=== PATIENT | male | born 1945 | race Caucasian/White ===

== ENCOUNTER 2017-08-18 04:07 | Inpatient (IN) | payer OTHER, MEDICARE ==
[~2017-08-18] VITALS: Ht 182.9 cm; Wt 108.9 kg
[~2017-08-18 04:07] MED LIST changes: -METF-410 PO; +METF-411 PO; -POTA10CA40 PO
--- NOTE | 2017-08-18 04:21 | ER Report ---
History and Physical Time Seen By MD: 04:19 (ALEJANDRA BROWN MD) HPI/ROS CHIEF COMPLAINT: Falls, elevated blood glucose, altered HISTORY OF PRESENT ILLNESS: This is a 72-year-old male. He was brought to the ER this morning by EMS. They responded to his home twice during the night for falls. The first time they saw him, he refused care and seemed to be okay. The second time he fell, he was noted to be confused as well. The patient had an elevated blood glucose, the EMS glucometer read "hi". His is out of town and he does not know what medications he takes, and has not taken any medication since his left. He smelled of urine and has closed don't look like they've been changed in several days. He is able to answer simple questions for me, but complex answers he cannot give. He denies having any pain , denies chest pain, abdominal pain, or pain in his back, neck or head. No pain in the extremities. He denies feeling short of breath. He denies having nausea or vomiting. He is oriented to self and place, but not time. With his falls, it is uncertain if he lost consciousness or not or what the exact conditions were. He does not remember falling. REVIEW OF SYSTEMS: Constitutional: Denies having any fevers or chills. Eyes: Denies any changes to his vision at this time. ENT: No sore throat. No congestion. Cardiovascular: As above. Respiratory: No cough. Gastrointestinal: He does not know when his last bowel movement was. Genitourinary: Denies any pain with urinating. Denies urinary frequency but also was not oriented to time. Musculoskeletal: As above. Neurological: Denies headache. He does have weakness. (ALEJANDRA BROWN MD) Allergies: Coded Allergies: ibuprofen (Verified Allergy, Intermediate, 03/05/17) bupropion (Verified Allergy, Mild, 03/05/17) cephalexin (Verified Allergy, Mild, 03/05/17) dicloxacillin (Verified Allergy, Mild, 03/05/17) metronidazole (Verified Allergy, Mild, 03/05/17) Home Meds Reported Medications Melatonin (MELATONIN) 3 Mg Tablet, 3 MG PO HS 08/18/17 Potassium Chloride (POTASSIUM CHLORIDE) 10 Meq Capsule.er, 10 MEQ PO BID 08/18/17 Liraglutide (VICTOZA 2-RADHA) 0.6 Mg/0.1 Ml Pen.injctr, 1.2 MG SQ 03/05/17 Lansoprazole (PREVACID) 30 Mg Capsule.dr, 30 MG PO HS, CAP 03/05/17 Sitagliptin Phosphate (JANUVIA) 100 Mg Tablet, 100 MG PO HS, 03/05/17 Rivaroxaban 20 Mg (XARELTO 20 MG) 20 Mg Tablet, 20 MG PO DAILY, TAB 03/05/17 Furosemide (FUROSEMIDE) 20 Mg Tablet, 1 TAB PO DAILY, TAB 03/05/17 Metformin Hcl (METFORMIN HCL) 500 Mg Tablet, 2 TAB PO BID, TAB 03/05/17 Ropinirole Hcl (ROPINIROLE HCL) 2 Mg Tablet, 2 MG PO HS 03/05/17 Ropinirole Hcl (ROPINIROLE HCL) 0.5 Mg Tablet, 1-2 TAB PO HS Y for RLS exacerbation 03/05/17 Atorvastatin Calcium (LIPITOR) 10 Mg Tablet, 1 TAB PO QDAY, TAB 03/05/17 Lisinopril (LISINOPRIL) 10 Mg Tablet, 10 MG PO QDAY, TAB HOLD FOR SYSTOLIC BLOOD PRESSURE (HIGH NUMBER) LESS THAN 140 03/05/17 Pioglitazone Hcl (PIOGLITAZONE HCL) 30 Mg Tablet, 30 MG PO QDAY 03/05/17 Levothyroxine Sodium (SYNTHROID) 175 Mcg Tablet, 175 MCG PO QDAY 03/05/17 Gabapentin (NEURONTIN) 300 Mg Capsule, 300 MG PO TID 05/13/13 Paroxetine Hcl (Paxil) 20 Mg Tab, 40 MG PO QHS, 0 Refills TAKE IN THE EVENING STARTING 03/09/17. 12/27/10 Albuterol/Ipratropium (Combivent Inhaler) 14.7 Gm Aer.w.adap, 14.7 GM IH BID, 0 Refills 12/27/10 Tiotropium Ward (Spiriva (Or Equiv)) 18 Mcg Inh, 1 PUFF INH DAILY, 0 Refills 12/27/10 Oxygen (Oxygen) 2 L Inha, 5 L INH DAILY, 0 Refills 5L/min continuously 12/27/10 Discontinued Reported Medications Potassium Chloride (Klor-Con/K-Dur/Micro K) 20 Meq Tabcr, 10 MEQ PO BID, 0 Refills 12/27/10 Past Medical/Surgical History Coronary artery disease, COPD, hypertension, hypothyroidism, hyperlipidemia, type 2 diabetes, history of DVT, pulmonary hypertension, restless leg syndrome, GERD, gastroparesis, essential tremor (ALEJANDRA BROWN MD) Reviewed Nurses Notes: Yes (ALEJANDRA BROWN MD) Hx Smoking: No Smoking Status: Never Smoker Exposure to Second Hand Smoke?: No Hx Substance Use Disorder: No Hx Alcohol Use: Yes (ALEJANDRA BROWN MD) Constitutional Vital Sign - Last 24 Hours 08/18/17 08/18/17 08/18/17 08/18/17 04:07 04:13 04:16 04:22 Temp 98.6 Pulse ??? 70 78 Resp 14 B/P (MAP) 118/75 118/75 (89) Pulse Ox 97 100 O2 Delivery Room Air 08/18/17 08/18/17 08/18/17 08/18/17 04:30 04:37 04:48 04:52 Pulse 67 72 Resp 11 B/P (MAP) 111/67 (82) Pulse Ox 98 98 O2 Flow Rate 3.0 08/18/17 08/18/17 08/18/17 08/18/17 05:00 05:05 05:20 05:30 Pulse 69 68 Resp 7 B/P (MAP) 122/69 (86) 115/75 (88) 08/18/17 08/18/17 08/18/17 08/18/17 05:35 05:50 06:00 06:05 Pulse 67 71 Resp 11 13 10 B/P (MAP) 114/64 (81) Pulse Ox 94 93 08/18/17 08/18/17 08/18/17 08/18/17 06:20 07:02 07:07 07:12 Pulse 68 66 68 Resp 15 12 24 B/P (MAP) 131/71 (91) Pulse Ox 97 98 95 08/18/17 08/18/17 08/18/17 08/18/17 07:17 07:22 07:27 07:30 Pulse 68 66 65 Resp 0 14 22 B/P (MAP) 117/90 (99) Pulse Ox 98 99 97 08/18/17 08/18/17 08/18/17 08/18/17 07:37 07:42 07:47 07:52 Pulse 67 65 66 66 Resp 12 9 13 11 Pulse Ox 97 98 96 96 08/18/17 08/18/17 08/18/17 08/18/17 07:57 08:00 08:02 08:07 Pulse 64 65 64 Resp 11 19 B/P (MAP) 122/68 (86) Pulse Ox 96 96 08/18/17 08/18/17 08/18/17 08/18/17 08:22 08:27 08:30 08:41 Pulse 63 62 Resp 16 B/P (MAP) 112/62 (79) 132/68 (89) Pulse Ox 95 08/18/17 08/18/17 08/18/17 08/18/17 08:47 09:00 09:07 09:12 Pulse 61 62 61 Resp 14 10 15 B/P (MAP) 122/69 (86) Pulse Ox 97 95 97 08/18/17 08/18/17 09:22 09:30 Pulse 63 Resp 22 B/P (MAP) 127/69 (88) Pulse Ox 95 Intake and Output 08/18/17 08/18/17 08/19/17 15:00 23:00 07:00 Intake Total 1000 ml Balance 1000 ml (VEGA SANDHU MD) Physical Exam General Appearance: The patient is alert. No acute distress. Eyes: Pupils are equal, round. Reactive to light. No pallor, injection or icterus. Extraocular movements are intact. ENT: Mucous membranes are dry, but otherwise normal mucosa. Posterior oropharynx is normal. Normal nasal mucosa. Normal tympanic membranes and canals. Neck: Supple and non tender. No lymphadenopathy. Respiratory: Lungs are clear to auscultation. Cardiovascular: Regular rate and rhythm. No murmurs, gallops or rubs. Normal capillary refill. He has 2+ edema in the ankles and lower legs. Gastrointestinal: Abdomen is soft, non-tender. Nondistended. No masses or organomegaly. Normal active bowel sounds. No costovertebral angle tenderness with percussion. Neurological: Oriented to place and self, but not to event and time. Generalized weakness. Moving arms and legs. Other than general weakness, no focal weakness. Has some decreased sensation both feet, but otherwise sensation is normal. Skin: Warm and dry. Skin tear on leg. Some abrasions on elbows and forearms. Skin changes from chronic edema. Otherwise negative. Musculoskeletal: Extremities are nontender. Full range of motion. No tenderness in palpation of the cervical, thoracic and lumbar spine. DIFFERENTIAL DIAGNOSIS: After history and physical exam, differential diagnosis was considered for 72-year-old male with type 2 diabetes and other medical problems as noted above who has had several falls tonight, at least to that we know of. He has generalized weakness. He is having altered mental status. His blood sugar is elevated and he is not taking his medicines. He also appears to be somewhat altered as far as mental status goes. With suspect this is a metabolic problem, likely due to his diabetes but given his other history cannot rule out other cardiac or medical problems. ([facility]) Medical Decision Making Data Points Result Diagram: 08/20/17 0506 08/20/17 0506 Laboratory Hematology Test 08/18/17 04:10 08/18/17 04:33 08/18/17 09:10 Red Blood Count 4.81 M/uL (4.00-5.60) Mean Corpuscular Volume 90.1 fL (80.0-96.0) Mean Corpuscular Hemoglobin 30.2 pg (26.0-33.0) Mean Corpuscular Hemoglobin Concent 33.5 g/dL (32.0-36.0) Red Cell Distribution Width 14.0 % (11.5-14.5) Mean Platelet Volume 9.3 fL (7.2-11.1) Neutrophils (%) (Auto) 73.3 % (39.4-72.5) Lymphocytes (%) (Auto) 15.8 % (17.6-49.6) Monocytes (%) (Auto) 8.2 % (4.1-12.4) Eosinophils (%) (Auto) 2.4 % (0.4-6.7) Basophils (%) (Auto) 0.3 % (0.3-1.4) Nucleated RBC Relative Count (auto) 0.0 /100WBC Neutrophils # (Auto) 4.6 K/uL (2.0-7.4) Lymphocytes # (Auto) 1.0 K/uL (1.3-3.6) Monocytes # (Auto) 0.5 K/uL (0.3-1.0) Eosinophils # (Auto) 0.2 K/uL (0.0-0.5) Basophils # (Auto) 0.0 K/uL (0.0-0.1) Nucleated RBC Absolute Count (auto) 0.00 K/uL Sodium Level 130 mmol/L (137-145) Potassium Level 4.0 mmol/L (3.5-5.0) Chloride Level 93 mmol/L (98-107) Carbon Dioxide Level 20 mmol/L (22-30) Blood Urea Nitrogen 37 mg/dl (9-21) Creatinine 0.90 mg/dl (0.66-1.25) Glomerular Filtration Rate Calc > 60.0 Random Glucose 660 mg/dl (75-110) Calcium Level 10.4 mg/dl (8.4-10.2) Total Bilirubin 0.9 mg/dl (0.2-1.3) Aspartate Amino Transf (AST/SGOT) 23 U/L (0-35) Alanine Aminotransferase (ALT/SGPT) 36 U/L (0-56) Alkaline Phosphatase 165 U/L (0-126) Troponin I < 0.012 ng/ml B-Type Natriuretic Peptide 18 pg/ml (0-100) Total Protein 7.5 gm/dl (6.3-8.2) Albumin 4.1 g/dl (3.5-5.0) Serum Alcohol < 10 mg/dl Acetone, Qualitative Negative Urine Color Straw Urine Clarity Clear Urine pH 5.0 pH (4.8-9.5) Urine Specific [place] 1.028 Urine Protein Negative mg/dL (NEGATIVE) Urine Glucose (UA) 500 mg/dL (NEGATIVE) Urine Ketones Trace mg/dL (NEGATIVE) Urine Blood Negative (NEGATIVE) Urine Nitrite Negative (NEGATIVE) Urine Bilirubin Negative (NEGATIVE) Urine Urobilinogen Negative mg/dL (0.2-1.9) Urine Leukocyte Esterase Negative (NEGATIVE) Urine RBC <1 /HPF (0-2/HPF) Urine WBC <1 /HPF (0-5/HPF) Urine Squamous Epithelial Cells Few /LPF (</=FEW) Urine Bacteria Negative /HPF (NONE-FEW) Urine Mucus None /HPF (NONE-FEW) Whole Blood Glucose 428 mg/DL (75-110) Chemistry Test 08/18/17 04:10 08/18/17 04:33 08/18/17 09:10 White Blood Count 6.3 k/uL (4.5-11.0) Red Blood Count 4.81 M/uL (4.00-5.60) Hemoglobin 14.5 g/dL (14.0-18.0) Hematocrit 43.3 % (42.0-52.0) Mean Corpuscular Volume 90.1 fL (80.0-96.0) Mean Corpuscular Hemoglobin 30.2 pg (26.0-33.0) Mean Corpuscular Hemoglobin Concent 33.5 g/dL (32.0-36.0) Red Cell Distribution Width 14.0 % (11.5-14.5) Platelet Count 148 K/uL (150-450) Mean Platelet Volume 9.3 fL (7.2-11.1) Neutrophils (%) (Auto) 73.3 % (39.4-72.5) Lymphocytes (%) (Auto) 15.8 % (17.6-49.6) Monocytes (%) (Auto) 8.2 % (4.1-12.4) Eosinophils (%) (Auto) 2.4 % (0.4-6.7) Basophils (%) (Auto) 0.3 % (0.3-1.4) Nucleated RBC Relative Count (auto) 0.0 /100WBC Neutrophils # (Auto) 4.6 K/uL (2.0-7.4) Lymphocytes # (Auto) 1.0 K/uL (1.3-3.6) Monocytes # (Auto) 0.5 K/uL (0.3-1.0) Eosinophils # (Auto) 0.2 K/uL (0.0-0.5) Basophils # (Auto) 0.0 K/uL (0.0-0.1) Nucleated RBC Absolute Count (auto) 0.00 K/uL Glomerular Filtration Rate Calc > 60.0 Calcium Level 10.4 mg/dl (8.4-10.2) Total Bilirubin 0.9 mg/dl (0.2-1.3) Aspartate Amino Transf (AST/SGOT) 23 U/L (0-35) Alanine Aminotransferase (ALT/SGPT) 36 U/L (0-56) Alkaline Phosphatase 165 U/L (0-126) Troponin I < 0.012 ng/ml B-Type Natriuretic Peptide 18 pg/ml (0-100) Total Protein 7.5 gm/dl (6.3-8.2) Albumin 4.1 g/dl (3.5-5.0) Serum Alcohol < 10 mg/dl Acetone, Qualitative Negative Urine Color Straw Urine Clarity Clear Urine pH 5.0 pH (4.8-9.5) Urine Specific [place] 1.028 Urine Protein Negative mg/dL (NEGATIVE) Urine Glucose (UA) 500 mg/dL (NEGATIVE) Urine Ketones Trace mg/dL (NEGATIVE) Urine Blood Negative (NEGATIVE) Urine Nitrite Negative (NEGATIVE) Urine Bilirubin Negative (NEGATIVE) Urine Urobilinogen Negative mg/dL (0.2-1.9) Urine Leukocyte Esterase Negative (NEGATIVE) Urine RBC <1 /HPF (0-2/HPF) Urine WBC <1 /HPF (0-5/HPF) Urine Squamous Epithelial Cells Few /LPF (</=FEW) Urine Bacteria Negative /HPF (NONE-FEW) Urine Mucus None /HPF (NONE-FEW) Whole Blood Glucose 428 mg/DL (75-110) Toxicology Test 08/18/17 04:10 Serum Alcohol < 10 mg/dl Acetone, Qualitative Negative Urinalysis Test 08/18/17 04:33 Urine Color Straw Urine Clarity Clear Urine pH 5.0 pH (4.8-9.5) Urine Specific [place] 1.028 Urine Protein Negative mg/dL (NEGATIVE) Urine Glucose (UA) 500 mg/dL (NEGATIVE) Urine Ketones Trace mg/dL (NEGATIVE) Urine Blood Negative (NEGATIVE) Urine Nitrite Negative (NEGATIVE) Urine Bilirubin Negative (NEGATIVE) Urine Urobilinogen Negative mg/dL (0.2-1.9) Urine Leukocyte Esterase Negative (NEGATIVE) Urine RBC <1 /HPF (0-2/HPF) Urine WBC <1 /HPF (0-5/HPF) Urine Squamous Epithelial Cells Few /LPF (</=FEW) Urine Bacteria Negative /HPF (NONE-FEW) Urine Mucus None /HPF (NONE-FEW) (VEGA SANDHU MD) EKG/Imaging EKG Interpretation 12 lead EKG: Rhythm: normal sinus rhythm, rate 68 Mobile: normal QRS: Prolonged QT ST segments: Nonspecific Imaging CT Head without contrast Indication: Fall. Confusion. Comparison: 12/22/2013 Technique: Axial CT images were obtained through the brain from the skull base to the vertex without administration of IV contrast. Reformatted coronal and sagittal images were also obtained. One of the following dose optimization techniques was utilized in the performance of this exam: Automated exposure control; adjustment of the mA and/ or kV according to the patient's size; or use of an iterative reconstruction technique. Specific details can be referenced in the facility's radiology CT exam operational policy. Findings: No evidence of mass, mass effect, or midline shift. No acute intracranial hemorrhage or acute territorial infarction. There are mild periventricular white matter changes seen bilaterally suggesting chronic small vessel ischemia. Mild prominence of the lateral ventricles and sulci compatible with mild cerebral atrophy. Old lacunar infarct versus Virchow-Fritz space is seen within the right insular cortex. This is also stable. The visualized paranasal sinuses and mastoid air cells are clear. IMPRESSION: 1. No acute intracranial abnormality. 2. Mild diffuse cerebral atrophy. Report Dictated By: Dangelo Cameron at 08/18/2017 6:[address] Head without contrast Indication: Fall. Confusion. Comparison: 12/22/2013 Technique: Axial CT images were obtained through the brain from the skull base to the vertex without administration of IV contrast. Reformatted coronal and sagittal images were also obtained. One of the following dose optimization techniques was utilized in the performance of this exam: Automated exposure control; adjustment of the mA and/ or kV according to the patient's size; or use of an iterative reconstruction technique. Specific details can be referenced in the facility's radiology CT exam operational policy. Findings: No evidence of mass, mass effect, or midline shift. No acute intracranial hemorrhage or acute territorial infarction. There are mild periventricular white matter changes seen bilaterally suggesting chronic small vessel ischemia. Mild prominence of the lateral ventricles and sulci compatible with mild cerebral atrophy. Old lacunar infarct versus Virchow-Fritz space is seen within the right insular cortex. This is also stable. The visualized paranasal sinuses and mastoid air cells are clear. IMPRESSION: 1. No acute intracranial abnormality. 2. Mild diffuse cerebral atrophy. Report Dictated By: Dangelo Cameron at 08/18/2017 6:11 AM (ALEJANDRA BROWN MD) Imaging FACILITY: [facility] [place] PATIENT NAME: Geoff Dinh : 1945 MR: [id number] V: [id number] EXAM DATE: ORDERING PHYSICIAN: ALEJANDRA BROWN TECHNOLOGIST: Location: [facility] [place] Patient: Geoff Dinh : 1945 Visit/Account:[id number] Date of Sevice: 08/18/2017 CT Head without contrast Indication: Fall. Confusion. Comparison: 12/22/2013 Technique: Axial CT images were obtained through the brain from the skull base to the vertex without administration of IV contrast. Reformatted coronal and sagittal images were also obtained. One of the following dose optimization techniques was utilized in the performance of this exam: Automated exposure control; adjustment of the mA and/ or kV according to the patient's size; or use of an iterative reconstruction technique. Specific details can be referenced in the facility's radiology CT exam operational policy. Findings: No evidence of mass, mass effect, or midline shift. No acute intracranial hemorrhage or acute territorial infarction. There are mild periventricular white matter changes seen bilaterally suggesting chronic small vessel ischemia. Mild prominence of the lateral ventricles and sulci compatible with mild cerebral atrophy. Old lacunar infarct versus Virchow-Fritz space is seen within the right insular cortex. This is also stable. The visualized paranasal sinuses and mastoid air cells are clear. IMPRESSION: 1. No acute intracranial abnormality. 2. Mild diffuse cerebral atrophy. Report Dictated By: Dangelo Cameron at 08/18/2017 6:11 AM Report E-Signed By: Dangelo Cameron at 08/18/2017 6:18 AM WSN:[id number] FACILITY: [facility] [place] PATIENT NAME: Geoff Dinh : 1945 MR: [id number] V: [id number] EXAM DATE: ORDERING PHYSICIAN: ALEJANDRA BROWN TECHNOLOGIST: Location: [facility] [place] Patient: Geoff Dinh : 1945 Visit/Account:[id number] Date of Sevice: 08/18/2017 CT chest abdomen and pelvis with contrast INDICATION: Fall. Altered mental status. Abnormal chest x-ray. Pain. Back pain. COMPARISON: None available Technique: Axial CT images are obtained through the chest abdomen and pelvis after administration of 75 mL [id number] IV contrast. Reformatted coronal and sagittal images were reviewed. One of the following dose optimization techniques was utilized in the performance of this exam: Automated exposure control; adjustment of the mA and/ or kV according to the patient's size; or use of an iterative reconstruction technique. Specific details can be referenced in the facility's radiology CT exam operational policy. FINDINGS: CT Chest: There is no evidence of mediastinal hematoma. No pericardial effusion or pleural effusion. No axillary adenopathy. No hilar or mediastinal adenopathy. Examination of the lung windows demonstrates changes of centrilobular emphysema most pronounced within the upper lobes. No evidence of pneumothorax or pulmonary contusion. Within the left lower lobe, there is a small nodule identified on image 66 which measures 5 mm in size. There is a pulmonary nodule seen centrally within the left lower lobe. This is seen on image 59 of series # 3. This measures 1.6 x 1.5 cm. Concern is for possible neoplasm. PET CT could be performed for further assessment. No other pulmonary nodules. With respect to the osseous structures, no displaced rib fractures are seen. There is diffuse idiopathic skeletal hyperostosis of the thoracic spine. No compression deformity is seen. CT Abdomen and Pelvis: Liver: No focal parenchymal abnormality of the liver. Biliary: Layering gallstones are seen within the gallbladder. No surrounding inflammation. No intrahepatic or extrahepatic biliary dilatation is seen. Pancreas: Normal appearance. Spleen: Normal appearance. Adrenal glands: Unremarkable. Kidneys / retroperitoneum: Too small to characterize low-attenuation lesion is seen within the right kidney. This measures 7 mm in size. There is also artifact in this region from the right upper extremity. Statistically this represents a cyst. No stones or hydronephrosis are identified. Bowel / peritoneum / mesenteries: Moderate amount of stool within the distal colon and rectum. Scattered colonic diverticula are seen. No evidence of diverticulitis. No dilated small bowel loops. Lymph node assessment: No pathologic adenopathy identified. Pelvic structures: Appear unremarkable. Vessels: Scattered atherosclerotic calcifications seen throughout a nonaneurysmal abdominal aorta and branches. Musculoskeletal / Body wall: Extensive degenerative changes involve the lumbar spine. Protuberant endplate spurs at multiple levels both anteriorly and posteriorly. There is anterolisthesis of L4 upon L5. No acute compression deformity is seen. Posterior spurs at the T12-L1 and L1-L2 disc spaces cause spinal canal narrowing most pronounced at L1-L2. Narrowing is also seen at L3- L4. 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 There has been prior plate and screw fixation of the proximal left femur. Suspected benign bone island within the right posterior iliac crest. Comparison with any older studies would be useful. IMPRESSION: 1. No acute traumatic injury identified within the chest abdomen or pelvis. 2. Suspicious nodule within the left lower lobe centrally measuring 1.6 cm in greatest dimension. PET CT recommended for further workup. A second nodule is seen within the lower lobe measuring 5 mm. 3. Cholelithiasis. 4. Extensive degenerative changes of the lumbar spine with posterior spurring causing multilevel spinal canal narrowing m st pronounced at L1-L2. No acute fracture identified. 5. Colonic diverticulosis. No evidence of diverticulitis. Report Dictated By: Dangelo Cameron at 08/18/2017 7:21 AMReport E-Signed By: Dangelo Cameron at 08/18/2017 7:42 AM WSN:[id number] FACILITY: [facility] [place] PATIENT NAME: Geoff Dinh : 1945 MR: [id number] V: [id number] EXAM DATE: [id number] ORDERING PHYSICIAN: ALEJANDRA BROWN TECHNOLOGIST: Location: [facility] [place] Patient: Geoff Dinh : 1945 Visit/Account:[id number] Date of Sevice: 08/18/2017 CHEST SINGLE AP Indication: Fall. Confusion. Comparison: 11/05/2013 Findings: The patient is rotated. A left mid to upper lung opacity is likely related to the first rib at the junction with the sternal manubrium. Consider a repeat PA view. Linear atelectasis is seen within the right lung base. Lungs are otherwise clear. No pleural effusion or pneumothorax is seen. Heart size and mediastinal contours are normal. IMPRESSION: 1. Linear atelectasis right lung base. 2. Left mid to upper lung opacity felt to be related to patient positioning and overlying osseous structures. A repeat exam could be performed for confirmation. Report Dictated By: Dangelo Cameron at 08/18/2017 5:28 AM Report E-Signed By: Dangelo Cameron at 08/18/2017 5:32 AM WSN:[id number] FACILITY: [facility] [place] PATIENT NAME: Geoff Dinh : 1945 MR: [id number] V: [id number] EXAM DATE: [id number] ORDERING PHYSICIAN: ALEJANDRA BROWN TECHNOLOGIST: Location: [facility] [place] Patient: Geoff Dinh : 1945 Visit/Account:[id number] Date of Sevice: 08/18/2017 L-SPINE W CONTRAST History: low back and flank pain, fall COMPARISON STUDIES: none TECHNIQUE: Contiguous axial images were obtained through the lumbar spine without IV contrast administration. Coronal and sagittal reformatted images were obtained from the axial source data. One of the following dose optimization techniques was utilized in the performance of this exam: Automated exposure control; adjustment of the mA and/or kV according to the patient's size ; or use of an iterative reconstruction technique. Specific details can be referenced in the facility's radiology CT exam operational policy. FINDINGS: Alignment: There is 6 mm anterolisthesis L4 over L5 secondary to degenerative facet hypertrophy. Vertebral bodies: Osseous structures intact. No evidence of fracture. Discs: There is degenerative disc disease at virtually every level of the lumbar spine. L1-2-there is a prominent posterior bridging disc osteophyte complex which is causing neural foraminal stenosis. [id number] disc space narrowing L3-4-mild central reactive endplate central osteophyte. L4-5-grade 1 spondylolisthesis secondary to degenerative facet arthropathy which is causing moderate to advanced neural foraminal stenosis. O4-N8-[id number] disc space narrowing with near [id number] abutment and facet arthropathy causing advanced right-sided neural foraminal stenosis. Para-vertebral soft tissues: Multiple small stones layer dependently in the gallbladder. There is no evidence of retroperitoneal hemorrhage. Additional findings: 1.4 cm round sclerotic lesion is seen in the right iliac bone near the SI joint. This is a nonspecific finding. IMPRESSION: Negative for acute trauma. Multilevel degenerative disc disease per above. Cholelithiasis. Sclerotic lesion right iliac bone. This probably represents a benign bone island. However, if patient has history of prostate cancer, blastic metastasis cannot be excluded. Report Dictated By: Alexis Ulloa MD at 08/18/2017 7:57 AM Report E-Signed By: Alexis Ulloa MD at 08/18/2017 8:06 AM WSN:[id number] FACILITY: [facility] - [place] PATIENT NAME: Geoff Dinh : 1945 MR: [id number] V: [id number] EXAM DATE: ORDERING PHYSICIAN: ALEJANDRA BROWN TECHNOLOGIST: Location: [facility] [place] Patient: Geoff Dinh : 1945 Visit/Account:[id number] Date of ice: 08/18/2017 T-SPINE W CONTRAST INDICATION: Trauma COMPARISON: None TECHNIQUE: Noncontrast thoracic spine CT was performed with sagittal and coronal reformations. One of the following dose optimization techniques was utilized in the performance of this exam: automated exposure control; adjustment of the mA and/or kV according to patient size; or use of iterative reconstruction technique. Specific details can be referenced in the facility's radiology CT exam operational policy. FINDINGS: Vertebral body heights are normal. No fracture identified. Exaggerated thoracic kyphosis. Multilevel anterior endplate spurring in keeping with diffuse idiopathic skeletal hyperostosis. Ossification of the posterior longitudinal ligament at the T12, L1 and L2 levels. Multilevel partial disc space fusion. Mild to moderate narrowing of the mid to lower disc spaces. Ossification of the posterior longitudinal ligament at the L2 level results in lateral recess narrowing and potential moderate canal narrowing not well characterized by CT. Mild emphysema noted. IMPRESSION: No acute thoracic spine abnormality. Benign diffuse idiopathic skeletal hyperostosis. Ossification of the posterior longitudinal ligament at the T12, L1 and L2 levels. Report Dictated By: Adilson Long MD at 08/18/2017 9:49 AM Report E-Signed By: Adilson Long MD at 08/18/2017 9:55 AM WSN:[id number] FACILITY: [facility] [place] PATIENT NAME: Geoff Dinh : 1945 MR: [id number] V: [id number] EXAM DATE: ORDERING PHYSICIAN: ALEJANDRA BROWN TECHNOLOGIST: Location: [facility] [place] Patient: Geoff Dinh : 1945 Visit/Account:[id number] Date of ice: 08/18/2017 EXAMINATION: CT Cervical spine without intravenous contrast HISTORY: Trauma COMPARISON: May 13, 2013 TECHNIQUE: Axial images were obtained from the skull base through the upper thoracic spine without IV contrast administration. Coronal and sagittal reformatted images were generated from the axial source data. One of the following dose optimization techniques was utilized in the performance of this exam: automated exposure control; adjustment of the mA and/ or kV according to patient size; or use of iterative reconstruction technique. Specific details can be referenced in the facility's radiology CT exam operational policy. FINDINGS: Vertebral bodies and posterior elements: Normal vertebral body heights. No fracture or osseous destruction. Unchanged ossification of the posterior longitudinal ligament at the C4, C5 and C6 levels most pronounced at the C6 level measuring 4 mm AP dimension. Alignment: Normal. Disc Spaces: Anterior flowing ossification at the C4-C6 levels. Mild C6-7 disc space degeneration. Severe narrowing of the proximal left C5-6 foramen. Moderate right C5-6 foraminal narrowing. Moderate left and severe right C6-7 foraminal narrowing. Soft tissues: Normal. Visualized upper chest: Mild emphysema. IMPRESSION: No acute fracture or acute abnormality. Unchanged ossification of the posterior longitudinal ligament most pronounced at C6. Additional degenerative comments described above. Report Dictated By: Adilson Long MD at 08/18/2017 9:41 AM Report E-Signed By: Adilson Long MD at 08/18/2017 10:28 AM WSN:[id number] (VEGA SANDHU MD) ED Course/Re-evaluation Clinical Indication for ER IV: Hydration, IV Access ED Course After the initial evaluation, the patient did have some continued confusion. Swanson CT scan is pending at this time. Chest x-ray negative. Patient did have Elevated blood sugar, mild low sodium, BUN/creatinine ratio was elevated at 37/ 0.9. Troponin negative, BNP negative. Turned over to Dr. Sandhu awaiting CT results. Discussed briefly with Dr. Ying recommending admission pending CT results. [facility] ED Course 08/18/2017 10:40:19 am patient with altered mental status secondary to likely discontinuation of medications. Glucose is improved while in the emergency department. Patient was accepted for admission at this time Decision to Disposition Date: August 18, 2017 Decision to Disposition Time: 10:40 (VEGA SANDHU MD) Depart Departure Latest Vital Signs Vital Signs Date Time Temp Pulse Resp B/P (MAP) Pulse Ox O2 Delivery O2 Flow Rate FiO2 08/18/17 09:30 127/69 (88) 08/18/17 09:22 63 22 95 08/18/17 04:48 3.0 08/18/17 04:13 98.6 Room Air (VEGA SANDHU MD) Impression: Primary Impression: Hyperglycemia Condition: Improved Disposition: Admitted from ER (to luis Ying) Referrals: VELMA WILLIAMSON DO (PCP) ALEJANDRA BROWN MD August 18, 2017 04:20 VEGA SANDHU MD August 18, 2017 08:55
[2017-08-18 04:49] LABS: PLATELET COUNT, AUTOMATED 148 K/uL (150-450)
--- NOTE | 2017-08-18 05:36 | RADIOLOGY IMAGING REPORT ---
FACILITY: [facility] - [place] PATIENT NAME: Geoff Dinh : 1945 MR: [id number] V: [id number] EXAM DATE: ORDERING PHYSICIAN: ALEJANDRA BROWN TECHNOLOGIST: Location: [facility] - [place] Patient: Geoff Dinh : 1945 Visit/Account:[id number] Date of Sevice: 08/18/2017 CHEST SINGLE AP Indication: Fall. Confusion. Comparison: 11/05/2013 Findings: The patient is rotated. A left mid to upper lung opacity is likely related to the first rib at the ju nction with the sternal manubrium. Consider a repeat PA view. Linear atelectasis is seen within the r ight lung base. Lungs are otherwise clear. No pleural effusion or pneumothorax is seen. Heart size an d mediastinal contours are normal. IMPRESSION: 1. Linear atelectasis right lung base. 2. Left mid to upper lung opacity felt to be related to patient positioning and overlying osseous str uctures. A repeat exam could be performed for confirmation. Report Dictated By: Dangelo Cameron at 08/18/2017 5:28 AM Report E-Signed By: Dangelo Cameron at 08/18/2017 5:32 AM WSN:[id number]
--- NOTE | 2017-08-18 06:02 | EKG ---
FACILITY: [facility] - [place] PATIENT NAME: LEONARDO CUMMINS : [id number] MR: [id number] V: [id number] EXAM DATE: ORDERING PHYSICIAN: ALEJANDRA BROWN TECHNOLOGIST: TOY Test Reason : FALL Blood Pressure : / mmHG Vent. Rate : 068 BPM Atrial Rate : 068 BPM P-R Int : 148 ms QRS Dur : 102 ms QT Int : 462 ms P-R-T Axes : 060 041 043 degrees QTc Int : 491 ms Sinus rhythm Nonspecific ST findings Prolonged QT Abnormal ECG No previous ECGs available Confirmed by JOHN CORDERO ([id number]) on 08/18/2017 6:20:41 AM Referred By: Confirmed By:JOHN CORDERO
[2017-08-18] MEDS ORDERED: INSU HUM REG 100 U/ML(ER ONLY) 10 ML VIAL SUBQ ONE (06:05)
--- NOTE | 2017-08-18 06:22 | RADIOLOGY IMAGING REPORT ---
FACILITY: [facility] PATIENT NAME: Geoff Dinh : 1945 MR: [id number] V: [id number] EXAM DATE: ORDERING PHYSICIAN: ALEJANDRA BROWN TECHNOLOGIST: Location: [facility] Patient: Geoff Dinh : 1945 Visit/Account:[id number] Date of Sevice: 08/18/2017 CT Head without contrast Indication: Fall. Confusion. Comparison: 12/22/2013 Technique: Axial CT images were obtained through the brain from the skull base to the vertex without administration of IV contrast. Reformatted coronal and sagittal images were also obtained. One of the following dose optimization techniques was utilized in the performance of this exam: Autom ated exposure control; adjustment of the mA and/or kV according to the patient's size; or use of an i terative reconstruction technique. Specific details can be referenced in the facility's radiology C T exam operational policy. Findings: No evidence of mass, mass effect, or midline shift. No acute intracranial hemorrhage or acute territorial infarction. There are mild periventricular white matter changes seen bilaterally suggesting chronic small vessel ischemia. Mild prominence of the lateral ventricles and sulci compatible with mild cerebral atrophy. Old lacun ar infarct versus Virchow-Fritz space is seen within the right insular cortex. This is also stable. The visualized paranasal sinuses and mastoid air cells are clear. IMPRESSION: 1. No acute intracranial abnormality. 2. Mild diffuse cerebral atrophy. Report Dictated By: Dangelo Cameron at 08/18/2017 6:11 AM Report E-Signed By: Dangelo Cameron at 08/18/2017 6:18 AM WSN:[id number]
[2017-08-18] MEDS ORDERED: NS(*) 0.9% 1000 ML BAG 1,000 ML IV ONE (06:25)
[2017-08-18] MEDS ORDERED: IOPAMIDOL 76% 75 ML INFUS BTL 75 ML ONE (06:26)
--- NOTE | 2017-08-18 07:47 | RADIOLOGY IMAGING REPORT ---
FAC[place]: [facility] [place]IENT NAME: Geoff Dinh : 1945 MR: [id number] V: [id number] EXAM DATE: ORDERING PHYSICIAN: ALEJANDRA BROWN TECHNOLOGIST: Location: [facility] Patient: Geoff Dinh : 1945 Visit/Account:[id number] Date of Sevice: 08/18/2017 CT chest abdomen and pelvis with contrast INDICATION: Fall. Altered mental status. Abnormal chest x-ray. Pain. Back pain. COMPARISON: None available Technique: Axial CT images are obtained through the chest abdomen and pelvis after administration of 75 mL Isovue-370 IV contrast. Reformatted coronal and sagittal images were reviewed. One of the following dose optimization techniques was utilized in the performance of this exam: Autom ated exposure control; adjustment of the mA and/or kV according to the patient's size; or use of an i terative reconstruction technique. Specific details can be referenced in the facility's radiology C T exam operational policy. FINDINGS: CT Chest: There is no evidence of mediastinal hematoma. No pericardial effusion or pleural effusion. No axillary adenopathy. No hilar or mediastinal adenopathy. Examination of the lung windows demonstrates changes of centrilobular emphysema most pronounced withi n the upper lobes. No evidence of pneumothorax or pulmonary contusion. Within the left lower lobe, th ere is a small nodule identified on image 66 which measures 5 mm in size. There is a pulmonary nodule seen centrally within the left lower lobe. This is seen on image 59 of series #3. This measures 1.6 x 1.5 cm. Concern is for possible neoplasm. PET CT could be performed for further assessment. No othe r pulmonary nodules. With respect to the osseous structures, no displaced rib fractures are seen. There is diffuse idiopat hic skeletal hyperostosis of the thoracic spine. No compression deformity is seen. CT Abdomen and Pelvis: Liver: No focal parenchymal abnormality of the liver. Biliary: Layering gallstones are seen within the gallbladder. No surrounding inflammation. No intrahe patic or extrahepatic biliary dilatation is seen. Pancreas: Normal appearance. Spleen: Normal appearance. Adrenal glands: Unremarkable. Kidneys / retroperitoneum: Too small to characterize low-attenuation lesion is seen within the right kidney. This measures 7 mm in size. There is also artifact in this region from the right upper extrem ity. Statistically this represents a cyst. No stones or hydronephrosis are identified. Bowel / peritoneum / mesenteries: Moderate amount of stool within the distal colon and rectum. Scatte red colonic diverticula are seen. No evidence of diverticulitis. No dilated small bowel loops. Lymph node assessment: No pathologic adenopathy identified. Pelvic structures: Appear unremarkable. Vessels: Scattered atherosclerotic calcifications seen throughout a nonaneurysmal abdominal aorta and branches. Musculoskeletal / Body wall: Extensive degenerative changes involve the lumbar spine. Protuberant end plate spurs at multiple levels both anteriorly and posteriorly. There is anterolisthesis of L4 upon L 5. No acute compression deformity is seen. Posterior spurs at the T12-L1 and L1-L2 disc spaces cause spinal canal narrowing most pronounced at L1-L2. Narrowing is also seen at L3-L4. 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 There has been prior plate and screw fixation of the proximal left femur. Suspected benign bone island within the right posterior il iac crest. Comparison with any older studies would be useful. IMPRESSION: 1. No acute traumatic injury identified within the chest abdomen or pelvis. 2. Suspicious nodule within the left lower lobe centrally measuring 1.6 cm in greatest dimension. PET CT recommended for further workup. A second nodule is seen within the lower lobe measuring 5 mm. 3. Cholelithiasis. 4. Extensive degenerative changes of the lumbar spine with posterior spurring causing multilevel spin al canal narrowing m st pronounced at L1-L2. No acute fracture identified. 5. Colonic diverticulosis. No evidence of diverticulitis. Report Dictated By: Dangelo Cameron at 08/18/2017 7:21 AMReport E-Signed By: Dangelo Cameron at 2017 7:42 AM WSN:[id number]
--- NOTE | 2017-08-18 08:10 | RADIOLOGY IMAGING REPORT ---
[place] [facility] [place] Geoff Dinh : 1945 MR: [id number] V: [id number] EXAM DATE: ORDERING PHYSICIAN: ALEJANDRA BROWN TECHNOLOGIST: Location: Patient: Geoff Dinh : 1945 Visit/Account:[id number] Date of Sevice: 08/18/2017 L-SPINE W CONTRAST History: low back and flank pain, fall COMPARISON STUDIES: none TECHNIQUE: Contiguous axial images were obtained through the lumbar spine without IV contrast admini stration. Coronal and sagittal reformatted images were obtained from the axial source data. One of th e following dose optimization techniques was utilized in the performance of this exam: Automated expo sure control; adjustment of the mA and/or kV according to the patient's size; or use of an iterative reconstruction technique. Specific details can be referenced in the facility's radiology CT exam op erational policy. FINDINGS: Alignment: There is 6 mm anterolisthesis L4 over L5 secondary to degenerative facet hypertrophy. Vertebral bodies: Osseous structures intact. No evidence of fracture. Discs: There is degenerative disc disease at virtually every level of the lumbar spine. L1-2-there is a prominent posterior bridging disc osteophyte complex which is causing neural foramin al stenosis. O6-2-xfsoubl disc space narrowing L3-4-mild central reactive endplate central osteophyte. L4-5-grade 1 spondylolisthesis secondary to degenerative facet arthropathy which is causing moderate to advanced neural foraminal stenosis. B2-G3-fxlhbslm disc space narrowing with near tadp-mu-hmja abutment and facet arthropathy causing adv anced right-sided neural foraminal stenosis. Para-vertebral soft tissues: Multiple small stones layer dependently in the gallbladder. There is no evidence of retroperitoneal hemorrhage. Additional findings: 1.4 cm round sclerotic lesion is seen in the right iliac bone near the SI joint. This is a nonspecific finding. IMPRESSION: Negative for acute trauma. Multilevel degenerative disc disease per above. Cholelithiasis. Sclerotic lesion right iliac bone. This probably represents a benign bone island. However, if patient has history of prostate cancer, blastic metastasis cannot be excluded. Report Dictated By: Alexis Ulloa MD at 08/18/2017 7:57 AM Report E-Signed By: Alexis Ulloa MD at 08/18/2017 8:06 AM WSN:[id number]
--- NOTE | 2017-08-18 09:59 | RADIOLOGY IMAGING REPORT ---
FACILITY: [facility] - [place] PATIENT NAME: Geoff Dinh : 1945 MR: [id number] V: [id number] EXAM DATE: ORDERING PHYSICIAN: ALEJANDRA BROWN TECHNOLOGIST: Location: [facility] [place] Patient: Geoff Dinh : 1945 Visit/Account:[id number] Date of Sevice: 08/18/2017 T-SPINE W CONTRAST INDICATION: Trauma COMPARISON: None TECHNIQUE: Noncontrast thoracic spine CT was performed with sagittal and coronal reformations. One o f the following dose optimization techniques was utilized in the performance of this exam: automated exposure control; adjustment of the mA and/or kV according to patient size; or use of iterative recon struction technique. Specific details can be referenced in the facility's radiology CT exam operatio nal policy. FINDINGS: Vertebral body heights are normal. No fracture identified. Exaggerated thoracic kyphosis. Multilev el anterior endplate spurring in keeping with diffuse idiopathic skeletal hyperostosis. Ossification of the posterior longitudinal ligament at the T12, L1 and L2 levels. Multilevel partial disc space fusion. Mild to moderate narrowing of the mid to lower disc spaces. Ossification of the posterior l ongitudinal ligament at the L2 level results in lateral recess narrowing and potential moderate canal narrowing not well characterized by CT. Mild emphysema noted. IMPRESSION: No acute thoracic spine abnormality. Benign diffuse idiopathic skeletal hyperostosis. Ossification of the posterior longitudinal ligament at the T12, L1 and L2 levels. Report Dictated By: Adilson Long MD at 08/18/2017 9:49 AM Report E-Signed By: Adilson Long MD at 08/18/2017 9:55 AM WSN:[id number]
--- NOTE | 2017-08-18 10:31 | RADIOLOGY IMAGING REPORT ---
[place] [facility] [place] NAME: Geoff Dinh : 1945 MR: [id number] V: [id number] EXAM DATE: ORDERING PHYSICIAN: ALEJANDRA BROWN TECHNOLOGIST: Location: Patient: Geoff Dinh : 1945 Visit/Account:[id number] Date of Sevice: 08/18/2017 EXAMINATION: CT Cervical spine without intravenous contrast HISTORY: Trauma COMPARISON: May 13, 2013 TECHNIQUE: Axial images were obtained from the skull base through the upper thoracic spine without I V contrast administration. Coronal and sagittal reformatted images were generated from the axial sour ce data. One of the following dose optimization techniques was utilized in the performance of this exam: autom ated exposure control; adjustment of the mA and/or kV according to patient size; or use of iterative reconstruction technique. Specific details can be referenced in the facility's radiology CT exam ope rational policy. FINDINGS: Vertebral bodies and posterior elements: Normal vertebral body heights. No fracture or osseous destr uction. Unchanged ossification of the posterior longitudinal ligament at the C4, C5 and C6 levels mo st pronounced at the C6 level measuring 4 mm AP dimension. Alignment: Normal. Disc Spaces: Anterior flowing ossification at the C4-C6 levels. Mild C6-7 disc space degeneration. Severe narrowing of the proximal left C5-6 foramen. Moderate right C5-6 foraminal narrowing. Modera te left and severe right C6-7 foraminal narrowing. Soft tissues: Normal. Visualized upper chest: Mild emphysema. IMPRESSION: No acute fracture or acute abnormality. Unchanged ossification of the posterior longitudinal ligament most pronounced at C6. Additional degenerative comments described above. Report Dictated By: Adilson Long MD at 08/18/2017 9:41 AM Report E-Signed By: Adilson Long MD at 08/18/2017 10:28 AM WSN:[id number]
[2017-08-18 11:38] VITALS: BP 115/68
[2017-08-18] MEDS ORDERED: INFLUENZA VIRUS VAC 0.5 ML SYR IM ONLY ONE (12:15)
[2017-08-18] MEDS ORDERED: NS(*) 0.9% 1000 ML BAG 1,000 ML IV PRN (12:20)
--- NOTE | 2017-08-18 12:24 | History & Physical ---
History of Present Illness Chief Complaint Confusion, fall, hyperglycemia. History of Present Illness The patient is a 72 year old male with PMH significant for type II DM and DVT/ PE who presents with hyperglycemia. Per the ER record, the patient called EMS twice last evening. Apparently his left town for a trip and he has been alone. The patient fell at home. In the ER, he had a negative trauma evaluation including CT of the head. His BS was elevated at 600 and he was treated with IV fluids and insulin. The patient was quite confused and did not know his medications. He was unable to give a reliable history and his story changed frequently. He did not have any complaints. He was felt not to be safe to discharge despite improvement in his blood sugar. He was recommended for admission for further evaluation and treatment. History Problems: (1) Persistent depressive disorder Status: Chronic (2) Alcohol use disorder, moderate, dependence Status: Chronic (3) History of DVT (deep vein thrombosis) Status: Chronic (4) Edema of lower extremity Status: Chronic (5) T2DM (type 2 diabetes mellitus) Status: Chronic (6) RLS (restless legs syndrome) Status: Chronic (7) Hypothyroid Status: Chronic (8) HTN (hypertension) Status: Chronic (9) GERD (gastroesophageal reflux disease) Status: Chronic (10) CAD (coronary artery disease) Status: Chronic (11) Pulmonary hypertension Status: Chronic (12) COPD (chronic obstructive pulmonary disease) Status: Chronic (13) Gastroparesis Status: Chronic (14) Hyperlipemia Status: Chronic Home Meds Reported Medications Liraglutide (VICTOZA 2-RADHA) 0.6 Mg/0.1 Ml Pen.injctr, 1.2 MG SQ 03/05/17 Lansoprazole (PREVACID) 30 Mg Capsule.dr, 30 MG PO HS, CAP 03/05/17 Sitagliptin Phosphate (JANUVIA) 100 Mg Tablet, 100 MG PO HS, 03/05/17 Rivaroxaban 20 Mg (XARELTO 20 MG) 20 Mg Tablet, 20 MG PO DAILY, TAB 03/05/17 Furosemide (FUROSEMIDE) 20 Mg Tablet, 1 TAB PO DAILY, TAB 03/05/17 Metformin Hcl (METFORMIN HCL) 500 Mg Tablet, 2 TAB PO BID, TAB 03/05/17 Ropinirole Hcl (ROPINIROLE HCL) 2 Mg Tablet, 2 MG PO HS 03/05/17 Ropinirole Hcl (ROPINIROLE HCL) 0.5 Mg Tablet, 1-2 TAB PO HS Y for RLS exacerbation 03/05/17 Atorvastatin Calcium (LIPITOR) 10 Mg Tablet, 1 TAB PO QDAY, TAB 03/05/17 Lisinopril (LISINOPRIL) 10 Mg Tablet, 10 MG PO QDAY, TAB HOLD FOR SYSTOLIC BLOOD PRESSURE (HIGH NUMBER) LESS THAN 140 03/05/17 Pioglitazone Hcl (PIOGLITAZONE HCL) 30 Mg Tablet, 30 MG PO QDAY 03/05/17 Levothyroxine Sodium (SYNTHROID) 175 Mcg Tablet, 175 MCG PO QDAY 03/05/17 Gabapentin (NEURONTIN) 300 Mg Capsule, 300 MG PO TID 05/13/13 Potassium Chloride (Klor-Con/K-Dur/Micro K) 20 Meq Tabcr, 10 MEQ PO BID, 0 Refills 12/27/10 Paroxetine Hcl (Paxil) 20 Mg Tab, 40 MG PO QDAY, 0 Refills TAKE IN THE EVENING STARTING 03/09/17. 12/27/10 Albuterol/Ipratropium (Combivent Inhaler) 14.7 Gm Aer.w.adap, 14.7 GM IH BID, 0 Refills 12/27/10 Tiotropium [place] (Spiriva (Or Equiv)) 18 Mcg Inh, 1 PUFF INH DAILY, 0 Refills 12/27/10 Oxygen (Oxygen) 2 L Inha, 5 L INH DAILY, 0 Refills 5L/min continuously 12/27/10 Allergies: Coded Allergies: ibuprofen (Verified Allergy, Intermediate, 03/05/17) bupropion (Verified Allergy, Mild, 03/05/17) cephalexin (Verified Allergy, Mild, 03/05/17) dicloxacillin (Verified Allergy, Mild, 03/05/17) metronidazole (Verified Allergy, Mild, 03/05/17) Patient History: FHx: alcohol abuse MOTHER FHx: depression MOTHER Hx Smoking: Yes Smoking Status: Former Smoker Exposure to Second Hand Smoke?: No Caffeine Intake: Coffee Caffeine/Cups Per Day: 3-4 Hx Alcohol Use: Yes Hx Substance Use Disorder: No Social Drug Use: Never History of IV Drug Use: No Review of Systems Other Patient unable to give reliable ROS due to confusion and memory impairment. Exam Vital Signs Vital Signs Date Time Temp Pulse Resp B/P (MAP) Pulse Ox O2 Delivery O2 Flow Rate FiO2 08/18/17 11:38 98.3 57 18 115/68 (84) 96 Nasal Cannula 2.5 General Appearance: Alert, Awake, No Acute Distress, Afebrile Neuro: Other (Short term memory is quite poor. ) Eyes: PERRLA ENT: Moist Mucous Membranes Cardiovascular: Regular Rate and Rhythm, Other (L lower leg with pronounced chronic venous stasis changes and edema (2+). ) Respiratory: No Respiratory Distress, Clear to Auscultation GI: Abd Soft and Non-Tender (Obese.) Extremities: Warm, Perfused, Edema, Other (Chronic venous stasis changes L lower leg with abrasion over anterior left hernandez.) Integumentary: Generalized Fragile Skin (Lower leg. Abrasion over R forearm as well.) Psych: Appropriate Mood & Affect, Other (Confused.) Medical Decision Making Data Points Result Diagram: 08/18/1740908/18/17409 Item Value Date Time White Blood Count 6.3 k/uL 08/18/17409 Red Blood Count 4.81 M/uL 08/18/17409 Hemoglobin 14.5 g/dL 08/18/17409 Hematocrit 43.3 % 08/18/17409 Mean Corpuscular Volume 90.1 fL 08/18/17409 Mean Corpuscular Hemoglobin 30.2 pg 08/18/17409 Mean Corpuscular Hemoglobin Concent 33.5 g/dL 08/18/17409 Red Cell Distribution Width 14.0 % 08/18/17409 Platelet Count 148 K/uL L 08/18/17409 Mean Platelet Volume 9.3 fL 08/18/17409 Neutrophils (%) (Auto) 73.3 % H 08/18/17409 Lymphocytes (%) (Auto) 15.8 % L 08/18/17409 Monocytes (%) (Auto) 8.2 % 08/18/17409 Eosinophils (%) (Auto) 2.4 % 08/18/17409 Basophils (%) (Auto) 0.3 % 08/18/17409 Nucleated RBC Relative Count (auto) 0.0 /100WBC 08/18/17409 Neutrophils # (Auto) 4.6 K/uL 08/18/17409 Lymphocytes # (Auto) 1.0 K/uL L 5/4/18 0410 Monocytes # (Auto) 0.5 K/uL 08/18/17 0410 Eosinophils # (Auto) 0.2 K/uL 08/18/17 0410 Basophils # (Auto) 0.0 K/uL 08/18/17 0410 Nucleated RBC Absolute Count (auto) 0.00 K/uL 08/18/17 0410 Random Glucose 660 mg/dl *H 08/18/17 0410 Calcium Level 10.4 mg/dl H 08/18/17 0410 Total Bilirubin 0.9 mg/dl 08/18/17 0410 Aspartate Amino Transf (AST/SGOT) 23 U/L 08/18/17 0410 Alanine Aminotransferase (ALT/SGPT) 36 U/L 08/18/17 0410 Alkaline Phosphatase 165 U/L H 08/18/17 0410 Troponin I < 0.012 ng/ml 08/18/17 0410 Total Protein 7.5 gm/dl 08/18/17 0410 Albumin 4.1 g/dl 08/18/17 0410 B-Type Natriuretic Peptide 18 pg/ml 08/18/17 0410 Whole Blood Glucose 549 mg/DL *H 08/18/17 0704 Whole Blood Glucose 428 mg/DL H 08/18/17 0910 Whole Blood Glucose 375 mg/DL H 08/18/17 1042 Acetone, Qualitative Negative 08/18/17 0410 Serum Alcohol < 10 mg/dl 08/18/17 0410 Urine Color Straw 08/18/17 0433 Urine Clarity Clear 08/18/173 Urine pH 5.0 pH 08/18/17 0433 Urine Specific [place] 1.028 08/18/17 0433 Urine Protein Negative mg/dL 08/18/173 Urine Glucose (UA) 500 mg/dL 08/18/173 Urine Ketones Trace mg/dL 08/18/17 0433 Urine Blood Negative 08/18/17 0433 Urine Nitrite Negative 08/18/17432 Urine Urobilinogen Negative mg/dL 08/18/17432 Urine Bilirubin Negative 08/18/173 Urine Leukocyte Esterase Negative 08/18/17 0433 Urine RBC <1 /HPF 08/18/17 0433 Urine WBC <1 /HPF 08/18/17 0433 Urine Squamous Epithelial Cells Few /LPF 08/18/17 043 Urine Bacteria Negative /HPF 08/18/17432 Urine Mucus None /HPF 08/18/17432 EKG / Imaging EKG Interpretation FACILITY: [facility] PATIENT NAME: LEONARDO CUMMINS : [id number] MR: [id number] V: [id number] EXAM DATE: ORDERING PHYSICIAN: ALEJANDRA BROWN TECHNOLOGIST: TOY Test Reason : FALL Blood Pressure : / mmHG Vent. Rate : 068 BPM Atrial Rate : 068 BPM P-R Int : 148 ms QRS Dur : 102 ms QT Int : 462 ms P-R-T Axes : 060 041 043 degrees QTc Int : 491 ms Sinus rhythm Nonspecific ST findings Prolonged QT Abnormal ECG No previous ECGs available Confirmed by JOHN CORDERO ([id number]) on 08/18/2017 6:20:41 AM Referred By: Confirmed By:JOHN CORDERO [id number] T: [facility]/ Imaging Multiple studies performed. Please see complete record for imaging reports. Pre-Admit Course ED Medications NS, insulin. Medical Record Review: Yes (ER notes.) Assessment and Plan Problems: (1) Hyperglycemia Status: Acute Assessment & Plan: The patient does not know which medications he takes. He denies taking any medications by injection but per his recent visit with Dr. Vidal and pharmacy records, he is on Victoza and Lantus. It is most likely that his blood sugar is high due to noncompliance related to cognitive dysfunction. Will place him on a sliding scale insulin today and diabetic diet. Will restart his usual medications (per Dr. Vidal's note and pharmacy records ) in the am. (2) Memory impairment Status: Chronic Assessment & Plan: Per Dr. Vidal's note in April of this year, the patient presented for his visit with his . There was concern of impairment of memory mentioned in the clinical note at that time. The patient is currently quite confused with obvious short term memory impairment even after significant lowering of his blood sugar. CT of his brain showed mild cerebral atrophy but was otherwise unremarkable. He is unable to list his medications and is unclear about the details of his 's trip. He could not remember where one of his children resides. Will have ST perform a cognitive evaluation. (3) Pulmonary nodule Status: Acute Assessment & Plan: Per CT of the chest, there is a suspicious nodule within the left lower lobe centrally measuring 1.6 cm in greatest dimension. PET CT recommended for further workup. A second nodule is seen within the lower lobe measuring 5 mm. Per past history in the EMR, the patient was a former smoker but quit just a few years ago. He did smoke for 30 years per previous notes. (4) COPD (chronic obstructive pulmonary disease) Status: Chronic Assessment & Plan: Continue oxygen. (5) History of DVT (deep vein thrombosis) Status: Chronic Assessment & Plan: The patient is on Xarelto 20mg daily chronically per Dr. Vidal's clinic notes. It is unclear if he has been taking it but unlikely based on his clinical picture as he has not been taking his other medications. Will restart today. (6) Edema of lower extremity Status: Chronic Assessment & Plan: The patient has chronic edema of his LE, L > R based on his clinical exam. He is not on any diuretics per Dr. Vidal's notes. Will elevate his legs and monitor. (7) Abrasion of lower limb Status: Acute Assessment & Plan: This appears to be quite acute. No evidence of infection. Will cover wound. (8) CAD (coronary artery disease) Status: Chronic Assessment & Plan: The patient is on Xarelto for DVT/PE. It is unclear if he is also on a baby ASA with this. Will need to clarify with his when we can get a hold of her. Time Spent on Plan of Care: < 30 min Venous Thromboembolism Antithrombotics Is Pt On Any Antithrombotics?: Yes Exam Sepsis Risk: No Definite Risk Problem Qualifiers (1) Abrasion of lower limb: Laterality: left BRIAN CORDERO MD August 18, 2017 12:23
[2017-08-18] MEDS: INSULIN HUM LISPRO 100 UN/ML 3 ML VIAL SUBQ PRN ×3 (13:48→21:08)
[2017-08-18] MEDS ORDERED: POTA10CA40 PO (14:27)
[2017-08-18] MEDS ORDERED: MELA3TAB31 PO (14:28)
--- NOTE | 2017-08-18 14:35 | Miscellaneous Provider Note ---
Miscellaneous Provider Note Note The patient's called and states that the patient often does not take his meds at home. He was in [facility] in February 2017 with behavioral issues. He gets angry and is combative at times at home. His has not been able to get him to bathe for weeks. He has had in home help (Home Health, PT, etc.) in the past , but has refused to cooperate. The patient's states she is having difficulty managing him by herself. Will consult Online Content Coordinator. BRIAN CORDERO MD August 18, 2017 14:35
--- NOTE | 2017-08-18 14:42 | SLP EVALUATION SUMMARY REPORT ---
[*]INITIAL SPEECH THERAPY EVALUATION REPORT Cognitive Communication Assessment Patient Name: Geoff Dinh Date of Evaluation: 08/18/2017 Patient : 1945, 72yo Physician: Ryann Ying MD Clinician: Kailee Zavala M.S., [facility])-NEUROLOGY PHYSICIAN ASSISTANT Treatment Dx: Moderately Severe Cognitive-Linguistic Deficit BACKGROUND The patient is a 72 year old male admitted w/ altered mental status after experiencing a fall at home and calling EMS twice on the evening of 08/17. Pt's is currently out of town, and he has been left alone for the week. The pt presented to the ER w/ significant confusion, including lack of medication knowledge, inability to provide a reliable history, and difficulty keeping his story consistent. Pt had a negative trauma evaluation including CT of the head. Pt was referred for ST assessment via MD to analyze safety and develop appropriate d/c recommendations 2/2 evident cognitive-linguistic concerns. LANGUAGE/COGNITION Pt was encountered in room, very pleasant, cooperative, and willing to participate in ST evaluation. Pt demonstrated excellent insight re: cognitive- linguistic impairments, including eager endorsement of short-term memory deficits. Pt reported difficulty recalling course of hospitalization ("It all got really funny, I was just scared"), and admitted that memory deficits often impact ability to consistently remember medication times, meal times, appointments, and names. Pt unable to recall date, appeared to lose track of conversational topics, and was intermittently tearful throughout assessment procedures. The [facility] Mental Status Examination (UMS Exam) was administered with the following results: -SLUMSTotal Score (TS): 7/30 = moderately/severe cognitive impairment -Cognitive Domains Demonstrating Deficits: orientation, short term memory, thought organization, processing speed, problem-solving/calculations -Cognitive Domains Demonstrating Strength: visuospatial/perceptual skills, planning, auditory comprehension, expressive language Functional Communication Deficits: The patient demonstrates notably impaired functional cognitive linguistic skills w/ negative implications re: ability to safely and independently return to prior living environment in the absence of 24 -hour supervision. Results indicate the patient may demonstrate impairments participating in the following IADL's: -Asking appropriate questions related to care -Following complex instructions for safety and medical care -Independent medication management -Independent financial services consultant -Scheduling appointments -Driving SPEECH: Articulation of speech sounds at word, sentence, and conversational level is WNL. VOICE: WNL DYSPHAGIA: Patient denies oral, pharyngeal, and esophageal dysphagia symptoms at this time. Screened w/ consecutive sips of water via straw, no overt s/x of aspiration observed. RECOMMENDATIONS 1. ST 3x/wk PROGNOSIS: Fair to good. Positive prognostic indicators include motivation to participate and insight re: cognitive linguistic deficits. PLAN OF CARE Short Term Goals 1. The patient will utilize external visual aides in immediate environment to support orientation to temporal, environmental, and situational concepts w/ min verbal/visual cues to decrease confusion and support active participation in daily routine. 2. The patient will participate in safety awareness activities via identification of environmental hazards and generation of appropriate solutions during 80% of opportunities w/ mod verbal/visual cues for successful functional communication related to patient independence, safety, and care/comfort w/ minimized fear/confusion. Long-Term Goals 1. The patient will demonstrate functional cognitive communication skills for safe return to prior living environment with appropriate support via trained caregivers and access to community/home resources. Thank you for this referral. Please call [phone] Kailee Zavala M.S., CCC-NEUROLOGY PHYSICIAN ASSISTANT [place]
[2017-08-18 15:45] VITALS: BP 127/78
[2017-08-18] MEDS: RIVAROXABAN 10 MG TAB PO SCH (17:00)
[2017-08-18] MEDS: COMBIVENT 4 GR INHALER IH SCH (18:04)
[2017-08-18 19:23] VITALS: BP 121/70
[2017-08-18] MEDS ORDERED: metFORMIN HCL 500 MG TAB PO SCH (21:00)
[2017-08-18] MEDS: GABAPENTIN 300 MG CAP PO SCH (21:07)
[2017-08-18] MEDS: POTASSIUM CHL 10 MEQ TABCR PO SCH (21:07)
[2017-08-19 03:31] VITALS: BP 141/72
[2017-08-19] MEDS: LEVOTHYROXINE SOD 0.175 MG TAB PO SCH (05:33)
[2017-08-19 05:40] LABS: PLATELET COUNT, AUTOMATED 133 K/uL (150-450)
[2017-08-19] MEDS: TIOTROPIUM BROM INH 18 MCG/CAP INH SCH (05:48)
[2017-08-19] MEDS: COMBIVENT 4 GR INHALER IH SCH ×2 (05:49→16:58)
[2017-08-19 07:23] VITALS: BP 116/64
[2017-08-19] MEDS: INSULIN HUM LISPRO 100 UN/ML 3 ML VIAL SUBQ PRN ×4 (08:08→20:44)
[2017-08-19] MEDS: LISINOPRIL 10 MG TAB PO SCH (09:00)
[2017-08-19] MEDS ORDERED: PIOGLITAZONE HCL 15 MG TAB PO SCH (09:00)
[2017-08-19] MEDS ORDERED: LISINOPRIL 10 MG TAB PO SCH (09:00)
[2017-08-19] MEDS ORDERED: LIRAGLUTIDE 18 MG/3 ML SUBQ SCH (09:00)
[2017-08-19] MEDS: POTASSIUM CHL 10 MEQ TABCR PO SCH ×2 (09:26→20:38)
[2017-08-19] MEDS: ATORVASTATIN 10 MG TAB PO SCH (09:26)
[2017-08-19] MEDS: GABAPENTIN 300 MG CAP PO SCH ×3 (09:26→20:38)
[2017-08-19] MEDS: ASPIRIN 81 MG ENTERIC COATED PO SCH (09:26)
[2017-08-19] MEDS: PARoxetine HCL 20 MG TAB PO SCH (09:26)
[2017-08-19] MEDS: LANSOPRAZOLE 15 MG CAPCR PO SCH (09:27)
--- NOTE | 2017-08-19 10:08 | Hospitalist Progress Note ---
Subjective Progress Notes Subjective He is awake and alert. He denies any current complaints. He does not recall much about events of yesterday an dhow he ended up in hospital. He does not recall much in the way of his past medical problems. He does not recall any of his medications. Physical Exam Vital Signs Date Time Temp Pulse Resp B/P (MAP) Pulse Ox O2 Delivery O2 Flow Rate FiO2 08/19/17 07:23 97.7 60 18 116/64 (81) 94 Nasal Cannula 2.0 General Appearance: Alert, Awake Neuro: No Gross deficits Cardiovascular: Regular Rate and Rhythm Respiratory: Clear to Auscultation GI: Soft and Non-Tender Extremities: Warm, Perfused, Edema Integumentary: Generalized Fragile Skin, Other (chronic venous stasis changes/ skin abrasion/tear over right anterior tibial area) Psych: Other (he is oriented to person and place, but not to time) Result Diagram: 08/19/17 0508 08/19/17 0508 Assessment and Plan Problems: (1) Hyperglycemia Status: Acute Assessment & Plan: Mr. Dinh does not have any understanding of his medications and how or when to take them. He has been on a rather complicated regimen. It appears he has a fairly significant dementia and probably will need help managing all of his medical problems. Will streamline his therapy to just ADA diet, Lantus 10 units SQ qHS, and use SSI while here to help guide any further modifications of his Lantus regimen. (2) Memory impairment Status: Chronic Assessment & Plan: Per Dr. Vidal's note in April of this year, the patient presented for his visit with his . There was concern of impairment of memory mentioned in the clinical note at that time. The patient has obvious memory impairment even after significant lowering of his blood sugar. CT of his brain showed mild cerebral atrophy, but was otherwise unremarkable. TSH and B12 levels are still pending. Will have ST perform a cognitive evaluation. He will most likely need significant help to function at home. Will need Social Work to meet with family. (3) Pulmonary nodule Status: Acute Assessment & Plan: Per CT of the chest, there is a suspicious nodule within the left lower lobe centrally measuring 1.6 cm in greatest dimension. PET CT recommended for further workup. A second nodule is seen within the lower lobe measuring 5 mm. Per past history in the EMR, the patient was a former smoker, but quit just a few years ago. He did smoke for 30 years per previous notes. (4) COPD (chronic obstructive pulmonary disease) Status: Chronic Assessment & Plan: Continue oxygen. (5) History of DVT (deep vein thrombosis) Status: Chronic Assessment & Plan: The patient is on Xarelto 20mg daily chronically per Dr. Vidal's clinic notes. It is unclear if he has been taking it, but unlikely based on his clinical picture as he has not been taking his other medications. We have restarted therapy. (6) Edema of lower extremity Status: Chronic Assessment & Plan: The patient has chronic edema of his lower extremities (R>L) . He is not on any diuretics per Dr. Vidal's notes. Will elevate his legs and monitor. (7) Abrasion of lower limb Status: Acute Assessment & Plan: This appears to be quite acute. No evidence of infection. Will keep clean and dry. Watch closely. (8) CAD (coronary artery disease) Status: Chronic Assessment & Plan: The patient is on Xarelto for DVT/PE. It is unclear if he is also on a baby ASA with this. Will need to clarify with his family. Exam Sepsis Risk: No Definite Risk Problem Qualifiers (1) Abrasion of lower limb: Laterality: left JOHN CORDERO MD August 19, 2017 10:08
[2017-08-19 12:37] VITALS: BMI 32.5
[2017-08-19 15:17] VITALS: BP 121/68
[2017-08-19] MEDS: RIVAROXABAN 10 MG TAB PO SCH (17:03)
[2017-08-19 18:54] VITALS: BP 111/60
[2017-08-19] MEDS: MELATONIN 3 MG TAB PO SCH (20:39)
[2017-08-19] MEDS ORDERED: INSULIN GLARGINE 100 U/ML 3 ML PEN SUBQ SCH (21:00)
[2017-08-20 03:44] VITALS: BP 116/74
[2017-08-20] MEDS: LEVOTHYROXINE SOD 0.175 MG TAB PO SCH (05:26)
[2017-08-20 05:46] LABS: PLATELET COUNT, AUTOMATED 117 K/uL (150-450)
[2017-08-20] MEDS: TIOTROPIUM BROM INH 18 MCG/CAP INH SCH (05:46)
[2017-08-20] MEDS: COMBIVENT 4 GR INHALER IH SCH ×2 (05:46→17:01)
[2017-08-20 07:48] VITALS: BP 133/71
[2017-08-20] MEDS: INSULIN HUM LISPRO 100 UN/ML 3 ML VIAL SUBQ PRN ×4 (07:57→21:47)
[2017-08-20] MEDS: ATORVASTATIN 10 MG TAB PO SCH (09:19)
[2017-08-20] MEDS: LISINOPRIL 10 MG TAB PO SCH (09:19)
[2017-08-20] MEDS: LANSOPRAZOLE 15 MG CAPCR PO SCH (09:19)
[2017-08-20] MEDS: GABAPENTIN 300 MG CAP PO SCH ×3 (09:19→21:37)
[2017-08-20] MEDS: ASPIRIN 81 MG ENTERIC COATED PO SCH (09:19)
[2017-08-20] MEDS: PARoxetine HCL 20 MG TAB PO SCH (09:19)
[2017-08-20] MEDS: POTASSIUM CHL 10 MEQ TABCR PO SCH ×2 (09:19→21:37)
--- NOTE | 2017-08-20 10:02 | Hospitalist Progress Note ---
Subjective Progress Notes Subjective The patient has no concerns. Physical Exam Vital Signs Date Time Temp Pulse Resp B/P (MAP) Pulse Ox O2 Delivery O2 Flow Rate FiO2 08/20/17 07:50 95 Nasal Cannula 1.0 08/20/17 07:48 97.9 61 16 133/71 (91) Intake and Output 08/21/17 06:59 Output Total 500 ml Balance -500 ml Output Urine Total 500 ml General Appearance: Alert, Awake, No Acute Distress, Afebrile Neuro: Other (Poor short term memory. Pleasantly confused.) Eyes: PERRLA Cardiovascular: Regular Rate and Rhythm Respiratory: Clear to Auscultation GI: Soft and Non-Tender Extremities: Warm, Perfused, Edema, Other (Open abrasion over left hernandez, bandaged.) Integumentary: Other (See above. Chronic venous stasis changes L leg.) Psych: Appropriate Mood & Affect (But poor memory with confusion.) Result Diagram: 08/20/17 0506 08/20/17 0506 Assessment and Plan Problems: (1) Hyperglycemia Status: Acute Assessment & Plan: Mr. Dinh does not have any understanding of his medications and how or when to take them. He has been on a rather complicated regimen. It appears he has a fairly significant dementia and probably will need help managing all of his medical problems. Will streamline his therapy to just ADA diet and Lantus and use SSI while here to help guide any further modifications of his Lantus regimen. Will increase Lantus to 18u today. (2) Memory impairment Status: Chronic Assessment & Plan: Per Dr. Vidal's note in April of this year, the patient presented for his visit with his . There was concern of impairment of memory mentioned in the clinical note at that time. The patient has obvious memory impairment even after significant lowering of his blood sugar. CT of his brain showed mild cerebral atrophy, but was otherwise unremarkable. TSH and B12 levels are still pending. Will have ST perform a cognitive evaluation. He will most likely need significant help to function at home. Will need Social Work to meet with family. (3) Pulmonary nodule Status: Acute Assessment & Plan: Per CT of the chest, there is a suspicious nodule within the left lower lobe centrally measuring 1.6 cm in greatest dimension. PET CT recommended for further workup. A second nodule is seen within the lower lobe measuring 5 mm. Per past history in the EMR, the patient was a former smoker, but quit just a few years ago. He did smoke for 30 years per previous notes. (4) COPD (chronic obstructive pulmonary disease) Status: Chronic Assessment & Plan: Continue oxygen. (5) History of DVT (deep vein thrombosis) Status: Chronic Assessment & Plan: The patient is on Xarelto 20mg daily chronically per Dr. Vidal's clinic notes. It is unclear if he has been taking it, but unlikely based on his clinical picture as he has not been taking his other medications. We have restarted therapy. (6) Edema of lower extremity Status: Chronic Assessment & Plan: The patient has chronic edema of his lower extremities (R>L) . He is not on any diuretics per Dr. Vidal's notes. Will elevate his legs and monitor. (7) Abrasion of lower limb Status: Acute Assessment & Plan: This appears to be quite acute. No evidence of infection. Will keep clean and dry. Watch closely. (8) CAD (coronary artery disease) Status: Chronic Assessment & Plan: The patient is on Xarelto for DVT/PE. He also takes a baby aspiring daily and this has been restarted. Time Spent on Plan of Care: < 30 min Exam Sepsis Risk: No Definite Risk Problem Qualifiers (1) Abrasion of lower limb: Laterality: left BRIAN CORDERO MD August 20, 2017 10:02
[2017-08-20 10:37] VITALS: Ht 182.9 cm; Wt 108.9 kg
--- NOTE | 2017-08-20 11:03 | Medical Nutrition Therapy ---
Nutrition Anthropometrics Height (Inches): 72.00 Height (Calculated Centimeters: [phone] Weight (Pounds): 240 Weight (Calculated Kilograms): 109.061 BMI Calculated: 32.55 Steven Nutrition Score: Adequate Steven Nutrition Risk Score: 17 Dietary Referral Nutrition Risk Factors: Nutrition Risk Comment: Physical Findings Physical Appearance: Obese BMI 30-39 Skin Appearance Skin Appearance: Edema Edema Location Modifier: Right Edema Location: Leg Type of Edema: Degree of Edema: 2+ Gastrointestinal Symptoms GI Symtoms: Tube Present: Bowel Sounds: Recent Bowel Pattern: Stool Characteristics: Nutrition/Food History No Significant Nutr. HX Good Nutritional Diagnosis Nutritional Risk Acuity 2: Blood Glucose > 300mg/dl Nutritional Risk Acuity 4: Good Appetite Past Medical History: Persistent depressive disorder, Alcohol use disorder, moderate, dependence, DVT, Edema of lower extremity, T2DM, restless legs syndrome, Hypothyroid, HTN, GERD, CAD, Pulmonary hypertension, COPD, Gastroparesis, Hyperlipemia Nutritional Acuity: 2-Moderate Nutrition Etiology: Inability Manage SelfCare Nutrition Problem/Etiology/Sym: Altered Nutrition-Related Laboratory Values - Glucose related to diagnosis of T2DM AEB Inadequate blood glucose control - Glucose of 335 (08/20/17) and inability to manage self care d/t dementia. Energy Requirement: 2450 ([place]-St Jeor: Actual BW X 1.5) Protein Requirement: 87 (Actual BW Kg X .8) Fluid Requirement: 2450 Diet Type: Diabetic Nutrition Intervention: Cont diet as ordered Food Likes: 2% milk with all meals please Nutrition Monitoring & Eval Nutrition Goals: Eat 50-100% Meal RD Patient Assessment Time: [address] Assessment Type: RD Assessment Patient Nutrition Acuity: 2-Moderate Follow Up Date: August 22, 2017 Nutritional Comment: Pt admitted for hyperglycemia,dementia,and fall. Class I obesity with BMI of 32.6. Low H/H, Glu 335, Alb 2.9. Lantus 18u q HS, Lispro SSI. Receiving Diabetes diet and consuming 100% of meals. Follow intake, labs, etc. -DARIANA MORRISON August 20, 2017 11:02
[2017-08-20 16:15] VITALS: BP 113/68
[2017-08-20] MEDS: RIVAROXABAN 10 MG TAB PO SCH (16:19)
[2017-08-20 18:41] VITALS: BP 111/59
[2017-08-20] MEDS: MELATONIN 3 MG TAB PO SCH (21:37)
[2017-08-20] MEDS: INSULIN GLARGINE 100 U/ML 3 ML PEN SUBQ SCH (21:39)
[2017-08-21] MEDS: INSULIN HUM LISPRO 100 UN/ML 3 ML VIAL SUBQ PRN ×5 (00:23→21:31)
[2017-08-21 02:24] VITALS: BP 94/66
[2017-08-21] MEDS: TIOTROPIUM BROM INH 18 MCG/CAP INH SCH (05:40)
[2017-08-21] MEDS: COMBIVENT 4 GR INHALER IH SCH ×2 (05:41→16:47)
[2017-08-21] MEDS: LEVOTHYROXINE SOD 0.175 MG TAB PO SCH (06:08)
[2017-08-21 07:41] VITALS: BP 119/67
[2017-08-21] MEDS ORDERED: INSULIN GLARGINE 100 U/ML 3 ML PEN SUBQ SCH (09:20)
[2017-08-21] MEDS: LISINOPRIL 10 MG TAB PO SCH (09:27)
[2017-08-21] MEDS: POTASSIUM CHL 10 MEQ TABCR PO SCH ×2 (09:27→21:31)
[2017-08-21] MEDS: ATORVASTATIN 10 MG TAB PO SCH (09:27)
[2017-08-21] MEDS: PARoxetine HCL 20 MG TAB PO SCH (09:27)
[2017-08-21] MEDS: ASPIRIN 81 MG ENTERIC COATED PO SCH (09:27)
[2017-08-21] MEDS: GABAPENTIN 300 MG CAP PO SCH ×3 (09:28→21:31)
[2017-08-21] MEDS: LANSOPRAZOLE 15 MG CAPCR PO SCH (09:28)
--- NOTE | 2017-08-21 09:35 | Hospitalist Progress Note ---
Subjective Progress Notes Subjective He denies any new complaints. Glucoses persist elevated. Physical Exam Vital Signs Date Time Temp Pulse Resp B/P (MAP) Pulse Ox O2 Delivery O2 Flow Rate FiO2 08/21/17 07:49 92 Nasal Cannula 1.0 08/21/17 07:41 97.7 57 16 119/67 (84) General Appearance: Alert, Awake Cardiovascular: Regular Rate and Rhythm Respiratory: Clear to Auscultation GI: Soft and Non-Tender Extremities: Warm, Perfused, Edema Integumentary: Generalized Fragile Skin, Other (skin tear/superficial ulcer left anterior tibial area is clean/chronic venous stasis changes) Result Diagram: 08/20/17 0506 08/20/17 0506 Assessment and Plan Problems: (1) Hyperglycemia Status: Acute Assessment & Plan: Mr. Dinh does not have any understanding of his medications and how or when to take them. He had been on a rather complicated regimen. It appears he has a fairly significant dementia and probably will need help managing all of his medical problems. We streamlined his therapy to just ADA diet and Lantus. Will use SSI while here to help guide any further modifications of his Lantus regimen. Will increase Lantus to 10units AM and 18u PM. (2) Memory impairment Status: Chronic Assessment & Plan: Per Dr. Vidal's note in April of this year, the patient presented for his visit with his . There was concern of impairment of memory mentioned in the clinical note at that time. The patient has obvious memory impairment even after significant lowering of his blood sugar. CT of his brain showed mild cerebral atrophy, but was otherwise unremarkable. TSH is still pending. B12 level is actually slightly high. Will have ST perform a cognitive evaluation. He will most likely need significant help to function at home. Social Work has been meeting with family regarding their options. (3) Pulmonary nodule Status: Acute Assessment & Plan: Per CT of the chest, there is a suspicious nodule within the left lower lobe centrally measuring 1.6 cm in greatest dimension. PET CT recommended for further workup. A second nodule is seen within the lower lobe measuring 5 mm. Per past history in the EMR, the patient was a former smoker, but quit just a few years ago. He did smoke for 30 years per previous notes. (4) COPD (chronic obstructive pulmonary disease) Status: Chronic Assessment & Plan: Continue oxygen. (5) History of DVT (deep vein thrombosis) Status: Chronic Assessment & Plan: The patient is on Xarelto 20mg daily chronically per Dr. Vidal's clinic notes. It is unclear if he has been taking it, but unlikely based on his clinical picture as he has not been taking his other medications. We have restarted therapy. (6) Edema of lower extremity Status: Chronic Assessment & Plan: The patient has chronic edema of his lower extremities. He is not on any diuretics per Dr. Vidal's notes. Will elevate his legs and monitor. (7) Abrasion of lower limb Status: Acute Assessment & Plan: This appears to be quite acute. No evidence of infection. Will keep clean and dry. Watch closely. (8) CAD (coronary artery disease) Status: Chronic Assessment & Plan: The patient is on Xarelto for DVT/PE. He also takes a baby aspiring daily and this has been restarted. Exam Sepsis Risk: No Definite Risk Problem Qualifiers (1) Abrasion of lower limb: Laterality: left JOHN CORDREO MD August 21, 2017 09:35
[2017-08-21 14:55] VITALS: BP 121/61
[2017-08-21] MEDS: RIVAROXABAN 10 MG TAB PO SCH (16:21)
[2017-08-21 18:50] VITALS: BP 123/61
[2017-08-21] MEDS: MELATONIN 3 MG TAB PO SCH (21:31)
[2017-08-21] MEDS: INSULIN GLARGINE 100 U/ML 3 ML PEN SUBQ SCH (21:32)
[2017-08-22 03:43] VITALS: BP 138/78
[2017-08-22] MEDS: TIOTROPIUM BROM INH 18 MCG/CAP INH SCH (05:29)
[2017-08-22] MEDS: COMBIVENT 4 GR INHALER IH SCH ×2 (05:29→17:00)
[2017-08-22 05:47] LABS: PLATELET COUNT, AUTOMATED 135 K/uL (150-450)
[2017-08-22] MEDS: LEVOTHYROXINE SOD 0.175 MG TAB PO SCH (06:04)
[2017-08-22 08:00] VITALS: BP 113/67
[2017-08-22] MEDS: INSULIN HUM LISPRO 100 UN/ML 3 ML VIAL SUBQ PRN ×4 (08:03→21:15)
[2017-08-22] MEDS: ASPIRIN 81 MG ENTERIC COATED PO SCH (08:28)
[2017-08-22] MEDS: POTASSIUM CHL 10 MEQ TABCR PO SCH ×2 (08:28→21:14)
[2017-08-22] MEDS: GABAPENTIN 300 MG CAP PO SCH ×3 (08:28→21:14)
[2017-08-22] MEDS: LISINOPRIL 10 MG TAB PO SCH (08:28)
[2017-08-22] MEDS: ATORVASTATIN 10 MG TAB PO SCH (08:28)
[2017-08-22] MEDS: PARoxetine HCL 20 MG TAB PO SCH (08:28)
[2017-08-22] MEDS: LANSOPRAZOLE 15 MG CAPCR PO SCH (08:29)
[2017-08-22] MEDS ORDERED: INSULIN GLARGINE 100 U/ML 3 ML PEN SUBQ SCH (09:00)
--- NOTE | 2017-08-22 10:25 | Hospitalist Progress Note ---
Subjective Progress Notes Subjective He has no complaints this morning. Patient Complains of: Cardiovascular: No: Chest Pain Respiratory: No: Shortness of Breath Physical Exam Vital Signs Date Time Temp Pulse Resp B/P (MAP) Pulse Ox O2 Delivery O2 Flow Rate FiO2 08/22/17 08:14 91 Room Air 08/22/17 08:00 97.7 65 16 113/67 (82) 08/21/17 21:35 1.0 Intake and Output 08/23/17 00:59 Intake Total 500 ml Output Total 450 ml Balance 50 ml Intake Oral 500 ml Output Urine Total 450 ml # Voids 4 General Appearance: No Acute Distress, Afebrile Cardiovascular: Regular Rate and Rhythm Respiratory: No Respiratory Distress, Clear to Auscultation Psych: Appropriate Mood & Affect Result Diagram: 08/22/1750908/22/17509 Assessment and Plan Problems: (1) Hyperglycemia Status: Acute Assessment & Plan: Mr. Dinh does not have any understanding of his medications and how or when to take them. He had been on a rather complicated regimen. It appears he has a fairly significant dementia and probably will need help managing all of his medical problems. We streamlined his therapy to just ADA diet and Lantus. Will use SSI while here to help guide any further modifications of his Lantus regimen. Will increase Lantus to 18 units AM and 18u PM. (2) Memory impairment Status: Chronic Assessment & Plan: Per Dr. Vidal's note in April of this year, the patient presented for his visit with his . There was concern of impairment of memory mentioned in the clinical note at that time. The patient has obvious memory impairment even after significant lowering of his blood sugar. CT of his brain showed mild cerebral atrophy, but was otherwise unremarkable. TSH is 4.59. B12 level is actually slightly high. Will have ST perform a cognitive evaluation. He will most likely need significant help to function at home. Social Work has been meeting with family regarding their options. (3) Pulmonary nodule Status: Acute Assessment & Plan: Per CT of the chest, there is a suspicious nodule within the left lower lobe centrally measuring 1.6 cm in greatest dimension. PET CT recommended for further workup. A second nodule is seen within the lower lobe measuring 5 mm. Per past history in the EMR, the patient was a former smoker, but quit just a few years ago. He did smoke for 30 years per previous notes. (4) COPD (chronic obstructive pulmonary disease) Status: Chronic Assessment & Plan: Continue oxygen. (5) History of DVT (deep vein thrombosis) Status: Chronic Assessment & Plan: The patient is on Xarelto 20mg daily chronically per Dr. Vidal's clinic notes. It is unclear if he has been taking it, but unlikely based on his clinical picture as he has not been taking his other medications. We have restarted therapy. (6) Edema of lower extremity Status: Chronic Assessment & Plan: The patient has chronic edema of his lower extremities. He is not on any diuretics per Dr. Vidal's notes. Will elevate his legs and monitor. (7) Abrasion of lower limb Status: Acute Assessment & Plan: This appears to be quite acute. No evidence of infection. Will keep clean and dry. Watch closely. (8) CAD (coronary artery disease) Status: Chronic Assessment & Plan: The patient is on Xarelto for DVT/PE. He also takes a baby aspirin daily and this has been restarted. Exam Sepsis Risk: No Definite Risk Problem Qualifiers (1) Abrasion of lower limb: Laterality: left MACEY BREWER Holli [employer]MER August 22, 2017 10:25
[2017-08-22 15:23] VITALS: BP 131/62
--- NOTE | 2017-08-22 16:28 | Medical Nutrition Therapy ---
Nutrition Anthropometrics Height (Inches): 72.00 Height (Calculated Centimeters: 182.313128 Weight (Pounds): 240 Weight (Calculated Kilograms): 109.061 BMI Calculated: 32.55 Steven Nutrition Score: Adequate Steven Nutrition Risk Score: 18 Dietary Referral Nutrition Risk Factors: Nutrition Risk Comment: Physical Findings Physical Appearance: Obese BMI 30-39 Skin Appearance Skin Appearance: Edema Edema Location Modifier: Both Edema Location: Foot Type of Edema: Degree of Edema: 2+ Gastrointestinal Symptoms GI Symtoms: Change in Bowel Pattern Tube Present: Bowel Sounds: Recent Bowel Pattern: Stool Characteristics: Nutritional Diagnosis Nutritional Risk Acuity 2: Blood Glucose > 300mg/dl Nutritional Risk Acuity 4: Good Appetite Past Medical History: Persistent depressive disorder, Alcohol use disorder, moderate, dependence, DVT, Edema of lower extremity, T2DM, restless legs syndrome, Hypothyroid, HTN, GERD, CAD, Pulmonary hypertension, COPD, Gastroparesis, Hyperlipemia Nutritional Acuity: 2-Moderate Nutrition Etiology: Inability Manage SelfCare Nutrition Problem/Etiology/Sym: Altered Nutrition-Related Laboratory Values - blood glucose related to diagnosis of T2DM AEB Inadequate blood glucose control - Glucose of 315 (08/22/17) and inability to manage self care r/t dementia. Energy Requirement: 2450 ([place]-St Jeor: Actual BW X 1.5) Protein Requirement: 87 (Actual BW Kg X .8) Fluid Requirement: 2450 Diet Type: Diabetic Nutrition Intervention: Cont diet as ordered Food Likes: 2% milk with all meals please Nutrition Monitoring & Eval Nutrition Goals: Eat 50-100% Meal RD Patient Assessment Time: [address] Assessment Type: RD Re-Assessment Patient Nutrition Acuity: 2-Moderate Follow Up Date: August 26, 2017 Nutritional Comment: Pt admitted for hyperglycemia,dementia,and fall. Class I obesity with BMI of 32.6. Low H/H, Glu 335, Alb 2.9. Lantus 18u q HS, Lispro SSI. Receiving Diabetes diet and consuming 100% of meals. Follow intake, labs, etc. -DRT 08/22 Pt blood glucose levels remain elevated >300. Blood glucose 315, low Hgb 12.8 and hct 37.3. Pt continues on dietetic diet, consuming 75-100% of his meals. Continue to monitor lab values and pt progress. -AMY TROTTER August 22, 2017 16:16
[2017-08-22] MEDS: RIVAROXABAN 10 MG TAB PO SCH (16:31)
[2017-08-22] MEDS: INSULIN GLARGINE 100 U/ML 3 ML PEN SUBQ SCH (21:14)
[2017-08-22] MEDS: MELATONIN 3 MG TAB PO SCH (21:14)
[2017-08-23] MEDS: LEVOTHYROXINE SOD 0.175 MG TAB PO SCH (05:39)
[2017-08-23 06:01] LABS: PLATELET COUNT, AUTOMATED 139 K/uL (150-450)
[2017-08-23] MEDS: LANSOPRAZOLE 15 MG CAPCR PO SCH (08:49)
[2017-08-23] MEDS: LISINOPRIL 10 MG TAB PO SCH (08:49)
[2017-08-23] MEDS: POTASSIUM CHL 10 MEQ TABCR PO SCH ×2 (08:49→21:41)
[2017-08-23] MEDS: PARoxetine HCL 20 MG TAB PO SCH (08:49)
[2017-08-23] MEDS: INSULIN HUM LISPRO 100 UN/ML 3 ML VIAL SUBQ PRN ×4 (08:50→21:42)
[2017-08-23] MEDS: INSULIN GLARGINE 100 U/ML 3 ML PEN SUBQ SCH ×2 (08:50→21:42)
[2017-08-23] MEDS: GABAPENTIN 300 MG CAP PO SCH ×3 (08:52→21:42)
[2017-08-23] MEDS: ASPIRIN 81 MG ENTERIC COATED PO SCH (08:52)
[2017-08-23] MEDS: ATORVASTATIN 10 MG TAB PO SCH (08:52)
[2017-08-23 08:54] VITALS: BP 130/87
[2017-08-23] MEDS: TIOTROPIUM BROM INH 18 MCG/CAP INH SCH (09:00)
[2017-08-23] MEDS: COMBIVENT 4 GR INHALER IH SCH ×2 (09:01→17:12)
--- NOTE | 2017-08-23 10:41 | Hospitalist Progress Note ---
Subjective Progress Notes Subjective The staff has no concerns. He didn't have any acute events overnight. Patient Complains of: Cardiovascular: No: Chest Pain Respiratory: No: Shortness of Breath Physical Exam Vital Signs Date Time Temp Pulse Resp B/P (MAP) Pulse Ox O2 Delivery O2 Flow Rate FiO2 08/23/17 09:01 66 16 08/23/17 09:01 95 Room Air 08/23/17 07:35 1.0 08/22/17 15:23 98.0 131/62 (85) General Appearance: No Acute Distress, Afebrile Cardiovascular: Regular Rate and Rhythm Respiratory: No Respiratory Distress, Clear to Auscultation Psych: Appropriate Mood & Affect Result Diagram: 08/23/1752408/23/17524 Assessment and Plan Problems: (1) Hyperglycemia Status: Acute Assessment & Plan: Mr. Dinh does not have any understanding of his medications and how or when to take them. He had been on a rather complicated regimen. It appears he has a fairly significant dementia and probably will need help managing all of his medical problems. We streamlined his therapy to just ADA diet and Lantus. Will use SSI while here to help guide any further modifications of his Lantus regimen. Will increase Lantus to 24 units AM and 18u PM. (2) Memory impairment Status: Chronic Assessment & Plan: Per Dr. Vidal's note in April of this year, the patient presented for his visit with his . There was concern of impairment of memory mentioned in the clinical note at that time. The patient has obvious memory impairment even after significant lowering of his blood sugar. CT of his brain showed mild cerebral atrophy, but was otherwise unremarkable. TSH is 4.59. B12 level is actually slightly high. Will have ST perform a cognitive evaluation. He will most likely need significant help to function at home. Social Work has been meeting with family regarding their options. (3) Pulmonary nodule Status: Acute Assessment & Plan: Per CT of the chest, there is a suspicious nodule within the left lower lobe centrally measuring 1.6 cm in greatest dimension. PET CT recommended for further workup. A second nodule is seen within the lower lobe measuring 5 mm. Per past history in the EMR, the patient was a former smoker, but quit just a few years ago. He did smoke for 30 years per previous notes. (4) COPD (chronic obstructive pulmonary disease) Status: Chronic Assessment & Plan: Continue oxygen. (5) History of DVT (deep vein thrombosis) Status: Chronic Assessment & Plan: The patient is on Xarelto 20mg daily chronically per Dr. Vidal's clinic notes. It is unclear if he has been taking it, but unlikely based on his clinical picture as he has not been taking his other medications. We have restarted therapy. (6) Edema of lower extremity Status: Chronic Assessment & Plan: The patient has chronic edema of his lower extremities. He is not on any diuretics per Dr. Vidal's notes. Will elevate his legs and monitor. (7) Abrasion of lower limb Status: Acute Assessment & Plan: This appears to be quite acute. No evidence of infection. Will keep clean and dry. Watch closely. (8) CAD (coronary artery disease) Status: Chronic Assessment & Plan: The patient is on Xarelto for DVT/PE. He also takes a baby aspirin daily and this has been restarted. Exam Sepsis Risk: No Definite Risk Problem Qualifiers (1) Abrasion of lower limb: Laterality: left MACEY BREWER ADULT CARE MANAGER August 23, 2017 10:41
[2017-08-23 15:05] VITALS: BP 125/55
[2017-08-23] MEDS: RIVAROXABAN 10 MG TAB PO SCH (16:55)
[2017-08-23 21:28] VITALS: BP 113/68
[2017-08-23] MEDS: MELATONIN 3 MG TAB PO SCH (21:41)
[2017-08-24 03:23] VITALS: BP 102/49
[2017-08-24] MEDS: LEVOTHYROXINE SOD 0.175 MG TAB PO SCH (05:20)
[2017-08-24] MEDS: TIOTROPIUM BROM INH 18 MCG/CAP INH SCH (05:46)
[2017-08-24] MEDS: COMBIVENT 4 GR INHALER IH SCH (05:46)
[2017-08-24 05:58] LABS: PLATELET COUNT, AUTOMATED 147 K/uL (150-450)
[2017-08-24 08:12] VITALS: BP 116/61
[2017-08-24] MEDS: PARoxetine HCL 20 MG TAB PO SCH (08:24)
[2017-08-24] MEDS: LANSOPRAZOLE 15 MG CAPCR PO SCH (08:24)
[2017-08-24] MEDS: ATORVASTATIN 10 MG TAB PO SCH (08:24)
[2017-08-24] MEDS: POTASSIUM CHL 10 MEQ TABCR PO SCH (08:24)
[2017-08-24] MEDS: GABAPENTIN 300 MG CAP PO SCH ×3 (08:24→12:57)
[2017-08-24] MEDS: ASPIRIN 81 MG ENTERIC COATED PO SCH (08:24)
[2017-08-24] MEDS: INSULIN HUM LISPRO 100 UN/ML 3 ML VIAL SUBQ PRN ×2 (08:25→12:51)
[2017-08-24] MEDS: LISINOPRIL 10 MG TAB PO SCH (08:25)
[2017-08-24] MEDS: INSULIN GLARGINE 100 U/ML 3 ML PEN SUBQ SCH (08:26)
[2017-08-24] MEDS ORDERED: INSULIN GLARGINE 100 U/ML 3 ML PEN SUBQ ONE (08:55)
[2017-08-24] MEDS ORDERED: INSU100V24 SUBQ (10:43)
[2017-08-24] MEDS ORDERED: INSU100I30 SUBQ ×2 (10:43)
[2017-08-24] MEDS ORDERED: ASPI81TA86 PO (10:43)
--- NOTE | 2017-08-24 10:56 | Hospitalist Depart ---
Discharge Summary Reason for Hosp/Final Diag: (1) Hyperglycemia Status: Acute Hospital Course & Plan: Mr. Dinh presented with hyperglycemia in the 600' s. He did not have any understanding of his medications and how or when to take them. He had been on a rather complicated regimen. It appears he has a fairly significant dementia and probably will need help managing all of his medical problems. We streamlined his therapy to just Metformin, ADA diet and Lantus. Will increase Lantus to 32 units AM and 24u PM. (2) Memory impairment Status: Chronic Hospital Course & Plan: Per Dr. Williamson's note in April of this year, the patient presented for his visit with his . There was concern of impairment of memory mentioned in the clinical note at that time. The patient has obvious memory impairment even after significant lowering of his blood sugar. CT of his brain showed mild cerebral atrophy, but was otherwise unremarkable. TSH is 4.59. B12 level is actually slightly high. He will most likely need significant help to function at home. He will be transferred to [facility]. (3) Pulmonary nodule Status: Acute Hospital Course & Plan: Per CT of the chest, there is a suspicious nodule within the left lower lobe centrally measuring 1.6 cm in greatest dimension. PET CT recommended for further workup. A second nodule is seen within the lower lobe measuring 5 mm. Per past history in the EMR, the patient was a former smoker, but quit just a few years ago. He did smoke for 30 years per previous notes. (4) COPD (chronic obstructive pulmonary disease) Status: Chronic Hospital Course & Plan: Continue oxygen. (5) History of DVT (deep vein thrombosis) Status: Chronic Hospital Course & Plan: The patient is on Xarelto 20mg daily chronically per Dr. Williamson's clinic notes. It is unclear if he has been taking it, but unlikely based on his clinical picture as he has not been taking his other medications. We have restarted therapy. (6) Edema of lower extremity Status: Chronic Hospital Course & Plan: The patient has chronic edema of his lower extremities. He will continue Lasix and Potassium. (7) Abrasion of lower limb Status: Acute Hospital Course & Plan: This appears to be quite acute. No evidence of infection. Will keep clean and dry. Wound care consult to look at wound today. (8) CAD (coronary artery disease) Status: Chronic Hospital Course & Plan: The patient is on Xarelto for DVT/PE. He also takes a baby aspirin daily and this has been restarted. Departure Latest Vital Signs Vital Signs 08/23/17 08/24/17 08/24/17 07:35 08:12 10:06 Temp 98.6 Pulse 62 Resp 18 B/P (MAP) 116/61 (79) Pulse Ox 91 O2 Delivery Room Air O2 Flow Rate 1.0 Weight (Pounds): 240 Weight (Ounces): 7.0 Result Diagram: 08/24/1751908/24/17519 Condition: Improved Discharge: Long-Term Discharge Instructions Home Meds Active Scripts Insulin Glargine 100 Un/Ml Pen (LANTUS SOLOSTAR PEN) 100 Unit/1 Ml Insuln.pen, 32 UNIT SUBQ QAM, #4 VIAL 0 Refills Prov:MACEY BREWER [employer] DEVELOPER 08/24/17 Insulin Glargine 100 Un/Ml Pen (LANTUS SOLOSTAR PEN) 100 Unit/1 Ml Insuln.pen, 24 UNIT SUBQ QHS, #4 VIAL 0 Refills Prov:MACEY BREWER Holli [facility] 08/24/17 Reported Medications Melatonin (MELATONIN) 3 Mg Tablet, 3 MG PO HS 08/18/17 Potassium Chloride (POTASSIUM CHLORIDE) 10 Meq Capsule.er, 10 MEQ PO BID 08/18/17 Liraglutide (VICTOZA 2-RADHA) 0.6 Mg/0.1 Ml Pen.injctr, 1.2 MG SQ 03/05/17 Lansoprazole (PREVACID) 30 Mg Capsule.dr, 30 MG PO HS, CAP 03/05/17 Sitagliptin Phosphate (JANUVIA) 100 Mg Tablet, 100 MG PO HS, 03/05/17 Rivaroxaban 20 Mg (XARELTO 20 MG) 20 Mg Tablet, 20 MG PO DAILY, TAB 03/05/17 Furosemide (FUROSEMIDE) 20 Mg Tablet, 1 TAB PO DAILY, TAB 03/05/17 Metformin Hcl (METFORMIN HCL) 500 Mg Tablet, 2 TAB PO BID, TAB 03/05/17 Ropinirole Hcl (ROPINIROLE HCL) 2 Mg Tablet, 2 MG PO HS 03/05/17 Ropinirole Hcl (ROPINIROLE HCL) 0.5 Mg Tablet, 1-2 TAB PO HS Y for RLS exacerbation 03/05/17 Atorvastatin Calcium (LIPITOR) 10 Mg Tablet, 1 TAB PO QDAY, TAB 03/05/17 Lisinopril (LISINOPRIL) 10 Mg Tablet, 10 MG PO QDAY, TAB HOLD FOR SYSTOLIC BLOOD PRESSURE (HIGH NUMBER) LESS THAN 140 03/05/17 Pioglitazone Hcl (PIOGLITAZONE HCL) 30 Mg Tablet, 30 MG PO QDAY 03/05/17 Levothyroxine Sodium (SYNTHROID) 175 Mcg Tablet, 175 MCG PO QDAY 03/05/17 Gabapentin (NEURONTIN) 300 Mg Capsule, 300 MG PO TID 05/13/13 Paroxetine Hcl (Paxil) 20 Mg Tab, 40 MG PO QHS, 0 Refills TAKE IN THE EVENING STARTING 03/09/17. 12/27/10 Albuterol/Ipratropium (Combivent Inhaler) 14.7 Gm Aer.w.adap, 14.7 GM IH BID, 0 Refills 12/27/10 Tiotropium [place] (Spiriva (Or Equiv)) 18 Mcg Inh, 1 PUFF INH DAILY, 0 Refills 12/27/10 Oxygen (Oxygen) 2 L Inha, 5 L INH DAILY, 0 Refills 5L/min continuously 12/27/10 Discontinued Reported Medications Potassium Chloride (Klor-Con/K-Dur/Micro K) 20 Meq Tabcr, 10 MEQ PO BID, 0 Refills 12/27/10 Diet: Diabetic Activity: As Tolerated, With Walker Special Instructions: Copies to: VELMA WILLIAMSON DO Venous Thromboembolism Antithrombotics Is Pt On Any Antithrombotics?: Yes Problem Qualifiers (1) Abrasion of lower limb: Laterality: left MACEY BREWER [employer] OFFICE DEVELOPER August 24, 2017 10:56
[2017-08-24] MEDS ORDERED: INSULIN GLARGINE 100 U/ML 3 ML PEN SUBQ SCH (21:00)
[2017-08-25] MEDS ORDERED: INSULIN GLARGINE 100 U/ML 3 ML PEN SUBQ SCH (09:00)
== END 2017-08-24 14:00 | disposition home or self-care (01) | DRG 639 ==
LOC: ER 04:24 → MED 11:18
PROVIDERS: ADMIT Internal Medicine; ATTEND Internal Medicine
PROC: 0JDP3ZZ Extraction of Left Lower Leg Subcutaneous Tissue and Fascia, Percutaneous Approach (ICD-10-PCS; principal; 2017-08-24)
DX: E11.65 Type 2 diabetes mellitus with hyperglycemia (principal); F03.90 Unspecified dementia, unspecified severity, without behavioral disturbance, psychotic disturbance, mood disturbance, and anxiety; R91.8 Other nonspecific abnormal finding of lung field; J44.9 Chronic obstructive pulmonary disease, unspecified; R60.0 Localized edema; I25.10 Atherosclerotic heart disease of native coronary artery without angina pectoris; S80.812A Abrasion, left lower leg, initial encounter; I10 Essential (primary) hypertension; E78.5 Hyperlipidemia, unspecified; I27.20 Pulmonary hypertension, unspecified; K21.9 Gastro-esophageal reflux disease without esophagitis; G25.81 Restless legs syndrome; G25.0 Essential tremor; F34.1 Dysthymic disorder; E03.9 Hypothyroidism, unspecified; K31.84 Gastroparesis; W19.XXXA Unspecified fall, initial encounter; Y92.009 Unspecified place in unspecified non-institutional (private) residence as the place of occurrence of the external cause; Y99.8 Other external cause status; Z87.891 Personal history of nicotine dependence; Z86.718 Personal history of other venous thrombosis and embolism; Z88.1 Allergy status to other antibiotic agents; Z79.01 Long term (current) use of anticoagulants; Z88.8 Allergy status to other drugs, medicaments and biological substances; Z79.4 Long term (current) use of insulin; Z91.14 Patient's other noncompliance with medication regimen; Z99.81 Dependence on supplemental oxygen
CPT/HCPCS: 36415; 36416; 70450; 71045; 71260; 72125; 72129; 72132; 74177; 80320; 81001; 82009; 82040; 82247; 82310; 82374; 82435; 82565; 82607; 82947; 82948; 83036; 83880; 84075; 84132; 84155; 84295; 84443; 84450; 84460; 84484; 84520; 85025; 93005; 94640; 97161; 99285; J1815; J3535; J7030; Q9967

== ENCOUNTER → 2017-08-18 | Outpatient (CLI) | payer OTHER, MEDICARE ==
[~2017-08-18] MED LIST: ALB6.7R INH; ASPI-1441 PO; ATOR10TA24 PO; AUG875 PO; BUME2TAB PO; BUPR-156 PO; CALC-488 PO; CALC600T72 PO; CALC625T57 PO; CARB-127 PO; CARB-LEVO; CHRO200C6 PO; CIP500 PO; COM14R IH; COM14R INH; CYC10 PO; DESI25TA PO; DOMPERIDONE PO; EUCA1LOZ51 MM; FUR20 PO; FURO-45 PO; GABA-490 PO; GLIM1TAB24 PO; GLIM2TAB42 PO; GLIMPERIDE PO; LAN30PT PO; LEVO175T38 PO; LEVO25TA56 PO; LIRA0.6P3 SQ; LISI-362 PO; MELA3TAB31 PO; METF-410 PO; MIR; MIR PO; MOMR; MULT-1287 PO; MULT-977 PO; MUP2T TOP; NAPR-723 PO; OXYC40TA53 PO; OXYC80TA52 PO; OXYGEN INH; OXYIR PO; PAR20 PO; PIOG30TA3 PO; POT20; POTA10CA40 PO; POTASSIUM CITRATE; POTT20 PO; RAN150 PO; RANI150C14 PO; RIVA20TA PO; ROPI0.5T25 PO; ROPI2TAB28 PO; SITA100T PO; TAM4 PO; TES5T TD; TEST90SO; TIO18R IH; TIO18R INH; WAR5 PO; WAR75 PO; WARF-12 PO; WARF2.5T4 PO; WARF7.5T27 PO; ZOLP-350 PO; ZOLP12.545 PO; [UNRECOGNIZED DRUG - CODE]; [UNRECOGNIZED DRUG - CODE] MC; [UNRECOGNIZED DRUG - CODE] PO; [UNRECOGNIZED DRUG - CODE] PO; [UNRECOGNIZED DRUG - OTHER] OD; [UNRECOGNIZED DRUG - OTHER] PO
[2017-08-20 10:37] VITALS: BMI 32.5
== END ==
LOC: AMB 03:54
PROVIDERS: ATTEND Nurse Practitioner
DX: R53.1 Weakness (principal); R60.9 Edema, unspecified; W18.30XA Fall on same level, unspecified, initial encounter; Y92.019 Unspecified place in single-family (private) house as the place of occurrence of the external cause
CPT/HCPCS: A0425; A0427

== ENCOUNTER 2017-09-29 11:05 | Emergency (ER) | payer OTHER, MEDICARE ==
[2017-08-20 10:37] VITALS: Wt 113.4 kg
[~2017-09-29 11:05] MED LIST changes: +ASPI81TA86 PO; +INSU100I30 SUBQ; +INSU100V24 SUBQ; +POTA10CA40 PO
--- NOTE | 2017-09-29 11:12 | ER Report ---
History and Physical Time Seen By MD: 11:12 HPI/ROS CHIEF COMPLAINT: Blood sugar problem HISTORY OF PRESENT ILLNESS: This is a 72-year-old male who presents to the emergency department, with his for a blood sugar problem. According to his for the last 2-3 days patient has not been taking his diabetic medication regularly, his blood sugars have been increasing in to the foreign 500 range, does seem to be some increased confusion as well, they did talk to his primary care provider, Dr. Williamson who instructed them to come to the emergency department for further evaluation. Patient is alert, interacting however there does seem to be some underlying confusion, the patient is not sure why he is here. Patient denies recent fevers, aches, chills, nausea, vomiting, diarrhea, headaches, chest pain or shortness of breath. No increased urination, he is however having increased thirst. Lower extremity edema, refuses to wear his JENN hose, and walks around barefoot at home and outside. Does have diabetic neuropathy. REVIEW OF SYSTEMS: Constitutional: No fever, no chills. Eyes: No discharge. ENT: No sore throat. Cardiovascular: No chest pain, no palpitations. Respiratory: No cough, no shortness of breath. Gastrointestinal: No abdominal pain, no vomiting. Genitourinary: No hematuria. Musculoskeletal: No back pain. Skin: No rashes. Neurological: As above. Allergies: Coded Allergies: ibuprofen (Verified Allergy, Intermediate, 09/29/17) bupropion (Verified Allergy, Mild, 09/29/17) cephalexin (Verified Allergy, Mild, 09/29/17) dicloxacillin (Verified Allergy, Mild, 09/29/17) metronidazole (Verified Allergy, Mild, 09/29/17) Home Meds Active Scripts Insulin Glargine 100 Un/Ml Pen (LANTUS SOLOSTAR PEN) 100 Unit/1 Ml Insuln.pen, 32 UNIT SUBQ QAM, #4 VIAL 0 Refills Prov:MACEY BREWER SOC ANALYST 08/24/17 Insulin Glargine 100 Un/Ml Pen (LANTUS SOLOSTAR PEN) 100 Unit/1 Ml Insuln.pen, 24 UNIT SUBQ QHS, #4 VIAL 0 Refills Prov:MACEY BREWER SOC ANALYST 08/24/17 Aspirin (ASPIRIN EC) 81 Mg Tablet.dr, 81 MG PO QDAY, #30 TAB Prov:MACEY BREWER SOC ANALYST 08/24/17 Reported Medications Sitagliptin Phosphate (JANUVIA) 100 Mg Tablet, 100 MG PO QHS 09/29/17 Liraglutide (VICTOZA 2-RADHA) 0.6 Mg/0.1 Ml Pen.injctr, 1.2 MG SQ QDAY 09/29/17 Melatonin (MELATONIN) 3 Mg Tablet, 3 MG PO HS 08/18/17 Potassium Chloride (POTASSIUM CHLORIDE) 10 Meq Capsule.er, 10 MEQ PO BID 08/18/17 Lansoprazole (PREVACID) 30 Mg Capsule.dr, 30 MG PO HS, CAP 03/05/17 Rivaroxaban 20 Mg (XARELTO 20 MG) 20 Mg Tablet, 20 MG PO DAILY, TAB 03/05/17 Furosemide (FUROSEMIDE) 20 Mg Tablet, 1 TAB PO DAILY, TAB 03/05/17 Metformin Hcl (METFORMIN HCL) 500 Mg Tablet, 2 TAB PO BID, TAB 03/05/17 Ropinirole Hcl (ROPINIROLE HCL) 2 Mg Tablet, 2 MG PO HS 03/05/17 Atorvastatin Calcium (LIPITOR) 10 Mg Tablet, 1 TAB PO QDAY, TAB 03/05/17 Lisinopril (LISINOPRIL) 10 Mg Tablet, 10 MG PO QDAY, TAB HOLD FOR SYSTOLIC BLOOD PRESSURE (HIGH NUMBER) LESS THAN 140 03/05/17 Levothyroxine Sodium (SYNTHROID) 175 Mcg Tablet, 175 MCG PO QDAY 03/05/17 Gabapentin (NEURONTIN) 300 Mg Capsule, 300 MG PO TID 05/13/13 Paroxetine Hcl (Paxil) 20 Mg Tab, 40 MG PO QHS, 0 Refills TAKE IN THE EVENING STARTING 03/09/17. 12/27/10 Albuterol/Ipratropium (Combivent Inhaler) 14.7 Gm Aer.w.adap, 14.7 GM IH BID, 0 Refills 12/27/10 Tiotropium Spencer (Spiriva (Or Equiv)) 18 Mcg Inh, 1 PUFF INH DAILY, 0 Refills 12/27/10 Oxygen (Oxygen) 2 L Inha, 5 L INH DAILY, 0 Refills 5L/min continuously 12/27/10 Past Medical/Surgical History The patient has a past medical and surgical history of migraines, heart attack, angina, irregular heartbeat, DVT, continuous use of oxygen due to COPD and scarring of the lungs, pneumonia, emphysema, smoking for 30+ years, gastroparesis, kidney stones, arthritis, left femur fracture, back pain, wears glasses, type II diabetes, hepatitis, persistent depressive disorder, depression , tonsillectomy. Reviewed Nurses Notes: Yes Hx Smoking: Yes Smoking Status: Former Smoker Exposure to Second Hand Smoke?: No Hx Substance Use Disorder: No Hx Alcohol Use: Yes Constitutional Vital Sign - Last 24 Hours 09/29/17 09/29/17 09/29/17 09/29/17 11:12 11:13 11:20 11:30 Temp 98.5 Pulse 77 Resp 19 B/P (MAP) 127/73 127/73 (91) 115/65 (82) Pulse Ox 97 O2 Delivery Nasal Cannula O2 Flow Rate 5.0 09/29/17 09/29/17 09/29/17 09/29/17 11:35 12:00 12:05 12:30 Pulse 72 71 Resp 11 16 B/P (MAP) 107/55 (72) 123/75 (91) Pulse Ox 99 99 09/29/17 09/29/17 09/29/17 09/29/17 12:35 13:00 13:00 14:00 Pulse 73 75 70 Resp 18 9 17 B/P (MAP) 112/72 (85) 112/72 (85) 116/72 (87) Pulse Ox 100 100 100 Intake and Output 09/29/17 09/29/17 09/30/17 15:00 23:00 07:00 Intake Total 1000 ml Balance 1000 ml Physical Exam General Appearance: The patient is alert, has no immediate need for airway protection and no signs of toxicity, unkempt looking. Eyes: Pupils equal and round no pallor or injection. EOMs intact, no nystagmus. ENT, Mouth: Mucous membranes are moist. Respiratory: There are no retractions, lungs are clear to auscultation. Cardiovascular: Regular rate and rhythm, no murmurs, clicks or rubs. Gastrointestinal: Abdomen is firm with r sided abdominal tenderness, no masses , bowel sounds normal. Neurological: Alert and oriented 3. Moving all extremities. Following all commands. No focal neuro deficits. Cranial nerves II through XII intact. Skin: Warm and dry, discoloration to the left lower extremity, this is normal for the patient, secondary to atraumatic injury several years ago. 3+ pitting edema to the left foot, 1-2+ pitting edema to the right foot. The soles of the feet are very dirty, no obvious infections to the feet or the lower extremities , no cellulitis. Musculoskeletal: Neck is supple non tender. Extremities are nontender, nonswollen and have full range of motion. DIFFERENTIAL DIAGNOSIS: After history and physical exam differential diagnosis was considered for hyperglycemia. Medical Decision Making Data Points Result Diagram: 09/29/17 1118 09/29/17 1118 Laboratory Hematology Test 09/29/17 11:18 09/29/17 11:54 09/29/17 11:59 09/29/17 15:21 Red Blood Count 4.18 M/uL (4.00-5.60) Mean Corpuscular Volume 89.0 fL (80.0-96.0) Mean Corpuscular Hemoglobin 30.5 pg (26.0-33.0) Mean Corpuscular Hemoglobin Concent 34.3 g/dL (32.0-36.0) Red Cell Distribution Width 15.2 % (11.5-14.5) Mean Platelet Volume 9.3 fL (7.2-11.1) Neutrophils (%) (Auto) 73.8 % (39.4-72.5) Lymphocytes (%) (Auto) 17.7 % (17.6-49.6) Monocytes (%) (Auto) 5.9 % (4.1-12.4) Eosinophils (%) (Auto) 2.0 % (0.4-6.7) Basophils (%) (Auto) 0.6 % (0.3-1.4) Nucleated RBC Relative Count (auto) 0.1 /100WBC Neutrophils # (Auto) 4.4 K/uL (2.0-7.4) Lymphocytes # (Auto) 1.1 K/uL (1.3-3.6) Monocytes # (Auto) 0.4 K/uL (0.3-1.0) Eosinophils # (Auto) 0.1 K/uL (0.0-0.5) Basophils # (Auto) 0.0 K/uL (0.0-0.1) Nucleated RBC Absolute Count (auto) 0.00 K/uL Sodium Level 133 mmol/L (137-145) Potassium Level 4.9 mmol/L (3.5-5.0) Chloride Level 92 mmol/L (98-107) Carbon Dioxide Level 28 mmol/L (22-30) Blood Urea Nitrogen 33 mg/dl (9-21) Creatinine 0.80 mg/dl (0.66-1.25) Glomerular Filtration Rate Calc > 60.0 Random Glucose 604 mg/dl (75-110) Osmolality 314 mOSM/K (275-295) Calcium Level 9.3 mg/dl (8.4-10.2) Total Bilirubin 0.6 mg/dl (0.2-1.3) Aspartate Amino Transf (AST/SGOT) 18 U/L (0-35) Alanine Aminotransferase (ALT/SGPT) 23 U/L (0-56) Alkaline Phosphatase 109 U/L (0-126) Total Protein 6.7 g/dl (6.3-8.2) Albumin 3.6 g/dl (3.5-5.0) Acetone, Qualitative Negative Blood Gas Patient Temperature Na DEGREES Venous Blood pH 7.39 (7.31-7.41) Venous Blood Partial Pressure CO2 50 mmHg Venous Blood Partial Pressure O2 39 mmHg Venous Blood HCO3 30 mmol/L Venous Blood Oxygen Saturation 72 % Venous Blood Base Excess 5 mmol/L Oxygen Liters/Minute Na Urine Color Straw Urine Clarity Clear Urine pH 7.0 pH (4.8-9.5) Urine Specific [place] 1.022 Urine Protein Negative mg/dL (NEGATIVE) Urine Glucose (UA) 500 mg/dL (NEGATIVE) Urine Ketones Negative mg/dL (NEGATIVE) Urine Blood Negative (NEGATIVE) Urine Nitrite Negative (NEGATIVE) Urine Bilirubin Negative (NEGATIVE) Urine Urobilinogen Negative mg/dL (0.2-1.9) Urine Leukocyte Esterase Negative (NEGATIVE) Urine RBC None /HPF (0-2/HPF) Urine WBC None /HPF (0-5/HPF) Urine Squamous Epithelial Cells None /LPF (</=FEW) Urine Bacteria Negative /HPF (NONE-FEW) Urine Mucus None /HPF (NONE-FEW) Whole Blood Glucose 343 mg/DL (75-110) Chemistry Test 09/29/17 11:18 09/29/17 11:54 09/29/17 11:59 09/29/17 15:21 White Blood Count 6.0 k/uL (4.5-11.0) Red Blood Count 4.18 M/uL (4.00-5.60) Hemoglobin 12.7 g/dL (14.0-18.0) Hematocrit 37.2 % (42.0-52.0) Mean Corpuscular Volume 89.0 fL (80.0-96.0) Mean Corpuscular Hemoglobin 30.5 pg (26.0-33.0) Mean Corpuscular Hemoglobin Concent 34.3 g/dL (32.0-36.0) Red Cell Distribution Width 15.2 % (11.5-14.5) Platelet Count 148 K/uL (150-450) Mean Platelet Volume 9.3 fL (7.2-11.1) Neutrophils (%) (Auto) 73.8 % (39.4-72.5) Lymphocytes (%) (Auto) 17.7 % (17.6-49.6) Monocytes (%) (Auto) 5.9 % (4.1-12.4) Eosinophils (%) (Auto) 2.0 % (0.4-6.7) Basophils (%) (Auto) 0.6 % (0.3-1.4) Nucleated RBC Relative Count (auto) 0.1 /100WBC Neutrophils # (Auto) 4.4 K/uL (2.0-7.4) Lymphocytes # (Auto) 1.1 K/uL (1.3-3.6) Monocytes # (Auto) 0.4 K/uL (0.3-1.0) Eosinophils # (Auto) 0.1 K/uL (0.0-0.5) Basophils # (Auto) 0.0 K/uL (0.0-0.1) Nucleated RBC Absolute Count (auto) 0.00 K/uL Glomerular Filtration Rate Calc > 60.0 Osmolality 314 mOSM/K (275-295) Calcium Level 9.3 mg/dl (8.4-10.2) Total Bilirubin 0.6 mg/dl (0.2-1.3) Aspartate Amino Transf (AST/SGOT) 18 U/L (0-35) Alanine Aminotransferase (ALT/SGPT) 23 U/L (0-56) Alkaline Phosphatase 109 U/L (0-126) Total Protein 6.7 g/dl (6.3-8.2) Albumin 3.6 g/dl (3.5-5.0) Acetone, Qualitative Negative Blood Gas Patient Temperature Na DEGREES Venous Blood pH 7.39 (7.31-7.41) Venous Blood Partial Pressure CO2 50 mmHg Venous Blood Partial Pressure O2 39 mmHg Venous Blood HCO3 30 mmol/L Venous Blood Oxygen Saturation 72 % Venous Blood Base Excess 5 mmol/L Oxygen Liters/Minute Na Urine Color Straw Urine Clarity Clear Urine pH 7.0 pH (4.8-9.5) Urine Specific [place] 1.022 Urine Protein Negative mg/dL (NEGATIVE) Urine Glucose (UA) 500 mg/dL (NEGATIVE) Urine Ketones Negative mg/dL (NEGATIVE) Urine Blood Negative (NEGATIVE) Urine Nitrite Negative (NEGATIVE) Urine Bilirubin Negative (NEGATIVE) Urine Urobilinogen Negative mg/dL (0.2-1.9) Urine Leukocyte Esterase Negative (NEGATIVE) Urine RBC None /HPF (0-2/HPF) Urine WBC None /HPF (0-5/HPF) Urine Squamous Epithelial Cells None /LPF (</=FEW) Urine Bacteria Negative /HPF (NONE-FEW) Urine Mucus None /HPF (NONE-FEW) Whole Blood Glucose 343 mg/DL (75-110) Toxicology Test 09/29/17 11:18 Acetone, Qualitative Negative Urinalysis Test 09/29/17 11:59 Urine Color Straw Urine Clarity Clear Urine pH 7.0 pH (4.8-9.5) Urine Specific [place] 1.022 Urine Protein Negative mg/dL (NEGATIVE) Urine Glucose (UA) 500 mg/dL (NEGATIVE) Urine Ketones Negative mg/dL (NEGATIVE) Urine Blood Negative (NEGATIVE) Urine Nitrite Negative (NEGATIVE) Urine Bilirubin Negative (NEGATIVE) Urine Urobilinogen Negative mg/dL (0.2-1.9) Urine Leukocyte Esterase Negative (NEGATIVE) Urine RBC None /HPF (0-2/HPF) Urine WBC None /HPF (0-5/HPF) Urine Squamous Epithelial Cells None /LPF (</=FEW) Urine Bacteria Negative /HPF (NONE-FEW) Urine Mucus None /HPF (NONE-FEW) EKG/Imaging EKG Interpretation 12 lead EKG: Time of EKG 1129. Rhythm: Normal sinus rhythm, ventricular rate 70 bpm. [place]: normal QRS: Incomplete right bundle branch block. ST segments: No ST depression or elevation. No significant changes from the 08/18/2017 EKG. [place] [facility] [place] Geoff Dinh : 1945 Visit/Account:[id number] Date of Sevice: 09/29/2017 Examination: CHEST PA AND LAT Comparison: 08/18/2017 and earlier. History: Increased confusion. Findings: Cardiac and hilar contour size is within normal limits and unchanged. No consolidation, nodule, or evidence of peribronchial inflammation. No pneumothorax, edema, or effusion. Osseous structures are demineralized with multifocal degenerative change. IMPRESSION: No findings of acute cardiopulmonary disease. Report Dictated By: Bala Herrera MD at 09/29/2017 12:12 PM Report E-Signed By: Bala Herrera MD at 09/29/2017 12:13 PM WSN:[id number] ED Course/Re-evaluation Clinical Indication for ER IV: Hydration, IV Access ED Course The patient was admitted to a room. A history and physical were obtained. Differential diagnoses were considered. An IV was started. A CBC, CMP, , acetone and VBG were obtained. Lab studies unremarkable, other than the blood sugar of 604. Negative acetone, VBG unremarkable. Negative chest x-ray. EKG unremarkable. The patient did receive 1000 mL normal saline 2, 10 units IV regular insulin. Patient's repeat was sugars were 444, 314. I did consult with the hospitalist as noted below, he felt if we were able to get the blood sugars down to a reasonable level around the 200-300 level then the patient would be able to go home, I did discuss this with the patient as well as reviewing all the laboratory and x-ray results with patient and his . The patient did indicate that he did not was staying the hospital even if his blood sugar remained elevated. I also did tell the patient that he must follow-up with Dr. Williamson within 1 week for reevaluation and he must take his diabetic medications otherwise he will either return to the hospital or in that with some life-threatening complication secondary to his hyperglycemia. The patient shrugged his shoulders. The patient and his had no questions or concerns at this time and were discharged home. 09/29/2017 12:54:25 pm I did review the laboratory results and the chest x-ray with the patient and his . I did tell him that the lab studies are unremarkable, other than his blood sugar which is slightly over 600, I did tell them that at this time what I would like to consider doing is giving him a couple of liters of fluid, some IV insulin and then reevaluate his blood sugar at which time we can make a decision as to whether or not he would be able to go home or if he would need to be admitted to the hospital. The patient and his are both in agreement with this plan of care. 09/29/2017 2:48:12 pm I did speak with Dr. Sparks, the hospitalist on-call regarding the patient's case he felt if we can get the patient's blood sugar down to roughly the 200-300 range he's feeling better then we could potentially send him home. 09/29/2017 3:44:38 pm I did speak with the patient's regarding his blood sugars and the patient states that he just wants to go home, I did tell the patient that he must take his diabetic medication as prescribed otherwise he could end up admitted to the hospital with some life-threatening complications related to the hyperglycemia and diabetes. The patient did not indicate that he was going to restart his medications, he does not want to be admitted to the hospital I did however tell him that he needs to follow-up with Dr. Williamson within one week. The patient's was at the bedside when I was discussing this with the patient. Decision to Disposition Date: Sep 29, 2017 Decision to Disposition Time: 15:42 Depart Departure Latest Vital Signs Vital Signs Date Time Temp Pulse Resp B/P (MAP) Pulse Ox O2 Delivery O2 Flow Rate FiO2 09/29/17 14:00 70 17 116/72 (87) 100 09/29/17 11:20 5.0 09/29/17 11:12 98.5 Nasal Cannula Impression: Primary Impression: Hyperglycemia Condition: Improved Disposition: HOME OR SELF-CARE Referrals: VELMA WILLIAMSON DO (PCP) 1 Week Patient Instructions: Diabetic Hyperglycemia (ED) Additional Instructions: Drink plenty of water. Get plenty of rest. You must take your diabetic medications as directed, otherwise the blood sugars will continue to rise causing life-threatening complications. Follow-up with Dr. Williamson next week for reevaluation. Return to the emergency department for any other concerns or worsening symptoms. SANTIAGO BENDER SOC ANALYST-BC Sep 29, 2017 11:12
[2017-09-29] MEDS ORDERED: NS(*) 0.9% 1000 ML BAG 1,000 ML IV ONE ×2 (11:22→13:00)
[2017-09-29 11:33] LABS: PLATELET COUNT, AUTOMATED 148 K/uL (150-450)
[2017-09-29] MEDS ORDERED: LIRA0.6P3 SQ (11:48)
[2017-09-29] MEDS ORDERED: SITA100T PO (11:49)
--- NOTE | 2017-09-29 12:15 | EKG ---
FACILITY[place] [facility] [place]IENT NAME: LEONARDO CUMMINS : [id number] MR: [id number] V: [id number] EXAM DATE: ORDERING PHYSICIAN: SANTIAGO BENDER TECHNOLOGIST: Test Reason : Blood Pressure : / mmHG Vent. Rate : 070 BPM Atrial Rate : 070 BPM P-R Int : 170 ms QRS Dur : 096 ms QT Int : 414 ms P-R-T Axes : 047 020 028 degrees QTc Int : 447 ms Normal sinus rhythm Incomplete right bundle branch block Borderline ECG When compared with ECG of 18-AUG-2017 04:49, No significant change was found Confirmed by TAYLOR CALVERT ([id number]) on 10/01/2017 2:45:35 PM Referred By: Confirmed By:TAYLOR CALVERT
--- NOTE | 2017-09-29 12:17 | RADIOLOGY IMAGING REPORT ---
FACILITY: [facility] - [place] PATIENT NAME: Geoff Dinh : 1945 MR: [id number] V: [id number] EXAM DATE: ORDERING PHYSICIAN: SANTIAGO BENDER TECHNOLOGIST: Location: [facility] - [place] Patient: Geoff Dinh : 1945 Visit/Account:[id number] Date of Sevice: 09/29/2017 Examination: CHEST PA AND LAT Comparison: 08/18/2017 and earlier. History: Increased confusion. Findings: Cardiac and hilar contour size is within normal limits and unchanged. No consolidation, nod ule, or evidence of peribronchial inflammation. No pneumothorax, edema, or effusion. Osseous structur es are demineralized with multifocal degenerative change. IMPRESSION: No findings of acute cardiopulmonary disease. Report Dictated By: Bala Herrera MD at 09/29/2017 12:12 PM Report E-Signed By: Bala Herrera MD at 09/29/2017 12:13 PM [id number]
[2017-09-29] MEDS ORDERED: INSU HUM REG 100 U/ML(ER ONLY) 10 ML VIAL IVP ONE (13:00)
[2017-09-29 14:00] VITALS: BP 116/72
== END 2017-09-29 15:54 | disposition home or self-care (01) ==
LOC: ER 11:17
DX: E11.65 Type 2 diabetes mellitus with hyperglycemia (principal)
CPT/HCPCS: 36415; 36416; 71046; 81001; 82009; 82803; 82948; 83930; 85025; 93005; 96361; 96374; 99284; J1815; J7030; 82040; 82247; 82310; 82374; 82435; 82565; 82947; 84075; 84132; 84155; 84295; 84450; 84460; 84520

== ENCOUNTER 2017-10-10 16:15 | Emergency (ER) | payer OTHER, MEDICARE ==
[2017-08-20 10:37] VITALS: Wt 104.3 kg
[~2017-10-10 16:15] MED LIST changes: -PIOG30TA3 PO; +PIOG30TA71 PO
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
[2017-10-10] MEDS ORDERED: LORazepam 2 MG/ML VIAL IM ONE (17:20)
[2017-10-10] MEDS ORDERED: OLANZapine 10 MG VIAL IM ONLY ONE (17:20)
[2017-10-10] MEDS ORDERED: diphenhydrAMINE 50 MG/ML VIAL IM ONE (17:20)
[2017-10-10] MEDS ORDERED: WATER STERILE 10 ML VIAL IM ONLY ONE (17:20)
[2017-10-10 17:32] LABS: PLATELET COUNT, AUTOMATED 125 K/uL (150-450)
[2017-10-10 18:00] VITALS: BP 121/71
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
[2017-10-10] MEDS ORDERED: INSU HUM REG 100 U/ML(ER ONLY) 10 ML VIAL IVP ONE ×2 (18:25→19:45)
[2017-10-10] MEDS ORDERED: NS(*) 0.9% 1000 ML BAG 1,000 ML IV ONE (18:25)
--- NOTE | 2017-10-10 21:04 | EKG ---
FACILITY: [facility] [place] PATIENT NAME: LEONARDO CUMMINS : [id number] MR: [id number] V: [id number] EXAM DATE: ORDERING PHYSICIAN: LORA PEREIRA TECHNOLOGIST: Test Reason : Blood Pressure : / mmHG Vent. Rate : 073 BPM Atrial Rate : 073 BPM P-R Int : 160 ms QRS Dur : 094 ms QT Int : 406 ms P-R-T Axes : 018 -02 010 degrees QTc Int : 447 ms Sinus rhythm Nonspecific interventricular conduction delay Nonspecific ST findings Abnormal ECG Confirmed by JOHN CORDERO ([id number]) on 10/11/2017 6:12:29 AM Referred By: Confirmed By:JOHN CORDERO
== END 2017-10-10 21:37 ==
LOC: ER 16:22
DX: R45.850 Homicidal ideations (principal); E11.65 Type 2 diabetes mellitus with hyperglycemia; I10 Essential (primary) hypertension; J44.9 Chronic obstructive pulmonary disease, unspecified
CPT/HCPCS: 36415; 36416; 80305; 80320; 80329; 81001; 82009; 82948; 83735; 84443; 85025; 93005; 96372; 99284; A4216; J1200; J1815; J2060; J3490; J7030; 82040; 82247; 82310; 82374; 82435; 82565; 82947; 84075; 84132; 84155; 84295; 84450; 84460; 84520

== ENCOUNTER 2017-10-10 21:32 | Inpatient (IN) | payer OTHER, MEDICARE ==
[2017-08-20 10:37] VITALS: Ht 180.3 cm; Wt 104.3 kg
[~2017-10-10] VITALS: Ht 180.3 cm; Wt 104.3 kg
[~2017-10-10 21:32] MED LIST changes: +PIOG30TA3 PO; -PIOG30TA71 PO
[2017-10-10] MEDS ORDERED: INSULIN HUM LISPRO 100 UN/ML 3 ML VIAL SUBQ ONE (21:40)
[2017-10-10 22:19] VITALS: BP 109/60
[2017-10-10] MEDS ORDERED: ASPIRIN 81 MG ENTERIC COATED PO ONE (23:45)
[2017-10-11] MEDS: GABAPENTIN 300 MG CAP PO SCH ×4 (00:19→20:55)
[2017-10-11] MEDS: MELATONIN 3 MG TAB PO SCH ×2 (00:19→20:58)
[2017-10-11 05:45] VITALS: BP 108/58
[2017-10-11] MEDS: TIOTROPIUM BROM INH 18 MCG/CAP INH SCH (06:09)
[2017-10-11] MEDS: INSULIN HUM LISPRO 100 UN/ML 3 ML VIAL SUBQ PRN ×2 (08:20→17:22)
[2017-10-11] MEDS: ASPIRIN 81 MG ENTERIC COATED PO SCH (09:00)
[2017-10-11 09:45] VITALS: BP 111/67
[2017-10-11] MEDS: INSULIN GLARGINE 100 U/ML 3 ML PEN SUBQ SCH ×2 (10:00→21:03)
[2017-10-11] MEDS: COMBIVENT 4 GR INHALER IH SCH (10:16)
--- NOTE | 2017-10-11 11:47 | RADIOLOGY IMAGING REPORT ---
FACILITY: [facility] [place] PATIENT NAME: Geoff Dinh : 1945 MR: [id number] V: [id number] EXAM DATE: ORDERING PHYSICIAN: MARK SKINNER TECHNOLOGIST: Location: [facility] [place] Patient: Geoff Dinh : 1945 Visit/Account:[id number] Date of Sevice: 10/11/2017 Exam type: VENOUS DOPP LOWER BILAT EXTREM History: Lower extremity swelling and discoloration Comparison: March 07, 2017. Findings: Lower extremity veins were imaged bilaterally including the common femoral veins, greater saphenous v eins, superficial femoral veins, popliteal vein, posterior tibial veins, anterior tibial veins and pe roneal veins revealing no evidence of intraluminal thrombi. The veins are compressible and demonstra zachary augmentation. The previously noted small amount of chronic thrombus in the left popliteal vein was no longer seen IMPRESSION: 1. No sonographic evidence DVT involving the left lower extremity veins Report Dictated By: Brianna Torres MD at 10/11/2017 11:31 AM Report E-Signed By: Brianna Torres MD at 10/11/2017 11:42 AM WSN:[email or web address]
--- NOTE | 2017-10-11 12:00 | RADIOLOGY IMAGING REPORT ---
FACILITY: [facility] [place] PATIENT NAME: Geoff iDnh : 1945 MR: [id number] V: [id number] EXAM DATE: ORDERING PHYSICIAN: MARK SKINNER TECHNOLOGIST: Location: Patient: Geoff Dinh : 1945 Visit/Account:[id number] Date of Sevice: 10/11/2017 Exam type: ARTERIAL BILAT LOWER EXT History: REDNESS SWELLING of the lower extremity veins bilaterally Comparison: None. Findings: There are triphasic waveforms throughout the right lower extremity arterial tree. The peak systolic velocities in the right lower extremity in centimeters per second are as follows TEST AND TURN UP TECHNICIAN: 108 Profunda femoral artery: 56 SFA proximally: 100 SFA mid: 158 SFA distal: 101 Popliteal proximal: 169 Popliteal distal 104 Peroneal artery: 43 Posterior tibial artery proximal 83 Posterior tibial artery mid 114 Posterior tibial artery distal 112 Anterior tibial artery 77 Dorsalis pedis artery 39 Triphasic waveforms are seen throughout the left lower extremity arterial tree Peak systolic velocity in the left lower extremity arteries in centimeters per second are as follows TEST AND TURN UP TECHNICIAN 107 Profunda femoral artery 50 SFA proximal 94 SFA mid 94 SFA distal 75 Popliteal proximal 99 Popliteal distal 83 Peroneal 50 Posterior tibial artery proximal 59 Posterior tibial artery mid 104 Posterior tibial artery distal 126 Anterior tibial artery 84 Dorsalis pedis artery 149 IMPRESSION: 1. Triphasic waveforms are seen throughout the lower extremity arterial tree bilaterally Report Dictated By: Brianna Torres MD at 10/11/2017 11:48 AM Report E-Signed By: Brianna Torres MD at 10/11/2017 11:55 AM WSN:[email or web address]
[2017-10-11 12:05] VITALS: BP 102/64
[2017-10-11] MEDS: LEVOTHYROXINE SOD 0.175 MG TAB PO SCH (12:07)
[2017-10-11] MEDS: PIOGLITAZONE HCL 15 MG TAB PO SCH (12:08)
[2017-10-11] MEDS: POTASSIUM CHL 10 MEQ TABCR PO SCH ×2 (12:08→16:52)
[2017-10-11] MEDS: metFORMIN HCL XR 500 MG TABCR PO SCH ×2 (12:08→16:52)
[2017-10-11] MEDS: FUROSEMIDE 20 MG TAB PO SCH (12:16)
[2017-10-11] MEDS: LISINOPRIL 20 MG TAB PO SCH (12:16)
[2017-10-11] MEDS: LIRAGLUTIDE 18 MG/3 ML SUBQ SCH (12:58)
[2017-10-11 13:45] VITALS: BP 119/69
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
[2017-10-11] MEDS: PARoxetine HCL 20 MG TAB PO SCH (16:51)
[2017-10-11] MEDS: RIVAROXABAN 10 MG TAB PO SCH (16:52)
[2017-10-11 17:45] VITALS: BP 122/63
[2017-10-11] MEDS: NEOMYCIN/POLYMYX/BACITR 30 GM TP PRN ×2 (18:25→18:58)
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
[2017-10-11] MEDS: ATORVASTATIN 10 MG TAB PO SCH (20:55)
[2017-10-11 22:20] VITALS: BP 109/74
[2017-10-12] MEDS: TIOTROPIUM BROM INH 18 MCG/CAP INH SCH (05:13)
[2017-10-12] MEDS: COMBIVENT 4 GR INHALER IH SCH (05:13)
[2017-10-12 05:17] VITALS: BP 106/52
[2017-10-12] MEDS: LEVOTHYROXINE SOD 0.175 MG TAB PO SCH (05:20)
[2017-10-12] MEDS: INSULIN HUM LISPRO 100 UN/ML 3 ML VIAL SUBQ PRN ×4 (07:59→21:49)
[2017-10-12] MEDS: GABAPENTIN 300 MG CAP PO SCH ×3 (08:37→20:58)
[2017-10-12] MEDS: LISINOPRIL 20 MG TAB PO SCH (08:37)
[2017-10-12] MEDS: FUROSEMIDE 20 MG TAB PO SCH (08:37)
[2017-10-12] MEDS: ASPIRIN 81 MG ENTERIC COATED PO SCH (08:37)
[2017-10-12] MEDS: INSULIN GLARGINE 100 U/ML 3 ML PEN SUBQ SCH ×2 (08:39→21:00)
--- NOTE | 2017-10-12 11:28 | BHS Progress Note ---
BHS - Subjective Progress Notes Subjective Evaluation of this patient is ongoing. No aggression has been noted on the unit. Patient remains compliant on the unit, in this patient with history of aggressive and non-compliant behaviors. . Ambulating fairly well, will have MOCA testing done to assess any underlying dementia. Continue to work on stabilizing blood sugars, with current outpatient regimen, as patient likely not compliant with diet at home. Patient's has notified this provider that he does not want him to return home, at this time as she cannot adequately care for him, he is resistant to receiving care from his or others, at times abusive and threatening, and he continues to demonstrate unpredictable mood swings likely related in some ways to uncontrolled blood sugars, and dementia process, but may be patient service representative of underlying maladaptive personality traits. Suicidal Ideation: None Homicidal Ideation: Resolving BHS - Objective Physical Exam Vital Signs Vital Signs Date Time Temp Pulse Resp B/P (MAP) Pulse Ox O2 Delivery O2 Flow Rate FiO2 10/12/17 05:17 98.6 61 15 106/52 (70) 95 Nasal Cannula 3.0 10/11/17 00:46 97.0 Hematology Test 10/10/17 00:00 10/12/17 07:50 Hemoglobin A1c 13.3 % (4.6-6.0) Whole Blood Glucose 213 mg/DL (75-110) Chemistry Test 10/10/17 00:00 10/12/17 07:50 Hemoglobin A1c 13.3 % (4.6-6.0) Whole Blood Glucose 213 mg/DL (75-110) Muscle Strength and Tone: Other Gait and Station: Unsteady [facility] Medications Reviewed: Side Effects, Benefits of Medication, Risks Allergies Reviewed: Yes Mental Status Exam General Appearance: Casual, No Well Groomed, Cooperative, Unkept, No Bizarre Mannerisms, No Tics Speech: No Normal Rate, No Normal Volume Mood: Dysthmic/Depressed (frustrated) Affect: Calm Thought Process: No Goal Directed, No Loose Associations, No Flight of Ideas Thought Content: No Suicidal Ideation, Homicidal Ideation (unknown ), No Delusions, No Auditory Halllucinations, No Visual Hallucinations, No Thought Broadcasting, No Ideas of Reference, No Obsessions, No Compulsions Sensorium: Clear Cognition: Alert & Oriented-Person, Alert & Oriented-Place, No Alert & Oriented -Time, No Rhqcu-Ksgcpjyj-Xiyafqzmz Memory: Immediate, Recent, Remote, Other (in need of further assessment. ) Intelligence: Average (historically) Insight Judgment: Poor [facility] Assessment and Plan Lqhq-xb-[id number] Encounter Date: Oct 12, 2017 Nskc-zi-Piyu Encounter Time: 11:30 [facility] Plan: Necessary Precautions, Individual/Group Therapy, Admin/Titrate Meds, Educate Patient Tobacco Medications: Not Appropriate Condition Multpiple Antipsychotics Used: No Problems: (1) Persistent depressive disorder Status: Chronic (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 Last Edited By: Mark Skinner on Oct 12, 2017 11:26 Status: Acute Condition 1. continue treatment. 2. evaluate for dementia, ane placement upon discharge. MARK SKINNER MD Oct 12, 2017 11:28
[2017-10-12] MEDS: POTASSIUM CHL 10 MEQ TABCR PO SCH ×2 (12:14→16:50)
[2017-10-12] MEDS: metFORMIN HCL XR 500 MG TABCR PO SCH ×2 (12:14→16:50)
[2017-10-12] MEDS: PIOGLITAZONE HCL 15 MG TAB PO SCH (12:14)
[2017-10-12] MEDS: LIRAGLUTIDE 18 MG/3 ML SUBQ SCH (12:15)
[2017-10-12 16:45] VITALS: BP 142/65
[2017-10-12] MEDS: RIVAROXABAN 10 MG TAB PO SCH (16:50)
[2017-10-12] MEDS: PARoxetine HCL 20 MG TAB PO SCH (16:50)
[2017-10-12] MEDS: ATORVASTATIN 10 MG TAB PO SCH (20:58)
[2017-10-12] MEDS: MELATONIN 3 MG TAB PO SCH (20:58)
[2017-10-13] MEDS: LEVOTHYROXINE SOD 0.175 MG TAB PO SCH (05:38)
[2017-10-13] MEDS: TIOTROPIUM BROM INH 18 MCG/CAP INH SCH (06:00)
[2017-10-13 06:11] VITALS: BP 107/63
[2017-10-13 07:50] VITALS: BP 112/64
[2017-10-13] MEDS: INSULIN HUM LISPRO 100 UN/ML 3 ML VIAL SUBQ PRN ×2 (08:00→08:14)
[2017-10-13] MEDS: ASPIRIN 81 MG ENTERIC COATED PO SCH (08:07)
[2017-10-13] MEDS: FUROSEMIDE 20 MG TAB PO SCH (08:08)
[2017-10-13] MEDS: LISINOPRIL 20 MG TAB PO SCH (08:08)
[2017-10-13] MEDS: INSULIN GLARGINE 100 U/ML 3 ML PEN SUBQ SCH ×2 (08:09→21:02)
[2017-10-13] MEDS: GABAPENTIN 300 MG CAP PO SCH ×3 (08:09→21:01)
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
[2017-10-13] MEDS: POTASSIUM CHL 10 MEQ TABCR PO SCH ×2 (11:54→16:49)
[2017-10-13] MEDS: metFORMIN HCL XR 500 MG TABCR PO SCH ×2 (11:54→16:49)
[2017-10-13] MEDS: PIOGLITAZONE HCL 15 MG TAB PO SCH (11:54)
[2017-10-13] MEDS: LIRAGLUTIDE 18 MG/3 ML SUBQ SCH (11:55)
[2017-10-13] MEDS: COMBIVENT 4 GR INHALER IH SCH (12:00)
[2017-10-13] MEDS: RIVAROXABAN 10 MG TAB PO SCH (16:49)
[2017-10-13] MEDS: PARoxetine HCL 20 MG TAB PO SCH (16:49)
[2017-10-13 18:49] VITALS: BP 108/50
[2017-10-13] MEDS: MELATONIN 3 MG TAB PO SCH (21:01)
[2017-10-13] MEDS: ATORVASTATIN 10 MG TAB PO SCH (21:01)
[2017-10-13 23:45] VITALS: BP 129/74
[2017-10-14] MEDS: LEVOTHYROXINE SOD 0.175 MG TAB PO SCH (05:14)
[2017-10-14] MEDS: COMBIVENT 4 GR INHALER IH SCH (06:00)
[2017-10-14] MEDS: TIOTROPIUM BROM INH 18 MCG/CAP INH SCH (06:00)
[2017-10-14] MEDS: FUROSEMIDE 20 MG TAB PO SCH (07:47)
[2017-10-14] MEDS: GABAPENTIN 300 MG CAP PO SCH ×3 (07:47→21:23)
[2017-10-14] MEDS: LISINOPRIL 20 MG TAB PO SCH (07:47)
[2017-10-14] MEDS: ASPIRIN 81 MG ENTERIC COATED PO SCH (07:47)
[2017-10-14] MEDS: INSULIN GLARGINE 100 U/ML 3 ML PEN SUBQ SCH ×2 (07:50→20:51)
--- NOTE | 2017-10-14 10:01 | BHS Progress Note ---
BHS - Subjective Progress Notes Subjective "I'm doing really well." BS 110 this am Denies depression, anxiety Sleep sufficient, ambulating well, pedal edema noted Homicidal ideation "In the past, towards my brother in law" Oriented to person, place, disoriented to date "I guess I'm here because I made threats towards my brother in law" Hearing MondayOctober 16, ED explained to patient Short term memory loss noted Suicidal Ideation: None Homicidal Ideation: None BHS - Objective Physical Exam Vital Signs Laboratory Tests Test 10/13/17 11:45 10/13/17 16:46 10/13/17 20:56 10/14/17 07:39 Whole Blood Glucose 301 mg/DL 226 mg/DL 256 mg/DL 110 mg/DL Current Medications Medications (Trade) Dose Ordered Sig/Jono Route PRN Reason Start Time Stop Time Status Last Admin Dose Admin Insulin Human Lispro (HumaLOG 100 UN/ ML 3 ML VIAL (OR EQUIV)) 2-10 UNITS SS PRN SUBQ SLIDING SCALE INSULIN 10/10/17 21:40 11/09/17 21:39 10/12/17 16:52 Insulin Human Lispro (HumaLOG 100 UN/ ML 3 ML VIAL (OR EQUIV)) 1-50 UNITS ONCE ONCE SUBQ 10/10/17 21:40 10/10/17 22:09 DC 10/10/17 21:40 Aspirin (Ecotrin Low Strength 81 Mg Tabec (Or Equiv)) 81 mg QDAY PO 10/11/17 09:00 11/10/17 08:59 10/14/17 07:47 Aspirin (Ecotrin Low Strength 81 Mg Tabec (Or Equiv)) 81 mg ONCE ONCE PO 10/10/17 23:45 10/10/17 23:50 DC 10/11/17 00:19 Ropinirole HCl (Requip 1 Mg Tab (Or Equiv)) 2 mg QHS PO 10/11/17 21:00 11/10/17 20:59 10/13/17 21:01 Melatonin (Melatonin 3 Mg Tab) 3 mg QHS PO 10/11/17 21:00 11/10/17 20:59 10/13/17 21:01 Levothyroxine Sodium (Synthroid 0.175 Mg Tab (Or Equiv)) 0.175 mg QDAY@06 PO 10/11/17 06:00 11/10/17 05:59 10/14/17 05:14 Gabapentin (Neurontin(*) 300 Mg Cap (Or Equiv)) 300 mg TID PO 10/10/17 23:45 11/09/17 23:44 10/14/17 07:47 Furosemide (Lasix(*) 20 Mg Tab (Or Equiv)) 20 mg QDAY PO 10/11/17 09:00 11/10/17 08:59 10/14/17 07:47 Lisinopril (Prinivil (*) 20 Mg Tab (Or Equiv)) 10 mg QDAY PO 10/11/17 09:00 11/10/17 08:59 10/14/17 07:47 Metformin HCl (Glucophage Xr 500 Mg Tabcr (Or Equiv)) 1,000 mg BIDLS PO 10/11/17 12:00 11/10/17 11:59 10/13/17 16:49 Tiotropium [place] (Spiriva Inh 18 Mcg/Cap (Or Equiv)) 1 PUFF QDAYR INH 10/11/17 06:00 11/10/17 05:59 10/14/17 06:00 Pioglitazone HCl (Actos 15 Mg Tab (Or Equiv)) 30 mg 1200 PO 10/11/17 12:00 11/10/17 11:59 10/13/17 11:54 Atorvastatin Calcium (Lipitor(*) 10 Mg Tab (Or Equiv)) 10 mg QHS PO 10/11/17 21:00 11/10/17 20:59 10/13/17 21:01 Sitagliptin Phosphate (Januvia 100 Mg Tab (Or Equiv)) 100 mg HS PO 10/11/17 21:00 11/10/17 20:59 10/13/17 21:01 Potassium Chloride (Micro K (*) 10 Meq Tabcr (Or Equiv)) 10 meq BIDLS PO 10/11/17 12:00 11/10/17 11:59 10/13/17 16:49 Rivaroxaban (Xarelto(*) 10 Mg Tab (Or Equiv)) 20 mg QPM PO 10/11/17 17:00 11/10/17 16:59 10/13/17 16:49 Paroxetine HCl (Paxil (Or Equiv)) 40 mg QPM PO 10/11/17 17:00 11/10/17 16:59 10/13/17 16:49 Insulin Glargine (Lantus 100 Unit/ ml Pen) 32 unit QAM SUBQ 10/11/17 10:00 11/10/17 09:59 10/14/17 07:50 Insulin Glargine (Lantus 100 Unit/ ml Pen) 24 unit QHS SUBQ 10/11/17 21:00 11/10/17 20:59 10/13/17 21:02 Albuterol/ Ipratropium (Combivent Respimat(*) Inhal [place]) ONE INHALATION QDAYR IH 10/11/17 10:16 11/10/17 10:15 10/14/17 06:00 Liraglutide (Victoza (Pt Own)) 1.8 mg NOON SUBQ 10/11/17 12:00 11/10/17 11:59 10/13/17 11:55 Neomycin/ Polymyxin/ Bacitracin (Triple Antibiotic Oint 30 Gm Tube (Or Equiv)) APPLY PRN PRN TP INFECTION 10/11/17 17:15 11/10/17 17:14 10/11/17 18:58 Allergies Coded Allergies ibuprofen (Verified Allergy, Intermediate, 10/10/17) bupropion (Verified Allergy, Mild, 10/10/17) cephalexin (Verified Allergy, Mild, 10/10/17) dicloxacillin (Verified Allergy, Mild, 10/10/17) metronidazole (Verified Allergy, Mild, 10/10/17) Vital Signs Date Time Temp Pulse Resp B/P (MAP) Pulse Ox O2 Delivery O2 Flow Rate FiO2 10/14/17 08:02 98 Nasal Cannula 10/14/17 08:02 72 18 10/13/17 23:45 97.5 129/74 (92) 10/13/17 18:49 0.5 10/11/17 00:46 97.0 Muscle Strength and Tone: Other Gait and Station: Unsteady [facility] Medications Reviewed: Side Effects, Benefits of Medication, Risks Allergies Reviewed: Yes Mental Status Exam General Appearance: Casual, No Well Groomed, Good Eye Contact, Cooperative, Unkept, No Bizarre Mannerisms, No Tics Speech: Clear, No Normal Rate, Normal Rhythm, No Normal Volume, Normal Tone Mood: Dysthmic/Depressed (frustrated) Affect: Calm, Agitated (at times) Thought Process: No Goal Directed, No Loose Associations, No Flight of Ideas Thought Content: No Suicidal Ideation, No Homicidal Ideation (unknown ), No Delusions, No Auditory Halllucinations, No Visual Hallucinations, No Thought Broadcasting, No Ideas of Reference, No Obsessions, No Compulsions Sensorium: Clear Cognition: Alert & Oriented-Person, Alert & Oriented-Place, No Alert & Oriented -Time, No Qckzy-Yracjbqx-Uujrrcovl (partially ) Memory: Immediate, Recent, Remote, Other (in need of further assessment. 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 ) Lab Laboratory Tests Test 10/13/17 16:46 10/13/17 20:56 10/14/17 07:39 10/14/17 11:28 Whole Blood Glucose 226 mg/DL 256 mg/DL 110 mg/DL 177 mg/DL Current Medications Medications (Trade) Dose Ordered Sig/Jono Route PRN Reason Start Time Stop Time Status Last Admin Dose Admin Insulin Human Lispro (HumaLOG 100 UN/ ML 3 ML VIAL (OR EQUIV)) 2-10 UNITS SS PRN SUBQ SLIDING SCALE INSULIN 10/10/17 21:40 11/09/17 21:39 10/12/17 16:52 Insulin Human Lispro (HumaLOG 100 UN/ ML 3 ML VIAL (OR EQUIV)) 1-50 UNITS ONCE ONCE SUBQ 10/10/17 21:40 10/10/17 22:09 DC 10/10/17 21:40 Aspirin (Ecotrin Low Strength 81 Mg Tabec (Or Equiv)) 81 mg QDAY PO 10/11/17 09:00 11/10/17 08:59 10/14/17 07:47 Aspirin (Ecotrin Low Strength 81 Mg Tabec (Or Equiv)) 81 mg ONCE ONCE PO 10/10/17 23:45 10/10/17 23:50 DC 10/11/17 00:19 Ropinirole HCl (Requip 1 Mg Tab (Or Equiv)) 2 mg QHS PO 10/11/17 21:00 11/10/17 20:59 10/13/17 21:01 Melatonin (Melatonin 3 Mg Tab) 3 mg QHS PO 10/11/17 21:00 11/10/17 20:59 10/13/17 21:01 Levothyroxine Sodium (Synthroid 0.175 Mg Tab (Or Equiv)) 0.175 mg QDAY@06 PO 10/11/17 06:00 11/10/17 05:59 10/14/17 05:14 Gabapentin (Neurontin(*) 300 Mg Cap (Or Equiv)) 300 mg TID PO 10/10/17 23:45 11/09/17 23:44 10/14/17 07:47 Furosemide (Lasix(*) 20 Mg Tab (Or Equiv)) 20 mg QDAY PO 10/11/17 09:00 11/10/17 08:59 10/14/17 07:47 Lisinopril (Prinivil (*) 20 Mg Tab (Or Equiv)) 10 mg QDAY PO 10/11/17 09:00 11/10/17 08:59 10/14/17 07:47 Metformin HCl (Glucophage Xr 500 Mg Tabcr (Or Equiv)) 1,000 mg BIDLS PO 10/11/17 12:00 11/10/17 11:59 10/14/17 12:01 Tiotropium [place] (Spiriva Inh 18 Mcg/Cap (Or Equiv)) 1 PUFF QDAYR INH 10/11/17 06:00 11/10/17 05:59 10/14/17 06:00 Pioglitazone HCl (Actos 15 Mg Tab (Or Equiv)) 30 mg 1200 PO 10/11/17 12:00 11/10/17 11:59 10/14/17 12:07 Atorvastatin Calcium (Lipitor(*) 10 Mg Tab (Or Equiv)) 10 mg QHS PO 10/11/17 21:00 11/10/17 20:59 10/13/17 21:01 Sitagliptin Phosphate (Januvia 100 Mg Tab (Or Equiv)) 100 mg HS PO 10/11/17 21:00 11/10/17 20:59 10/13/17 21:01 Potassium Chloride (Micro K (*) 10 Meq Tabcr (Or Equiv)) 10 meq BIDLS PO 10/11/17 12:00 11/10/17 11:59 10/14/17 12:01 Rivaroxaban (Xarelto(*) 10 Mg Tab (Or Equiv)) 20 mg QPM PO 10/11/17 17:00 11/10/17 16:59 10/13/17 16:49 Paroxetine HCl (Paxil (Or Equiv)) 40 mg QPM PO 10/11/17 17:00 11/10/17 16:59 10/13/17 16:49 Insulin Glargine (Lantus 100 Unit/ ml Pen) 32 unit QAM SUBQ 10/11/17 10:00 11/10/17 09:59 10/14/17 07:50 Insulin Glargine (Lantus 100 Unit/ ml Pen) 24 unit QHS SUBQ 10/11/17 21:00 11/10/17 20:59 10/13/17 21:02 Albuterol/ Ipratropium (Combivent Respimat(*) Inhal [place]) ONE INHALATION QDAYR IH 10/11/17 10:16 11/10/17 10:15 10/14/17 06:00 Liraglutide (Victoza (Pt Own)) 1.8 mg NOON SUBQ 10/11/17 12:00 11/10/17 11:59 10/14/17 12:00 Neomycin/ Polymyxin/ Bacitracin (Triple Antibiotic Oint 30 Gm Tube (Or Equiv)) APPLY PRN PRN TP INFECTION 10/11/17 17:15 11/10/17 17:14 10/11/17 18:58 Microbiology Hematology Test 10/10/17 00:00 10/14/17 11:28 Hemoglobin A1c 13.3 % (4.6-6.0) Whole Blood Glucose 177 mg/DL (75-110) Chemistry Test 10/10/17 00:00 10/14/17 11:28 Hemoglobin A1c 13.3 % (4.6-6.0) Whole Blood Glucose 177 mg/DL (75-110) S Assessment and Plan [id number] Encounter Date: Oct 14, 2017 [id number] Encounter Time: 09:57 BHS Plan: Necessary Precautions, Individual/Group Therapy, Admin/Titrate Meds, Educate Patient Tobacco Medications: Not Appropriate Condition Multpiple Antipsychotics Used: No Problems: (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 Last Edited By: Thee Byrne on Oct 12, 2017 11:26 Status: Chronic (2) Homicidal ideation Status: Resolved (3) T2DM (type 2 diabetes mellitus) Status: Chronic (4) Memory impairment Status: Chronic (5) Persistent depressive disorder Status: Chronic Condition Continue current medications, treatment Hearing MondayOctober 16 Close monitoring of blood sugars, VS LENNY HERNANDEZ NP Oct 14, 2017 10:01
[2017-10-14 11:55] VITALS: BP 108/68
[2017-10-14] MEDS: LIRAGLUTIDE 18 MG/3 ML SUBQ SCH (12:00)
[2017-10-14] MEDS: metFORMIN HCL XR 500 MG TABCR PO SCH ×2 (12:01→16:58)
[2017-10-14] MEDS: POTASSIUM CHL 10 MEQ TABCR PO SCH ×2 (12:01→16:58)
[2017-10-14] MEDS: PIOGLITAZONE HCL 15 MG TAB PO SCH (12:07)
[2017-10-14] MEDS: PARoxetine HCL 20 MG TAB PO SCH (16:58)
[2017-10-14] MEDS: RIVAROXABAN 10 MG TAB PO SCH (16:58)
[2017-10-14 20:12] VITALS: BP 113/61
[2017-10-14] MEDS: ATORVASTATIN 10 MG TAB PO SCH (20:51)
[2017-10-14] MEDS: MELATONIN 3 MG TAB PO SCH (21:23)
[2017-10-15 05:05] VITALS: BP 116/73
[2017-10-15] MEDS: LEVOTHYROXINE SOD 0.175 MG TAB PO SCH (05:18)
[2017-10-15] MEDS: COMBIVENT 4 GR INHALER IH SCH (06:01)
[2017-10-15] MEDS: TIOTROPIUM BROM INH 18 MCG/CAP INH SCH (06:01)
[2017-10-15 07:54] LABS: PLATELET COUNT, AUTOMATED 181 K/uL (150-450)
[2017-10-15] MEDS: FUROSEMIDE 20 MG TAB PO SCH (08:33)
[2017-10-15] MEDS: ASPIRIN 81 MG ENTERIC COATED PO SCH (08:33)
[2017-10-15] MEDS: GABAPENTIN 300 MG CAP PO SCH ×3 (08:33→21:09)
[2017-10-15] MEDS: INSULIN GLARGINE 100 U/ML 3 ML PEN SUBQ SCH ×2 (08:34→21:58)
[2017-10-15] MEDS: LISINOPRIL 20 MG TAB PO SCH (08:34)
--- NOTE | 2017-10-15 09:27 | BHS Progress Note ---
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 Will encourage diabetic counseling prior to discharge Reports visited last pm, visit without incident BS 140 this am Suicidal Ideation: None Homicidal Ideation: None S - Objective Physical Exam Vital Signs Vital Signs Date Time Temp Pulse Resp B/P (MAP) Pulse Ox O2 Delivery O2 Flow Rate FiO2 10/15/17 05:50 96 Nasal Cannula 10/15/17 05:50 62 16 10/15/17 05:05 97.3 116/73 (87) 2.0 Deferred Allergies Coded Allergies ibuprofen (Verified Allergy, Intermediate, 10/10/17) bupropion (Verified Allergy, Mild, 10/10/17) cephalexin (Verified Allergy, Mild, 10/10/17) dicloxacillin (Verified Allergy, Mild, 10/10/17) metronidazole (Verified Allergy, Mild, 10/10/17) Muscle Strength and Tone: Other Gait and Station: Unsteady [facility] Medications Reviewed: Side Effects, Benefits of Medication, Risks Allergies Reviewed: Yes Mental Status Exam General Appearance: Casual, No Well Groomed, Good Eye Contact, Cooperative, Unkept, No Bizarre Mannerisms, No Tics Speech: Clear, Spontaneous, Normal Rate, Normal Rhythm, Normal Volume, Normal Tone Mood: No Dysthmic/Depressed (frustrated), Euthymic Affect: Calm, No Agitated (at times) Thought Process: No Goal Directed, No Loose Associations, No Flight of Ideas Thought Content: No Suicidal Ideation, No Homicidal Ideation (unknown ), No Delusions, No Auditory Halllucinations, No Visual Hallucinations, No Thought Broadcasting, No Ideas of Reference, No Obsessions, No Compulsions Sensorium: Clear Cognition: Alert & Oriented-Person, Alert & Oriented-Place, No Alert & Oriented -Time, No Waxhl-Sjlmwiiu-Pioyyxoap (partially ) Memory: Immediate, Recent, Remote, Other (in need of further assessment. 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 ) Result Diagram: 10/15/17 0717 10/15/17 0717 Microbiology Hematology Test 10/10/17 00:00 10/14/17 20:45 10/15/17 07:17 Hemoglobin A1c 13.3 % (4.6-6.0) Whole Blood Glucose 252 mg/DL (75-110) Red Blood Count 4.39 M/uL (4.00-5.60) Mean Corpuscular Volume 90.1 fL (80.0-96.0) Mean Corpuscular Hemoglobin 31.0 pg (26.0-33.0) Mean Corpuscular Hemoglobin Concent 34.4 g/dL (32.0-36.0) Red Cell Distribution Width 16.0 % (11.5-14.5) Mean Platelet Volume 8.6 fL (7.2-11.1) Neutrophils (%) (Auto) 64.6 % (39.4-72.5) Lymphocytes (%) (Auto) 23.9 % (17.6-49.6) Monocytes (%) (Auto) 7.6 % (4.1-12.4) Eosinophils (%) (Auto) 3.4 % (0.4-6.7) Basophils (%) (Auto) 0.5 % (0.3-1.4) Nucleated RBC Relative Count (auto) 0.0 /100WBC Neutrophils # (Auto) 3.8 K/uL (2.0-7.4) Lymphocytes # (Auto) 1.4 K/uL (1.3-3.6) Monocytes # (Auto) 0.4 K/uL (0.3-1.0) Eosinophils # (Auto) 0.2 K/uL (0.0-0.5) Basophils # (Auto) 0.0 K/uL (0.0-0.1) Nucleated RBC Absolute Count (auto) 0.00 K/uL Sodium Level 142 mmol/L (137-145) Potassium Level 4.2 mmol/L (3.5-5.0) Chloride Level 101 mmol/L (98-107) Carbon Dioxide Level 28 mmol/L (22-30) Blood Urea Nitrogen 26 mg/dl (9-21) Creatinine 0.80 mg/dl (0.66-1.25) Glomerular Filtration Rate Calc > 60.0 Random Glucose 140 mg/dl (75-110) Calcium Level 9.7 mg/dl (8.4-10.2) Total Bilirubin 0.9 mg/dl (0.2-1.3) Aspartate Amino Transf (AST/SGOT) 20 U/L (0-35) Alanine Aminotransferase (ALT/SGPT) 34 U/L (0-56) Alkaline Phosphatase 88 U/L (0-126) Total Protein 6.7 g/dl (6.3-8.2) Albumin 3.6 g/dl (3.5-5.0) Chemistry Test 10/10/17 00:00 10/14/17 20:45 10/15/17 07:17 Hemoglobin A1c 13.3 % (4.6-6.0) Whole Blood Glucose 252 mg/DL (75-110) White Blood Count 5.9 k/uL (4.5-11.0) Red Blood Count 4.39 M/uL (4.00-5.60) Hemoglobin 13.6 g/dL (14.0-18.0) Hematocrit 39.6 % (42.0-52.0) Mean Corpuscular Volume 90.1 fL (80.0-96.0) Mean Corpuscular Hemoglobin 31.0 pg (26.0-33.0) Mean Corpuscular Hemoglobin Concent 34.4 g/dL (32.0-36.0) Red Cell Distribution Width 16.0 % (11.5-14.5) Platelet Count 181 K/uL (150-450) Mean Platelet Volume 8.6 fL (7.2-11.1) Neutrophils (%) (Auto) 64.6 % (39.4-72.5) Lymphocytes (%) (Auto) 23.9 % (17.6-49.6) Monocytes (%) (Auto) 7.6 % (4.1-12.4) Eosinophils (%) (Auto) 3.4 % (0.4-6.7) Basophils (%) (Auto) 0.5 % (0.3-1.4) Nucleated RBC Relative Count (auto) 0.0 /100WBC Neutrophils # (Auto) 3.8 K/uL (2.0-7.4) Lymphocytes # (Auto) 1.4 K/uL (1.3-3.6) Monocytes # (Auto) 0.4 K/uL (0.3-1.0) Eosinophils # (Auto) 0.2 K/uL (0.0-0.5) Basophils # (Auto) 0.0 K/uL (0.0-0.1) Nucleated RBC Absolute Count (auto) 0.00 K/uL Glomerular Filtration Rate Calc > 60.0 Calcium Level 9.7 mg/dl (8.4-10.2) Total Bilirubin 0.9 mg/dl (0.2-1.3) Aspartate Amino Transf (AST/SGOT) 20 U/L (0-35) Alanine Aminotransferase (ALT/SGPT) 34 U/L (0-56) Alkaline Phosphatase 88 U/L (0-126) Total Protein 6.7 g/dl (6.3-8.2) Albumin 3.6 g/dl (3.5-5.0) S Assessment and Plan Kdhl-[id number] Encounter Date: Oct 15, 2017 Jqwx-[id number] Encounter Time: 09:24 [facility] Plan: Necessary Precautions, Individual/Group Therapy, Admin/Titrate Meds, Educate Patient Tobacco Medications: Not Appropriate Condition Multpiple Antipsychotics Used: No Problems: (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 Last Edited By: Thee Byrne on Oct 12, 2017 11:26 Status: Chronic (2) Homicidal ideation Status: Resolved (3) T2DM (type 2 diabetes mellitus) Status: Chronic (4) Memory impairment Status: Chronic (5) Persistent depressive disorder Status: Chronic Condition Laboratory Tests Test 10/14/17 11:28 10/14/17 16:38 10/14/17 20:45 10/15/17 07:17 Whole Blood Glucose 177 mg/DL 216 mg/DL 252 mg/DL White Blood Count 5.9 k/uL Red Blood Count 4.39 M/uL Hemoglobin 13.6 g/dL Hematocrit 39.6 % Mean Corpuscular Volume 90.1 fL Mean Corpuscular Hemoglobin 31.0 pg Mean Corpuscular Hemoglobin Concent 34.4 g/dL Red Cell Distribution Width 16.0 % Platelet Count 181 K/uL Mean Platelet Volume 8.6 fL Neutrophils (%) (Auto) 64.6 % Lymphocytes (%) (Auto) 23.9 % Monocytes (%) (Auto) 7.6 % Eosinophils (%) (Auto) 3.4 % Basophils (%) (Auto) 0.5 % Nucleated RBC Relative Count (auto) 0.0 /100WBC Neutrophils # (Auto) 3.8 K/uL Lymphocytes # (Auto) 1.4 K/uL Monocytes # (Auto) 0.4 K/uL Eosinophils # (Auto) 0.2 K/uL Basophils # (Auto) 0.0 K/uL Nucleated RBC Absolute Count (auto) 0.00 K/uL Sodium Level 142 mmol/L Potassium Level 4.2 mmol/L Chloride Level 101 mmol/L Carbon Dioxide Level 28 mmol/L Blood Urea Nitrogen 26 mg/dl Creatinine 0.80 mg/dl Glomerular Filtration Rate Calc > 60.0 Random Glucose 140 mg/dl Calcium Level 9.7 mg/dl Total Bilirubin 0.9 mg/dl Aspartate Amino Transf (AST/SGOT) 20 U/L Alanine Aminotransferase (ALT/SGPT) 34 U/L Alkaline Phosphatase 88 U/L Total Protein 6.7 g/dl Albumin 3.6 g/dl Current Medications Medications (Trade) Dose Ordered Sig/Jono Route PRN Reason Start Time Stop Time Status Last Admin Dose Admin Insulin Human Lispro (HumaLOG 100 UN/ ML 3 ML VIAL (OR EQUIV)) 2-10 UNITS SS PRN SUBQ SLIDING SCALE INSULIN 10/10/17 21:40 11/09/17 21:39 10/12/17 16:52 4 UNIT Insulin Human Lispro (HumaLOG 100 UN/ ML 3 ML VIAL (OR EQUIV)) 1-50 UNITS ONCE ONCE SUBQ 10/10/17 21:40 10/10/17 22:09 DC 10/10/17 21:40 8 UNIT Aspirin (Ecotrin Low Strength 81 Mg Tabec (Or Equiv)) 81 mg QDAY PO 10/11/17 09:00 11/10/17 08:59 10/15/17 08:33 81 MG Aspirin (Ecotrin Low Strength 81 Mg Tabec (Or Equiv)) 81 mg ONCE ONCE PO 10/10/17 23:45 10/10/17 23:50 DC 10/11/17 00:19 81 MG Ropinirole HCl (Requip 1 Mg Tab (Or Equiv)) 2 mg QHS PO 10/11/17 21:00 11/10/17 20:59 10/14/17 20:51 2 MG Melatonin (Melatonin 3 Mg Tab) 3 mg QHS PO 10/11/17 21:00 11/10/17 20:59 10/14/17 21:23 3 MG Levothyroxine Sodium (Synthroid 0.175 Mg Tab (Or Equiv)) 0.175 mg QDAY@06 PO 10/11/17 06:00 11/10/17 05:59 10/15/17 05:18 0.175 MG Gabapentin (Neurontin(*) 300 Mg Cap (Or Equiv)) 300 mg TID PO 10/10/17 23:45 11/09/17 23:44 10/15/17 08:33 300 MG Furosemide (Lasix(*) 20 Mg Tab (Or Equiv)) 20 mg QDAY PO 10/11/17 09:00 11/10/17 08:59 10/15/17 08:33 20 MG Lisinopril (Prinivil (*) 20 Mg Tab (Or Equiv)) 10 mg QDAY PO 10/11/17 09:00 11/10/17 08:59 10/15/17 08:34 10 MG Metformin HCl (Glucophage Xr 500 Mg Tabcr (Or Equiv)) 1,000 mg BIDLS PO 10/11/17 12:00 11/10/17 11:59 10/14/17 16:58 1,000 MG Tiotropium [place] (Spiriva Inh 18 Mcg/Cap (Or Equiv)) 1 PUFF QDAYR INH 10/11/17 06:00 11/10/17 05:59 10/15/17 06:01 1 MCG Pioglitazone HCl (Actos 15 Mg Tab (Or Equiv)) 30 mg 1200 PO 10/11/17 12:00 11/10/17 11:59 10/14/17 12:07 30 MG Atorvastatin Calcium (Lipitor(*) 10 Mg Tab (Or Equiv)) 10 mg QHS PO 10/11/17 21:00 11/10/17 20:59 10/14/17 20:51 10 MG Sitagliptin Phosphate (Januvia 100 Mg Tab (Or Equiv)) 100 mg HS PO 10/11/17 21:00 11/10/17 20:59 10/14/17 20:50 100 MG Potassium Chloride (Micro K (*) 10 Meq Tabcr (Or Equiv)) 10 meq BIDLS PO 10/11/17 12:00 11/10/17 11:59 10/14/17 16:58 10 MEQ Rivaroxaban (Xarelto(*) 10 Mg Tab (Or Equiv)) 20 mg QPM PO 10/11/17 17:00 11/10/17 16:59 10/14/17 16:58 20 MG Paroxetine HCl (Paxil (Or Equiv)) 40 mg QPM PO 10/11/17 17:00 11/10/17 16:59 10/14/17 16:58 40 MG Insulin Glargine (Lantus 100 Unit/ ml Pen) 32 unit QAM SUBQ 10/11/17 10:00 11/10/17 09:59 10/15/17 08:34 32 UNIT Insulin Glargine (Lantus 100 Unit/ ml Pen) 24 unit QHS SUBQ 10/11/17 21:00 11/10/17 20:59 10/14/17 20:51 24 UNIT Albuterol/ Ipratropium (Combivent Respimat(*) Inhal [place]) ONE INHALATION QDAYR IH 10/11/17 10:16 11/10/17 10:15 10/15/17 06:01 1 GM Liraglutide (Victoza (Pt Own)) 1.8 mg NOON SUBQ 10/11/17 12:00 11/10/17 11:59 10/14/17 12:00 1.8 MG Neomycin/ Polymyxin/ Bacitracin (Triple Antibiotic Oint 30 Gm Tube (Or Equiv)) APPLY PRN PRN TP INFECTION 10/11/17 17:15 11/10/17 17:14 10/11/17 18:58 0.02 GM Continue current medications and treatment Continue close monitoring of blood sugars LENNY HERNANDEZ NP Oct 15, 2017 09:27
[2017-10-15 09:35] VITALS: BP 113/62
[2017-10-15] MEDS: metFORMIN HCL XR 500 MG TABCR PO SCH ×2 (11:52→16:43)
[2017-10-15] MEDS: PIOGLITAZONE HCL 15 MG TAB PO SCH (11:52)
[2017-10-15] MEDS: POTASSIUM CHL 10 MEQ TABCR PO SCH ×2 (11:52→16:42)
[2017-10-15] MEDS: LIRAGLUTIDE 18 MG/3 ML SUBQ SCH (11:56)
[2017-10-15 16:20] VITALS: BP 100/56
[2017-10-15] MEDS: RIVAROXABAN 10 MG TAB PO SCH (16:43)
[2017-10-15] MEDS: PARoxetine HCL 20 MG TAB PO SCH (16:43)
[2017-10-15] MEDS: ATORVASTATIN 10 MG TAB PO SCH (21:09)
[2017-10-15] MEDS: MELATONIN 3 MG TAB PO SCH (21:09)
[2017-10-16 04:06] VITALS: BP 114/68
[2017-10-16] MEDS: LEVOTHYROXINE SOD 0.175 MG TAB PO SCH (05:37)
[2017-10-16] MEDS: TIOTROPIUM BROM INH 18 MCG/CAP INH SCH (05:55)
[2017-10-16] MEDS: COMBIVENT 4 GR INHALER IH SCH (05:55)
[2017-10-16] MEDS: ASPIRIN 81 MG ENTERIC COATED PO SCH (07:58)
[2017-10-16] MEDS: FUROSEMIDE 20 MG TAB PO SCH (07:59)
[2017-10-16] MEDS: GABAPENTIN 300 MG CAP PO SCH ×3 (07:59→21:08)
[2017-10-16] MEDS: LISINOPRIL 20 MG TAB PO SCH (07:59)
[2017-10-16] MEDS: INSULIN GLARGINE 100 U/ML 3 ML PEN SUBQ SCH ×2 (08:35→21:09)
[2017-10-16 09:50] VITALS: BP 91/55
--- NOTE | 2017-10-16 10:06 | BHS Progress Note ---
BHS - Subjective Progress Notes Subjective Patient notably continues to be pleasant on the unit, and tolerant of roommate. Blood sugars notably are stabilizing on the medication regimen that patient had prior to admission. It is apparent that patient was not able to adequately care for medical conditions at home. Patient will meet with [facility] staff today, for possible admission there. Suicidal Ideation: None Homicidal Ideation: None [facility] - Objective Physical Exam Vital Signs Hematology Test 10/10/17 00:00 10/15/17 07:17 10/16/17 07:35 Hemoglobin A1c 13.3 % (4.6-6.0) Red Blood Count 4.39 M/uL (4.00-5.60) Mean Corpuscular Volume 90.1 fL (80.0-96.0) Mean Corpuscular Hemoglobin 31.0 pg (26.0-33.0) Mean Corpuscular Hemoglobin Concent 34.4 g/dL (32.0-36.0) Red Cell Distribution Width 16.0 % (11.5-14.5) Mean Platelet Volume 8.6 fL (7.2-11.1) Neutrophils (%) (Auto) 64.6 % (39.4-72.5) Lymphocytes (%) (Auto) 23.9 % (17.6-49.6) Monocytes (%) (Auto) 7.6 % (4.1-12.4) Eosinophils (%) (Auto) 3.4 % (0.4-6.7) Basophils (%) (Auto) 0.5 % (0.3-1.4) Nucleated RBC Relative Count (auto) 0.0 /100WBC Neutrophils # (Auto) 3.8 K/uL (2.0-7.4) Lymphocytes # (Auto) 1.4 K/uL (1.3-3.6) Monocytes # (Auto) 0.4 K/uL (0.3-1.0) Eosinophils # (Auto) 0.2 K/uL (0.0-0.5) Basophils # (Auto) 0.0 K/uL (0.0-0.1) Nucleated RBC Absolute Count (auto) 0.00 K/uL Sodium Level 142 mmol/L (137-145) Potassium Level 4.2 mmol/L (3.5-5.0) Chloride Level 101 mmol/L (98-107) Carbon Dioxide Level 28 mmol/L (22-30) Blood Urea Nitrogen 26 mg/dl (9-21) Creatinine 0.80 mg/dl (0.66-1.25) Glomerular Filtration Rate Calc > 60.0 Random Glucose 140 mg/dl (75-110) Calcium Level 9.7 mg/dl (8.4-10.2) Total Bilirubin 0.9 mg/dl (0.2-1.3) Aspartate Amino Transf (AST/SGOT) 20 U/L (0-35) Alanine Aminotransferase (ALT/SGPT) 34 U/L (0-56) Alkaline Phosphatase 88 U/L (0-126) Total Protein 6.7 g/dl (6.3-8.2) Albumin 3.6 g/dl (3.5-5.0) Whole Blood Glucose 72 mg/DL (75-110) Chemistry Test 10/10/17 00:00 10/15/17 07:17 10/16/17 07:35 Hemoglobin A1c 13.3 % (4.6-6.0) White Blood Count 5.9 k/uL (4.5-11.0) Red Blood Count 4.39 M/uL (4.00-5.60) Hemoglobin 13.6 g/dL (14.0-18.0) Hematocrit 39.6 % (42.0-52.0) Mean Corpuscular Volume 90.1 fL (80.0-96.0) Mean Corpuscular Hemoglobin 31.0 pg (26.0-33.0) Mean Corpuscular Hemoglobin Concent 34.4 g/dL (32.0-36.0) Red Cell Distribution Width 16.0 % (11.5-14.5) Platelet Count 181 K/uL (150-450) Mean Platelet Volume 8.6 fL (7.2-11.1) Neutrophils (%) (Auto) 64.6 % (39.4-72.5) Lymphocytes (%) (Auto) 23.9 % (17.6-49.6) Monocytes (%) (Auto) 7.6 % (4.1-12.4) Eosinophils (%) (Auto) 3.4 % (0.4-6.7) Basophils (%) (Auto) 0.5 % (0.3-1.4) Nucleated RBC Relative Count (auto) 0.0 /100WBC Neutrophils # (Auto) 3.8 K/uL (2.0-7.4) Lymphocytes # (Auto) 1.4 K/uL (1.3-3.6) Monocytes # (Auto) 0.4 K/uL (0.3-1.0) Eosinophils # (Auto) 0.2 K/uL (0.0-0.5) Basophils # (Auto) 0.0 K/uL (0.0-0.1) Nucleated RBC Absolute Count (auto) 0.00 K/uL Glomerular Filtration Rate Calc > 60.0 Calcium Level 9.7 mg/dl (8.4-10.2) Total Bilirubin 0.9 mg/dl (0.2-1.3) Aspartate Amino Transf (AST/SGOT) 20 U/L (0-35) Alanine Aminotransferase (ALT/SGPT) 34 U/L (0-56) Alkaline Phosphatase 88 U/L (0-126) Total Protein 6.7 g/dl (6.3-8.2) Albumin 3.6 g/dl (3.5-5.0) Whole Blood Glucose 72 mg/DL (75-110) Vital Signs Date Time Temp Pulse Resp B/P (MAP) Pulse Ox O2 Delivery O2 Flow Rate FiO2 10/16/17 04:06 98.3 68 114/68 (83) 92 Room Air 10/15/17 16:20 18 10/15/17 09:35 2.0 Muscle Strength and Tone: Other Gait and Station: Unsteady [facility] Medications Reviewed: Side Effects, Benefits of Medication, Risks Allergies Reviewed: Yes Mental Status Exam General Appearance: Casual, No Well Groomed, Good Eye Contact, Cooperative, Unkept, No Bizarre Mannerisms, No Tics Speech: Clear, Spontaneous, Normal Rate, Normal Rhythm, Normal Volume, Normal Tone Mood: No Dysthmic/Depressed (frustrated), Euthymic Affect: Calm, No Agitated (at times) Thought Process: No Goal Directed, No Loose Associations, No Flight of Ideas Thought Content: No Suicidal Ideation, No Homicidal Ideation (unknown ), No Delusions, No Auditory Halllucinations, No Visual Hallucinations, No Thought Broadcasting, No Ideas of Reference, No Obsessions, No Compulsions Sensorium: Clear Cognition: Alert & Oriented-Person, Alert & Oriented-Place, No Alert & Oriented -Time, No Luzux-Xuyihmtm-Efvklutbm (partially ) Memory: Immediate, Recent, Remote, Other (in need of further assessment. 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 Last Edited By: Mark Skinner on Oct 12, 2017 11:26 Status: Chronic Condition 1. continue treatment. 2. look into halfway placement. 3. patient on 10 day hold. MARK SKINNER MD Oct 16, 2017 10:06
[2017-10-16] MEDS: metFORMIN HCL XR 500 MG TABCR PO SCH ×2 (12:01→16:51)
[2017-10-16] MEDS: PIOGLITAZONE HCL 15 MG TAB PO SCH (12:01)
[2017-10-16] MEDS: POTASSIUM CHL 10 MEQ TABCR PO SCH ×2 (12:01→16:51)
[2017-10-16] MEDS: LIRAGLUTIDE 18 MG/3 ML SUBQ SCH (12:02)
[2017-10-16] MEDS: RIVAROXABAN 10 MG TAB PO SCH (16:51)
[2017-10-16] MEDS: PARoxetine HCL 20 MG TAB PO SCH (16:51)
[2017-10-16] MEDS: MELATONIN 3 MG TAB PO SCH (21:08)
[2017-10-16] MEDS: ATORVASTATIN 10 MG TAB PO SCH (21:08)
[2017-10-16] MEDS: INSULIN HUM LISPRO 100 UN/ML 3 ML VIAL SUBQ PRN (21:10)
[2017-10-16 22:37] VITALS: BP 109/76
[2017-10-17] MEDS: LEVOTHYROXINE SOD 0.175 MG TAB PO SCH (05:32)
[2017-10-17 05:33] VITALS: BP 86/43
[2017-10-17] MEDS: COMBIVENT 4 GR INHALER IH SCH (05:59)
[2017-10-17] MEDS: TIOTROPIUM BROM INH 18 MCG/CAP INH SCH (06:00)
[2017-10-17] MEDS: ASPIRIN 81 MG ENTERIC COATED PO SCH (08:16)
[2017-10-17] MEDS: FUROSEMIDE 20 MG TAB PO SCH (08:16)
[2017-10-17] MEDS: LISINOPRIL 20 MG TAB PO SCH (08:16)
[2017-10-17] MEDS: GABAPENTIN 300 MG CAP PO SCH ×3 (08:16→20:52)
[2017-10-17] MEDS: INSULIN GLARGINE 100 U/ML 3 ML PEN SUBQ SCH ×2 (08:17→20:52)
--- NOTE | 2017-10-17 10:10 | BHS Progress Note ---
S - Subjective Progress Notes Subjective Patient remains cooperative on the unit, and notably interacting well with roommate. [facility] assisted living evaluation for placement ongoing, Patient is non-aggressive on the unit. Blood sugar is stabilizing. Appetite and sleep appears intact. No other concerns. Patient stating he "is leaving today". Patient re-directed easily. Patient demonstrates a very limited understanding of diabetic condition, and likely extremely limited in any ability to care for self. Suicidal Ideation: None Homicidal Ideation: None [facility] - Objective Physical Exam Vital Signs Vital Signs Date Time Temp Pulse Resp B/P (MAP) Pulse Ox O2 Delivery O2 Flow Rate FiO2 10/17/17 05:33 98.3 75 86/43 (57) 92 Nasal Cannula 2.0 10/15/17 16:20 18 Hematology Test 10/10/17 00:00 10/15/17 07:17 10/17/17 07:54 Hemoglobin A1c 13.3 % (4.6-6.0) Red Blood Count 4.39 M/uL (4.00-5.60) Mean Corpuscular Volume 90.1 fL (80.0-96.0) Mean Corpuscular Hemoglobin 31.0 pg (26.0-33.0) Mean Corpuscular Hemoglobin Concent 34.4 g/dL (32.0-36.0) Red Cell Distribution Width 16.0 % (11.5-14.5) Mean Platelet Volume 8.6 fL (7.2-11.1) Neutrophils (%) (Auto) 64.6 % (39.4-72.5) Lymphocytes (%) (Auto) 23.9 % (17.6-49.6) Monocytes (%) (Auto) 7.6 % (4.1-12.4) Eosinophils (%) (Auto) 3.4 % (0.4-6.7) Basophils (%) (Auto) 0.5 % (0.3-1.4) Nucleated RBC Relative Count (auto) 0.0 /100WBC Neutrophils # (Auto) 3.8 K/uL (2.0-7.4) Lymphocytes # (Auto) 1.4 K/uL (1.3-3.6) Monocytes # (Auto) 0.4 K/uL (0.3-1.0) Eosinophils # (Auto) 0.2 K/uL (0.0-0.5) Basophils # (Auto) 0.0 K/uL (0.0-0.1) Nucleated RBC Absolute Count (auto) 0.00 K/uL Sodium Level 142 mmol/L (137-145) Potassium Level 4.2 mmol/L (3.5-5.0) Chloride Level 101 mmol/L (98-107) Carbon Dioxide Level 28 mmol/L (22-30) Blood Urea Nitrogen 26 mg/dl (9-21) Creatinine 0.80 mg/dl (0.66-1.25) Glomerular Filtration Rate Calc > 60.0 Random Glucose 140 mg/dl (75-110) Calcium Level 9.7 mg/dl (8.4-10.2) Total Bilirubin 0.9 mg/dl (0.2-1.3) Aspartate Amino Transf (AST/SGOT) 20 U/L (0-35) Alanine Aminotransferase (ALT/SGPT) 34 U/L (0-56) Alkaline Phosphatase 88 U/L (0-126) Total Protein 6.7 g/dl (6.3-8.2) Albumin 3.6 g/dl (3.5-5.0) Whole Blood Glucose 104 mg/DL (75-110) Chemistry Test 10/10/17 00:00 10/15/17 07:17 10/17/17 07:54 Hemoglobin A1c 13.3 % (4.6-6.0) White Blood Count 5.9 k/uL (4.5-11.0) Red Blood Count 4.39 M/uL (4.00-5.60) Hemoglobin 13.6 g/dL (14.0-18.0) Hematocrit 39.6 % (42.0-52.0) Mean Corpuscular Volume 90.1 fL (80.0-96.0) Mean Corpuscular Hemoglobin 31.0 pg (26.0-33.0) Mean Corpuscular Hemoglobin Concent 34.4 g/dL (32.0-36.0) Red Cell Distribution Width 16.0 % (11.5-14.5) Platelet Count 181 K/uL (150-450) Mean Platelet Volume 8.6 fL (7.2-11.1) Neutrophils (%) (Auto) 64.6 % (39.4-72.5) Lymphocytes (%) (Auto) 23.9 % (17.6-49.6) Monocytes (%) (Auto) 7.6 % (4.1-12.4) Eosinophils (%) (Auto) 3.4 % (0.4-6.7) Basophils (%) (Auto) 0.5 % (0.3-1.4) Nucleated RBC Relative Count (auto) 0.0 /100WBC Neutrophils # (Auto) 3.8 K/uL (2.0-7.4) Lymphocytes # (Auto) 1.4 K/uL (1.3-3.6) Monocytes # (Auto) 0.4 K/uL (0.3-1.0) Eosinophils # (Auto) 0.2 K/uL (0.0-0.5) Basophils # (Auto) 0.0 K/uL (0.0-0.1) Nucleated RBC Absolute Count (auto) 0.00 K/uL Glomerular Filtration Rate Calc > 60.0 Calcium Level 9.7 mg/dl (8.4-10.2) Total Bilirubin 0.9 mg/dl (0.2-1.3) Aspartate Amino Transf (AST/SGOT) 20 U/L (0-35) Alanine Aminotransferase (ALT/SGPT) 34 U/L (0-56) Alkaline Phosphatase 88 U/L (0-126) Total Protein 6.7 g/dl (6.3-8.2) Albumin 3.6 g/dl (3.5-5.0) Whole Blood Glucose 104 mg/DL (75-110) Muscle Strength and Tone: Other Gait and Station: Unsteady [facility] Medications Reviewed: Side Effects, Benefits of Medication, Risks Allergies Reviewed: Yes Mental Status Exam General Appearance: Casual, No Well Groomed, Good Eye Contact, Cooperative, Unkept, No Psychomotor Agitation, Psychomotor Retardation (some), No Bizarre Mannerisms, No Tics Speech: Clear, Spontaneous, Normal Rhythm, Normal Volume, Normal Tone, Delayed Mood: No Dysthmic/Depressed (frustrated) Affect: Calm, No Agitated (at times) Thought Process: No Goal Directed, No Loose Associations, No Flight of Ideas Thought Content: No Suicidal Ideation, No Homicidal Ideation (denies any thoughts of harm toward brother in law, but wants him "out of my house"), No Delusions, No Auditory Halllucinations, No Visual Hallucinations, No Thought Broadcasting, No Ideas of Reference, No Obsessions, No Compulsions Sensorium: Clear Cognition: Alert & Oriented-Person, Alert & Oriented-Place, No Alert & Oriented -Time, No Pncsj-Wcxzskou-Gcjwyjeul (partially ) Memory: Immediate, Recent, Remote, Other (likely some component of cognitive impairment exists, level of which is under evaluation. 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 Last Edited By: Mark Skinner on Oct 12, 2017 11:26 Status: Chronic Condition 1. continue same medications 2. look into placement options. MARK SKINNER MD Oct 17, 2017 10:10
[2017-10-17] MEDS: metFORMIN HCL XR 500 MG TABCR PO SCH ×2 (12:12→16:59)
[2017-10-17] MEDS: PIOGLITAZONE HCL 15 MG TAB PO SCH (12:12)
[2017-10-17] MEDS: POTASSIUM CHL 10 MEQ TABCR PO SCH ×2 (12:12→16:49)
[2017-10-17] MEDS: LIRAGLUTIDE 18 MG/3 ML SUBQ SCH (12:13)
[2017-10-17 14:03] VITALS: BP 81/63
[2017-10-17] MEDS: PARoxetine HCL 20 MG TAB PO SCH (16:48)
[2017-10-17] MEDS: RIVAROXABAN 10 MG TAB PO SCH (16:49)
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
[2017-10-17] MEDS: ATORVASTATIN 10 MG TAB PO SCH ×2 (20:51→21:41)
[2017-10-17] MEDS: MELATONIN 3 MG TAB PO SCH (20:51)
[2017-10-17] MEDS: INSULIN HUM LISPRO 100 UN/ML 3 ML VIAL SUBQ PRN (21:06)
[2017-10-17 22:09] VITALS: BP 118/71
[2017-10-18] MEDS: LEVOTHYROXINE SOD 0.175 MG TAB PO SCH (05:18)
[2017-10-18 05:38] VITALS: BP 112/85
[2017-10-18] MEDS: COMBIVENT 4 GR INHALER IH SCH (05:45)
[2017-10-18] MEDS: TIOTROPIUM BROM INH 18 MCG/CAP INH SCH (05:45)
[2017-10-18] MEDS ORDERED: ACETAMINOPHEN 325 MG TAB PO PRN (05:50)
[2017-10-18] MEDS: ASPIRIN 81 MG ENTERIC COATED PO SCH (08:14)
[2017-10-18] MEDS: GABAPENTIN 300 MG CAP PO SCH ×3 (08:15→22:18)
[2017-10-18] MEDS: FUROSEMIDE 20 MG TAB PO SCH (08:15)
[2017-10-18] MEDS: LISINOPRIL 20 MG TAB PO SCH (08:17)
[2017-10-18] MEDS: INSULIN GLARGINE 100 U/ML 3 ML PEN SUBQ SCH ×2 (08:18→22:21)
[2017-10-18 11:19] VITALS: BP 94/59
[2017-10-18] MEDS: LIRAGLUTIDE 18 MG/3 ML SUBQ SCH (11:55)
[2017-10-18] MEDS: PIOGLITAZONE HCL 15 MG TAB PO SCH (11:55)
[2017-10-18] MEDS: POTASSIUM CHL 10 MEQ TABCR PO SCH ×2 (11:55→17:41)
[2017-10-18] MEDS: metFORMIN HCL XR 500 MG TABCR PO SCH ×2 (11:55→17:42)
[2017-10-18] MEDS: INSULIN HUM LISPRO 100 UN/ML 3 ML VIAL SUBQ PRN ×3 (11:56→22:21)
--- NOTE | 2017-10-18 12:16 | BHS Progress Note ---
BHS - Subjective Progress Notes Subjective Patient remains compliant on the unit, with no anger outbursts. Patient notably tolerant of roommate and was found to interact very well with him until roommate's departure. [facility] of this week. Patient remains medication compliant on unit with minimal prompting. will continue to solidify plans for discharge to assisted living. Blood sugars continue to stabilize, no other concerns. Suicidal Ideation: None Homicidal Ideation: None S - Objective Physical Exam Vital Signs Vital Signs Date Time Temp Pulse Resp B/P (MAP) Pulse Ox O2 Delivery O2 Flow Rate FiO2 10/18/17 11:19 97.9 75 94/59 (71) 100 Nasal Cannula 2.0 10/15/17 16:20 18 Hematology Test 10/10/17 00:00 10/15/17 07:17 10/18/17 07:51 Hemoglobin A1c 13.3 % (4.6-6.0) Red Blood Count 4.39 M/uL (4.00-5.60) Mean Corpuscular Volume 90.1 fL (80.0-96.0) Mean Corpuscular Hemoglobin 31.0 pg (26.0-33.0) Mean Corpuscular Hemoglobin Concent 34.4 g/dL (32.0-36.0) Red Cell Distribution Width 16.0 % (11.5-14.5) Mean Platelet Volume 8.6 fL (7.2-11.1) Neutrophils (%) (Auto) 64.6 % (39.4-72.5) Lymphocytes (%) (Auto) 23.9 % (17.6-49.6) Monocytes (%) (Auto) 7.6 % (4.1-12.4) Eosinophils (%) (Auto) 3.4 % (0.4-6.7) Basophils (%) (Auto) 0.5 % (0.3-1.4) Nucleated RBC Relative Count (auto) 0.0 /100WBC Neutrophils # (Auto) 3.8 K/uL (2.0-7.4) Lymphocytes # (Auto) 1.4 K/uL (1.3-3.6) Monocytes # (Auto) 0.4 K/uL (0.3-1.0) Eosinophils # (Auto) 0.2 K/uL (0.0-0.5) Basophils # (Auto) 0.0 K/uL (0.0-0.1) Nucleated RBC Absolute Count (auto) 0.00 K/uL Sodium Level 142 mmol/L (137-145) Potassium Level 4.2 mmol/L (3.5-5.0) Chloride Level 101 mmol/L (98-107) Carbon Dioxide Level 28 mmol/L (22-30) Blood Urea Nitrogen 26 mg/dl (9-21) Creatinine 0.80 mg/dl (0.66-1.25) Glomerular Filtration Rate Calc > 60.0 Random Glucose 140 mg/dl (75-110) Calcium Level 9.7 mg/dl (8.4-10.2) Total Bilirubin 0.9 mg/dl (0.2-1.3) Aspartate Amino Transf (AST/SGOT) 20 U/L (0-35) Alanine Aminotransferase (ALT/SGPT) 34 U/L (0-56) Alkaline Phosphatase 88 U/L (0-126) Total Protein 6.7 g/dl (6.3-8.2) Albumin 3.6 g/dl (3.5-5.0) Whole Blood Glucose 85 mg/DL (75-110) Chemistry Test 10/10/17 00:00 10/15/17 07:17 10/18/17 07:51 Hemoglobin A1c 13.3 % (4.6-6.0) White Blood Count 5.9 k/uL (4.5-11.0) Red Blood Count 4.39 M/uL (4.00-5.60) Hemoglobin 13.6 g/dL (14.0-18.0) Hematocrit 39.6 % (42.0-52.0) Mean Corpuscular Volume 90.1 fL (80.0-96.0) Mean Corpuscular Hemoglobin 31.0 pg (26.0-33.0) Mean Corpuscular Hemoglobin Concent 34.4 g/dL (32.0-36.0) Red Cell Distribution Width 16.0 % (11.5-14.5) Platelet Count 181 K/uL (150-450) Mean Platelet Volume 8.6 fL (7.2-11.1) Neutrophils (%) (Auto) 64.6 % (39.4-72.5) Lymphocytes (%) (Auto) 23.9 % (17.6-49.6) Monocytes (%) (Auto) 7.6 % (4.1-12.4) Eosinophils (%) (Auto) 3.4 % (0.4-6.7) Basophils (%) (Auto) 0.5 % (0.3-1.4) Nucleated RBC Relative Count (auto) 0.0 /100WBC Neutrophils # (Auto) 3.8 K/uL (2.0-7.4) Lymphocytes # (Auto) 1.4 K/uL (1.3-3.6) Monocytes # (Auto) 0.4 K/uL (0.3-1.0) Eosinophils # (Auto) 0.2 K/uL (0.0-0.5) Basophils # (Auto) 0.0 K/uL (0.0-0.1) Nucleated RBC Absolute Count (auto) 0.00 K/uL Glomerular Filtration Rate Calc > 60.0 Calcium Level 9.7 mg/dl (8.4-10.2) Total Bilirubin 0.9 mg/dl (0.2-1.3) Aspartate Amino Transf (AST/SGOT) 20 U/L (0-35) Alanine Aminotransferase (ALT/SGPT) 34 U/L (0-56) Alkaline Phosphatase 88 U/L (0-126) Total Protein 6.7 g/dl (6.3-8.2) Albumin 3.6 g/dl (3.5-5.0) Whole Blood Glucose 85 mg/DL (75-110) Muscle Strength and Tone: Other Gait and Station: Unsteady [facility] Medications Reviewed: Side Effects, Benefits of Medication, Risks Allergies Reviewed: Yes Mental Status Exam General Appearance: Casual, No Well Groomed, Good Eye Contact, Cooperative, Unkept, No Psychomotor Agitation, Psychomotor Retardation (some), No Bizarre Mannerisms, No Tics Speech: Clear, Spontaneous, Normal Rhythm, Normal Volume, Normal Tone, Delayed Mood: No Dysthmic/Depressed (frustrated) Affect: Calm, No Agitated (at times) Thought Process: No Goal Directed, No Loose Associations, No Flight of Ideas Thought Content: No Suicidal Ideation, No Homicidal Ideation (denies any thoughts of harm toward brother in law, but wants him "out of my house"), No Delusions, No Auditory Halllucinations, No Visual Hallucinations, No Thought Broadcasting, No Ideas of Reference, No Obsessions, No Compulsions Sensorium: Clear Cognition: Alert & Oriented-Person, Alert & Oriented-Place, No Alert & Oriented -Time, No Ujzcv-Heqyexlh-Qzjbsczlk (Not entirely) Memory: Immediate, Recent, Remote, Other (likely some component of cognitive impairment exists, level of which is under evaluation.) Intelligence: Average (historically) Insight Judgment: Poor (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.) Result Diagram: 10/15/17 0710/15/1717 [facility] Assessment and Plan [id number] Encounter Date: Oct 18, 2017 Dnuh-[id number] Encounter Time: 09:00 [facility] Plan: Necessary Precautions, Individual/Group Therapy, Admin/Titrate Meds, Educate Patient Tobacco Medications: Not Appropriate Condition Multpiple Antipsychotics Used: No Problems: (1) Persistent depressive disorder Status: Chronic (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 Last Edited By: Mark Skinner on Oct 12, 2017 11:26 Status: Chronic Condition 1. continue treatment. 2. solidify [facility]. MARK SKINNER MD Oct 18, 2017 12:16
[2017-10-18] MEDS: RIVAROXABAN 10 MG TAB PO SCH (17:41)
[2017-10-18] MEDS: PARoxetine HCL 20 MG TAB PO SCH (17:42)
[2017-10-18 21:15] VITALS: BP 106/61
[2017-10-18] MEDS: MELATONIN 3 MG TAB PO SCH (22:18)
[2017-10-18] MEDS: ATORVASTATIN 10 MG TAB PO SCH (22:19)
[2017-10-19 03:22] VITALS: BP 113/65
[2017-10-19] MEDS: LEVOTHYROXINE SOD 0.175 MG TAB PO SCH (05:23)
[2017-10-19] MEDS: COMBIVENT 4 GR INHALER IH SCH (05:53)
[2017-10-19] MEDS: TIOTROPIUM BROM INH 18 MCG/CAP INH SCH (05:54)
[2017-10-19] MEDS: ASPIRIN 81 MG ENTERIC COATED PO SCH (08:06)
[2017-10-19] MEDS: GABAPENTIN 300 MG CAP PO SCH ×3 (08:07→21:52)
[2017-10-19] MEDS: INSULIN GLARGINE 100 U/ML 3 ML PEN SUBQ SCH ×2 (08:07→21:53)
[2017-10-19] MEDS: FUROSEMIDE 20 MG TAB PO SCH (08:07)
[2017-10-19] MEDS: LISINOPRIL 20 MG TAB PO SCH (08:07)
--- NOTE | 2017-10-19 10:32 | BHS Progress Note ---
BHS - Subjective Progress Notes Subjective Patient indicating an understanding of the likelihood of a transfer to [facility] living tomorrow. Patient's blood sugars continue to stabilize. Minimal irritation over not returning home. Mood good today. Patient engaging in activities on the unit, and remains cooperative and pleasant with staff and other patients on the unit. Diabetic education continues on the unit. No other concerns. Suicidal Ideation: None Homicidal Ideation: None S - Objective Physical Exam Vital Signs Vital Signs Date Time Temp Pulse Resp B/P (MAP) Pulse Ox O2 Delivery O2 Flow Rate FiO2 10/19/17 03:22 98.1 81 16 113/65 (81) 98 Nasal Cannula 2.0 Hematology Test 10/10/17 00:00 10/15/17 07:17 10/19/17 07:48 Hemoglobin A1c 13.3 % (4.6-6.0) Red Blood Count 4.39 M/uL (4.00-5.60) Mean Corpuscular Volume 90.1 fL (80.0-96.0) Mean Corpuscular Hemoglobin 31.0 pg (26.0-33.0) Mean Corpuscular Hemoglobin Concent 34.4 g/dL (32.0-36.0) Red Cell Distribution Width 16.0 % (11.5-14.5) Mean Platelet Volume 8.6 fL (7.2-11.1) Neutrophils (%) (Auto) 64.6 % (39.4-72.5) Lymphocytes (%) (Auto) 23.9 % (17.6-49.6) Monocytes (%) (Auto) 7.6 % (4.1-12.4) Eosinophils (%) (Auto) 3.4 % (0.4-6.7) Basophils (%) (Auto) 0.5 % (0.3-1.4) Nucleated RBC Relative Count (auto) 0.0 /100WBC Neutrophils # (Auto) 3.8 K/uL (2.0-7.4) Lymphocytes # (Auto) 1.4 K/uL (1.3-3.6) Monocytes # (Auto) 0.4 K/uL (0.3-1.0) Eosinophils # (Auto) 0.2 K/uL (0.0-0.5) Basophils # (Auto) 0.0 K/uL (0.0-0.1) Nucleated RBC Absolute Count (auto) 0.00 K/uL Sodium Level 142 mmol/L (137-145) Potassium Level 4.2 mmol/L (3.5-5.0) Chloride Level 101 mmol/L (98-107) Carbon Dioxide Level 28 mmol/L (22-30) Blood Urea Nitrogen 26 mg/dl (9-21) Creatinine 0.80 mg/dl (0.66-1.25) Glomerular Filtration Rate Calc > 60.0 Random Glucose 140 mg/dl (75-110) Calcium Level 9.7 mg/dl (8.4-10.2) Total Bilirubin 0.9 mg/dl (0.2-1.3) Aspartate Amino Transf (AST/SGOT) 20 U/L (0-35) Alanine Aminotransferase (ALT/SGPT) 34 U/L (0-56) Alkaline Phosphatase 88 U/L (0-126) Total Protein 6.7 g/dl (6.3-8.2) Albumin 3.6 g/dl (3.5-5.0) Whole Blood Glucose 120 mg/DL (75-110) Chemistry Test 10/10/17 00:00 10/15/17 07:17 10/19/17 07:48 Hemoglobin A1c 13.3 % (4.6-6.0) White Blood Count 5.9 k/uL (4.5-11.0) Red Blood Count 4.39 M/uL (4.00-5.60) Hemoglobin 13.6 g/dL (14.0-18.0) Hematocrit 39.6 % (42.0-52.0) Mean Corpuscular Volume 90.1 fL (80.0-96.0) Mean Corpuscular Hemoglobin 31.0 pg (26.0-33.0) Mean Corpuscular Hemoglobin Concent 34.4 g/dL (32.0-36.0) Red Cell Distribution Width 16.0 % (11.5-14.5) Platelet Count 181 K/uL (150-450) Mean Platelet Volume 8.6 fL (7.2-11.1) Neutrophils (%) (Auto) 64.6 % (39.4-72.5) Lymphocytes (%) (Auto) 23.9 % (17.6-49.6) Monocytes (%) (Auto) 7.6 % (4.1-12.4) Eosinophils (%) (Auto) 3.4 % (0.4-6.7) Basophils (%) (Auto) 0.5 % (0.3-1.4) Nucleated RBC Relative Count (auto) 0.0 /100WBC Neutrophils # (Auto) 3.8 K/uL (2.0-7.4) Lymphocytes # (Auto) 1.4 K/uL (1.3-3.6) Monocytes # (Auto) 0.4 K/uL (0.3-1.0) Eosinophils # (Auto) 0.2 K/uL (0.0-0.5) Basophils # (Auto) 0.0 K/uL (0.0-0.1) Nucleated RBC Absolute Count (auto) 0.00 K/uL Glomerular Filtration Rate Calc > 60.0 Calcium Level 9.7 mg/dl (8.4-10.2) Total Bilirubin 0.9 mg/dl (0.2-1.3) Aspartate Amino Transf (AST/SGOT) 20 U/L (0-35) Alanine Aminotransferase (ALT/SGPT) 34 U/L (0-56) Alkaline Phosphatase 88 U/L (0-126) Total Protein 6.7 g/dl (6.3-8.2) Albumin 3.6 g/dl (3.5-5.0) Whole Blood Glucose 120 mg/DL (75-110) Muscle Strength and Tone: Other Gait and Station: Unsteady [facility] Medications Reviewed: Side Effects, Benefits of Medication, Risks Allergies Reviewed: Yes Mental Status Exam General Appearance: Casual, No Well Groomed, Good Eye Contact, Cooperative, Unkept, No Psychomotor Agitation, Psychomotor Retardation (some), No Bizarre Mannerisms, No Tics Speech: Clear, Spontaneous, Normal Rhythm, Normal Volume, Normal Tone, Delayed Mood: No Dysthmic/Depressed (frustrated) Affect: Full and Appropriate, Calm, No Withdrawn, No Tearful, No Anxious, No Agitated Thought Process: No Goal Directed, No Loose Associations, No Flight of Ideas Thought Content: No Suicidal Ideation, No Homicidal Ideation (denies any thoughts of harm toward brother in law, but wants him "out of my house"), No Delusions, No Auditory Halllucinations, No Visual Hallucinations, No Thought Broadcasting, No Ideas of Reference, No Obsessions, No Compulsions Sensorium: Clear Cognition: Alert & Oriented-Person, Alert & Oriented-Place, No Alert & Oriented -Time, No Gpyjm-[id number]-Hibfbievb (mostly) Memory: Immediate, Recent, Remote, Other (likely some permanent component of cognitive impairment exists, level of which is under evaluation.) Intelligence: Average (historically) Insight Judgment: Poor (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 Last Edited By: Mark Skinnre on Oct 12, 2017 11:26 Status: Chronic (2) Persistent depressive disorder Status: Chronic Condition 1. continue medications. 2. arrange for probable discharge to [facility] tomorrow. MARK SKINNER MD Oct 19, 2017 10:32
[2017-10-19 11:53] VITALS: BP 109/59
[2017-10-19] MEDS: POTASSIUM CHL 10 MEQ TABCR PO SCH ×2 (12:08→16:48)
[2017-10-19] MEDS: metFORMIN HCL XR 500 MG TABCR PO SCH ×2 (12:08→16:48)
[2017-10-19] MEDS: PIOGLITAZONE HCL 15 MG TAB PO SCH (12:08)
[2017-10-19] MEDS: LIRAGLUTIDE 18 MG/3 ML SUBQ SCH (12:08)
[2017-10-19] MEDS: INSULIN HUM LISPRO 100 UN/ML 3 ML VIAL SUBQ PRN ×2 (12:09→21:53)
[2017-10-19] MEDS: PARoxetine HCL 20 MG TAB PO SCH (16:47)
[2017-10-19] MEDS: RIVAROXABAN 10 MG TAB PO SCH (16:48)
[2017-10-19 19:01] VITALS: BP 101/74
[2017-10-19] MEDS: ATORVASTATIN 10 MG TAB PO SCH (21:51)
[2017-10-19] MEDS: MELATONIN 3 MG TAB PO SCH (21:52)
[2017-10-20 02:45] VITALS: BP 114/63
[2017-10-20] MEDS: COMBIVENT 4 GR INHALER IH SCH (05:35)
[2017-10-20] MEDS: TIOTROPIUM BROM INH 18 MCG/CAP INH SCH (05:35)
[2017-10-20] MEDS: LEVOTHYROXINE SOD 0.175 MG TAB PO SCH (05:35)
[2017-10-20] MEDS: FUROSEMIDE 20 MG TAB PO SCH (08:29)
[2017-10-20] MEDS: ASPIRIN 81 MG ENTERIC COATED PO SCH (08:29)
[2017-10-20] MEDS: LISINOPRIL 20 MG TAB PO SCH (08:29)
[2017-10-20] MEDS: GABAPENTIN 300 MG CAP PO SCH (08:29)
[2017-10-20] MEDS: INSULIN GLARGINE 100 U/ML 3 ML PEN SUBQ SCH (08:31)
[2017-10-20] MEDS ORDERED: PIOG15TA14 PO (10:53)
[2017-10-20] MEDS ORDERED: LANI SUBQ (10:57)
[2017-10-20] MEDS ORDERED: NEOM1PAC11 TP (11:06)
[2017-10-20] MEDS ORDERED: ACET-1966 PO (11:08)
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
== END 2017-10-20 11:35 | disposition home or self-care (01) | DRG 884 ==
LOC: BHS 21:32
PROVIDERS: ADMIT Psychiatry & Neurology Psychiatry; ATTEND Psychiatry & Neurology Psychiatry
DX: F06.30 Mood disorder due to known physiological condition, unspecified (principal); G31.84 Mild cognitive impairment of uncertain or unknown etiology; F34.1 Dysthymic disorder; E11.65 Type 2 diabetes mellitus with hyperglycemia; R45.850 Homicidal ideations; F43.20 Adjustment disorder, unspecified; I10 Essential (primary) hypertension; J43.9 Emphysema, unspecified; E03.9 Hypothyroidism, unspecified; Z91.11 Patient's noncompliance with dietary regimen; Z63.0 Problems in relationship with spouse or partner; Z79.4 Long term (current) use of insulin
CPT/HCPCS: 36415; 36416; 82040; 82247; 82310; 82374; 82435; 82565; 82947; 82948; 83036; 84075; 84132; 84155; 84295; 84450; 84460; 84520; 85025; 93925; 93970; 94640; J1815; J3535

== ENCOUNTER → 2017-10-10 | Outpatient (CLI) | payer OTHER, MEDICARE ==
[2017-08-20 10:37] VITALS: BMI 32.5
[~2017-10-10] MED LIST changes: +BARIUM SULFATE 176 GM BTL PO ONE; +BARIUM SULFATE 340 GM POWD ONE
--- NOTE | 2017-10-10 17:24 | RADIOLOGY IMAGING REPORT ---
FACILITY: [facility] PATIENT NAME: Geoff Dinh : 1945 MR: [id number] V: [id number] EXAM DATE: ORDERING PHYSICIAN: KANWAL MOSS TECHNOLOGIST: Location: [facility] [place] Patient: Geoff Dinh : 1945 Visit/Account:[id number] Date of Sevice: 10/10/2017 Exam type: ESOPHAGRAM History: Difficulty swallowing Comparison: None. Findings: Double contrast esophagram was performed with thick and thin barium and air contrast. There is a sma ll hiatal hernia with a moderate amount of gastroesophageal reflux. There is mild narrowing at the l ower esophagus. No definite mucosal erosions were identified. The fluoroscopy dose area product was 463.14 micro-Tran per meter squared. IMPRESSION: 1. Small hiatal hernia with a moderate amount of gastroesophageal reflux Mild narrowing at the lower esophageal sphincter Report Dictated By: Brianna Torres MD at 10/10/2017 5:16 PM Report E-Signed By: Brianna Torres MD at 10/10/2017 5:21 PM WSN:[email or web address]
== END ==
LOC: RAD 01:24
PROVIDERS: ATTEND Physician Assistant
DX: K44.9 Diaphragmatic hernia without obstruction or gangrene (principal); K21.9 Gastro-esophageal reflux disease without esophagitis; K22.2 Esophageal obstruction
CPT/HCPCS: 74220

== ENCOUNTER → 2017-10-10 | Outpatient (CLI) | payer OTHER, MEDICARE ==
[2017-08-20 10:37] VITALS: BMI 32.5
[~2017-10-10] MED LIST changes: -BARIUM SULFATE 176 GM BTL PO ONE; -BARIUM SULFATE 340 GM POWD ONE
== END ==
LOC: AMB 15:58
PROVIDERS: ATTEND Nurse Practitioner
DX: M25.512 Pain in left shoulder (principal)
CPT/HCPCS: A0425; A0429

== ENCOUNTER 2017-10-26 21:56 | Emergency (ER) | payer OTHER, MEDICARE ==
[2017-08-20 10:37] VITALS: Wt 104.5 kg
[~2017-10-26 21:56] MED LIST changes: +ACET-1966 PO; +LANI SUBQ; +NEOM1PAC11 TP; +PIOG15TA14 PO; -PIOG30TA3 PO; +PIOG30TA71 PO
[2017-10-26 22:00] VITALS: BP 109/64
--- NOTE | 2017-10-26 22:00 | ER Report ---
History and Physical Time Seen By MD: 22:00 HPI/ROS CHIEF COMPLAINT: Psychiatric Hold- detainment HISTORY OF PRESENT ILLNESS: Patient is a 72-year-old male here from [facility] after [facility]. Dr. Byrne had called ahead and voiced concern that the patient was unable to care for himself and therefore would require detainment on [facility] floor. Patient denied suicidal or homicidal ideations. Patient was accompanied by police who brought him to the emergency department. Patient was stable at time of evaluation complaining of mild confusion with recent history of trauma. REVIEW OF SYSTEMS: Constitutional: No fever, no chills. Eyes: No discharge. ENT: No sore throat. Cardiovascular: No chest pain, no palpitations. Respiratory: No cough, no shortness of breath. Gastrointestinal: No abdominal pain, no vomiting. Genitourinary: No hematuria. Musculoskeletal: No back pain. Skin: No rashes. Neurological: No headache. Allergies: Coded Allergies: ibuprofen (Verified Allergy, Intermediate, 10/26/17) bupropion (Verified Allergy, Mild, 10/26/17) cephalexin (Verified Allergy, Mild, 10/26/17) dicloxacillin (Verified Allergy, Mild, 10/26/17) metronidazole (Verified Allergy, Mild, 10/26/17) Home Meds Active Scripts Insulin Glargine 100 Un/Ml Pen (LANTUS SOLOSTAR PEN) 100 Unit/1 Ml Insuln.pen, 32 UNIT SUBQ QAM, #4 VIAL 0 Refills Prov:MACEY [facility] 08/24/17 Aspirin (ASPIRIN EC) 81 Mg Tablet.dr, 81 MG PO QDAY, #30 TAB Prov:MACEY RBEWER [facility] 08/24/17 Reported Medications Acetaminophen (TYLENOL) 325 Mg Tablet, 325 MG PO Q6H Y for PAIN, TAB 10/20/17 Neomy Sulf/Bacitra/Polymyxin B (TRIPLE ANTIBIOTIC OINTMENT) 1 Each Packet, 1 EACH TP PRN Y for INFECTION, PACKET APPLY NEEDED FOR INFECTION 10/20/17 Insulin Glargine (LANTUS) 100 Unit/Ml Soln, 24 UNIT SUBQ QHS, ML 10/20/17 Pioglitazone Hcl (ACTOS) 15 Mg Tablet, 30 MG PO NOON 10/20/17 Sitagliptin Phosphate (JANUVIA) 100 Mg Tablet, 100 MG PO QHS 09/29/17 Liraglutide (VICTOZA 2-RADHA) 0.6 Mg/0.1 Ml Pen.injctr, 1.8 MG SQ QDAY 09/29/17 Melatonin (MELATONIN) 3 Mg Tablet, 3 MG PO HS 08/18/17 Potassium Chloride (POTASSIUM CHLORIDE) 10 Meq Capsule.er, 10 MEQ PO BID LUNCH & DINNER 08/18/17 Rivaroxaban 20 Mg (XARELTO 20 MG) 20 Mg Tablet, 20 MG PO DAILY, TAB AT DINNER 03/05/17 Furosemide (FUROSEMIDE) 20 Mg Tablet, 1 TAB PO DAILY, TAB 03/05/17 Metformin Hcl (METFORMIN HCL) 500 Mg Tablet, 2 TAB PO BID, TAB LUNCH & DINNER 03/05/17 Ropinirole Hcl (ROPINIROLE HCL) 2 Mg Tablet, 2 MG PO HS 03/05/17 Atorvastatin Calcium (LIPITOR) 10 Mg Tablet, 1 TAB PO QDAY, TAB 03/05/17 Lisinopril (LISINOPRIL) 10 Mg Tablet, 10 MG PO QDAY, TAB HOLD FOR SYSTOLIC BLOOD PRESSURE (HIGH NUMBER) LESS THAN 140 03/05/17 Levothyroxine Sodium (SYNTHROID) 175 Mcg Tablet, 175 MCG PO QDAY 03/05/17 Gabapentin (NEURONTIN) 300 Mg Capsule, 300 MG PO TID 05/13/13 Paroxetine Hcl (Paxil) 20 Mg Tab, 40 MG PO QHS, 0 Refills TAKE IN THE EVENING STARTING 03/09/17. 12/27/10 Albuterol/Ipratropium (Combivent Inhaler) 14.7 Gm Aer.w.adap, 14.7 GM IH BID, 0 Refills 12/27/10 Tiotropium [place] (Spiriva (Or Equiv)) 18 Mcg Inh, 1 PUFF INH DAILY, 0 Refills 12/27/10 Oxygen (Oxygen) 2 L Inha, 1-2 L INH DAILY, 0 Refills WE HAVE HAD THE PATIENT ON 1 LPM DURING THE DAY AND 2 LPM AT [facility] 12/27/10 Hx Smoking: No Smoking Status: Never Smoker Exposure to Second Hand Smoke?: No Hx Substance Use Disorder: No Hx Alcohol Use: Yes Constitutional Vital Sign - Last 24 Hours 10/26/17 10/26/17 10/26/17 10/26/17 21:56 21:57 22:00 22:11 Temp 98.7 Pulse 79 77 85 Resp 14 B/P (MAP) 121/71 109/64 (79) Pulse Ox 97 96 96 O2 Delivery Room Air Physical Exam General Appearance: The patient is alert, has no immediate need for airway protection and no signs of toxicity. No acute distress Eyes: Pupils equal and round no pallor or injection. ENT, Mouth: Mucous membranes are moist. Respiratory: There are no retractions, lungs are clear to auscultation. Cardiovascular: Regular rate and rhythm. Gastrointestinal: Abdomen is soft and non tender, no masses, bowel sounds normal. Neurological: No focal neurological deficits Skin: Warm and dry, no rashes. Musculoskeletal: Neck is supple non tender. Extremities are nontender, nonswollen and have full range of motion. Psych: Flat affect, not suicidal or homicidal DIFFERENTIAL DIAGNOSIS: After history and physical exam differential diagnosis was considered for unable to care for self, psychiatric disorder, depression, anxiety Medical Decision Making Data Points Result Diagram: 10/26/17223410/26/172234 Laboratory Hematology Test 10/26/17 22:10 10/26/17 22:35 Urine Color Yellow Urine Clarity Clear Urine pH 5.0 pH (4.8-9.5) Urine Specific [place] 1.021 Urine Protein Negative mg/dL (NEGATIVE) Urine Glucose (UA) 500 mg/dL (NEGATIVE) Urine Ketones Negative mg/dL (NEGATIVE) Urine Blood Negative (NEGATIVE) Urine Nitrite Negative (NEGATIVE) Urine Bilirubin Negative (NEGATIVE) Urine Urobilinogen Negative mg/dL (0.2-1.9) Urine Leukocyte Esterase Negative (NEGATIVE) Urine RBC 1 /HPF (0-2/HPF) Urine WBC <1 /HPF (0-5/HPF) Urine Squamous Epithelial Cells Moderate /LPF (</=FEW) Urine Bacteria Negative /HPF (NONE-FEW) Urine Hyaline Casts Few /LPF (NONE-FEW) Urine Mucus Few /HPF (NONE-FEW) Urine Opiates Screen Negative Urine Barbiturates Screen Negative Ur Tricyclic Antidepressants Screen Negative Urine Phencyclidine Screen Negative Urine Amphetamines Screen Negative Urine Benzodiazepines Screen Negative Urine Cocaine Screen Negative Urine Cannabinoids Screen Negative Red Blood Count 4.10 M/uL (4.00-5.60) Mean Corpuscular Volume 90.6 fL (80.0-96.0) Mean Corpuscular Hemoglobin 30.7 pg (26.0-33.0) Mean Corpuscular Hemoglobin Concent 33.9 g/dL (32.0-36.0) Red Cell Distribution Width 15.6 % (11.5-14.5) Mean Platelet Volume 8.0 fL (7.2-11.1) Neutrophils (%) (Auto) 61.8 % (39.4-72.5) Lymphocytes (%) (Auto) 26.3 % (17.6-49.6) Monocytes (%) (Auto) 8.6 % (4.1-12.4) Eosinophils (%) (Auto) 2.6 % (0.4-6.7) Basophils (%) (Auto) 0.7 % (0.3-1.4) Nucleated RBC Relative Count (auto) 0.0 /100WBC Neutrophils # (Auto) 4.0 K/uL (2.0-7.4) Lymphocytes # (Auto) 1.7 K/uL (1.3-3.6) Monocytes # (Auto) 0.6 K/uL (0.3-1.0) Eosinophils # (Auto) 0.2 K/uL (0.0-0.5) Basophils # (Auto) 0.0 K/uL (0.0-0.1) Nucleated RBC Absolute Count (auto) 0.00 K/uL Sodium Level 141 mmol/L (137-145) Potassium Level 4.2 mmol/L (3.5-5.0) Chloride Level 103 mmol/L (98-107) Carbon Dioxide Level 26 mmol/L (22-30) Blood Urea Nitrogen 28 mg/dl (9-21) Creatinine 1.00 mg/dl (0.66-1.25) Glomerular Filtration Rate Calc > 60.0 Random Glucose 175 mg/dl (75-110) Calcium Level 9.1 mg/dl (8.4-10.2) Magnesium Level 1.7 mg/dl (1.7-2.2) Total Bilirubin 0.7 mg/dl (0.2-1.3) Aspartate Amino Transf (AST/SGOT) 17 U/L (0-35) Alanine Aminotransferase (ALT/SGPT) 23 U/L (0-56) Alkaline Phosphatase 84 U/L (0-126) Total Protein 7.1 g/dl (6.3-8.2) Albumin 3.9 g/dl (3.5-5.0) Salicylates Level < 10 mg/L Salicylate Last Dose Date unknown Acetaminophen Level < 10 ug/ml Serum Alcohol < 10 mg/dl Chemistry Test 10/26/17 22:10 10/26/17 22:35 Urine Color Yellow Urine Clarity Clear Urine pH 5.0 pH (4.8-9.5) Urine Specific [place] 1.021 Urine Protein Negative mg/dL (NEGATIVE) Urine Glucose (UA) 500 mg/dL (NEGATIVE) Urine Ketones Negative mg/dL (NEGATIVE) Urine Blood Negative (NEGATIVE) Urine Nitrite Negative (NEGATIVE) Urine Bilirubin Negative (NEGATIVE) Urine Urobilinogen Negative mg/dL (0.2-1.9) Urine Leukocyte Esterase Negative (NEGATIVE) Urine RBC 1 /HPF (0-2/HPF) Urine WBC <1 /HPF (0-5/HPF) Urine Squamous Epithelial Cells Moderate /LPF (</=FEW) Urine Bacteria Negative /HPF (NONE-FEW) Urine Hyaline Casts Few /LPF (NONE-FEW) Urine Mucus Few /HPF (NONE-FEW) Urine Opiates Screen Negative Urine Barbiturates Screen Negative Ur Tricyclic Antidepressants Screen Negative Urine Phencyclidine Screen Negative Urine Amphetamines Screen Negative Urine Benzodiazepines Screen Negative Urine Cocaine Screen Negative Urine Cannabinoids Screen Negative White Blood Count 6.5 k/uL (4.5-11.0) Red Blood Count 4.10 M/uL (4.00-5.60) Hemoglobin 12.6 g/dL (14.0-18.0) Hematocrit 37.2 % (42.0-52.0) Mean Corpuscular Volume 90.6 fL (80.0-96.0) Mean Corpuscular Hemoglobin 30.7 pg (26.0-33.0) Mean Corpuscular Hemoglobin Concent 33.9 g/dL (32.0-36.0) Red Cell Distribution Width 15.6 % (11.5-14.5) Platelet Count 155 K/uL (150-450) Mean Platelet Volume 8.0 fL (7.2-11.1) Neutrophils (%) (Auto) 61.8 % (39.4-72.5) Lymphocytes (%) (Auto) 26.3 % (17.6-49.6) Monocytes (%) (Auto) 8.6 % (4.1-12.4) Eosinophils (%) (Auto) 2.6 % (0.4-6.7) Basophils (%) (Auto) 0.7 % (0.3-1.4) Nucleated RBC Relative Count (auto) 0.0 /100WBC Neutrophils # (Auto) 4.0 K/uL (2.0-7.4) Lymphocytes # (Auto) 1.7 K/uL (1.3-3.6) Monocytes # (Auto) 0.6 K/uL (0.3-1.0) Eosinophils # (Auto) 0.2 K/uL (0.0-0.5) Basophils # (Auto) 0.0 K/uL (0.0-0.1) Nucleated RBC Absolute Count (auto) 0.00 K/uL Glomerular Filtration Rate Calc > 60.0 Calcium Level 9.1 mg/dl (8.4-10.2) Magnesium Level 1.7 mg/dl (1.7-2.2) Total Bilirubin 0.7 mg/dl (0.2-1.3) Aspartate Amino Transf (AST/SGOT) 17 U/L (0-35) Alanine Aminotransferase (ALT/SGPT) 23 U/L (0-56) Alkaline Phosphatase 84 U/L (0-126) Total Protein 7.1 g/dl (6.3-8.2) Albumin 3.9 g/dl (3.5-5.0) Salicylates Level < 10 mg/L Salicylate Last Dose Date unknown Acetaminophen Level < 10 ug/ml Serum Alcohol < 10 mg/dl Toxicology Test 10/26/17 22:10 10/26/17 22:35 Urine Opiates Screen Negative Urine Barbiturates Screen Negative Ur Tricyclic Antidepressants Screen Negative Urine Phencyclidine Screen Negative Urine Amphetamines Screen Negative Urine Benzodiazepines Screen Negative Urine Cocaine Screen Negative Urine Cannabinoids Screen Negative Salicylates Level < 10 mg/L Salicylate Last Dose Date unknown Acetaminophen Level < 10 ug/ml Serum Alcohol < 10 mg/dl Urinalysis Test 10/26/17 22:10 Urine Color Yellow Urine Clarity Clear Urine pH 5.0 pH (4.8-9.5) Urine Specific [place] 1.021 Urine Protein Negative mg/dL (NEGATIVE) Urine Glucose (UA) 500 mg/dL (NEGATIVE) Urine Ketones Negative mg/dL (NEGATIVE) Urine Blood Negative (NEGATIVE) Urine Nitrite Negative (NEGATIVE) Urine Bilirubin Negative (NEGATIVE) Urine Urobilinogen Negative mg/dL (0.2-1.9) Urine Leukocyte Esterase Negative (NEGATIVE) Urine RBC 1 /HPF (0-2/HPF) Urine WBC <1 /HPF (0-5/HPF) Urine Squamous Epithelial Cells Moderate /LPF (</=FEW) Urine Bacteria Negative /HPF (NONE-FEW) Urine Hyaline Casts Few /LPF (NONE-FEW) Urine Mucus Few /HPF (NONE-FEW) ED Course/Re-evaluation ED Course Patient is a 72-year-old male brought in by police from shelter facility for inability to care for himself. Dr. christianson notified the emergency Department the patient was going to be coming in for evaluation likely would need to be detained for further care on behavioral health services. I read the patient's records. Patient was admitted to behavioral health services in stable conditions. Labs were unremarkable. Decision to Disposition Date: Oct 26, 2017 Decision to Disposition Time: 23:56 Depart Departure Latest Vital Signs Vital Signs Date Time Temp Pulse Resp B/P (MAP) Pulse Ox O2 Delivery O2 Flow Rate FiO2 10/26/17 22:11 85 96 10/26/17 22:00 109/64 (79) 10/26/17 21:57 98.7 14 Room Air Impression: Primary Impression: Psychiatric disturbance Condition: Condition Unchanged Disposition: XFER TO [facility] Referrals: VELMA WILLIAMSON DO (PCP) WARD NORTON DO Oct 26, 2017 22:00
[2017-10-26 22:42] LABS: PLATELET COUNT, AUTOMATED 155 K/uL (150-450)
[2017-10-27] MEDS ORDERED: SUVO20TA PO (16:10)
== END 2017-10-26 23:56 | disposition home or self-care (01) ==
LOC: ER 22:04
DX: F99 Mental disorder, not otherwise specified (principal); Z79.899 Other long term (current) drug therapy
CPT/HCPCS: 36415; 80305; 80320; 80329; 81001; 82040; 82247; 82310; 82374; 82435; 82565; 82947; 83735; 84075; 84132; 84155; 84295; 84443; 84450; 84460; 84520; 85025; 99283

== ENCOUNTER 2017-10-26 23:37 | Inpatient (IN) | payer OTHER, MEDICARE ==
[2017-08-20 10:37] VITALS: Ht 180.3 cm; Wt 104.3 kg
[~2017-10-26] VITALS: Ht 180.3 cm; Wt 104.3 kg
[2017-10-27] MEDS ORDERED: MAG HYD/AL HYD/SIMETH 30ML UDC PO PRN (00:30)
[2017-10-27] MEDS: MELATONIN 3 MG TAB PO SCH ×2 (01:22→21:16)
[2017-10-27] MEDS: LEVOTHYROXINE SOD 0.175 MG TAB PO SCH (05:59)
[2017-10-27] MEDS: LISINOPRIL 10 MG TAB PO SCH (08:42)
[2017-10-27] MEDS: FUROSEMIDE 20 MG TAB PO SCH (08:42)
[2017-10-27] MEDS: GABAPENTIN 300 MG CAP PO SCH ×3 (08:42→21:18)
[2017-10-27] MEDS: INSULIN GLARGINE 100 U/ML 3 ML PEN SUBQ SCH ×2 (08:42→21:15)
[2017-10-27] MEDS: MULTIVITAMINS PO SCH (08:42)
[2017-10-27] MEDS: ASPIRIN 81 MG ENTERIC COATED PO SCH (08:42)
[2017-10-27] MEDS ORDERED: PARoxetine HCL 20 MG TAB PO SCH (09:00)
[2017-10-27] MEDS ORDERED: PATIENT'S OWN MED SUBQ SCH ×2 (09:00→12:00)
[2017-10-27] MEDS: TIOTROPIUM BROM INH 18 MCG/CAP INH SCH (10:36)
[2017-10-27] MEDS: LIRAGLUTIDE 18 MG/3 ML SUBQ SCH (12:00)
[2017-10-27] MEDS: metFORMIN HCL 500 MG TAB PO SCH ×3 (12:11→21:16)
[2017-10-27] MEDS: POTASSIUM CHL 10 MEQ TABCR PO SCH ×2 (12:11→17:04)
[2017-10-27] MEDS: INSULIN HUM LISPRO 100 UN/ML 3 ML VIAL SUBQ PRN ×2 (12:12→21:22)
[2017-10-27] MEDS: PIOGLITAZONE HCL 15 MG TAB PO SCH (12:12)
[2017-10-27 14:06] VITALS: BP 96/49
--- NOTE | 2017-10-27 14:40 | BHS - Psychiatric Evaluation ---
ER - Title 25 MHE Evaluation Title 25 Evaluation Patient Detained By: Physician (Dr. Seth), Law Enforcement Referral Source: Law Enforcement Date Patient Detained: Oct 26, 2017 Time Patient Detained: 23:42 Date Mcc Expires: Oct 31, 2017 Time Mcc Expires: 23:42 Legal Status: Police Hold: Yes Legal Status: Residence: [facility] Resident, State Resident Assessment Data Provided By: Patient, Law Enforcement, Other Source ([employer]essionals and patient's EMR) HPI/ROS: Patient is a 72-year-old male brought in by police from residential facility for inability to care for himself. Dr. Byrne notified the emergency Department the patient was going to be coming in for evaluation likely would need to be detained for further care on behavioral health services." Admit due to SI or Attempt: No Suicide Plan: No Plan Alcohol or Drugs Involved: No Is Collateral Info Reliable: Yes (3-81, [facility] professional) Current Home Psych Meds: Paxil Mental Status Exam General Appearance: Casual, Good Eye Contact, Unkept Speech: Clear Mood: Dysthmic/Depressed Affect: Flat Thought Process: Other (Malin thinking, dependent on others to reason and think through behaviors. patient is highly reactive.) Cognition: Alert & Oriented-Person, Alert & Oriented-Place Memory: Immediate Insight Judgment: Poor Sleep: Normal Hallucinations: Denies Delusions: Denies Current Risk & History Current Dangerous Risk Assessm: Homicidal Ideation (Patient has had 2 recent prior hospitalizations related to being threatening to others.), Ubable to Care for Self Past Dangerous Risk Assessm: Homicidal Ideation (two previous occasions of patient being brought by Law Enforcement to the hospital for homicidal statements.) Previous Suicide Attempt: No Previous Attempt Previous Psychiatric Illness: Yes Previous Diagnosis/Treatment: 1. 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 2. Persisting depressive disorder. 3. Partner relational problem. 4. 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 Previous Psychiatric Treatment: Yes Risk Assessment & Disposition Evaluated Risk Assessment: Risk Formulation: The patient "evidences a substantial probability of physical harm to other individuals as manifested by a recent overt homicidal act, attempt or threat or other violent act, attempt or threat which places other in reasonable fear of serious physical harm" as evidenced by: The patient "evidences behavior manifested by recent acts or omissions that, due to mental illness, the patient is unable to satisfy basic needs for nourishment, essential medical care, alf, or safety so that a substantial probability exists that , serious physical injury, serious physical debilitation, serious mental debilitation, destabilization from lack of or refusal to take prescribed psychotropic medications for a diagnosed condition or serious physical disease will imminently ensue, unless the individual receives prompt and adequate treatment for this mental illness" as evidenced by: Patient has demonstrated by two recent and previous admissions to [facility] that he becomes destabilized and threatens his caregivers with violent or homicidal statements with malicious and capricious behavior. It is unknown and not likely that he intends to hurt his family, but apparent that he is so destabilized he has poor insight, judgement, and erratic behaviors that could easily be very dangerous. Patient demonstrates a very limited understanding of his diabetic condition, and likely extremely limited in any ability to care for self. When patient is destabilized, especially related to uncontrolled diabetes , he has demonstrated homicidal behaviors. On two recent occasions, patient became so destabilized, he came to the attention of professionals who felt detaining patient was the only option for his and others' safety. His health needs and related homicidal behaviors exceed his 's ability to care for him at home. At this time she is not accepting him back in their home, and patient placed last wee at [facility] where he repeatedly elopes and comes to the attention of Law Enforcement as a destabilized [facility] patient. Meets Mental Illness Req.: Yes Meets Dangerousness Req.: Yes Emergency Mcc to be: Upheld Decision Comment: Patient indicating with his behaviors that stabilization will require inpatient services again. Frequent hospitalizations with the same presentation underscore his high need and low functionality. A safe and stabilizing environment will be provided to him so that robust treatment and transitional care can occur. Date of Decision: Oct 27, 2017 Time of Decision: 14:48 Patient is Medically Stable at: Yes Disposition: [facility] L[facility] Oct 27, 2017 14:40
[2017-10-27] MEDS ORDERED: SUVO20TA PO (16:10)
[2017-10-27] MEDS: RIVAROXABAN 10 MG TAB PO SCH (17:21)
[2017-10-27 18:40] VITALS: BP 96/52
[2017-10-27] MEDS: PARoxetine HCL 20 MG TAB PO SCH (21:16)
[2017-10-27] MEDS: ATORVASTATIN 10 MG TAB PO SCH (21:18)
[2017-10-27] MEDS: SUVOREXANT 20 MG PO SCH (21:19)
[2017-10-27 22:18] VITALS: BP 97/66
[2017-10-28] MEDS: LEVOTHYROXINE SOD 0.175 MG TAB PO SCH (05:37)
[2017-10-28 05:38] VITALS: BP 107/69
[2017-10-28] MEDS: TIOTROPIUM BROM INH 18 MCG/CAP INH SCH (06:33)
[2017-10-28] MEDS: MULTIVITAMINS PO SCH (08:03)
[2017-10-28] MEDS: ACETAMINOPHEN 325 MG TAB PO PRN ×2 (08:03→16:44)
[2017-10-28] MEDS: LISINOPRIL 10 MG TAB PO SCH (08:03)
[2017-10-28] MEDS: FUROSEMIDE 20 MG TAB PO SCH (08:03)
[2017-10-28] MEDS: ASPIRIN 81 MG ENTERIC COATED PO SCH (08:03)
[2017-10-28] MEDS: GABAPENTIN 300 MG CAP PO SCH ×3 (08:03→21:37)
[2017-10-28] MEDS: INSULIN GLARGINE 100 U/ML 3 ML PEN SUBQ SCH ×2 (08:06→21:38)
[2017-10-28 09:01] VITALS: BP 81/46
[2017-10-28] MEDS: LIRAGLUTIDE 18 MG/3 ML SUBQ SCH (12:00)
[2017-10-28] MEDS: POTASSIUM CHL 10 MEQ TABCR PO SCH ×2 (12:02→16:41)
[2017-10-28] MEDS: PIOGLITAZONE HCL 15 MG TAB PO SCH (12:02)
--- NOTE | 2017-10-28 14:36 | BHS Progress Note ---
[facility] - Subjective Progress Notes Subjective Pt seen in the dining room (at his request) with staff. He denies c/o today. He slept well, and says his mood is "alright." He is ambulating slowly and it takes a lot of effort to get up out of chair-- he agreed to a PT consult for strength and ambulation. He has been cooperative with taking meds and there has been no aggression nor agitation. He tends not to cooperate with elevating his LE's. Both LE's show mild/mod edema, with evidence of significant venous insufficiency and dry, red scaly skin. But venous dopplers were negative two weeks ago, and this looks quite chronic in nature, then is no evidence of acute inflammation or infection. Suicidal Ideation: None Homicidal Ideation: None [facility] - Objective Physical Exam Vital Signs Vital Signs 10/27/17 10/28/17 18:40 09:01 Temp 98.1 Pulse 55 Resp 18 B/P (MAP) 81/46 (58) Pulse Ox 100 O2 Delivery Nasal Cannula O2 Flow Rate 1.5 Muscle Strength and Tone: Other (diffusely weak) Gait and Station: Steady [facility] Medications Reviewed: Side Effects, Benefits of Medication Allergies Reviewed: Yes Mental Status Exam General Appearance: Casual, Good Eye Contact, Unkept Speech: Clear Mood: Dysthmic/Depressed Affect: Flat Thought Process: Organized Thought Content: No Suicidal Ideation, No Homicidal Ideation, No Delusions, No Auditory Halllucinations, No Visual Hallucinations, No Thought Broadcasting, No Ideas of Reference, No Obsessions, No Compulsions, No Other Sensorium: Clear Cognition: Alert & Oriented-Person, Alert & Oriented-Place, Other (O to person , "hospital," [place], "2017, "Monday.") Memory: Immediate Intelligence: Average Insight Judgment: Poor [facility] Assessment and Plan [id number] Encounter Date: Oct 28, 2017 [id number] Encounter Time: 09:45 [facility] Plan: Admit to Unit, Necessary Precautions, Individual/Group Therapy, Admin /Titrate Meds, Educate Patient Tobacco Medications: Not Appropriate Condition Multpiple Antipsychotics Used: No Problems: (1) Neurocognitive disorder (2) Persistent depressive disorder Status: Chronic (3) Diabetes type I MOO CLARK MD Oct 28, 2017 14:36
[2017-10-28 16:29] VITALS: BP 108/85
[2017-10-28] MEDS: metFORMIN HCL 500 MG TAB PO SCH (16:41)
[2017-10-28] MEDS: RIVAROXABAN 10 MG TAB PO SCH (16:41)
[2017-10-28] MEDS: INSULIN HUM LISPRO 100 UN/ML 3 ML VIAL SUBQ PRN ×2 (16:41→21:39)
[2017-10-28] MEDS: PARoxetine HCL 20 MG TAB PO SCH (21:37)
[2017-10-28] MEDS: ATORVASTATIN 10 MG TAB PO SCH (21:38)
[2017-10-28] MEDS: MELATONIN 3 MG TAB PO SCH (21:38)
[2017-10-28] MEDS: SUVOREXANT 20 MG PO SCH (22:05)
[2017-10-29] MEDS: LEVOTHYROXINE SOD 0.175 MG TAB PO SCH (05:36)
[2017-10-29] MEDS: TIOTROPIUM BROM INH 18 MCG/CAP INH SCH (06:04)
[2017-10-29 06:05] VITALS: BP 87/53
[2017-10-29 07:41] LABS: PLATELET COUNT, AUTOMATED 142 K/uL (150-450)
[2017-10-29] MEDS: ASPIRIN 81 MG ENTERIC COATED PO SCH (08:19)
[2017-10-29] MEDS: FUROSEMIDE 20 MG TAB PO SCH (08:19)
[2017-10-29] MEDS: GABAPENTIN 300 MG CAP PO SCH ×3 (08:19→20:34)
[2017-10-29] MEDS: MULTIVITAMINS PO SCH (08:19)
[2017-10-29] MEDS: LISINOPRIL 10 MG TAB PO SCH (08:19)
[2017-10-29] MEDS: INSULIN GLARGINE 100 U/ML 3 ML PEN SUBQ SCH ×2 (08:20→20:34)
[2017-10-29] MEDS: PIOGLITAZONE HCL 15 MG TAB PO SCH (12:00)
[2017-10-29] MEDS: LIRAGLUTIDE 18 MG/3 ML SUBQ SCH (12:15)
[2017-10-29] MEDS: metFORMIN HCL 500 MG TAB PO SCH ×2 (12:16→17:11)
[2017-10-29] MEDS: POTASSIUM CHL 10 MEQ TABCR PO SCH ×2 (12:17→17:10)
[2017-10-29 12:43] VITALS: BP 98/48
--- NOTE | 2017-10-29 13:41 | BHS Progress Note ---
[facility] - Subjective Progress Notes Subjective Pt seen in conference room with staff. Pt denies c/o's today. He looks better today, a little stronger getting up, more alert, stronger and more steady with ambulation, a little more talkative. Reporting good mood, says he is sleeping OK, appetite is good, blood sugars have been OK-- since admission he has only required sliding scale coverage 4 times, with 2 to a max of 4 units. His LLE looks about the same today as yesterday-- significant venous stasis, red scaly skin, but no sign of worsening nor of infection. Labs today look good, lytes are WNL, albumin and TP down a little but not bad, CBC with mildly low hgb/hct and platelet count, but acceptable. 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 Suicidal Ideation: None Homicidal Ideation: None [facility] - Objective Physical Exam Vital Signs Vital Signs 10/27/17 10/29/17 18:40 06:05 Temp 97.2 Pulse 59 Resp 18 B/P (MAP) 87/53 (64) Pulse Ox 97 O2 Delivery Nasal Cannula O2 Flow Rate 2.0 Gait and Station: Steady [facility] Medications Reviewed: Side Effects, Benefits of Medication Allergies Reviewed: Yes Mental Status Exam General Appearance: Casual, Good Eye Contact, Unkept Speech: Clear Mood: Dysthmic/Depressed Affect: Flat Thought Process: Organized Thought Content: No Suicidal Ideation, No Homicidal Ideation, No Delusions, No Auditory Halllucinations, No Visual Hallucinations, No Thought Broadcasting, No Ideas of Reference, No Obsessions, No Compulsions, No Other Sensorium: Clear Cognition: Alert & Oriented-Person, Alert & Oriented-Place, Other (O to person , "hospital," [place], "August,"2017, "Monday.") Memory: Immediate, Remote, Other (Mild deficits, thought the month was September, said the day was Monday) Intelligence: Average Insight Judgment: Poor Result Diagram: 10/29/17 0725 10/29/17 0725 [facility] Assessment and Plan [id number] Encounter Date: Oct 29, 2017 [id number] Encounter Time: 10:00 [facility] Plan: Admit to Unit, Necessary Precautions, Individual/Group Therapy, Admin /Titrate Meds, Educate Patient Tobacco Medications: Not Appropriate Condition Multpiple Antipsychotics Used: No Problems: (1) Neurocognitive disorder (2) Persistent depressive disorder Status: Chronic (3) Diabetes type I MOO CLARK MD Oct 29, 2017 13:41
[2017-10-29] MEDS: RIVAROXABAN 10 MG TAB PO SCH (17:00)
[2017-10-29 18:25] VITALS: BP 105/49
--- NOTE | 2017-10-29 20:08 | BHS - Psychiatric Evaluation ---
Title 25 Evaluation Hearing Report: 109 Date of Report: Oct 29, 2017 Examiner: Brandy Monroy M.S., LMarcePMarceC Patient Detained By: Physician (Dr. Seth), Law Enforcement 24hr Mental Health Eval By: Brandy Monroy M.S., Isaac. Date Patient Detained: Oct 26, 2017 Time Patient Detained: 23:42 Date Group Home Expires: Oct 31, 2017 Time Group Home Expires: 23:42 Legal Status: Police Hold: Yes Legal Status: Relationship: Legal Status: Residence: [facility] Resident, State Resident Referral Source: Law Enforcement Assessment Data Provided By: Patient, Law Enforcement, Other Source (S Professionals and patient's EMR) Chief Complaint: Patient, Geoff Dinh, has an inability to care for himself related to his health needs and past homicidal behaviors which exceed his 's ability to care for him at home. His is not accepting him back in their home, and patient placed last week at [facility] where he has repeatedly eloped and come to the attention of Law Enforcement as a destabilized [facility] patient. HPI/ROS: From ER physician, "Patient is a 72-year-old male brought [facility] by police [facility] for inability to care for himself. Dr. Byrne notified the emergency Department the patient was going to be coming in for evaluation likely would need to be detained for further care on behavioral health services." Diagnosis: 1. 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 2. Persisting depressive disorder. 3. Partner relational problem. 4. 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 Risk Formulation: The patient "evidences a substantial probability of physical harm to other individuals as manifested by a recent overt homicidal act, attempt or threat or other violent act, attempt or threat which places other in reasonable fear of serious physical harm" as evidenced by: The patient "evidences behavior manifested by recent acts or omissions that, due to mental illness, the patient is unable to satisfy basic needs for nourishment, essential medical care, custodial, or safety so that a substantial probability exists that , serious physical injury, serious physical debilitation, serious mental debilitation, destabilization from lack of or refusal to take prescribed psychotropic medications for a diagnosed condition or serious physical disease will imminently ensue, unless the individual receives prompt and adequate treatment for this mental illness" as evidenced by: Patient has demonstrated by two recent and previous admissions to [facility] that he becomes destabilized and threatens his caregivers with violent or homicidal statements with malicious and capricious behavior. It is unknown and not likely that he intends to hurt his family, but apparent that he is so destabilized he has poor insight, judgement, and erratic behaviors that could easily be very dangerous. Patient demonstrates a very limited understanding of his diabetic condition, and likely extremely limited in any ability to care for self. When patient is destabilized, especially related to uncontrolled diabetes , he has demonstrated homicidal behaviors. On two recent occasions, patient became so destabilized, he came to the attention of professionals who felt detaining patient was the only option for his and others' safety. His health needs and related homicidal behaviors exceed his 's ability to care for him at home. At this time she is not accepting him back in their home, and patient placed last week at [facility] where he repeatedly elopes and comes to the attention of Law Enforcement as a destabilized [facility] patient. Late last week he was brought by Law Enforcement to the ER to protect his safety. Recommendations of [facility] Team: That the patient's initial jail be upheld and extended for up to ten (10) days to allow for further evaluation, monitoring, and stabilization. [facility] will follow patient during admission and after discharge. Patient should be directed to follow up with [facility] after discharge from [facility] for ongoing case management. Reliability of Pt-Evidenced By Patient often forgets important events or minimizes, saying about eloping from [facility], "I was just going for a walk." Says his has never been to visit him at [facility], and she has come to visit him, but often their visits are marked by their sharing of discourteous words with one another. Patient has limited understanding of medical needs, related instability, and does not commit to stopping violent behavior. Instead, he says about [id number] who remains in the home, "That asshole better not be at my house!" Reliability of Collateral Info [facility] Professionals Current Dangerous Risk Assess: Current Suicide Ideation (denies), Self- Injurious Behaviors (leaving the [facility] facility without medication or a way to take care of himself.) Current Risk Summary: Risk summary for patient Geoff Gilmore: The patient "evidences a substantial probability of physical harm to other individuals as manifested by a recent overt homicidal act, attempt or threat or other violent act, attempt or threat which places other in reasonable fear of serious physical harm" as evidenced by: The patient "evidences behavior manifested by recent acts or omissions that, due to mental illness, the patient is unable to satisfy basic needs for nourishment, essential medical care, custodial, or safety so that a substantial probability exists that , serious physical injury, serious physical debilitation, serious mental debilitation, destabilization from lack of or refusal to take prescribed psychotropic medications for a diagnosed condition or serious physical disease will imminently ensue, unless the individual receives prompt and adequate treatment for this mental illness" as evidenced by: Patient has demonstrated by two recent and previous admissions to [facility] that he becomes destabilized and threatens his caregivers with violent or homicidal statements with malicious and capricious behavior. It is unknown and not likely that he intends to hurt his family, but apparent that he is so destabilized he has poor insight, judgement, and erratic behaviors that could easily be very dangerous. Patient demonstrates a very limited understanding of his diabetic condition, and likely extremely limited in any ability to care for self. When patient is destabilized, especially related to uncontrolled diabetes , he has demonstrated homicidal behaviors. On two recent occasions, patient became so destabilized, he came to the attention of professionals who felt detaining patient was the only option for his and others' safety. His health needs and related homicidal behaviors exceed his 's ability to care for him at home. At this time she is not accepting him back in their home, and patient placed last week at [facility] where he repeatedly elopes and comes to the attention of Law Enforcement as a destabilized [facility] patient. Past Dangerous Risk Assess: Homicidal Ideation (two previous occasions of patient being brought by Law Enforcement to the hospital for homicidal statements.) [facility] - Exam Physical Exam Vital Signs Vital Signs 10/29/17 10/29/17 06:05 12:43 Temp 98.3 Pulse 69 Resp 18 B/P (MAP) 98/48 (65) Pulse Ox 96 O2 Delivery Room Air O2 Flow Rate 2.0 Mental Status Exam General Appearance: Casual, Good Eye Contact, Unkept Speech: Clear Mood: Dysthmic/Depressed Affect: Flat Thought Process: Organized Thought Content: No Suicidal Ideation, No Homicidal Ideation, No Delusions, No Auditory Halllucinations, No Visual Hallucinations, No Thought Broadcasting, No Ideas of Reference, No Obsessions, No Compulsions, No Other Sensorium: Clear Cognition: Alert & Oriented-Person, Alert & Oriented-Place, Other (O to person , "hospital," [place], "August,"2017, "Monday.") Memory: Immediate, Remote, Other (Mild deficits, thought the month was September, said the day was Monday) Intelligence: Average Insight Judgment: Poor Sleep: Normal Care & Behavior on Unit Treatment Team Participation: Patient is congenial and dependent. At times he shows limited comprehension of conversations. He enjoys spending staff a great deal and seems quite lonely. Patient is engaging appropriately in treatment milieu. He is accepting of care to stabilize his diabetes. He understands that caring for his diabetes while in the hospital is non-negotiable and occurs as the physician orders it. He became upset after his came to visit and told him he is not permitted back in their home because of his medical needs and related dangerousness to members of the household. Pt. Taking Meds Voluntarily: Yes Title 25 History Psychiatric History: Patient has been known to have some brief counseling in the past at [facility]. Patient is currently continued to be prescribed Paxil. His primary care provider is Dr. Vidal. patient has been treated at [facility] is February 2017 and October 2017 x2. Family Psychiatric Hx: Patient reports his mother may have suffered from depression and alcoholism. There are no reported suicides in the family Social History: Patient, Geoff Gilmore, was born in [place], and raised in [facility]. Parents were at the time of his . They both have passed. Patient has one older sister in [place] who as of previous admission was doing well. Patient did graduate high school, had 2-1/2 years of college in electronics. No service. He worked for a primary employment in the [employer] in [place] for much of his life. Patient has three adult children from a previous marriage, one of them in [place], one believed to be in [place], and unknown location of the other at this time. Patient currently lives with his here in [facility]. He has been to second now for approximately 22 years. During last admission, patient reported their marriage is in a state of dysfunction, and according to patient's , they continue to have conflict now. Patient denies any significant legal history in the past during past admission." Previous Detentions: Similar presentation and jail in February 2017 , and October, Prior Outpatient Treatment: Patient had treatment at [facility] several years ago for outpatient individual therapy. Drug & Alcohol Use: Patient reportedly drank alcohol excessively in the distal past, but present no current or relevant substance problem. Current Living Situation: Patient was placed at [facility] following a complex sequence of events, especially involving a jail as described here: Patient's says patient remains very resistant to care providers in the home, including family members. 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 At this time, patient's will not consider patient returning to their home as he remains very combative and abusive toward her. Patient is noted to have been evicted from [facility] since his last admission here on Behavioral Health as well. Patient is abusive and resistant to care from loved ones in the home for his multiple medical conditions. Patient brother in law is staying with his in their home. This is the same [id number] who patient threatened to "put a bullet in his head. " Current Support System: Patient's adult daughter calls patient frequently. He says he is soothed by these calls, and says they have a strong dai with one another. . Employment Issues: Patient is unemployed. 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 Current Medical Data: 1. Insulin-dependent diabetes mellitus. 2. Hypertension. 3. Patient has a history of clotting disorder. 4. Migraine headaches. 5. Emphysema. 6. Renal stones. 7. Hypothyroidism. Relevant Medications: BRANDY Forde LPC Oct 29, 2017 20:01
[2017-10-29 20:30] VITALS: BP 113/64
[2017-10-29] MEDS: ATORVASTATIN 10 MG TAB PO SCH (20:33)
[2017-10-29] MEDS: PARoxetine HCL 20 MG TAB PO SCH (20:34)
[2017-10-29] MEDS: MELATONIN 3 MG TAB PO SCH (20:34)
[2017-10-29] MEDS: SUVOREXANT 20 MG PO SCH (20:35)
[2017-10-29] MEDS: INSULIN HUM LISPRO 100 UN/ML 3 ML VIAL SUBQ PRN (21:12)
[2017-10-30 05:18] VITALS: BP 94/49
[2017-10-30] MEDS: LEVOTHYROXINE SOD 0.175 MG TAB PO SCH (05:18)
[2017-10-30] MEDS: TIOTROPIUM BROM INH 18 MCG/CAP INH SCH (05:42)
[2017-10-30] MEDS: INSULIN GLARGINE 100 U/ML 3 ML PEN SUBQ SCH ×2 (07:56→21:16)
[2017-10-30] MEDS: FUROSEMIDE 20 MG TAB PO SCH (07:56)
[2017-10-30] MEDS: ASPIRIN 81 MG ENTERIC COATED PO SCH (07:56)
[2017-10-30] MEDS: GABAPENTIN 300 MG CAP PO SCH ×3 (07:56→21:12)
[2017-10-30] MEDS: ACETAMINOPHEN 325 MG TAB PO PRN (07:56)
[2017-10-30] MEDS: LISINOPRIL 10 MG TAB PO SCH (07:56)
[2017-10-30] MEDS: MULTIVITAMINS PO SCH (07:56)
--- NOTE | 2017-10-30 09:58 | BHS Progress Note ---
BHS - Subjective Progress Notes Subjective Patient continues to be cooperative overall on the unit. Some resistance to taking a shower. Mood stated as okay, family looking into in home care. will go forward with hearing for 10 day, and look for placement into assisted care to await move back into home, when in home staffing can be arranged. Suicidal Ideation: None Homicidal Ideation: None BHS - Objective Physical Exam Vital Signs Vital Signs Date Time Temp Pulse Resp B/P (MAP) Pulse Ox O2 Delivery O2 Flow Rate FiO2 10/30/17 05:18 98.0 60 15 94/49 (64) 98 Nasal Cannula 2.0 Hematology Test 10/29/17 07:25 10/30/17 07:49 Red Blood Count 3.97 M/uL (4.00-5.60) Mean Corpuscular Volume 90.8 fL (80.0-96.0) Mean Corpuscular Hemoglobin 31.3 pg (26.0-33.0) Mean Corpuscular Hemoglobin Concent 34.5 g/dL (32.0-36.0) Red Cell Distribution Width 15.8 % (11.5-14.5) Mean Platelet Volume 8.4 fL (7.2-11.1) Neutrophils (%) (Auto) 66.2 % (39.4-72.5) Lymphocytes (%) (Auto) 23.0 % (17.6-49.6) Monocytes (%) (Auto) 7.1 % (4.1-12.4) Eosinophils (%) (Auto) 3.1 % (0.4-6.7) Basophils (%) (Auto) 0.6 % (0.3-1.4) Nucleated RBC Relative Count (auto) 0.0 /100WBC Neutrophils # (Auto) 3.9 K/uL (2.0-7.4) Lymphocytes # (Auto) 1.4 K/uL (1.3-3.6) Monocytes # (Auto) 0.4 K/uL (0.3-1.0) Eosinophils # (Auto) 0.2 K/uL (0.0-0.5) Basophils # (Auto) 0.0 K/uL (0.0-0.1) Nucleated RBC Absolute Count (auto) 0.00 K/uL Sodium Level 142 mmol/L (137-145) Potassium Level 4.5 mmol/L (3.5-5.0) Chloride Level 103 mmol/L (98-107) Carbon Dioxide Level 31 mmol/L (22-30) Blood Urea Nitrogen 24 mg/dl (9-21) Creatinine 0.70 mg/dl (0.66-1.25) Glomerular Filtration Rate Calc > 60.0 Random Glucose 94 mg/dl (75-110) Calcium Level 9.2 mg/dl (8.4-10.2) Total Bilirubin 0.6 mg/dl (0.2-1.3) Aspartate Amino Transf (AST/SGOT) 17 U/L (0-35) Alanine Aminotransferase (ALT/SGPT) 23 U/L (0-56) Alkaline Phosphatase 76 U/L (0-126) Total Protein 6.1 g/dl (6.3-8.2) Albumin 3.3 g/dl (3.5-5.0) Whole Blood Glucose 63 mg/DL (75-110) Chemistry Test 10/29/17 07:25 10/30/17 07:49 White Blood Count 5.9 k/uL (4.5-11.0) Red Blood Count 3.97 M/uL (4.00-5.60) Hemoglobin 12.4 g/dL (14.0-18.0) Hematocrit 36.1 % (42.0-52.0) Mean Corpuscular Volume 90.8 fL (80.0-96.0) Mean Corpuscular Hemoglobin 31.3 pg (26.0-33.0) Mean Corpuscular Hemoglobin Concent 34.5 g/dL (32.0-36.0) Red Cell Distribution Width 15.8 % (11.5-14.5) Platelet Count 142 K/uL (150-450) Mean Platelet Volume 8.4 fL (7.2-11.1) Neutrophils (%) (Auto) 66.2 % (39.4-72.5) Lymphocytes (%) (Auto) 23.0 % (17.6-49.6) Monocytes (%) (Auto) 7.1 % (4.1-12.4) Eosinophils (%) (Auto) 3.1 % (0.4-6.7) Basophils (%) (Auto) 0.6 % (0.3-1.4) Nucleated RBC Relative Count (auto) 0.0 /100WBC Neutrophils # (Auto) 3.9 K/uL (2.0-7.4) Lymphocytes # (Auto) 1.4 K/uL (1.3-3.6) Monocytes # (Auto) 0.4 K/uL (0.3-1.0) Eosinophils # (Auto) 0.2 K/uL (0.0-0.5) Basophils # (Auto) 0.0 K/uL (0.0-0.1) Nucleated RBC Absolute Count (auto) 0.00 K/uL Glomerular Filtration Rate Calc > 60.0 Calcium Level 9.2 mg/dl (8.4-10.2) Total Bilirubin 0.6 mg/dl (0.2-1.3) Aspartate Amino Transf (AST/SGOT) 17 U/L (0-35) Alanine Aminotransferase (ALT/SGPT) 23 U/L (0-56) Alkaline Phosphatase 76 U/L (0-126) Total Protein 6.1 g/dl (6.3-8.2) Albumin 3.3 g/dl (3.5-5.0) Whole Blood Glucose 63 mg/DL (75-110) Muscle Strength and Tone: Other (limited, but considered baseline) Gait and Station: Steady [facility] Medications Reviewed: Side Effects, Benefits of Medication, Risks Allergies Reviewed: Yes Mental Status Exam General Appearance: Casual, Good Eye Contact, Cooperative, Polite, Unkept, No Bizarre Mannerisms, No Tics Speech: Clear, Spontaneous, Normal Rhythm, Normal Volume, Normal Tone, Delayed (minimal delay at times. ) Mood: Dysthmic/Depressed Affect: Calm, Neutral Thought Process: Organized, Goal Directed, No Loose Associations, No Flight of Ideas Thought Content: No Suicidal Ideation, No Homicidal Ideation, No Delusions, No Auditory Halllucinations, No Visual Hallucinations, No Thought Broadcasting, No Ideas of Reference, No Obsessions, No Compulsions, No Other Sensorium: Clear Cognition: Alert & Oriented-Person, Alert & Oriented-Place, Alert & Oriented- Time (mostly), [id number] (partially) Memory: Immediate, Recent, Remote, Other (Mild deficits, ) Intelligence: Average Insight Judgment: Poor (not interested in taking care of diabetes. ) Result Diagram: 10/29/17 0725 10/29/17 0725 [facility] Assessment and Plan [id number] Encounter Date: Oct 30, 2017 [id number] Encounter Time: 09:00 [facility] Plan: Admit to Unit, Necessary Precautions, Individual/Group Therapy, Admin /Titrate Meds, Educate Patient Tobacco Medications: Not Appropriate Condition Multpiple Antipsychotics Used: No Problems: (1) Persistent depressive disorder Status: Chronic (2) Neurocognitive disorder Optional Permanent Comment: appears mild Last Edited By: Mark Skinner on Oct 30, 2017 09:54 Status: Chronic (3) Diabetes type I Status: Chronic (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 Last Edited By: Mark Skinner on Oct 30, 2017 09:56 Status: Chronic Condition 1. continue treatment. 2. schedule hearing. Problem Qualifiers (1) Diabetes type I: Diabetes mellitus complication status: with neurologic complications MARK SKINNER MD Oct 30, 2017 09:58
[2017-10-30] MEDS ORDERED: OCTYL CYANOACRYLATE 1 APP APPL TP ONE (10:45)
[2017-10-30] MEDS: POTASSIUM CHL 10 MEQ TABCR PO SCH ×2 (11:51→17:25)
[2017-10-30] MEDS: LIRAGLUTIDE 18 MG/3 ML SUBQ SCH (11:52)
[2017-10-30] MEDS: PIOGLITAZONE HCL 15 MG TAB PO SCH (11:52)
[2017-10-30] MEDS: metFORMIN HCL 500 MG TAB PO SCH ×2 (11:52→17:25)
[2017-10-30 13:03] VITALS: BP 103/52
[2017-10-30] MEDS: RIVAROXABAN 10 MG TAB PO SCH (17:25)
[2017-10-30] MEDS: MELATONIN 3 MG TAB PO SCH (21:12)
[2017-10-30] MEDS: PARoxetine HCL 20 MG TAB PO SCH (21:12)
[2017-10-30] MEDS: ATORVASTATIN 10 MG TAB PO SCH (21:12)
[2017-10-30] MEDS: SUVOREXANT 20 MG PO SCH (21:14)
[2017-10-30 21:20] VITALS: BP 112/70
[2017-10-31] MEDS: TIOTROPIUM BROM INH 18 MCG/CAP INH SCH (05:23)
[2017-10-31] MEDS: LEVOTHYROXINE SOD 0.175 MG TAB PO SCH (05:25)
[2017-10-31 05:41] VITALS: BP 105/54
[2017-10-31] MEDS ORDERED: COMBIVENT 4 GR INHALER IH SCH ×2 (06:00)
[2017-10-31] MEDS: ASPIRIN 81 MG ENTERIC COATED PO SCH (07:44)
[2017-10-31] MEDS: FUROSEMIDE 20 MG TAB PO SCH (07:44)
[2017-10-31] MEDS: LISINOPRIL 10 MG TAB PO SCH (07:44)
[2017-10-31] MEDS: MULTIVITAMINS PO SCH (07:44)
[2017-10-31] MEDS: GABAPENTIN 300 MG CAP PO SCH ×3 (07:44→21:06)
[2017-10-31] MEDS: ACETAMINOPHEN 325 MG TAB PO PRN (07:44)
[2017-10-31] MEDS: INSULIN GLARGINE 100 U/ML 3 ML PEN SUBQ SCH ×2 (07:46→21:05)
--- NOTE | 2017-10-31 11:09 | SCHAAF H&P ---
DATE OF ADMISSION: October 26, 2017 ATTENDING PHYSICIAN Thee Byrne MD DATE OF EVALUATION Patient was seen at approximately 0900 hours on the morning of October 27, 2017 for note concerning this dictation. This is a late entry dictation for that date. PRESENTING PROBLEM, CHIEF COMPLAINT Patient was evicted from [facility], has nowhere to live. HISTORY OF PRESENT ILLNESS This is 72-year-old male who was recently on the behavioral health unit from October 10 to October 20, 2017. At the time of that admission, patient was found to have been in a state of grossly elevated blood sugars and long-term uncontrolled type 1 diabetes, as evidenced by elevated A1c. Patient was having family conflict involving a [id number]. Patient was aggressive toward him. Patient notably not aggressive on the unit, and blood sugars did quickly stabilize on the at home regimen that patient was supposed to be taking. Patient again nonaggressive on the unit, no parasuicidal behaviors. Patient overall cooperative on the unit. Eventually, patient was accepted into [facility]. Although patient did remain cooperative at [facility], patient kept walking away from the unit without properly signing out. Police were called on multiple occasions to locate the patient, bring him back to [facility]. Patient and family were notably aware that patient would not be able to leave at will from [facility] without going through proper channels prior to admission, and patient violated this to the degree that he was evicted, as [facility] could not longer watch and care for this patient. Patient cooperative on being returned to [facility] on multiple occasions with police at some times, and eventually patient was cooperative with coming to the emergency room escorted by police, secondary to having nowhere to live and inability to care for self. Patient cooperative with admission overall. Patient's response, "I don't know" when asked why he wanted to leave [facility]. At this point, patient's daughter would like him to move back into his home with the assistance of full-time health aides that live in the home. It will take some time to get this arranged. In the meantime , we will look for further places for patient to live. Again, patient's diabetes seems well controlled now. Patient not complaining of any other psychiatric complaints. MENTAL HEALTH HISTORY The patient has been an inpatient here recently prior to being at the [facility], and once before that was in February of 2017. She has had some brief counseling in the past. She is currently prescribed Paxil for what appears to be a history of persisting depressive disorder. Dr. Vidal is still following him with diabetes medications as of [facility] admission. FAMILY PSYCHIATRIC HISTORY In the past, patient reported that his own mother drank a lot of alcohol and was "not with it" and may have suffered from depression. There are no suicides in the family. PAST MEDICAL HISTORY Significant for insulin-dependent diabetes mellitus, hypertension. Patient has a history of clotting disorder, migraine headaches, hypothyroidism, renal stones , emphysema and lower extremity edema. ALLERGIES Patient is not known to have any allergies. SOCIAL HISTORY The patient was born in [place], raised in [facility]. Parents were at the time of his . They have . Patient has one older sister in [place], who has a previous admission, was doing well. Patient did graduate high school, had jag-yis-h-half years of college in electronics. No service. Patient worked for a primary employment in the [employer] in [place] for much of his life. Patient has three adult children from a previous , one of them in [place], one believed to be in [place], and at an unknown location at this time. Patient has been residing with his in the [place] area up until previous admission. They are now believed to be , and patient has moved into [facility], and patient now evicted from there. Patient had previously been evicted from [facility], where he had been placed in the past once in his 's absence as well. LEGAL HISTORY There is no significant legal history in the past known about this patient. SUBSTANCE ABUSE HISTORY Patient has reported using alcohol more heavily in the past. It is not thought that the patient is using alcohol in any significant quantity or illicit substances now. PHYSICAL EXAMINATION Please see emergency room note. Notable for overall cooperative 72-year-old male, no longer is allowed to reside at [facility]. Vital signs at the time of admission: Temperature 98.7, pulse 77, respiratory rate 14 , blood pressure 121/71 and pulse oximetry 96 on room air. LABORATORY DATA CBC notable for hemoglobin and hematocrit low at 12.6 and 37.2 respectively. Chemistry panel notable for BUN elevated at 28, random glucose 175 and elevated , TSH 0.29 and low. Urinalysis notable for urine glucose present. Toxicology screen negative with a nondetectable serum alcohol level. MENTAL STATUS EXAMINATION GENERAL APPEARANCE, BEHAVIOR AND ATTITUDE: This is a cooperative 72-year-old male, does not seem to be agitated at all on the unit. Patient is not checking the door on the unit, and patient overall cooperative. Patient fairly well groomed, making good eye contact. SPEECH: Probably baseline. Soft at times. MOOD: Described as "okay". AFFECT: Minimally constricted at times. Mood congruent overall. THOUGHT PROCESSES: Appear logical and goal-directed. Patient does indicate a desire to return home at some point. No loose associations or flight of ideas. THOUGHT CONTENT: Free of auditory or visual hallucinations, ideas of reference , thought broadcastings, delusions, obsessions or compulsions. Patient adamantly denying suicidal or homicidal ideation at time of this admission. SENSORIUM: Clear. COGNITION: Alert and oriented to person, place, mostly to time, and partially to situation. MEMORY: Immediate, recent and remote, some deficits exist that are intermittent in nature. INTELLIGENCE: Historically average, based on interview and knowledge of this patient. INSIGHT AND JUDGMENT: Limited secondary to abilities and/or desire. Patient having minimal understanding of his diabetes and the seriousness of the condition. ASSESSMENT This is a 72-year-old recently male, potentially now facing separation. Patient's daughter, power of attorney general, may want him to live back in home with [id number] home healthcare in his home with him. However, at this time, will look into further fdc placement to await the at-home set up to take place. Patient unable to care for himself, and has demonstrated this in the past. DIAGNOSES PER DSM-V Neurocognitive disorder, mild to moderate. Diabetes type 1, recently unregulated. Partner relational problem. Social stressors and limitations, inability to care for self. PLAN 1. Admit to the unit. 2. Necessary precautions will be implemented. 3. Patient will participate in individual and group therapy. 4. Medications will be administered, titrated as necessary. 5. Collateral information to be obtained. 6. Estimated length of stay unknown at this time. Will go forward with hearing to await placement per family back in the home. CORINNED
--- NOTE | 2017-10-31 11:39 | BHS Progress Note ---
[facility] - Subjective Progress Notes Subjective Patient remains cooperative on the unit, sugars controlled, patient awaits going home under round the clock care being set up by his daughters. No other concerns, patient sleeping and appetite good. Will continue treatment. Suicidal Ideation: None Homicidal Ideation: None [facility] - Objective Physical Exam Vital Signs Vital Signs Date Time Temp Pulse Resp B/P (MAP) Pulse Ox O2 Delivery O2 Flow Rate FiO2 10/31/17 05:41 97.7 68 16 105/54 (71) 97 Nasal Cannula 2.0 Hematology Test 10/29/17 07:25 10/31/17 07:35 Red Blood Count 3.97 M/uL (4.00-5.60) Mean Corpuscular Volume 90.8 fL (80.0-96.0) Mean Corpuscular Hemoglobin 31.3 pg (26.0-33.0) Mean Corpuscular Hemoglobin Concent 34.5 g/dL (32.0-36.0) Red Cell Distribution Width 15.8 % (11.5-14.5) Mean Platelet Volume 8.4 fL (7.2-11.1) Neutrophils (%) (Auto) 66.2 % (39.4-72.5) Lymphocytes (%) (Auto) 23.0 % (17.6-49.6) Monocytes (%) (Auto) 7.1 % (4.1-12.4) Eosinophils (%) (Auto) 3.1 % (0.4-6.7) Basophils (%) (Auto) 0.6 % (0.3-1.4) Nucleated RBC Relative Count (auto) 0.0 /100WBC Neutrophils # (Auto) 3.9 K/uL (2.0-7.4) Lymphocytes # (Auto) 1.4 K/uL (1.3-3.6) Monocytes # (Auto) 0.4 K/uL (0.3-1.0) Eosinophils # (Auto) 0.2 K/uL (0.0-0.5) Basophils # (Auto) 0.0 K/uL (0.0-0.1) Nucleated RBC Absolute Count (auto) 0.00 K/uL Sodium Level 142 mmol/L (137-145) Potassium Level 4.5 mmol/L (3.5-5.0) Chloride Level 103 mmol/L (98-107) Carbon Dioxide Level 31 mmol/L (22-30) Blood Urea Nitrogen 24 mg/dl (9-21) Creatinine 0.70 mg/dl (0.66-1.25) Glomerular Filtration Rate Calc > 60.0 Random Glucose 94 mg/dl (75-110) Calcium Level 9.2 mg/dl (8.4-10.2) Total Bilirubin 0.6 mg/dl (0.2-1.3) Aspartate Amino Transf (AST/SGOT) 17 U/L (0-35) Alanine Aminotransferase (ALT/SGPT) 23 U/L (0-56) Alkaline Phosphatase 76 U/L (0-126) Total Protein 6.1 g/dl (6.3-8.2) Albumin 3.3 g/dl (3.5-5.0) Whole Blood Glucose 76 mg/DL (75-110) Chemistry Test 10/29/17 07:25 10/31/17 07:35 White Blood Count 5.9 k/uL (4.5-11.0) Red Blood Count 3.97 M/uL (4.00-5.60) Hemoglobin 12.4 g/dL (14.0-18.0) Hematocrit 36.1 % (42.0-52.0) Mean Corpuscular Volume 90.8 fL (80.0-96.0) Mean Corpuscular Hemoglobin 31.3 pg (26.0-33.0) Mean Corpuscular Hemoglobin Concent 34.5 g/dL (32.0-36.0) Red Cell Distribution Width 15.8 % (11.5-14.5) Platelet Count 142 K/uL (150-450) Mean Platelet Volume 8.4 fL (7.2-11.1) Neutrophils (%) (Auto) 66.2 % (39.4-72.5) Lymphocytes (%) (Auto) 23.0 % (17.6-49.6) Monocytes (%) (Auto) 7.1 % (4.1-12.4) Eosinophils (%) (Auto) 3.1 % (0.4-6.7) Basophils (%) (Auto) 0.6 % (0.3-1.4) Nucleated RBC Relative Count (auto) 0.0 /100WBC Neutrophils # (Auto) 3.9 K/uL (2.0-7.4) Lymphocytes # (Auto) 1.4 K/uL (1.3-3.6) Monocytes # (Auto) 0.4 K/uL (0.3-1.0) Eosinophils # (Auto) 0.2 K/uL (0.0-0.5) Basophils # (Auto) 0.0 K/uL (0.0-0.1) Nucleated RBC Absolute Count (auto) 0.00 K/uL Glomerular Filtration Rate Calc > 60.0 Calcium Level 9.2 mg/dl (8.4-10.2) Total Bilirubin 0.6 mg/dl (0.2-1.3) Aspartate Amino Transf (AST/SGOT) 17 U/L (0-35) Alanine Aminotransferase (ALT/SGPT) 23 U/L (0-56) Alkaline Phosphatase 76 U/L (0-126) Total Protein 6.1 g/dl (6.3-8.2) Albumin 3.3 g/dl (3.5-5.0) Whole Blood Glucose 76 mg/DL (75-110) Muscle Strength and Tone: Other (limited, but considered baseline) Gait and Station: Steady [facility] Medications Reviewed: Side Effects, Benefits of Medication, Risks Allergies Reviewed: Yes Mental Status Exam General Appearance: Casual, Good Eye Contact, Cooperative, Polite, Unkept, No Bizarre Mannerisms, No Tics Speech: Clear, Spontaneous, Normal Rhythm, Normal Volume, Normal Tone, Delayed (minimal delay at times. ) Mood: Dysthmic/Depressed (frustrated) Affect: Calm, Neutral Thought Process: Organized, Goal Directed, No Loose Associations, No Flight of Ideas Thought Content: No Suicidal Ideation, No Homicidal Ideation, No Delusions, No Auditory Halllucinations, No Visual Hallucinations, No Thought Broadcasting, No Ideas of Reference, No Obsessions, No Compulsions, No Other Sensorium: Clear Cognition: Alert & Oriented-Person, Alert & Oriented-Place, Alert & Oriented- Time (mostly), Rkyqi-Sibfndfw-Pndimmkvj (partially) Memory: Immediate, Recent, Remote, Other (Mild deficits, ) Intelligence: Average Insight Judgment: Poor (not interested in taking care of diabetes. ) Result Diagram: 10/29/17 0725 10/29/17 0725 [facility] Assessment and Plan Erxw-si-Sdcm Encounter Date: Oct 31, 2017 Enii-mf-Fjnd Encounter Time: 09:00 [facility] Plan: Admit to Unit, Necessary Precautions, Individual/Group Therapy, Admin /Titrate Meds, Educate Patient Tobacco Medications: Not Appropriate Condition Multpiple Antipsychotics Used: No Problems: (1) Persistent depressive disorder Status: Chronic (2) Neurocognitive disorder Optional Permanent Comment: appears mild Last Edited By: Mark Skinner on Oct 30, 2017 09:54 Status: Chronic (3) Diabetes type I Status: Chronic (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 Last Edited By: Mark Skinner on Oct 30, 2017 09:56 Status: Chronic Condition 1. continue treatment. 2. solidify plans for home care. Problem Qualifiers (1) Diabetes type I: Diabetes mellitus complication status: with neurologic complications MARK SKINNER MD Oct 31, 2017 11:39
[2017-10-31] MEDS: POTASSIUM CHL 10 MEQ TABCR PO SCH ×2 (11:44→16:50)
[2017-10-31] MEDS: LIRAGLUTIDE 18 MG/3 ML SUBQ SCH (11:45)
[2017-10-31] MEDS: metFORMIN HCL 500 MG TAB PO SCH ×2 (11:45→16:50)
[2017-10-31] MEDS: PIOGLITAZONE HCL 15 MG TAB PO SCH (11:45)
[2017-10-31 13:23] VITALS: BP 112/61
[2017-10-31] MEDS: RIVAROXABAN 10 MG TAB PO SCH (16:50)
[2017-10-31] MEDS: SUVOREXANT 20 MG PO SCH (21:03)
[2017-10-31] MEDS: INSULIN HUM LISPRO 100 UN/ML 3 ML VIAL SUBQ PRN (21:05)
[2017-10-31] MEDS: MELATONIN 3 MG TAB PO SCH (21:06)
[2017-10-31] MEDS: PARoxetine HCL 20 MG TAB PO SCH (21:06)
[2017-10-31] MEDS: ATORVASTATIN 10 MG TAB PO SCH (21:06)
[2017-10-31 21:24] VITALS: BP 104/75
[2017-11-01] MEDS: TIOTROPIUM BROM INH 18 MCG/CAP INH SCH (05:21)
[2017-11-01] MEDS: COMBIVENT 4 GR INHALER IH SCH (05:21)
[2017-11-01 05:58] VITALS: BP 113/72
[2017-11-01] MEDS: LEVOTHYROXINE SOD 0.175 MG TAB PO SCH (06:00)
[2017-11-01] MEDS: MULTIVITAMINS PO SCH (08:17)
[2017-11-01] MEDS: GABAPENTIN 300 MG CAP PO SCH ×3 (08:17→20:27)
[2017-11-01] MEDS: LISINOPRIL 10 MG TAB PO SCH (08:17)
[2017-11-01] MEDS: FUROSEMIDE 20 MG TAB PO SCH (08:18)
[2017-11-01] MEDS: ASPIRIN 81 MG ENTERIC COATED PO SCH (08:18)
[2017-11-01] MEDS: INSULIN GLARGINE 100 U/ML 3 ML PEN SUBQ SCH ×2 (09:00→20:28)
[2017-11-01] MEDS: metFORMIN HCL 500 MG TAB PO SCH ×2 (11:58→17:03)
[2017-11-01] MEDS: POTASSIUM CHL 10 MEQ TABCR PO SCH ×2 (11:58→17:02)
[2017-11-01] MEDS: LIRAGLUTIDE 18 MG/3 ML SUBQ SCH (11:59)
[2017-11-01] MEDS: PIOGLITAZONE HCL 15 MG TAB PO SCH (12:01)
[2017-11-01] MEDS: INSULIN HUM LISPRO 100 UN/ML 3 ML VIAL SUBQ PRN ×3 (12:08→20:53)
[2017-11-01 13:19] VITALS: BP 114/74
--- NOTE | 2017-11-01 16:05 | BHS Progress Note ---
[facility] - Subjective Progress Notes Subjective Pt seen in treatment team meeting with his dtr and son present. Pt states he is feeling well, and dtr commented that he looks "really good" today. Family having some success with finding a woman with medical experience who seems quite competent who is interested in the job of living in his home to provide in -home care, along with back-up from home health care nurse. We will proceed with application to fpc in [place] just in case this plan falls through. Pt has been sneaking food off other people's trays-- we addressed this with him in terms of importance of accurate diabetes management. Suicidal Ideation: None Homicidal Ideation: None [facility] - Objective Physical Exam Vital Signs Vital Signs 10/31/17 11/01/17 05:41 13:19 Temp 98.2 Pulse 69 Resp 16 B/P (MAP) 114/74 (87) Pulse Ox 97 O2 Delivery Room Air O2 Flow Rate 2.0 Muscle Strength and Tone: Other (limited, but considered baseline) Gait and Station: Steady [facility] Medications Reviewed: Side Effects, Benefits of Medication, Risks Allergies Reviewed: Yes Mental Status Exam General Appearance: Casual, Good Eye Contact, Cooperative, Polite, Unkept, No Bizarre Mannerisms, No Tics Speech: Clear, Spontaneous, Normal Rhythm, Normal Volume, Normal Tone, Delayed (minimal delay at times. ) Mood: Dysthmic/Depressed (frustrated) Affect: Calm, Neutral Thought Process: Organized, Goal Directed, No Loose Associations, No Flight of Ideas Thought Content: No Suicidal Ideation, No Homicidal Ideation, No Delusions, No Auditory Halllucinations, No Visual Hallucinations, No Thought Broadcasting, No Ideas of Reference, No Obsessions, No Compulsions, No Other Sensorium: Clear Cognition: Alert & Oriented-Person, Alert & Oriented-Place, Alert & Oriented- Time, Pzmop-Xvxrmtbk-Klxahppmp Memory: Immediate, Recent, Remote, Other (MOCA test showed mild to moderate impairment) Intelligence: Average Insight Judgment: Poor (not interested in taking care of diabetes. ) Result Diagram: 10/29/17 0725 10/29/17 0725 [facility] Assessment and Plan Jaef-yo-Jmyp Encounter Date: Nov 01, 2017 Wwae-ok-Rpsh Encounter Time: 08:40 [facility] Plan: Admit to Unit, Necessary Precautions, Individual/Group Therapy, Admin /Titrate Meds, Educate Patient Tobacco Medications: Not Appropriate Condition Multpiple Antipsychotics Used: No Problems: (1) Neurocognitive disorder Optional Permanent Comment: appears mild Last Edited By: Thee Byrne on Oct 30, 2017 09:54 Status: Chronic (2) Persistent depressive disorder Status: Chronic (3) Diabetes type I Status: Chronic Problem Qualifiers (1) Diabetes type I: Diabetes mellitus complication status: with neurologic complications MOO CLARK MD Nov 01, 2017 16:05
[2017-11-01] MEDS: RIVAROXABAN 10 MG TAB PO SCH (17:05)
[2017-11-01] MEDS: PARoxetine HCL 20 MG TAB PO SCH (20:27)
[2017-11-01] MEDS: SUVOREXANT 20 MG PO SCH (20:27)
[2017-11-01] MEDS: ATORVASTATIN 10 MG TAB PO SCH (20:27)
[2017-11-01] MEDS: MELATONIN 3 MG TAB PO SCH (20:27)
[2017-11-01 20:29] VITALS: BP 101/67
[2017-11-01 23:44] VITALS: BP 101/67
[2017-11-02] MEDS: TIOTROPIUM BROM INH 18 MCG/CAP INH SCH (05:20)
[2017-11-02] MEDS: COMBIVENT 4 GR INHALER IH SCH (05:20)
[2017-11-02] MEDS: LEVOTHYROXINE SOD 0.175 MG TAB PO SCH (05:22)
[2017-11-02] MEDS: MULTIVITAMINS PO SCH (08:26)
[2017-11-02] MEDS: GABAPENTIN 300 MG CAP PO SCH ×3 (08:28→21:00)
[2017-11-02] MEDS: ASPIRIN 81 MG ENTERIC COATED PO SCH (08:28)
[2017-11-02] MEDS: FUROSEMIDE 20 MG TAB PO SCH (08:28)
[2017-11-02] MEDS: LISINOPRIL 10 MG TAB PO SCH (08:28)
[2017-11-02] MEDS: INSULIN GLARGINE 100 U/ML 3 ML PEN SUBQ SCH ×2 (08:28→22:37)
[2017-11-02 09:01] VITALS: BP 116/65
[2017-11-02] MEDS: metFORMIN HCL 500 MG TAB PO SCH ×2 (11:57→22:35)
[2017-11-02] MEDS: LIRAGLUTIDE 18 MG/3 ML SUBQ SCH (11:58)
[2017-11-02] MEDS: POTASSIUM CHL 10 MEQ TABCR PO SCH ×2 (11:58→22:35)
[2017-11-02] MEDS: PIOGLITAZONE HCL 15 MG TAB PO SCH (12:06)
[2017-11-02] MEDS: INSULIN HUM LISPRO 100 UN/ML 3 ML VIAL SUBQ PRN (12:07)
--- NOTE | 2017-11-02 15:42 | BHS Progress Note ---
[facility] - Subjective Progress Notes Subjective Pt seen with his daughter. He is doing well. Denies c/o. Blood sugars have been acceptable. Daughter is moving forward with arranging 24 hour in-home care for pt., who is at high risk for decompensation outside hospital setting given his inability to care for self, especially to care for his diabetes. Pt rapidly becomes confused, aggressive, psychotic, when blood sugars climb. Will continue current tx and hope for discharge as soon as safe disposition can be arranged. Suicidal Ideation: None Homicidal Ideation: None [facility] - Objective Physical Exam Vital Signs Vital Signs 11/01/17 11/02/17 23:44 09:01 Temp 97.5 Pulse 65 Resp 16 B/P (MAP) 116/65 (82) Pulse Ox 100 O2 Delivery Nasal Cannula O2 Flow Rate 2.0 Muscle Strength and Tone: Other (limited, but considered baseline) Gait and Station: Steady [facility] Medications Reviewed: Side Effects, Benefits of Medication, Risks Allergies Reviewed: Yes Mental Status Exam General Appearance: Casual, Good Eye Contact, Cooperative, Polite, Unkept, No Bizarre Mannerisms, No Tics Speech: Clear, Spontaneous, Normal Rhythm, Normal Volume, Normal Tone, Delayed (minimal delay at times. ) Mood: Dysthmic/Depressed (frustrated) Affect: Calm, Neutral Thought Process: Organized, Goal Directed, No Loose Associations, No Flight of Ideas Thought Content: No Suicidal Ideation, No Homicidal Ideation, No Delusions, No Auditory Halllucinations, No Visual Hallucinations, No Thought Broadcasting, No Ideas of Reference, No Obsessions, No Compulsions, No Other Sensorium: Clear Cognition: Alert & Oriented-Person, Alert & Oriented-Place, Alert & Oriented- Time, Vdlmj-Isayawzb-Sdexroqlz Memory: Immediate, Recent, Remote, Other (MOCA test showed mild to moderate impairment) Intelligence: Average Insight Judgment: Poor (not interested in taking care of diabetes. ) Result Diagram: 10/29/17 0725 10/29/17724 [facility] Assessment and Plan Lccw-xk-Crhz Encounter Date: Nov 02, 2017 Xutf-mr-Hmvd Encounter Time: 12:30 [facility] Plan: Admit to Unit, Necessary Precautions, Individual/Group Therapy, Admin /Titrate Meds, Educate Patient Tobacco Medications: Not Appropriate Condition Multpiple Antipsychotics Used: No Problems: (1) Neurocognitive disorder Optional Permanent Comment: appears mild Last Edited By: Thee Byrne on Oct 30, 2017 09:54 Status: Chronic (2) Persistent depressive disorder Status: Chronic (3) Diabetes type I Status: Chronic Problem Qualifiers (1) Diabetes type I: Diabetes mellitus complication status: with neurologic complications MOO CLARK MD Nov 02, 2017 15:42
[2017-11-02] MEDS: RIVAROXABAN 10 MG TAB PO SCH (17:00)
[2017-11-02] MEDS: SUVOREXANT 20 MG PO SCH (21:00)
[2017-11-02 21:26] VITALS: BP 95/60
[2017-11-02] MEDS: PARoxetine HCL 20 MG TAB PO SCH (22:36)
[2017-11-02] MEDS: MELATONIN 3 MG TAB PO SCH (22:36)
[2017-11-02] MEDS: ATORVASTATIN 10 MG TAB PO SCH (22:36)
[2017-11-03] MEDS: LEVOTHYROXINE SOD 0.175 MG TAB PO SCH (05:30)
[2017-11-03] MEDS: TIOTROPIUM BROM INH 18 MCG/CAP INH SCH (05:30)
[2017-11-03] MEDS: COMBIVENT 4 GR INHALER IH SCH (05:30)
[2017-11-03] MEDS: ACETAMINOPHEN 325 MG TAB PO PRN ×2 (05:35→13:45)
[2017-11-03 05:49] VITALS: BP 100/58
[2017-11-03] MEDS: FUROSEMIDE 20 MG TAB PO SCH (07:53)
[2017-11-03] MEDS: ASPIRIN 81 MG ENTERIC COATED PO SCH (07:53)
[2017-11-03] MEDS: MULTIVITAMINS PO SCH (07:53)
[2017-11-03] MEDS: LISINOPRIL 10 MG TAB PO SCH (07:53)
[2017-11-03] MEDS: GABAPENTIN 300 MG CAP PO SCH ×3 (07:53→21:57)
[2017-11-03] MEDS: INSULIN GLARGINE 100 U/ML 3 ML PEN SUBQ SCH ×2 (07:54→22:01)
[2017-11-03] MEDS: metFORMIN HCL 500 MG TAB PO SCH ×2 (11:50→17:51)
[2017-11-03] MEDS: POTASSIUM CHL 10 MEQ TABCR PO SCH ×2 (11:50→17:51)
[2017-11-03] MEDS: PIOGLITAZONE HCL 15 MG TAB PO SCH (11:50)
[2017-11-03] MEDS: LIRAGLUTIDE 18 MG/3 ML SUBQ SCH (11:50)
[2017-11-03 11:57] VITALS: BP 103/72
--- NOTE | 2017-11-03 13:23 | BHS Progress Note ---
[facility] - Subjective Progress Notes Subjective Pt seen in treatment team with his daughter on the speaker phone, and with [facility] Physical Anthropologist present. Pt c/o mild back pain today-- took some tylenol earlier-- otherwise no c/o. Says his mood is good, slept well, his blood sugars have been acceptable. Daughter reports that things are moving along well with discharge planning. The woman who they are going to hire to care for him came in here yesterday and met him, and that went well. The ex- is almost finished moving out of the home-- They are targeting Monday to get him back in the home, provided they can get the house cleaned and provided he is stable for discharge. Will continue current meds and treatment plan. Suicidal Ideation: None Homicidal Ideation: None [facility] - Objective Physical Exam Vital Signs Vital Signs 11/01/17 11/03/17 23:44 05:49 Temp 98.0 Pulse 71 Resp 16 B/P (MAP) 100/58 (72) Pulse Ox 98 O2 Delivery Nasal Cannula O2 Flow Rate 2.0 Muscle Strength and Tone: Other (limited, but considered baseline) Gait and Station: Steady [facility] Medications Reviewed: Side Effects, Benefits of Medication, Risks Allergies Reviewed: Yes Mental Status Exam General Appearance: Casual, Good Eye Contact, Cooperative, Polite, Unkept, No Bizarre Mannerisms, No Tics Speech: Clear, Spontaneous, Normal Rhythm, Normal Volume, Normal Tone, Delayed (minimal delay at times. ) Mood: Dysthmic/Depressed (frustrated) Affect: Calm, Neutral Thought Process: Organized, Goal Directed, No Loose Associations, No Flight of Ideas Thought Content: No Suicidal Ideation, No Homicidal Ideation, No Delusions, No Auditory Halllucinations, No Visual Hallucinations, No Thought Broadcasting, No Ideas of Reference, No Obsessions, No Compulsions, No Other Sensorium: Clear Cognition: Alert & Oriented-Person, Alert & Oriented-Place, Alert & Oriented- Time, Rmuak-Htndaxxp-Cpxnpniwz Memory: Immediate, Recent, Remote, Other (MOCA test showed mild to moderate impairment) Intelligence: Average Insight Judgment: Poor (not interested in taking care of diabetes. ) [facility] Assessment and Plan Uemo-oy-Yvba Encounter Date: Nov 03, 2017 Zonv-kl-Vlfb Encounter Time: 08:40 [facility] Plan: Admit to Unit, Necessary Precautions, Individual/Group Therapy, Admin /Titrate Meds, Educate Patient Tobacco Medications: Not Appropriate Condition Multpiple Antipsychotics Used: No Problems: (1) Neurocognitive disorder Optional Permanent Comment: appears mild Last Edited By: Thee Byrne on Oct 30, 2017 09:54 Status: Chronic (2) Persistent depressive disorder Status: Chronic (3) Diabetes type I Status: Chronic Problem Qualifiers (1) Diabetes type I: Diabetes mellitus complication status: with neurologic complications MOO CLARK MD Nov 03, 2017 13:23
[2017-11-03] MEDS: SUVOREXANT 20 MG PO SCH (21:00)
[2017-11-03] MEDS: INSULIN HUM LISPRO 100 UN/ML 3 ML VIAL SUBQ PRN (21:55)
[2017-11-03] MEDS: ATORVASTATIN 10 MG TAB PO SCH (21:57)
[2017-11-03] MEDS: MELATONIN 3 MG TAB PO SCH (21:58)
[2017-11-03] MEDS: PARoxetine HCL 20 MG TAB PO SCH (21:59)
[2017-11-04] MEDS: LEVOTHYROXINE SOD 0.175 MG TAB PO SCH (05:49)
[2017-11-04] MEDS: ACETAMINOPHEN 325 MG TAB PO PRN (05:50)
[2017-11-04 05:55] VITALS: BP 105/68
[2017-11-04] MEDS: COMBIVENT 4 GR INHALER IH SCH (06:20)
[2017-11-04] MEDS: TIOTROPIUM BROM INH 18 MCG/CAP INH SCH (06:25)
[2017-11-04] MEDS: FUROSEMIDE 20 MG TAB PO SCH (08:02)
[2017-11-04] MEDS: ASPIRIN 81 MG ENTERIC COATED PO SCH (08:02)
[2017-11-04] MEDS: LISINOPRIL 10 MG TAB PO SCH (08:02)
[2017-11-04] MEDS: MULTIVITAMINS PO SCH (08:02)
[2017-11-04] MEDS: GABAPENTIN 300 MG CAP PO SCH ×3 (08:02→22:18)
[2017-11-04] MEDS: INSULIN GLARGINE 100 U/ML 3 ML PEN SUBQ SCH ×2 (08:03→22:21)
--- NOTE | 2017-11-04 10:30 | BHS Progress Note ---
S - Subjective Progress Notes Subjective Mr. Gilmore was seen on rounds this morning. He reports that he feels well with no physical or emotional complaints. He does not feel depressed but did admit that he gets tearful when he talks to his daughter because he feels so close to her. He is hoping to return to his home once his vacates the residence and the house is suitable for him to return to. My understanding from Ms. Monroy is that the family is working on arranging in-home care and getting his house place cleaned so that it will be safe for him. I noted, today, that the patient's blood sugars are trending downward and his fasting glucose was quite low at 63 this morning. Patient denies any symptoms of hypoglycemia, however, and says he feels fine. He can't recall feeling bad this morning. He is on an "ADA diet" but it is not clear to me how many calories he has been getting. He is taking Lantus 32 U each am and 24 U every evening as well as sliding scale Humalog. He is also on four additional hypoglycemics--Januvia, Victoza, Actos, and metformin. Staff reports that given no restrictions, the patient will each large quantities of carb-dense foods and drive up his sugars. BP is also trending down--105/68 this morning with pulse of 68. He is being prescribed furosemide as well as lisinopril. Patient denies light-headedness or dizziness. Does not feel like he might fall. No falls reported. I reviewed the patient's lengthy list of medications. In addition to Lantus insulin and a sliding scale, Mr. Dinh s taking ropinirole. Asked the reason--he did not know--but when I asked about restless legs, he said he has had that problem in the past. Asked about the gabapentin. Does not know why he takes that medicine. Denies any leg pain or burning. Says his feet are mostly "numb." Suicidal Ideation: None Homicidal Ideation: None S - Objective Physical Exam Vital Signs BP is low this morning at 105/68 and pulse also borderline low at 68. Gait and Station: Steady [facility] Medications Reviewed: Side Effects, Benefits of Medication, Risks ( Mentioned that low sugars are dangerous) Allergies Reviewed: Yes Mental Status Exam General Appearance: Casual, Good Eye Contact, Cooperative, Polite, Unkept, No Bizarre Mannerisms, No Tics Speech: Clear, Normal Rate, Normal Rhythm, Normal Volume, Normal Tone, Other ( Does not offer anything spontaneously, only answers direct questions.) Mood: Euthymic, Other (Denies feeling depressed) Affect: Calm, Neutral, No Tearful, No Anxious, No Agitated, Other (Did not demonstrate much emotion today) Thought Process: Organized, Logical, No Loose Associations, No Flight of Ideas Thought Content: No Suicidal Ideation, No Delusions, No Ideas of Reference, Other (Conversation showed no signs of delusional thinking, paranoia or response to hallucinations) Sensorium: Clear Cognition: Alert & Oriented-Place, Qxopy-Lptwleyh-Mqwaeoanv, Other (Gave the day as "Monday"--it is Monday. Gave the month as "September") Memory: Recent (Believes he has been in the hospital about five days), Other Intelligence: Average Insight Judgment: Poor (Seems unaware of the implications of his medical conditions and unconcerned) [facility] Assessment and Plan Xquz-yo-Pklt Encounter Date: Nov 04, 2017 [id number] Encounter Time: 08:45 [facility] Plan: Necessary Precautions, Individual/Group Therapy, Admin/Titrate Meds, Educate Patient Tobacco Medications: Not Appropriate Condition Multpiple Antipsychotics Used: No Problems: (1) Hypoglycemia due to insulin Status: Acute Assessment & Plan: See below. Will ask nursing to let me know if glucose is below 70 and ask the patient if he feels shaky and administer some food or juice. We should also draw a BMP to confirm that the finger-stick is accurate. (2) Hypotension due to drugs Status: Acute Assessment & Plan: I spoke to Dr. Ying by phone about the patient's BP and medications. We agreed that these pressures are probably too low for this patient, especially given his anticoagulation status and risk of falling. it would be reasonable to try stopping the furosemide and monitoring for worsening edema. (3) T2DM (type 2 diabetes mellitus) Status: Chronic Assessment & Plan: I also addressed this with Dr. Ying. We felt it would be reasonable to simply advance his diet to 2500 kcal daily while monitoring his sugars. (4) Memory impairment Status: Chronic Assessment & Plan: I am concerned about the number of medications this patient is taking and the risk of them worsening his cognition. In particular, the gabapentin concerns me. I would like to ask his PCP if it would be possible to stop this given he is not complaining of any neuropathic pain. (5) RLS (restless legs syndrome) Status: Chronic (6) Hypothyroid Status: Chronic (7) Edema of lower extremity Status: Chronic (8) History of DVT (deep vein thrombosis) Status: Chronic (9) COPD (chronic obstructive pulmonary disease) Status: Chronic (10) Neurocognitive disorder Optional Permanent Comment: Last Edited By: Gila Muñoz on Oct 19:55 Status: Chronic Assessment & Plan: Patient is not able to care for his basic needs independently in the community and needs help monitoring his medications and blood sugars. This is a barrier to discharge (11) Persistent depressive disorder Status: Chronic Assessment & Plan: This problem seems to be substantially improved at this point and I do not see a reason to change his treatment with paroxetine. Consult It will be necessary to ask the hospitalist to assess Mr. Dinh's medications if our above plan does not resolve these problems Problem Qualifiers (1) T2DM (type 2 diabetes mellitus): Diabetes mellitus complication status: with hypoglycemia SUSANA MUÑOZ DO Nov 04, 2017 10:30
[2017-11-04] MEDS: metFORMIN HCL 500 MG TAB PO SCH ×2 (12:29→17:09)
[2017-11-04] MEDS: POTASSIUM CHL 10 MEQ TABCR PO SCH ×2 (12:29→17:08)
[2017-11-04] MEDS: LIRAGLUTIDE 18 MG/3 ML SUBQ SCH (12:29)
[2017-11-04] MEDS: PIOGLITAZONE HCL 15 MG TAB PO SCH (12:29)
[2017-11-04 13:50] VITALS: BP 100/60
[2017-11-04] MEDS: RIVAROXABAN 10 MG TAB PO SCH (17:08)
[2017-11-04 18:15] VITALS: BP 100/52
[2017-11-04] MEDS: SUVOREXANT 20 MG PO SCH (21:00)
[2017-11-04] MEDS: ATORVASTATIN 10 MG TAB PO SCH (22:18)
[2017-11-04] MEDS: PARoxetine HCL 20 MG TAB PO SCH (22:18)
[2017-11-04] MEDS: MELATONIN 3 MG TAB PO SCH (22:18)
[2017-11-04] MEDS: INSULIN HUM LISPRO 100 UN/ML 3 ML VIAL SUBQ PRN (22:22)
[2017-11-05] MEDS: LEVOTHYROXINE SOD 0.175 MG TAB PO SCH (04:04)
[2017-11-05] MEDS: ACETAMINOPHEN 325 MG TAB PO PRN ×3 (04:05→17:16)
[2017-11-05] MEDS: COMBIVENT 4 GR INHALER IH SCH (04:06)
[2017-11-05] MEDS: TIOTROPIUM BROM INH 18 MCG/CAP INH SCH (04:06)
[2017-11-05 04:21] VITALS: BP 118/58
[2017-11-05 07:45] VITALS: BP 98/58
[2017-11-05] MEDS: ASPIRIN 81 MG ENTERIC COATED PO SCH (07:58)
[2017-11-05] MEDS: LISINOPRIL 10 MG TAB PO SCH (07:58)
[2017-11-05] MEDS: GABAPENTIN 300 MG CAP PO SCH ×3 (07:58→21:01)
[2017-11-05] MEDS: MULTIVITAMINS PO SCH (07:58)
[2017-11-05] MEDS: INSULIN GLARGINE 100 U/ML 3 ML PEN SUBQ SCH ×2 (07:59→21:04)
[2017-11-05] MEDS: INSULIN HUM LISPRO 100 UN/ML 3 ML VIAL SUBQ PRN ×3 (07:59→21:05)
--- NOTE | 2017-11-05 10:37 | Hospitalist Progress Note ---
Physical Exam Vital Signs Date Time Temp Pulse Resp B/P (MAP) Pulse Ox O2 Delivery O2 Flow Rate FiO2 11/05/17 07:45 98.4 86 98/58 (71) 98 Nasal Cannula 2.0 11/04/17 18:15 18 Assessment and Plan Problems: (1) T2DM (type 2 diabetes mellitus) Status: Chronic Assessment & Plan: He is reportedly on chronic treatment with metformin, Januvia, Victoza, Actos, and Lantus. He has been having labile sugars while admitted to [facility]. We have previously recommended that his treatment been simplified to just the metformin and Lantus. We would again recommend that this change be made and that he has his glucose monitored [facility] after discharge. Any further modifications should be deferred to his primary care physician. (2) Essential hypertension Assessment & Plan: He is on chronic treatment with lisinopril and Lasix. His records show that his blood pressure has been low to normal over at least the last year. We recommend that the lisinopril be discontinued and the Lasix should only be used if he is having issues with edema. (3) History of DVT (deep vein thrombosis) Status: Chronic Assessment & Plan: He is on chronic treatment with Xarelto, but we do not have any documentation of a positive ultrasound. Consideration may be given to stopping anticoagulation if he has not had any clotting over the last 3-6 moths. However, we would defer this to his primary care physician. Problem Qualifiers (1) T2DM (type 2 diabetes mellitus): Diabetes mellitus complication status: with hypoglycemia TAYLOR CALVERT DO Nov 05, 2017 10:37
[2017-11-05] MEDS: PIOGLITAZONE HCL 15 MG TAB PO SCH (11:51)
[2017-11-05] MEDS: metFORMIN HCL 500 MG TAB PO SCH ×2 (11:51→17:15)
[2017-11-05] MEDS: POTASSIUM CHL 10 MEQ TABCR PO SCH ×2 (11:51→17:15)
[2017-11-05] MEDS: LIRAGLUTIDE 18 MG/3 ML SUBQ SCH (11:52)
--- NOTE | 2017-11-05 14:24 | BHS Progress Note ---
[facility] - Subjective Progress Notes Subjective Met with Mr. Dinh along with Brandy Monroy. He reports he feels well, is not depressed and has no complaints today. I explained that his blood pressure has been low and that his blood sugars have been irregular in spite of medication. I also reviewed Dr. Peraza' other recommendations. After a few minutes, I asked Geoff what we had just talked about, but he was not able to tell me. He could not say where he was living prior to his admission here. He gave the day as "Monday, but I have no idea" and the month as "August?" Simply said "I don't have a good memory. I never have." I asked Dr. Peraza to review Mr. Dinh's medications in view of his unstable blood sugars as well as hypotension. He also addressed his treatment with anticoagulant medications. (Please see the hospitalist note). Suicidal Ideation: None [facility] - Objective Physical Exam Vital Signs Blood pressures continue to be low--98/58 this morning even after we have held his furosemide. Glucose: 63 fasting yesterday, then 109, 136, 263 at bedtime. Had some crackers this morning but it was 234 this morning. Gait and Station: Steady, Other (Walks slowly but without difficulty) [facility] Medications Reviewed: Side Effects, Benefits of Medication, Risks ( Mentioned that low sugars are dangerous) Allergies Reviewed: Yes Mental Status Exam General Appearance: Casual, Good Eye Contact, Cooperative, Polite, Good Interaction, No Bizarre Mannerisms, No Tics Speech: Clear, Spontaneous, Normal Rate, Normal Rhythm, Normal Volume, Normal Tone Mood: Euthymic Affect: Calm, Neutral, No Tearful, No Anxious, No Agitated, Other (joking and appears to be in good spirits) Thought Process: Organized, Logical, No Loose Associations, No Flight of Ideas Thought Content: No Suicidal Ideation, No Delusions, No Ideas of Reference, Other (Conversation showed no signs of delusional thinking, paranoia or response to hallucinations) Sensorium: Clear Cognition: Alert & Oriented-Place, [id number] Memory: No Immediate (Was not able to recall the essentials of our conversation after just a few minutes), No Recent (Believes he has been in the hospital about five days), No Remote Intelligence: Average Insight Judgment: Poor (Seems unaware of the implications of his medical conditions and unconcerned) [facility] Assessment and Plan Osbe-[id number] Encounter Date: Nov 05, 2017 Ptej-gg-Joob Encounter Time: 13:30 [facility] Plan: Necessary Precautions, Individual/Group Therapy, Admin/Titrate Meds, Educate Patient Tobacco Medications: Not Appropriate Condition Multpiple Antipsychotics Used: No Problems: (1) Memory impairment Optional Permanent Comment: Dementia Last Edited By: Gila Muñoz on Nov 05, 2017 14:23 Status: Chronic Assessment & Plan: This appears to be our primary problem at this point. Geoff has severe impairment of immediate, short-term and long-term memory. He is not able to recall essential information necessary for him to take his medications appropriately and to care for his own basic needs. (2) Hypoglycemia due to insulin Status: Resolved (3) Hypotension due to drugs Status: Acute Assessment & Plan: Stop furosemide and lisinopril. Monitor BP and legs for edema. (4) T2DM (type 2 diabetes mellitus) Status: Chronic Assessment & Plan: I am following Dr. Witt's recommendations: We will continue metformin and Lantus with sliding scale insulin but stop Januvia, Victoza, and Actos. This patient is not able to manage his own diet of medications and will need continuous help with this when he is released. (5) RLS (restless legs syndrome) Status: Chronic (6) Hypothyroid Status: Chronic (7) Edema of lower extremity Status: Chronic (8) History of DVT (deep vein thrombosis) Status: Resolved Assessment & Plan: No signs of recurrent DVT. Dr. Peraza suggests stopping the anticoagulation, especially given his fall risk, but will defer to PCP to implement this. (9) COPD (chronic obstructive pulmonary disease) Status: Chronic (10) Persistent depressive disorder Status: Chronic Problem Qualifiers (1) T2DM (type 2 diabetes mellitus): Diabetes mellitus complication status: with hypoglycemia SUSANA MUÑOZ DO Nov 05, 2017 14:06
[2017-11-05] MEDS: RIVAROXABAN 10 MG TAB PO SCH (17:15)
[2017-11-05 17:50] VITALS: BP 116/58
[2017-11-05] MEDS: SUVOREXANT 20 MG PO SCH (20:59)
[2017-11-05] MEDS: ATORVASTATIN 10 MG TAB PO SCH (21:00)
[2017-11-05] MEDS: PARoxetine HCL 20 MG TAB PO SCH (21:01)
[2017-11-05] MEDS: MELATONIN 3 MG TAB PO SCH (21:01)
[2017-11-06 03:28] VITALS: BP 97/62
[2017-11-06] MEDS: TIOTROPIUM BROM INH 18 MCG/CAP INH SCH (05:23)
[2017-11-06] MEDS: COMBIVENT 4 GR INHALER IH SCH (05:23)
[2017-11-06] MEDS: LEVOTHYROXINE SOD 0.175 MG TAB PO SCH (05:25)
[2017-11-06] MEDS: ACETAMINOPHEN 325 MG TAB PO PRN ×2 (05:25→08:12)
[2017-11-06] MEDS: MULTIVITAMINS PO SCH (08:10)
[2017-11-06] MEDS: GABAPENTIN 300 MG CAP PO SCH ×3 (08:10→21:53)
[2017-11-06] MEDS: ASPIRIN 81 MG ENTERIC COATED PO SCH (08:10)
[2017-11-06] MEDS: INSULIN GLARGINE 100 U/ML 3 ML PEN SUBQ SCH ×2 (08:11→21:53)
--- NOTE | 2017-11-06 11:11 | BHS Progress Note ---
[facility] - Subjective Progress Notes Subjective Pt seen in treatment team meeting with his daughter Mary present on speaker phone. Pt denies any complaints today, says he slept well, mood is good, no aches or pains. He was seen by medicine over the weekend and they recommended simplifying his diabetes regimen. So far sugars are baseline-- will continue to follow, and also check a chem panel in am. They also recommended dc lasix due to low BP's-- he says he feels a little bit more edema today in Left foot-- it looks the same as last week to me, will continue to follow. BP's are not so low, so that is reassuring. Will continue xarelto for now-- we will ask Dr. Vidal after pt discharges if it is still indicated. His family is proceeding to get his house cleaned out and to get an individual(s) hired for 24 hours care-- things are moving along from that standpoint. Suicidal Ideation: None Homicidal Ideation: None [facility] - Objective Physical Exam Vital Signs Vital Signs 11/06/17 03:28 Temp 98.4 Pulse 69 Resp 15 B/P (MAP) 97/62 (74) Pulse Ox 94 O2 Delivery Nasal Cannula O2 Flow Rate 2.0 Muscle Strength and Tone: WNL Gait and Station: Steady, Other (Walks slowly but without difficulty) [facility] Medications Reviewed: Side Effects, Benefits of Medication, Risks Allergies Reviewed: Yes Mental Status Exam General Appearance: Casual, Good Eye Contact, Cooperative, Polite, Good Interaction, No Bizarre Mannerisms, No Tics Speech: Clear, Spontaneous, Normal Rate, Normal Rhythm, Normal Volume, Normal Tone Mood: Euthymic Affect: Calm, Neutral, No Tearful, No Anxious, No Agitated Thought Process: Organized, Logical, No Loose Associations, No Flight of Ideas Thought Content: No Suicidal Ideation, No Homicidal Ideation, No Delusions, No Auditory Halllucinations, No Visual Hallucinations, No Thought Broadcasting, No Ideas of Reference, No Obsessions, No Compulsions, No Other Sensorium: Clear Cognition: Alert & Oriented-Person, Alert & Oriented-Place, Alert-Oriented- Situation Memory: No Immediate, No Recent, Remote, Other Intelligence: Average Insight Judgment: Poor (Seems unaware of the implications of his medical conditions and unconcerned) [facility] Assessment and Plan Qvez-[id number] Encounter Date: Nov 06, 2017 Znjx-yo-Imob Encounter Time: 08:40 [facility] Plan: Necessary Precautions, Individual/Group Therapy, Admin/Titrate Meds, Educate Patient Tobacco Medications: Not Appropriate Condition Multpiple Antipsychotics Used: No Problems: (1) Neurocognitive disorder Optional Permanent Comment: Last Edited By: Gila Muñoz on Oct 19:55 Status: Chronic (2) Persistent depressive disorder Status: Chronic (3) Diabetes type I Status: Chronic Problem Qualifiers (1) Diabetes type I: Diabetes mellitus complication status: with neurologic complications MOO CLARK MD Nov 06, 2017 11:11
[2017-11-06] MEDS: POTASSIUM CHL 10 MEQ TABCR PO SCH ×2 (11:58→17:17)
[2017-11-06] MEDS: metFORMIN HCL 500 MG TAB PO SCH ×2 (11:58→17:17)
[2017-11-06] MEDS: INSULIN HUM LISPRO 100 UN/ML 3 ML VIAL SUBQ PRN ×2 (12:02→21:54)
[2017-11-06 12:24] VITALS: BP 120/65
[2017-11-06] MEDS: RIVAROXABAN 10 MG TAB PO SCH (17:17)
[2017-11-06 18:14] VITALS: BP 136/58
[2017-11-06] MEDS: SUVOREXANT 20 MG PO SCH (21:00)
[2017-11-06] MEDS: ATORVASTATIN 10 MG TAB PO SCH (21:52)
[2017-11-06] MEDS: MELATONIN 3 MG TAB PO SCH (21:53)
[2017-11-06] MEDS: PARoxetine HCL 20 MG TAB PO SCH (21:53)
[2017-11-07] MEDS: ACETAMINOPHEN 325 MG TAB PO PRN (05:14)
[2017-11-07] MEDS: LEVOTHYROXINE SOD 0.175 MG TAB PO SCH (05:14)
[2017-11-07 05:19] VITALS: BP 109/59
[2017-11-07] MEDS: TIOTROPIUM BROM INH 18 MCG/CAP INH SCH (05:32)
[2017-11-07] MEDS: COMBIVENT 4 GR INHALER IH SCH (05:32)
[2017-11-07 06:12] LABS: PLATELET COUNT, AUTOMATED 125 K/uL (150-450)
[2017-11-07] MEDS: ASPIRIN 81 MG ENTERIC COATED PO SCH (08:33)
[2017-11-07] MEDS: MULTIVITAMINS PO SCH (08:33)
[2017-11-07] MEDS: GABAPENTIN 300 MG CAP PO SCH ×3 (08:33→21:59)
[2017-11-07] MEDS: INSULIN GLARGINE 100 U/ML 3 ML PEN SUBQ SCH ×2 (08:34→22:00)
[2017-11-07] MEDS: POTASSIUM CHL 10 MEQ TABCR PO SCH ×2 (12:27→16:29)
[2017-11-07] MEDS: metFORMIN HCL 500 MG TAB PO SCH ×2 (12:28→16:29)
[2017-11-07 13:15] VITALS: BP 125/63
--- NOTE | 2017-11-07 13:54 | BHS Progress Note ---
S - Subjective Progress Notes Subjective Pt seen in conference room; later I spoke with Mary his dtr. by telephone. Pt himself denies c/o's. Pt sleeping well, appetite good, describes "fine " mood. Blood sugars have been stable. Mary reports they are getting his house cleaned and she is waiting for confirmation from the care provider. Hoping for a discharge Monday am, with [employer] program following pt. Will arrange home health and also Vanessa to support pt in the home as well. Labs today with continued mild low hgb/hct, platelet ct low at 125, chem panel acceptable. Suicidal Ideation: None Homicidal Ideation: None S - Objective Physical Exam Vital Signs Vital Signs 11/07/17 11/07/17 05:19 13:15 Temp 98.3 Pulse 74 Resp 16 B/P (MAP) 125/63 (83) Pulse Ox 100 O2 Delivery Nasal Cannula O2 Flow Rate 2.0 Muscle Strength and Tone: WNL Gait and Station: Steady, Other (Walks slowly but without difficulty) [facility] Medications Reviewed: Side Effects, Benefits of Medication, Risks Allergies Reviewed: Yes Mental Status Exam General Appearance: Casual, Good Eye Contact, Cooperative, Polite, Good Interaction, No Bizarre Mannerisms, No Tics Speech: Clear, Spontaneous, Normal Rate, Normal Rhythm, Normal Volume, Normal Tone Mood: Euthymic Affect: Calm, Neutral, No Tearful, No Anxious, No Agitated Thought Process: Organized, Logical, No Loose Associations, No Flight of Ideas Thought Content: No Suicidal Ideation, No Homicidal Ideation, No Delusions, No Auditory Halllucinations, No Visual Hallucinations, No Thought Broadcasting, No Ideas of Reference, No Obsessions, No Compulsions, No Other Sensorium: Clear Cognition: Alert & Oriented-Person, Alert & Oriented-Place, Alert-Oriented- Situation Memory: No Immediate, No Recent, Remote, Other (Oriented to [facility], [place], but not to month day or year.) Intelligence: Average Insight Judgment: Poor (Seems unaware of the implications of his medical conditions and unconcerned) Result Diagram: 11/07/17 0548 11/07/17 0545 [facility] Assessment and Plan [id number] Encounter Date: Nov 07, 2017 [id number] Encounter Time: 10:00 [facility] Plan: Necessary Precautions, Individual/Group Therapy, Admin/Titrate Meds, Educate Patient Tobacco Medications: Not Appropriate Condition Multpiple Antipsychotics Used: No Problems: (1) Neurocognitive disorder Optional Permanent Comment: Last Edited By: Gila Muñoz on Oct 19:55 Status: Chronic (2) Persistent depressive disorder Status: Chronic (3) Diabetes type I Status: Chronic Problem Qualifiers (1) Diabetes type I: Diabetes mellitus complication status: with neurologic complications MOO CLARK MD Nov 07, 2017 13:54
[2017-11-07] MEDS: RIVAROXABAN 10 MG TAB PO SCH (16:30)
[2017-11-07 16:33] VITALS: BP 121/69
[2017-11-07] MEDS: INSULIN HUM LISPRO 100 UN/ML 3 ML VIAL SUBQ PRN ×2 (17:01→22:00)
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
[2017-11-07] MEDS: SUVOREXANT 20 MG PO SCH (21:00)
[2017-11-07] MEDS: MELATONIN 3 MG TAB PO SCH (21:59)
[2017-11-07] MEDS: PARoxetine HCL 20 MG TAB PO SCH (21:59)
[2017-11-07] MEDS: ATORVASTATIN 10 MG TAB PO SCH (21:59)
[2017-11-08] MEDS: TIOTROPIUM BROM INH 18 MCG/CAP INH SCH (05:30)
[2017-11-08] MEDS: COMBIVENT 4 GR INHALER IH SCH (05:30)
[2017-11-08] MEDS: ACETAMINOPHEN 325 MG TAB PO PRN (05:44)
[2017-11-08] MEDS: LEVOTHYROXINE SOD 0.175 MG TAB PO SCH (05:44)
[2017-11-08 05:45] VITALS: BP 130/70
[2017-11-08] MEDS: ASPIRIN 81 MG ENTERIC COATED PO SCH (08:25)
[2017-11-08] MEDS: GABAPENTIN 300 MG CAP PO SCH ×3 (08:25→21:49)
[2017-11-08] MEDS: MULTIVITAMINS PO SCH (08:25)
[2017-11-08] MEDS: INSULIN GLARGINE 100 U/ML 3 ML PEN SUBQ SCH ×2 (08:26→21:50)
[2017-11-08 08:41] VITALS: BP 124/74
[2017-11-08] MEDS: INSULIN HUM LISPRO 100 UN/ML 3 ML VIAL SUBQ PRN ×2 (11:59→21:50)
[2017-11-08] MEDS: POTASSIUM CHL 10 MEQ TABCR PO SCH ×2 (11:59→17:28)
[2017-11-08] MEDS: metFORMIN HCL 500 MG TAB PO SCH ×2 (11:59→17:28)
--- NOTE | 2017-11-08 13:06 | BHS Progress Note ---
S - Subjective Progress Notes Subjective Patient remains cooperative on the unit, minimal encouragement for attention to ADL's Patient noted to play card games and overall has been polite and cooperative with staff and other patients. Patient denies any complaints. On exam patient quickly correctly answering the year, when asked the month patient replied "September" This provider then stated "What about November?" Patient quickly replied "October". Patient guessing date as the . Patient has some degree of cognitive impairment, but at times seems to attempt to demonstrate a more profound impairment then what may actually exist. Patient denies any other concerns today. Will continue to work to find placement for this patient, whose daughters continue to try to have patient return home, with in home care. Suicidal Ideation: None Homicidal Ideation: None S - Objective Physical Exam Vital Signs Vital Signs Date Time Temp Pulse Resp B/P (MAP) Pulse Ox O2 Delivery O2 Flow Rate FiO2 11/08/17 08:41 98.6 61 124/74 (91) 100 Nasal Cannula 3.5 11/08/17 05:45 16 Muscle Strength and Tone: WNL Gait and Station: Steady, Other (Walks slowly but without difficulty) [facility] Medications Reviewed: Side Effects, Benefits of Medication, Risks Allergies Reviewed: Yes Mental Status Exam General Appearance: Casual, Good Eye Contact, Cooperative, Polite, Good Interaction, No Tearful, No Psychomotor Agitation, No Psychomotor Retardation, No Bizarre Mannerisms, No Tics Speech: Clear, Spontaneous, Normal Rate, Normal Rhythm, Normal Volume, Normal Tone, No Garbled, No Rambling, No Inappropriate Mood: Euthymic Affect: Full and Appropriate, Calm, Neutral, No Flat, No Withdrawn, No Tearful , No Anxious, No Agitated Thought Process: Organized, Logical, No Loose Associations, No Flight of Ideas Thought Content: No Suicidal Ideation, No Homicidal Ideation, No Delusions, No Auditory Halllucinations, No Visual Hallucinations, No Thought Broadcasting, No Ideas of Reference, No Obsessions, No Compulsions, No Other Sensorium: Clear Cognition: Alert & Oriented-Person, Alert & Oriented-Place, Alert-Oriented- Situation Memory: No Immediate, No Recent, Remote, Other (Oriented to [facility] [place], year, and partially to rest of time, with some degree of purposely being misleading. ) Intelligence: Average Insight Judgment: Poor (Seems unaware of the implications of his medical conditions and unconcerned) Result Diagram: 11/07/17 0548 11/07/17 0545 [facility] Assessment and Plan [id number] Encounter Date: Nov 08, 2017 [id number] Encounter Time: 08:40 [facility] Plan: Necessary Precautions, Individual/Group Therapy, Admin/Titrate Meds, Educate Patient Tobacco Medications: Not Appropriate Condition Multpiple Antipsychotics Used: No Problems: (1) Persistent depressive disorder Status: Chronic (2) Neurocognitive disorder Optional Permanent Comment: Last Edited By: Gila Muñoz on Oct 19:55 Status: Chronic (3) Diabetes type I Status: Chronic (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 Last Edited By: Mark Skinner on Oct 30, 2017 09:56 Status: Chronic Condition 1. continue treatment. 2. hearing for commitment to further await placement back to home if necessary. Problem Qualifiers (1) Diabetes type I: Diabetes mellitus complication status: with neurologic complications MARK SKINNER MD Nov 08, 2017 13:06
[2017-11-08] MEDS: RIVAROXABAN 10 MG TAB PO SCH (17:28)
[2017-11-08 18:35] VITALS: BP 105/72
[2017-11-08] MEDS: SUVOREXANT 20 MG PO SCH (21:00)
[2017-11-08] MEDS: ATORVASTATIN 10 MG TAB PO SCH (21:49)
[2017-11-08] MEDS: PARoxetine HCL 20 MG TAB PO SCH (21:49)
[2017-11-08] MEDS: MELATONIN 3 MG TAB PO SCH (21:49)
[2017-11-09] MEDS: TIOTROPIUM BROM INH 18 MCG/CAP INH SCH (05:40)
[2017-11-09] MEDS: COMBIVENT 4 GR INHALER IH SCH (05:40)
[2017-11-09 05:47] VITALS: BP 106/57
[2017-11-09] MEDS: LEVOTHYROXINE SOD 0.175 MG TAB PO SCH (05:54)
[2017-11-09] MEDS: ACETAMINOPHEN 325 MG TAB PO PRN (05:54)
[2017-11-09] MEDS: ASPIRIN 81 MG ENTERIC COATED PO SCH (08:15)
[2017-11-09] MEDS: MULTIVITAMINS PO SCH (08:15)
[2017-11-09] MEDS: INSULIN GLARGINE 100 U/ML 3 ML PEN SUBQ SCH ×2 (08:16→21:45)
[2017-11-09] MEDS: GABAPENTIN 300 MG CAP PO SCH ×3 (08:16→21:38)
[2017-11-09 10:07] VITALS: BP 122/65
--- NOTE | 2017-11-09 10:34 | BHS Progress Note ---
BHS - Subjective Progress Notes Subjective Patient continues to display cooperative, polite behaviors on the unit. Denies any other concerns, continues to await his daughter's who are preparing home for his return under monitored care. Will go forward with hearing necessary to potentially send patient, who has demonstrated inability to care for self, to [facility] to await return to home, or placement in [facility]. Placement has been looked into from the unit, but none can be found so far. Sleeping and appetite improved... cognitive impairment present, glucose and HTN well controlled. No other concerns. Suicidal Ideation: None Homicidal Ideation: None [facility] - Objective Physical Exam Vital Signs Hematology Test 11/07/17 05:45 11/07/17 05:48 11/09/17 07:52 Sodium Level 140 mmol/L (137-145) Potassium Level 4.0 mmol/L (3.5-5.0) Chloride Level 105 mmol/L (98-107) Carbon Dioxide Level 26 mmol/L (22-30) Blood Urea Nitrogen 25 mg/dl (9-21) Creatinine 0.70 mg/dl (0.66-1.25) Glomerular Filtration Rate Calc > 60.0 Random Glucose 108 mg/dl (75-110) Calcium Level 9.2 mg/dl (8.4-10.2) Total Bilirubin 0.5 mg/dl (0.2-1.3) Aspartate Amino Transf (AST/SGOT) 36 U/L (0-35) Alanine Aminotransferase (ALT/SGPT) 12 U/L (0-56) Alkaline Phosphatase 89 U/L (0-126) Total Protein 5.7 g/dl (6.3-8.2) Albumin 3.1 g/dl (3.5-5.0) Red Blood Count 3.74 M/uL (4.00-5.60) Mean Corpuscular Volume 89.7 fL (80.0-96.0) Mean Corpuscular Hemoglobin 31.0 pg (26.0-33.0) Mean Corpuscular Hemoglobin Concent 34.6 g/dL (32.0-36.0) Red Cell Distribution Width 14.8 % (11.5-14.5) Mean Platelet Volume 8.5 fL (7.2-11.1) Neutrophils (%) (Auto) 60.9 % (39.4-72.5) Lymphocytes (%) (Auto) 28.0 % (17.6-49.6) Monocytes (%) (Auto) 7.1 % (4.1-12.4) Eosinophils (%) (Auto) 3.3 % (0.4-6.7) Basophils (%) (Auto) 0.7 % (0.3-1.4) Nucleated RBC Relative Count (auto) 0.0 /100WBC Neutrophils # (Auto) 3.3 K/uL (2.0-7.4) Lymphocytes # (Auto) 1.5 K/uL (1.3-3.6) Monocytes # (Auto) 0.4 K/uL (0.3-1.0) Eosinophils # (Auto) 0.2 K/uL (0.0-0.5) Basophils # (Auto) 0.0 K/uL (0.0-0.1) Nucleated RBC Absolute Count (auto) 0.00 K/uL Whole Blood Glucose 140 mg/DL (75-110) Chemistry Test 11/07/17 05:45 11/07/17 05:48 11/09/17 07:52 Glomerular Filtration Rate Calc > 60.0 Calcium Level 9.2 mg/dl (8.4-10.2) Total Bilirubin 0.5 mg/dl (0.2-1.3) Aspartate Amino Transf (AST/SGOT) 36 U/L (0-35) Alanine Aminotransferase (ALT/SGPT) 12 U/L (0-56) Alkaline Phosphatase 89 U/L (0-126) Total Protein 5.7 g/dl (6.3-8.2) Albumin 3.1 g/dl (3.5-5.0) White Blood Count 5.4 k/uL (4.5-11.0) Red Blood Count 3.74 M/uL (4.00-5.60) Hemoglobin 11.6 g/dL (14.0-18.0) Hematocrit 33.6 % (42.0-52.0) Mean Corpuscular Volume 89.7 fL (80.0-96.0) Mean Corpuscular Hemoglobin 31.0 pg (26.0-33.0) Mean Corpuscular Hemoglobin Concent 34.6 g/dL (32.0-36.0) Red Cell Distribution Width 14.8 % (11.5-14.5) Platelet Count 125 K/uL (150-450) Mean Platelet Volume 8.5 fL (7.2-11.1) Neutrophils (%) (Auto) 60.9 % (39.4-72.5) Lymphocytes (%) (Auto) 28.0 % (17.6-49.6) Monocytes (%) (Auto) 7.1 % (4.1-12.4) Eosinophils (%) (Auto) 3.3 % (0.4-6.7) Basophils (%) (Auto) 0.7 % (0.3-1.4) Nucleated RBC Relative Count (auto) 0.0 /100WBC Neutrophils # (Auto) 3.3 K/uL (2.0-7.4) Lymphocytes # (Auto) 1.5 K/uL (1.3-3.6) Monocytes # (Auto) 0.4 K/uL (0.3-1.0) Eosinophils # (Auto) 0.2 K/uL (0.0-0.5) Basophils # (Auto) 0.0 K/uL (0.0-0.1) Nucleated RBC Absolute Count (auto) 0.00 K/uL Whole Blood Glucose 140 mg/DL (75-110) Vital Signs Date Time Temp Pulse Resp B/P (MAP) Pulse Ox O2 Delivery O2 Flow Rate FiO2 11/09/17 10:07 98.6 74 122/65 (84) 94 Nasal Cannula 1.0 11/08/17 05:45 16 Muscle Strength and Tone: WNL Gait and Station: Steady, Other (Walks slowly but without difficulty) S Medications Reviewed: Side Effects, Benefits of Medication, Risks Allergies Reviewed: Yes Mental Status Exam General Appearance: Casual, Good Eye Contact, Cooperative, Polite, Good Interaction, No Bizarre Mannerisms, No Tics Speech: Clear, Spontaneous, Normal Rhythm, Normal Volume, Normal Tone, Delayed (some ) Mood: Euthymic Affect: Calm, Neutral, No Tearful, No Anxious, No Agitated Thought Process: Organized, Logical, No Loose Associations, No Flight of Ideas Thought Content: No Suicidal Ideation, No Homicidal Ideation, No Delusions, No Auditory Halllucinations, No Visual Hallucinations, No Thought Broadcasting, No Ideas of Reference, No Obsessions, No Compulsions, No Other Sensorium: Clear Cognition: Alert & Oriented-Person, Alert & Oriented-Place, Alert-Oriented- Situation Memory: No Immediate, No Recent, Remote, Other (Oriented to [facility], [place], but not to month day or year.) Intelligence: Average Insight Judgment: Poor (Seems unaware of the implications of his medical conditions and unconcerned) Result Diagram: 11/07/17 0548 11/07/17 0545 [facility] Assessment and Plan [id number] Encounter Date: Nov 09, 2017 [id number] Encounter Time: 10:40 [facility] Plan: Necessary Precautions, Individual/Group Therapy, Admin/Titrate Meds, Educate Patient Tobacco Medications: Not Appropriate Condition Multpiple Antipsychotics Used: No Problems: (1) Persistent depressive disorder Status: Chronic (2) Neurocognitive disorder Optional Permanent Comment: Last Edited By: Gila Muñoz on Oct 19:55 Status: Chronic (3) Diabetes type I Status: Chronic (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 Last Edited By: Thee Skinner on Oct 30, 2017 09:56 Status: Chronic Condition 1. continue treatment. 2. hearing as placement we await placement back in the home. Problem Qualifiers (1) Diabetes type I: Diabetes mellitus complication status: with neurologic complications THEE SKINNER MD Nov 09, 2017 10:34
[2017-11-09] MEDS: INSULIN HUM LISPRO 100 UN/ML 3 ML VIAL SUBQ PRN ×3 (11:58→21:56)
[2017-11-09] MEDS: POTASSIUM CHL 10 MEQ TABCR PO SCH ×2 (11:58→17:19)
[2017-11-09] MEDS: metFORMIN HCL 500 MG TAB PO SCH ×2 (11:58→17:19)
[2017-11-09] MEDS: RIVAROXABAN 10 MG TAB PO SCH (17:18)
[2017-11-09] MEDS: SUVOREXANT 20 MG PO SCH (21:00)
[2017-11-09] MEDS: ATORVASTATIN 10 MG TAB PO SCH (21:38)
[2017-11-09] MEDS: MELATONIN 3 MG TAB PO SCH (21:38)
[2017-11-09] MEDS: PARoxetine HCL 20 MG TAB PO SCH (21:38)
[2017-11-09 21:39] VITALS: BP 123/77
[2017-11-10] MEDS: LEVOTHYROXINE SOD 0.175 MG TAB PO SCH (05:55)
[2017-11-10 06:07] VITALS: BP 118/66
[2017-11-10] MEDS: COMBIVENT 4 GR INHALER IH SCH (06:12)
[2017-11-10] MEDS: TIOTROPIUM BROM INH 18 MCG/CAP INH SCH (07:15)
[2017-11-10] MEDS: INSULIN GLARGINE 100 U/ML 3 ML PEN SUBQ SCH ×2 (08:00→21:07)
[2017-11-10] MEDS: GABAPENTIN 300 MG CAP PO SCH ×3 (08:00→21:08)
[2017-11-10] MEDS: MULTIVITAMINS PO SCH (08:00)
[2017-11-10] MEDS: ASPIRIN 81 MG ENTERIC COATED PO SCH (08:00)
[2017-11-10] MEDS: INSULIN HUM LISPRO 100 UN/ML 3 ML VIAL SUBQ PRN ×4 (08:01→21:17)
--- NOTE | 2017-11-10 10:55 | BHS Progress Note ---
[facility] - Subjective Progress Notes Subjective Patient able to tolerate court hearing today, and [facility] if patient cannot be returned home in a timely manner. no other concerns today. Daughter is working on home health care. Appetite okay, sleep okay. Mood described as good. No other concerns today. Suicidal Ideation: None Homicidal Ideation: None S - Objective Physical Exam Vital Signs Vital Signs Date Time Temp Pulse Resp B/P (MAP) Pulse Ox O2 Delivery O2 Flow Rate FiO2 11/10/17 06:07 97.8 70 118/66 (83) 92 Oxy Mask 2.0 11/08/17 05:45 16 Hematology Test 11/07/17 05:45 11/07/17 05:48 11/10/17 07:45 Sodium Level 140 mmol/L (137-145) Potassium Level 4.0 mmol/L (3.5-5.0) Chloride Level 105 mmol/L (98-107) Carbon Dioxide Level 26 mmol/L (22-30) Blood Urea Nitrogen 25 mg/dl (9-21) Creatinine 0.70 mg/dl (0.66-1.25) Glomerular Filtration Rate Calc > 60.0 Random Glucose 108 mg/dl (75-110) Calcium Level 9.2 mg/dl (8.4-10.2) Total Bilirubin 0.5 mg/dl (0.2-1.3) Aspartate Amino Transf (AST/SGOT) 36 U/L (0-35) Alanine Aminotransferase (ALT/SGPT) 12 U/L (0-56) Alkaline Phosphatase 89 U/L (0-126) Total Protein 5.7 g/dl (6.3-8.2) Albumin 3.1 g/dl (3.5-5.0) Red Blood Count 3.74 M/uL (4.00-5.60) Mean Corpuscular Volume 89.7 fL (80.0-96.0) Mean Corpuscular Hemoglobin 31.0 pg (26.0-33.0) Mean Corpuscular Hemoglobin Concent 34.6 g/dL (32.0-36.0) Red Cell Distribution Width 14.8 % (11.5-14.5) Mean Platelet Volume 8.5 fL (7.2-11.1) Neutrophils (%) (Auto) 60.9 % (39.4-72.5) Lymphocytes (%) (Auto) 28.0 % (17.6-49.6) Monocytes (%) (Auto) 7.1 % (4.1-12.4) Eosinophils (%) (Auto) 3.3 % (0.4-6.7) Basophils (%) (Auto) 0.7 % (0.3-1.4) Nucleated RBC Relative Count (auto) 0.0 /100WBC Neutrophils # (Auto) 3.3 K/uL (2.0-7.4) Lymphocytes # (Auto) 1.5 K/uL (1.3-3.6) Monocytes # (Auto) 0.4 K/uL (0.3-1.0) Eosinophils # (Auto) 0.2 K/uL (0.0-0.5) Basophils # (Auto) 0.0 K/uL (0.0-0.1) Nucleated RBC Absolute Count (auto) 0.00 K/uL Whole Blood Glucose 152 mg/DL (75-110) Chemistry Test 11/07/17 05:45 11/07/17 05:48 11/10/17 07:45 Glomerular Filtration Rate Calc > 60.0 Calcium Level 9.2 mg/dl (8.4-10.2) Total Bilirubin 0.5 mg/dl (0.2-1.3) Aspartate Amino Transf (AST/SGOT) 36 U/L (0-35) Alanine Aminotransferase (ALT/SGPT) 12 U/L (0-56) Alkaline Phosphatase 89 U/L (0-126) Total Protein 5.7 g/dl (6.3-8.2) Albumin 3.1 g/dl (3.5-5.0) White Blood Count 5.4 k/uL (4.5-11.0) Red Blood Count 3.74 M/uL (4.00-5.60) Hemoglobin 11.6 g/dL (14.0-18.0) Hematocrit 33.6 % (42.0-52.0) Mean Corpuscular Volume 89.7 fL (80.0-96.0) Mean Corpuscular Hemoglobin 31.0 pg (26.0-33.0) Mean Corpuscular Hemoglobin Concent 34.6 g/dL (32.0-36.0) Red Cell Distribution Width 14.8 % (11.5-14.5) Platelet Count 125 K/uL (150-450) Mean Platelet Volume 8.5 fL (7.2-11.1) Neutrophils (%) (Auto) 60.9 % (39.4-72.5) Lymphocytes (%) (Auto) 28.0 % (17.6-49.6) Monocytes (%) (Auto) 7.1 % (4.1-12.4) Eosinophils (%) (Auto) 3.3 % (0.4-6.7) Basophils (%) (Auto) 0.7 % (0.3-1.4) Nucleated RBC Relative Count (auto) 0.0 /100WBC Neutrophils # (Auto) 3.3 K/uL (2.0-7.4) Lymphocytes # (Auto) 1.5 K/uL (1.3-3.6) Monocytes # (Auto) 0.4 K/uL (0.3-1.0) Eosinophils # (Auto) 0.2 K/uL (0.0-0.5) Basophils # (Auto) 0.0 K/uL (0.0-0.1) Nucleated RBC Absolute Count (auto) 0.00 K/uL Whole Blood Glucose 152 mg/DL (75-110) Muscle Strength and Tone: WNL Gait and Station: Steady, Other (Walks slowly but without difficulty) S Medications Reviewed: Side Effects, Benefits of Medication, Risks Allergies Reviewed: Yes Mental Status Exam General Appearance: Casual, Good Eye Contact, Cooperative, Polite, Good Interaction, No Bizarre Mannerisms, No Tics Speech: Clear, Spontaneous, Normal Rhythm, Normal Volume, Normal Tone, Delayed (some ) Mood: Euthymic Affect: Calm, Neutral, No Tearful, No Anxious, No Agitated Thought Process: Organized, Logical, No Loose Associations, No Flight of Ideas Thought Content: No Suicidal Ideation, No Homicidal Ideation, No Delusions, No Auditory Halllucinations, No Visual Hallucinations, No Thought Broadcasting, No Ideas of Reference, No Obsessions, No Compulsions, No Other Sensorium: Clear Cognition: Alert & Oriented-Person, Alert & Oriented-Place, Alert-Oriented- Situation Memory: No Immediate, No Recent, Remote, Other (Oriented to [facility], [place], and year) Intelligence: Average Insight Judgment: Poor (Seems unaware of the implications of his medical conditions and unconcerned) Result Diagram: 11/07/17 0548 11/07/17 0545 [facility] Assessment and Plan [id number] Encounter Date: Nov 10, 2017 Tiod-[id number] Encounter Time: 08:40 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 Last Edited By: Mark Skinner on Oct 30, 2017 09:56 Status: Chronic Condition 1. continue treatment. 2. await home prepared for patient with in home care. Problem Qualifiers (1) Diabetes type I: Diabetes mellitus complication status: with neurologic complications MARK SKINNER MD Nov 10, 2017 10:55
[2017-11-10] MEDS: metFORMIN HCL 500 MG TAB PO SCH ×2 (11:59→16:25)
[2017-11-10] MEDS: POTASSIUM CHL 10 MEQ TABCR PO SCH ×2 (11:59→16:25)
[2017-11-10 13:38] VITALS: BP 106/58
[2017-11-10] MEDS: ACETAMINOPHEN 325 MG TAB PO PRN (16:25)
[2017-11-10] MEDS: RIVAROXABAN 10 MG TAB PO SCH (16:25)
[2017-11-10] MEDS: ATORVASTATIN 10 MG TAB PO SCH (21:08)
[2017-11-10] MEDS: SUVOREXANT 20 MG PO SCH (21:08)
[2017-11-10] MEDS: MELATONIN 3 MG TAB PO SCH (21:08)
[2017-11-10] MEDS: PARoxetine HCL 20 MG TAB PO SCH (21:09)
[2017-11-11] MEDS: COMBIVENT 4 GR INHALER IH SCH (05:38)
[2017-11-11] MEDS: TIOTROPIUM BROM INH 18 MCG/CAP INH SCH (05:38)
[2017-11-11] MEDS: LEVOTHYROXINE SOD 0.175 MG TAB PO SCH (05:39)
[2017-11-11] MEDS: ACETAMINOPHEN 325 MG TAB PO PRN (05:53)
[2017-11-11 06:08] VITALS: BP 113/71
[2017-11-11] MEDS: GABAPENTIN 300 MG CAP PO SCH ×3 (07:45→21:25)
[2017-11-11] MEDS: ASPIRIN 81 MG ENTERIC COATED PO SCH (07:45)
[2017-11-11] MEDS: MULTIVITAMINS PO SCH (07:45)
[2017-11-11] MEDS: INSULIN GLARGINE 100 U/ML 3 ML PEN SUBQ SCH ×2 (07:46→21:23)
[2017-11-11] MEDS: metFORMIN HCL 500 MG TAB PO SCH ×2 (11:57→16:31)
[2017-11-11] MEDS: POTASSIUM CHL 10 MEQ TABCR PO SCH ×2 (11:57→16:31)
[2017-11-11 12:40] VITALS: BP 104/50
--- NOTE | 2017-11-11 12:53 | BHS Progress Note ---
[facility] - Subjective Progress Notes Subjective Pt seen in dining room where he is working on a puzzle. Pt in good spirits, denies complaints. Blood sugars and vitals have been acceptable. He is awaiting placement at the [facility]-- was committed yesterday. Will continue current treatment plan. Suicidal Ideation: None Homicidal Ideation: None [facility] - Objective Physical Exam Vital Signs Vital Signs 11/10/17 11/11/17 13:38 06:08 Temp 98.6 Pulse 67 Resp 18 B/P (MAP) 113/71 (85) Pulse Ox 92 O2 Delivery Oxy Mask O2 Flow Rate 2.0 Muscle Strength and Tone: WNL Gait and Station: Steady, Other (Walks slowly but without difficulty) [facility] Medications Reviewed: Side Effects, Benefits of Medication, Risks Allergies Reviewed: Yes Mental Status Exam General Appearance: Casual, Good Eye Contact, Cooperative, Polite, Good Interaction, No Bizarre Mannerisms, No Tics Speech: Clear, Spontaneous, Normal Rhythm, Normal Volume, Normal Tone, Delayed (some ) Mood: Euthymic Affect: Calm, Neutral, No Tearful, No Anxious, No Agitated Thought Process: Organized, Logical, No Loose Associations, No Flight of Ideas Thought Content: No Suicidal Ideation, No Homicidal Ideation, No Delusions, No Auditory Halllucinations, No Visual Hallucinations, No Thought Broadcasting, No Ideas of Reference, No Obsessions, No Compulsions, No Other Sensorium: Clear Cognition: Alert & Oriented-Person, Alert & Oriented-Place, Alert-Oriented- Situation Memory: No Immediate, No Recent, Remote, Other (. Replies "September" for month.) Intelligence: Average Insight Judgment: Poor (Seems unaware of the implications of his medical conditions and unconcerned) Result Diagram: 11/07/17 0548 11/07/17 0545 [facility] Assessment and Plan [id number] Encounter Date: Nov 11, 2017 [id number] Encounter Time: 11:00 [facility] Plan: Necessary Precautions, Individual/Group Therapy, Admin/Titrate Meds, Educate Patient Tobacco Medications: Not Appropriate Condition Multpiple Antipsychotics Used: No Problems: (1) Neurocognitive disorder Optional Permanent Comment: Last Edited By: Gila Muñoz on Oct 19:55 Status: Chronic (2) Persistent depressive disorder Status: Chronic (3) Diabetes type I Status: Chronic Problem Qualifiers (1) Diabetes type I: Diabetes mellitus complication status: with neurologic complications MOO CLARK MD Nov 11, 2017 12:53
[2017-11-11] MEDS: RIVAROXABAN 10 MG TAB PO SCH (16:31)
[2017-11-11] MEDS: INSULIN HUM LISPRO 100 UN/ML 3 ML VIAL SUBQ PRN ×2 (16:35→21:23)
[2017-11-11] MEDS: ATORVASTATIN 10 MG TAB PO SCH (21:24)
[2017-11-11] MEDS: SUVOREXANT 20 MG PO SCH (21:24)
[2017-11-11] MEDS: PARoxetine HCL 20 MG TAB PO SCH (21:25)
[2017-11-11] MEDS: MELATONIN 3 MG TAB PO SCH (21:25)
[2017-11-12] MEDS: LEVOTHYROXINE SOD 0.175 MG TAB PO SCH (05:43)
[2017-11-12] MEDS: TIOTROPIUM BROM INH 18 MCG/CAP INH SCH (05:45)
[2017-11-12] MEDS: COMBIVENT 4 GR INHALER IH SCH (05:45)
[2017-11-12 06:37] VITALS: BP 114/88
[2017-11-12] MEDS: ASPIRIN 81 MG ENTERIC COATED PO SCH (07:54)
[2017-11-12] MEDS: GABAPENTIN 300 MG CAP PO SCH ×3 (07:54→21:24)
[2017-11-12] MEDS: MULTIVITAMINS PO SCH (07:54)
[2017-11-12] MEDS: INSULIN GLARGINE 100 U/ML 3 ML PEN SUBQ SCH ×2 (07:55→21:23)
[2017-11-12] MEDS: POTASSIUM CHL 10 MEQ TABCR PO SCH ×2 (11:29→16:52)
[2017-11-12] MEDS: metFORMIN HCL 500 MG TAB PO SCH ×2 (11:29→16:52)
[2017-11-12] MEDS: INSULIN HUM LISPRO 100 UN/ML 3 ML VIAL SUBQ PRN ×3 (11:38→21:24)
[2017-11-12 12:53] VITALS: BP 102/58
--- NOTE | 2017-11-12 14:45 | BHS Progress Note ---
[facility] - Subjective Progress Notes Subjective Pt denies c/o today-- seen in his room where he was playing [employer]ik[employer]. Pt continues to do fairly well in terms of mood and in terms of diabetes management. No significant increase in ankle edema. Still awaiting either a bed at the [facility] or alternative safe discharge arrangement. Suicidal Ideation: None Homicidal Ideation: None [facility] - Objective Physical Exam Vital Signs Vital Signs 11/12/17 11/12/17 06:37 12:53 Temp 97.8 Pulse 68 Resp 18 B/P (MAP) 102/58 (73) Pulse Ox 97 O2 Delivery Room Air O2 Flow Rate 2.0 Muscle Strength and Tone: WNL Gait and Station: Steady, Other (Walks slowly but without difficulty) [facility] Medications Reviewed: Side Effects, Benefits of Medication, Risks Allergies Reviewed: Yes Mental Status Exam General Appearance: Casual, Good Eye Contact, Cooperative, Polite, Good Interaction, No Bizarre Mannerisms, No Tics Speech: Clear, Spontaneous, Normal Rhythm, Normal Volume, Normal Tone, Delayed (some ) Mood: Euthymic Affect: Calm, Neutral, No Tearful, No Anxious, No Agitated Thought Process: Organized, Logical, No Loose Associations, No Flight of Ideas Thought Content: No Suicidal Ideation, No Homicidal Ideation, No Delusions, No Auditory Halllucinations, No Visual Hallucinations, No Thought Broadcasting, No Ideas of Reference, No Obsessions, No Compulsions, No Other Sensorium: Clear Cognition: Alert & Oriented-Person, Alert & Oriented-Place, Alert-Oriented- Situation Memory: No Immediate, No Recent, Remote, Other (. Replies "September" for month.) Intelligence: Average Insight Judgment: Poor (Seems unaware of the implications of his medical conditions and unconcerned) [facility] Assessment and Plan [id number] Encounter Date: Nov 12, 2017 [id number] Encounter Time: 08:45 [facility] Plan: Necessary Precautions, Individual/Group Therapy, Admin/Titrate Meds, Educate Patient Tobacco Medications: Not Appropriate Condition Multpiple Antipsychotics Used: No Problems: (1) Neurocognitive disorder Optional Permanent Comment: Last Edited By: Gila Muñoz on Oct 19:55 Status: Chronic (2) Persistent depressive disorder Status: Chronic (3) Diabetes type I Status: Chronic Problem Qualifiers (1) Diabetes type I: Diabetes mellitus complication status: with neurologic complications MOO CLARK MD Nov 12, 2017 14:45
[2017-11-12] MEDS: RIVAROXABAN 10 MG TAB PO SCH (16:52)
[2017-11-12] MEDS: SUVOREXANT 20 MG PO SCH (21:23)
[2017-11-12] MEDS: PARoxetine HCL 20 MG TAB PO SCH (21:24)
[2017-11-12] MEDS: ATORVASTATIN 10 MG TAB PO SCH (21:24)
[2017-11-12] MEDS: MELATONIN 3 MG TAB PO SCH (21:24)
[2017-11-13] MEDS: TIOTROPIUM BROM INH 18 MCG/CAP INH SCH (05:48)
[2017-11-13] MEDS: COMBIVENT 4 GR INHALER IH SCH (05:48)
[2017-11-13] MEDS: LEVOTHYROXINE SOD 0.175 MG TAB PO SCH (05:52)
[2017-11-13 05:58] VITALS: BP 96/50
[2017-11-13] MEDS: ASPIRIN 81 MG ENTERIC COATED PO SCH (07:44)
[2017-11-13] MEDS: GABAPENTIN 300 MG CAP PO SCH ×3 (07:44→20:59)
[2017-11-13] MEDS: MULTIVITAMINS PO SCH (07:44)
[2017-11-13] MEDS: INSULIN GLARGINE 100 U/ML 3 ML PEN SUBQ SCH ×2 (07:44→21:00)
--- NOTE | 2017-11-13 09:15 | BHS Progress Note ---
[facility] - Subjective Progress Notes Subjective Patient continues to be polite and cooperative on the unit this AM, continues to await placement back in home with adequate staffing verses transfer to [facility]. No other concerns today, appetite and sleep good. Suicidal Ideation: None Homicidal Ideation: None [facility] - Objective Physical Exam Vital Signs Vital Signs Date Time Temp Pulse Resp B/P (MAP) Pulse Ox O2 Delivery O2 Flow Rate FiO2 11/13/17 05:58 99.5 60 15 96/50 (65) 97 Nasal Cannula 2.0 Hematology Test 11/07/17 05:45 11/07/17 05:48 11/13/17 07:42 Sodium Level 140 mmol/L (137-145) Potassium Level 4.0 mmol/L (3.5-5.0) Chloride Level 105 mmol/L (98-107) Carbon Dioxide Level 26 mmol/L (22-30) Blood Urea Nitrogen 25 mg/dl (9-21) Creatinine 0.70 mg/dl (0.66-1.25) Glomerular Filtration Rate Calc > 60.0 Random Glucose 108 mg/dl (75-110) Calcium Level 9.2 mg/dl (8.4-10.2) Total Bilirubin 0.5 mg/dl (0.2-1.3) Aspartate Amino Transf (AST/SGOT) 36 U/L (0-35) Alanine Aminotransferase (ALT/SGPT) 12 U/L (0-56) Alkaline Phosphatase 89 U/L (0-126) Total Protein 5.7 g/dl (6.3-8.2) Albumin 3.1 g/dl (3.5-5.0) Red Blood Count 3.74 M/uL (4.00-5.60) Mean Corpuscular Volume 89.7 fL (80.0-96.0) Mean Corpuscular Hemoglobin 31.0 pg (26.0-33.0) Mean Corpuscular Hemoglobin Concent 34.6 g/dL (32.0-36.0) Red Cell Distribution Width 14.8 % (11.5-14.5) Mean Platelet Volume 8.5 fL (7.2-11.1) Neutrophils (%) (Auto) 60.9 % (39.4-72.5) Lymphocytes (%) (Auto) 28.0 % (17.6-49.6) Monocytes (%) (Auto) 7.1 % (4.1-12.4) Eosinophils (%) (Auto) 3.3 % (0.4-6.7) Basophils (%) (Auto) 0.7 % (0.3-1.4) Nucleated RBC Relative Count (auto) 0.0 /100WBC Neutrophils # (Auto) 3.3 K/uL (2.0-7.4) Lymphocytes # (Auto) 1.5 K/uL (1.3-3.6) Monocytes # (Auto) 0.4 K/uL (0.3-1.0) Eosinophils # (Auto) 0.2 K/uL (0.0-0.5) Basophils # (Auto) 0.0 K/uL (0.0-0.1) Nucleated RBC Absolute Count (auto) 0.00 K/uL Whole Blood Glucose 115 mg/DL (75-110) Chemistry Test 11/07/17 05:45 11/07/17 05:48 11/13/17 07:42 Glomerular Filtration Rate Calc > 60.0 Calcium Level 9.2 mg/dl (8.4-10.2) Total Bilirubin 0.5 mg/dl (0.2-1.3) Aspartate Amino Transf (AST/SGOT) 36 U/L (0-35) Alanine Aminotransferase (ALT/SGPT) 12 U/L (0-56) Alkaline Phosphatase 89 U/L (0-126) Total Protein 5.7 g/dl (6.3-8.2) Albumin 3.1 g/dl (3.5-5.0) White Blood Count 5.4 k/uL (4.5-11.0) Red Blood Count 3.74 M/uL (4.00-5.60) Hemoglobin 11.6 g/dL (14.0-18.0) Hematocrit 33.6 % (42.0-52.0) Mean Corpuscular Volume 89.7 fL (80.0-96.0) Mean Corpuscular Hemoglobin 31.0 pg (26.0-33.0) Mean Corpuscular Hemoglobin Concent 34.6 g/dL (32.0-36.0) Red Cell Distribution Width 14.8 % (11.5-14.5) Platelet Count 125 K/uL (150-450) Mean Platelet Volume 8.5 fL (7.2-11.1) Neutrophils (%) (Auto) 60.9 % (39.4-72.5) Lymphocytes (%) (Auto) 28.0 % (17.6-49.6) Monocytes (%) (Auto) 7.1 % (4.1-12.4) Eosinophils (%) (Auto) 3.3 % (0.4-6.7) Basophils (%) (Auto) 0.7 % (0.3-1.4) Nucleated RBC Relative Count (auto) 0.0 /100WBC Neutrophils # (Auto) 3.3 K/uL (2.0-7.4) Lymphocytes # (Auto) 1.5 K/uL (1.3-3.6) Monocytes # (Auto) 0.4 K/uL (0.3-1.0) Eosinophils # (Auto) 0.2 K/uL (0.0-0.5) Basophils # (Auto) 0.0 K/uL (0.0-0.1) Nucleated RBC Absolute Count (auto) 0.00 K/uL Whole Blood Glucose 115 mg/DL (75-110) Muscle Strength and Tone: WNL Gait and Station: Steady, Other (Walks slowly but without difficulty) [facility] Medications Reviewed: Side Effects, Benefits of Medication, Risks Allergies Reviewed: Yes Mental Status Exam General Appearance: Casual, Good Eye Contact, Cooperative, Polite, Good Interaction, No Tearful, No Psychomotor Agitation, No Psychomotor Retardation, No Bizarre Mannerisms, No Tics Speech: Clear, Spontaneous, Normal Rhythm, Normal Volume, Normal Tone, Delayed (some ) Mood: Euthymic Affect: Calm, Neutral, No Tearful, No Anxious, No Agitated Thought Process: Organized, Logical, No Loose Associations, No Flight of Ideas Thought Content: No Suicidal Ideation, No Homicidal Ideation, No Delusions, No Auditory Halllucinations, No Visual Hallucinations, No Thought Broadcasting, No Ideas of Reference, No Obsessions, No Compulsions, No Other Sensorium: Clear Cognition: Alert & Oriented-Person, Alert & Oriented-Place, Alert-Oriented- Situation Memory: No Immediate, No Recent, Remote, Other (some limitations exist) Intelligence: Average Insight Judgment: Poor (Seems unaware of the implications of his medical conditions and unconcerned) [facility] Assessment and Plan [id number] Encounter Date: Nov 13, 2017 [id number] Encounter Time: 08:40 [facility] Plan: Necessary Precautions, Individual/Group Therapy, Admin/Titrate Meds, Educate Patient Tobacco Medications: Not Appropriate Condition Multpiple Antipsychotics Used: No Problems: (1) Persistent depressive disorder Status: Chronic (2) Neurocognitive disorder Optional Permanent Comment: Last Edited By: Gila Muñoz on Oct 19:55 Status: Chronic (3) Diabetes type I Status: Chronic (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 Last Edited By: Mark Skinner on Oct 30, 2017 09:56 Status: Chronic Condition 1. continue treatment. 2. await placement at home verses transfer to [facility]. Problem Qualifiers (1) Diabetes type I: Diabetes mellitus complication status: with neurologic complications MARK SKINNER MD Nov 13, 2017 09:15
[2017-11-13] MEDS: POTASSIUM CHL 10 MEQ TABCR PO SCH ×2 (11:44→16:58)
[2017-11-13] MEDS: metFORMIN HCL 500 MG TAB PO SCH ×2 (11:45→16:58)
[2017-11-13] MEDS: INSULIN HUM LISPRO 100 UN/ML 3 ML VIAL SUBQ PRN ×3 (11:48→21:12)
[2017-11-13 13:13] VITALS: BP 103/62
[2017-11-13] MEDS: ACETAMINOPHEN 325 MG TAB PO PRN (14:05)
[2017-11-13] MEDS: RIVAROXABAN 10 MG TAB PO SCH (16:58)
[2017-11-13] MEDS: MELATONIN 3 MG TAB PO SCH (20:59)
[2017-11-13] MEDS: ATORVASTATIN 10 MG TAB PO SCH (20:59)
[2017-11-13] MEDS: PARoxetine HCL 20 MG TAB PO SCH (20:59)
[2017-11-13] MEDS: SUVOREXANT 20 MG PO SCH (20:59)
[2017-11-13 23:02] VITALS: BP 121/70
[2017-11-14] MEDS: TIOTROPIUM BROM INH 18 MCG/CAP INH SCH (05:40)
[2017-11-14] MEDS: COMBIVENT 4 GR INHALER IH SCH (05:40)
[2017-11-14] MEDS: LEVOTHYROXINE SOD 0.175 MG TAB PO SCH (06:00)
[2017-11-14] MEDS: ACETAMINOPHEN 325 MG TAB PO PRN (06:02)
[2017-11-14 06:06] VITALS: BP 103/48
[2017-11-14] MEDS: MULTIVITAMINS PO SCH (08:11)
[2017-11-14] MEDS: GABAPENTIN 300 MG CAP PO SCH ×3 (08:11→20:39)
[2017-11-14] MEDS: INSULIN GLARGINE 100 U/ML 3 ML PEN SUBQ SCH ×2 (08:11→20:38)
[2017-11-14] MEDS: ASPIRIN 81 MG ENTERIC COATED PO SCH (08:11)
[2017-11-14] MEDS: INSULIN HUM LISPRO 100 UN/ML 3 ML VIAL SUBQ PRN ×3 (08:12→17:06)
--- NOTE | 2017-11-14 08:18 | BHS Progress Note ---
[facility] - Subjective Progress Notes Subjective Patient continues to be cooperative on the unit overall, noted to be yelling out of his room this AM, apparently irritated that he could here to staff members communicating. Patient was upright in chair and playing solitaire, and was not sleeping at the time. Patient showering yesterday with minimal prompting from this provider. Appetite and sleep remain good. Patient denies any other concerns. Suicidal Ideation: None Homicidal Ideation: None S - Objective Physical Exam Vital Signs Vital Signs Date Time Temp Pulse Resp B/P (MAP) Pulse Ox O2 Delivery O2 Flow Rate FiO2 11/14/17 06:06 98.6 55 15 103/48 (66) 96 Nasal Cannula 2.0 Hematology Test 11/07/17 05:45 11/07/17 05:48 11/14/17 07:46 Sodium Level 140 mmol/L (137-145) Potassium Level 4.0 mmol/L (3.5-5.0) Chloride Level 105 mmol/L (98-107) Carbon Dioxide Level 26 mmol/L (22-30) Blood Urea Nitrogen 25 mg/dl (9-21) Creatinine 0.70 mg/dl (0.66-1.25) Glomerular Filtration Rate Calc > 60.0 Random Glucose 108 mg/dl (75-110) Calcium Level 9.2 mg/dl (8.4-10.2) Total Bilirubin 0.5 mg/dl (0.2-1.3) Aspartate Amino Transf (AST/SGOT) 36 U/L (0-35) Alanine Aminotransferase (ALT/SGPT) 12 U/L (0-56) Alkaline Phosphatase 89 U/L (0-126) Total Protein 5.7 g/dl (6.3-8.2) Albumin 3.1 g/dl (3.5-5.0) Red Blood Count 3.74 M/uL (4.00-5.60) Mean Corpuscular Volume 89.7 fL (80.0-96.0) Mean Corpuscular Hemoglobin 31.0 pg (26.0-33.0) Mean Corpuscular Hemoglobin Concent 34.6 g/dL (32.0-36.0) Red Cell Distribution Width 14.8 % (11.5-14.5) Mean Platelet Volume 8.5 fL (7.2-11.1) Neutrophils (%) (Auto) 60.9 % (39.4-72.5) Lymphocytes (%) (Auto) 28.0 % (17.6-49.6) Monocytes (%) (Auto) 7.1 % (4.1-12.4) Eosinophils (%) (Auto) 3.3 % (0.4-6.7) Basophils (%) (Auto) 0.7 % (0.3-1.4) Nucleated RBC Relative Count (auto) 0.0 /100WBC Neutrophils # (Auto) 3.3 K/uL (2.0-7.4) Lymphocytes # (Auto) 1.5 K/uL (1.3-3.6) Monocytes # (Auto) 0.4 K/uL (0.3-1.0) Eosinophils # (Auto) 0.2 K/uL (0.0-0.5) Basophils # (Auto) 0.0 K/uL (0.0-0.1) Nucleated RBC Absolute Count (auto) 0.00 K/uL Whole Blood Glucose 172 mg/DL (75-110) Chemistry Test 11/07/17 05:45 11/07/17 05:48 11/14/17 07:46 Glomerular Filtration Rate Calc > 60.0 Calcium Level 9.2 mg/dl (8.4-10.2) Total Bilirubin 0.5 mg/dl (0.2-1.3) Aspartate Amino Transf (AST/SGOT) 36 U/L (0-35) Alanine Aminotransferase (ALT/SGPT) 12 U/L (0-56) Alkaline Phosphatase 89 U/L (0-126) Total Protein 5.7 g/dl (6.3-8.2) Albumin 3.1 g/dl (3.5-5.0) White Blood Count 5.4 k/uL (4.5-11.0) Red Blood Count 3.74 M/uL (4.00-5.60) Hemoglobin 11.6 g/dL (14.0-18.0) Hematocrit 33.6 % (42.0-52.0) Mean Corpuscular Volume 89.7 fL (80.0-96.0) Mean Corpuscular Hemoglobin 31.0 pg (26.0-33.0) Mean Corpuscular Hemoglobin Concent 34.6 g/dL (32.0-36.0) Red Cell Distribution Width 14.8 % (11.5-14.5) Platelet Count 125 K/uL (150-450) Mean Platelet Volume 8.5 fL (7.2-11.1) Neutrophils (%) (Auto) 60.9 % (39.4-72.5) Lymphocytes (%) (Auto) 28.0 % (17.6-49.6) Monocytes (%) (Auto) 7.1 % (4.1-12.4) Eosinophils (%) (Auto) 3.3 % (0.4-6.7) Basophils (%) (Auto) 0.7 % (0.3-1.4) Nucleated RBC Relative Count (auto) 0.0 /100WBC Neutrophils # (Auto) 3.3 K/uL (2.0-7.4) Lymphocytes # (Auto) 1.5 K/uL (1.3-3.6) Monocytes # (Auto) 0.4 K/uL (0.3-1.0) Eosinophils # (Auto) 0.2 K/uL (0.0-0.5) Basophils # (Auto) 0.0 K/uL (0.0-0.1) Nucleated RBC Absolute Count (auto) 0.00 K/uL Whole Blood Glucose 172 mg/DL (75-110) Muscle Strength and Tone: WNL Gait and Station: Steady, Other (Walks slowly but without difficulty) [facility] Medications Reviewed: Side Effects, Benefits of Medication, Risks Allergies Reviewed: Yes Mental Status Exam General Appearance: Casual, Good Eye Contact, Cooperative, Polite, Good Interaction, No Tearful, No Psychomotor Agitation, No Psychomotor Retardation, No Bizarre Mannerisms, No Tics Speech: Clear, Spontaneous, Normal Rhythm, Normal Volume, Normal Tone, Delayed (some ) Mood: Euthymic Affect: Calm, Neutral, No Tearful, No Anxious, No Agitated Thought Process: Organized, Logical, No Loose Associations, No Flight of Ideas Thought Content: No Suicidal Ideation, No Homicidal Ideation, No Delusions, No Auditory Halllucinations, No Visual Hallucinations, No Thought Broadcasting, No Ideas of Reference, No Obsessions, No Compulsions, No Other Sensorium: Clear Cognition: Alert & Oriented-Person, Alert & Oriented-Place, Alert-Oriented- Situation (partially) Memory: No Immediate, No Recent, Remote, Other (some limitations exist) Intelligence: Average Insight Judgment: Poor (Seems unaware of the implications of his medical conditions and unconcerned) [facility] Assessment and Plan Ntso-[id number] Encounter Date: Nov 14, 2017 [id number] Encounter Time: 08:00 [facility] Plan: Necessary Precautions, Individual/Group Therapy, Admin/Titrate Meds, Educate Patient Tobacco Medications: Not Appropriate Condition Multpiple Antipsychotics Used: No Problems: (1) Persistent depressive disorder Status: Chronic (2) Neurocognitive disorder Optional Permanent Comment: Last Edited By: Gila Muñoz on Oct 19:55 Status: Chronic (3) Diabetes type I Status: Chronic (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 Last Edited By: Mark Skinner on Oct 30, 2017 09:56 Status: Chronic Condition 1. continue treatment. 2. await transfer to [facility]. Problem Qualifiers (1) Diabetes type I: Diabetes mellitus complication status: with neurologic complications MARK SKINNER MD Nov 14, 2017 08:17
[2017-11-14 11:15] VITALS: BP 107/74
[2017-11-14] MEDS: metFORMIN HCL 500 MG TAB PO SCH ×2 (12:08→16:58)
[2017-11-14] MEDS: POTASSIUM CHL 10 MEQ TABCR PO SCH ×2 (12:09→16:58)
[2017-11-14] MEDS: RIVAROXABAN 10 MG TAB PO SCH (16:58)
[2017-11-14 20:38] VITALS: BP 119/68
[2017-11-14] MEDS: SUVOREXANT 20 MG PO SCH (20:38)
[2017-11-14] MEDS: PARoxetine HCL 20 MG TAB PO SCH (20:39)
[2017-11-14] MEDS: MELATONIN 3 MG TAB PO SCH (20:39)
[2017-11-14] MEDS: ATORVASTATIN 10 MG TAB PO SCH (20:39)
[2017-11-15] MEDS: COMBIVENT 4 GR INHALER IH SCH (05:32)
[2017-11-15] MEDS: TIOTROPIUM BROM INH 18 MCG/CAP INH SCH (05:32)
[2017-11-15] MEDS: LEVOTHYROXINE SOD 0.175 MG TAB PO SCH (06:00)
[2017-11-15] MEDS: ACETAMINOPHEN 325 MG TAB PO PRN (06:10)
[2017-11-15 06:11] VITALS: BP 117/66
[2017-11-15] MEDS: ASPIRIN 81 MG ENTERIC COATED PO SCH (08:18)
[2017-11-15] MEDS: MULTIVITAMINS PO SCH (08:19)
[2017-11-15] MEDS: INSULIN GLARGINE 100 U/ML 3 ML PEN SUBQ SCH ×2 (08:19→22:15)
[2017-11-15] MEDS: GABAPENTIN 300 MG CAP PO SCH ×3 (08:19→22:17)
--- NOTE | 2017-11-15 08:56 | BHS Progress Note ---
BHS - Subjective Progress Notes Subjective Patient continues to cooperate on the unit, and has no complaints today. Appetite and sleep good, still awaiting [facility] time frame, and patient' s daughter still looking for care provider in home. No other concerns today. Suicidal Ideation: None Homicidal Ideation: None S - Objective Physical Exam Vital Signs Vital Signs Date Time Temp Pulse Resp B/P (MAP) Pulse Ox O2 Delivery O2 Flow Rate FiO2 11/15/17 06:11 98.1 60 15 117/66 (83) 99 Nasal Cannula 2.0 Hematology Test 11/07/17 05:45 11/07/17 05:48 11/15/17 07:43 Sodium Level 140 mmol/L (137-145) Potassium Level 4.0 mmol/L (3.5-5.0) Chloride Level 105 mmol/L (98-107) Carbon Dioxide Level 26 mmol/L (22-30) Blood Urea Nitrogen 25 mg/dl (9-21) Creatinine 0.70 mg/dl (0.66-1.25) Glomerular Filtration Rate Calc > 60.0 Random Glucose 108 mg/dl (75-110) Calcium Level 9.2 mg/dl (8.4-10.2) Total Bilirubin 0.5 mg/dl (0.2-1.3) Aspartate Amino Transf (AST/SGOT) 36 U/L (0-35) Alanine Aminotransferase (ALT/SGPT) 12 U/L (0-56) Alkaline Phosphatase 89 U/L (0-126) Total Protein 5.7 g/dl (6.3-8.2) Albumin 3.1 g/dl (3.5-5.0) Red Blood Count 3.74 M/uL (4.00-5.60) Mean Corpuscular Volume 89.7 fL (80.0-96.0) Mean Corpuscular Hemoglobin 31.0 pg (26.0-33.0) Mean Corpuscular Hemoglobin Concent 34.6 g/dL (32.0-36.0) Red Cell Distribution Width 14.8 % (11.5-14.5) Mean Platelet Volume 8.5 fL (7.2-11.1) Neutrophils (%) (Auto) 60.9 % (39.4-72.5) Lymphocytes (%) (Auto) 28.0 % (17.6-49.6) Monocytes (%) (Auto) 7.1 % (4.1-12.4) Eosinophils (%) (Auto) 3.3 % (0.4-6.7) Basophils (%) (Auto) 0.7 % (0.3-1.4) Nucleated RBC Relative Count (auto) 0.0 /100WBC Neutrophils # (Auto) 3.3 K/uL (2.0-7.4) Lymphocytes # (Auto) 1.5 K/uL (1.3-3.6) Monocytes # (Auto) 0.4 K/uL (0.3-1.0) Eosinophils # (Auto) 0.2 K/uL (0.0-0.5) Basophils # (Auto) 0.0 K/uL (0.0-0.1) Nucleated RBC Absolute Count (auto) 0.00 K/uL Whole Blood Glucose 100 mg/DL (75-110) Chemistry Test 11/07/17 05:45 11/07/17 05:48 11/15/17 07:43 Glomerular Filtration Rate Calc > 60.0 Calcium Level 9.2 mg/dl (8.4-10.2) Total Bilirubin 0.5 mg/dl (0.2-1.3) Aspartate Amino Transf (AST/SGOT) 36 U/L (0-35) Alanine Aminotransferase (ALT/SGPT) 12 U/L (0-56) Alkaline Phosphatase 89 U/L (0-126) Total Protein 5.7 g/dl (6.3-8.2) Albumin 3.1 g/dl (3.5-5.0) White Blood Count 5.4 k/uL (4.5-11.0) Red Blood Count 3.74 M/uL (4.00-5.60) Hemoglobin 11.6 g/dL (14.0-18.0) Hematocrit 33.6 % (42.0-52.0) Mean Corpuscular Volume 89.7 fL (80.0-96.0) Mean Corpuscular Hemoglobin 31.0 pg (26.0-33.0) Mean Corpuscular Hemoglobin Concent 34.6 g/dL (32.0-36.0) Red Cell Distribution Width 14.8 % (11.5-14.5) Platelet Count 125 K/uL (150-450) Mean Platelet Volume 8.5 fL (7.2-11.1) Neutrophils (%) (Auto) 60.9 % (39.4-72.5) Lymphocytes (%) (Auto) 28.0 % (17.6-49.6) Monocytes (%) (Auto) 7.1 % (4.1-12.4) Eosinophils (%) (Auto) 3.3 % (0.4-6.7) Basophils (%) (Auto) 0.7 % (0.3-1.4) Nucleated RBC Relative Count (auto) 0.0 /100WBC Neutrophils # (Auto) 3.3 K/uL (2.0-7.4) Lymphocytes # (Auto) 1.5 K/uL (1.3-3.6) Monocytes # (Auto) 0.4 K/uL (0.3-1.0) Eosinophils # (Auto) 0.2 K/uL (0.0-0.5) Basophils # (Auto) 0.0 K/uL (0.0-0.1) Nucleated RBC Absolute Count (auto) 0.00 K/uL Whole Blood Glucose 100 mg/DL (75-110) Muscle Strength and Tone: WNL Gait and Station: Steady, Other (Walks slowly but without difficulty) [facility] Medications Reviewed: Side Effects, Benefits of Medication, Risks Allergies Reviewed: Yes Mental Status Exam General Appearance: Casual, Good Eye Contact, Cooperative, Polite, Good Interaction, No Tearful, No Psychomotor Agitation, No Psychomotor Retardation, No Bizarre Mannerisms, No Tics Speech: Clear, Spontaneous, Normal Rhythm, Normal Volume, Normal Tone, Delayed (some ) Mood: Euthymic Affect: Calm, Neutral, No Tearful, No Anxious, No Agitated Thought Process: Organized, Logical, No Loose Associations, No Flight of Ideas Thought Content: No Suicidal Ideation, No Homicidal Ideation, No Delusions, No Auditory Halllucinations, No Visual Hallucinations, No Thought Broadcasting, No Ideas of Reference, No Obsessions, No Compulsions, No Other Sensorium: Clear Cognition: Alert & Oriented-Person, Alert & Oriented-Place, Alert-Oriented- Situation (partially) Memory: No Immediate, No Recent, Remote, Other (some limitations exist) Intelligence: Average Insight Judgment: Poor (Seems unaware of the implications of his medical conditions and unconcerned) [facility] Assessment and Plan [id number] Encounter Date: Nov 15, 2017 [id number] Encounter Time: 08:40 [facility] Plan: Necessary Precautions, Individual/Group Therapy, Admin/Titrate Meds, Educate Patient Tobacco Medications: Not Appropriate Condition Multpiple Antipsychotics Used: No Problems: (1) Persistent depressive disorder Status: Chronic (2) Neurocognitive disorder Optional Permanent Comment: Last Edited By: Gila Muñoz on Oct 19:55 Status: Chronic (3) Diabetes type I Status: Chronic (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 Last Edited By: Mark Skinner on Oct 30, 2017 09:56 Status: Chronic Condition 1. continue treatment. 2. await [facility] time line. Problem Qualifiers (1) Diabetes type I: Diabetes mellitus complication status: with neurologic complications MARK SKINNER MD Nov 15, 2017 08:56
[2017-11-15] MEDS: metFORMIN HCL 500 MG TAB PO SCH ×2 (12:16→17:24)
[2017-11-15] MEDS: POTASSIUM CHL 10 MEQ TABCR PO SCH ×2 (12:16→17:24)
[2017-11-15] MEDS: INSULIN HUM LISPRO 100 UN/ML 3 ML VIAL SUBQ PRN ×3 (12:17→22:16)
[2017-11-15 14:34] VITALS: BP 114/64
[2017-11-15] MEDS: RIVAROXABAN 10 MG TAB PO SCH (17:24)
[2017-11-15] MEDS: SUVOREXANT 20 MG PO SCH (21:00)
[2017-11-15 22:02] VITALS: BP 118/70
[2017-11-15] MEDS: ATORVASTATIN 10 MG TAB PO SCH (22:17)
[2017-11-15] MEDS: MELATONIN 3 MG TAB PO SCH (22:17)
[2017-11-15] MEDS: PARoxetine HCL 20 MG TAB PO SCH (22:17)
[2017-11-16] MEDS: COMBIVENT 4 GR INHALER IH SCH (05:38)
[2017-11-16] MEDS: TIOTROPIUM BROM INH 18 MCG/CAP INH SCH (05:38)
[2017-11-16 05:57] VITALS: BP 113/53
[2017-11-16] MEDS: LEVOTHYROXINE SOD 0.175 MG TAB PO SCH (06:00)
[2017-11-16] MEDS: ACETAMINOPHEN 325 MG TAB PO PRN (06:16)
--- NOTE | 2017-11-16 08:19 | BHS Progress Note ---
BHS - Subjective Progress Notes Subjective Patient continues to do well on the unit, and overall interacts well with other staff, and other patients. Patient notably not checking doors, and does not display frustration on the unit. Patient reports mood good, and smiles when greeted. appetite and sleep good. No other concerns. Spoke with patient's daughter who may now be considering having [facility] work on finding inventory checker nursing care for this patient who lacks ability to care for his conditions independently. Suicidal Ideation: None Homicidal Ideation: None BHS - Objective Physical Exam Vital Signs Vital Signs Date Time Temp Pulse Resp B/P (MAP) Pulse Ox O2 Delivery O2 Flow Rate FiO2 11/16/17 05:57 98.3 58 113/53 (73) 98 Room Air 2.0 11/15/17 06:11 15 Hematology Test 11/07/17 05:45 11/07/17 05:48 11/16/17 07:49 Sodium Level 140 mmol/L (137-145) Potassium Level 4.0 mmol/L (3.5-5.0) Chloride Level 105 mmol/L (98-107) Carbon Dioxide Level 26 mmol/L (22-30) Blood Urea Nitrogen 25 mg/dl (9-21) Creatinine 0.70 mg/dl (0.66-1.25) Glomerular Filtration Rate Calc > 60.0 Random Glucose 108 mg/dl (75-110) Calcium Level 9.2 mg/dl (8.4-10.2) Total Bilirubin 0.5 mg/dl (0.2-1.3) Aspartate Amino Transf (AST/SGOT) 36 U/L (0-35) Alanine Aminotransferase (ALT/SGPT) 12 U/L (0-56) Alkaline Phosphatase 89 U/L (0-126) Total Protein 5.7 g/dl (6.3-8.2) Albumin 3.1 g/dl (3.5-5.0) Red Blood Count 3.74 M/uL (4.00-5.60) Mean Corpuscular Volume 89.7 fL (80.0-96.0) Mean Corpuscular Hemoglobin 31.0 pg (26.0-33.0) Mean Corpuscular Hemoglobin Concent 34.6 g/dL (32.0-36.0) Red Cell Distribution Width 14.8 % (11.5-14.5) Mean Platelet Volume 8.5 fL (7.2-11.1) Neutrophils (%) (Auto) 60.9 % (39.4-72.5) Lymphocytes (%) (Auto) 28.0 % (17.6-49.6) Monocytes (%) (Auto) 7.1 % (4.1-12.4) Eosinophils (%) (Auto) 3.3 % (0.4-6.7) Basophils (%) (Auto) 0.7 % (0.3-1.4) Nucleated RBC Relative Count (auto) 0.0 /100WBC Neutrophils # (Auto) 3.3 K/uL (2.0-7.4) Lymphocytes # (Auto) 1.5 K/uL (1.3-3.6) Monocytes # (Auto) 0.4 K/uL (0.3-1.0) Eosinophils # (Auto) 0.2 K/uL (0.0-0.5) Basophils # (Auto) 0.0 K/uL (0.0-0.1) Nucleated RBC Absolute Count (auto) 0.00 K/uL Whole Blood Glucose 149 mg/DL (75-110) Chemistry Test 11/07/17 05:45 11/07/17 05:48 11/16/17 07:49 Glomerular Filtration Rate Calc > 60.0 Calcium Level 9.2 mg/dl (8.4-10.2) Total Bilirubin 0.5 mg/dl (0.2-1.3) Aspartate Amino Transf (AST/SGOT) 36 U/L (0-35) Alanine Aminotransferase (ALT/SGPT) 12 U/L (0-56) Alkaline Phosphatase 89 U/L (0-126) Total Protein 5.7 g/dl (6.3-8.2) Albumin 3.1 g/dl (3.5-5.0) White Blood Count 5.4 k/uL (4.5-11.0) Red Blood Count 3.74 M/uL (4.00-5.60) Hemoglobin 11.6 g/dL (14.0-18.0) Hematocrit 33.6 % (42.0-52.0) Mean Corpuscular Volume 89.7 fL (80.0-96.0) Mean Corpuscular Hemoglobin 31.0 pg (26.0-33.0) Mean Corpuscular Hemoglobin Concent 34.6 g/dL (32.0-36.0) Red Cell Distribution Width 14.8 % (11.5-14.5) Platelet Count 125 K/uL (150-450) Mean Platelet Volume 8.5 fL (7.2-11.1) Neutrophils (%) (Auto) 60.9 % (39.4-72.5) Lymphocytes (%) (Auto) 28.0 % (17.6-49.6) Monocytes (%) (Auto) 7.1 % (4.1-12.4) Eosinophils (%) (Auto) 3.3 % (0.4-6.7) Basophils (%) (Auto) 0.7 % (0.3-1.4) Nucleated RBC Relative Count (auto) 0.0 /100WBC Neutrophils # (Auto) 3.3 K/uL (2.0-7.4) Lymphocytes # (Auto) 1.5 K/uL (1.3-3.6) Monocytes # (Auto) 0.4 K/uL (0.3-1.0) Eosinophils # (Auto) 0.2 K/uL (0.0-0.5) Basophils # (Auto) 0.0 K/uL (0.0-0.1) Nucleated RBC Absolute Count (auto) 0.00 K/uL Whole Blood Glucose 149 mg/DL (75-110) Muscle Strength and Tone: WNL Gait and Station: Steady, Other (Walks slowly but without difficulty) S Medications Reviewed: Side Effects, Benefits of Medication, Risks Allergies Reviewed: Yes Mental Status Exam General Appearance: Casual, Good Eye Contact, Cooperative, Polite, Good Interaction, No Tearful, No Psychomotor Agitation, No Psychomotor Retardation, No Bizarre Mannerisms, No Tics Speech: Clear, Spontaneous, Normal Rhythm, Normal Volume, Normal Tone, Delayed (some ) Mood: Euthymic Affect: Calm, Neutral, No Tearful, No Anxious, No Agitated Thought Process: Organized, Logical, No Loose Associations, No Flight of Ideas Thought Content: No Suicidal Ideation, No Homicidal Ideation, No Delusions, No Auditory Halllucinations, No Visual Hallucinations, No Thought Broadcasting, No Ideas of Reference, No Obsessions, No Compulsions, No Other Sensorium: Clear Cognition: Alert & Oriented-Person, Alert & Oriented-Place, Alert-Oriented- Situation (partially) Memory: No Immediate, No Recent, Remote, Other (some limitations exist) Intelligence: Average Insight Judgment: Poor (Seems unaware of the implications of his medical conditions and unconcerned) [facility] Assessment and Plan [id number] Encounter Date: Nov 16, 2017 [id number] Encounter Time: 08:40 [facility] Plan: Necessary Precautions, Individual/Group Therapy, Admin/Titrate Meds, Educate Patient Tobacco Medications: Not Appropriate Condition Multpiple Antipsychotics Used: No Problems: (1) Persistent depressive disorder Status: Chronic (2) Neurocognitive disorder Optional Permanent Comment: Last Edited By: Gila Muñoz on Oct 19:55 Status: Chronic (3) Diabetes type I Status: Chronic (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 Last Edited By: Mark Skinner on Oct 30, 2017 09:56 Status: Chronic Condition 1. continue treatment. 2. evaluate daughter's desire to have patient return home verses enter inventory checker care facility, that as of yet can not be found. 3. CMP, CBC in AM. Vital Signs Date Time Temp Pulse Resp B/P (MAP) Pulse Ox O2 Delivery O2 Flow Rate FiO2 11/16/17 05:57 98.3 58 113/53 (73) 98 Room Air 2.0 11/15/17 06:11 15 Hematology Test 11/07/17 05:45 11/07/17 05:48 11/16/17 07:49 Sodium Level 140 mmol/L (137-145) Potassium Level 4.0 mmol/L (3.5-5.0) Chloride Level 105 mmol/L (98-107) Carbon Dioxide Level 26 mmol/L (22-30) Blood Urea Nitrogen 25 mg/dl (9-21) Creatinine 0.70 mg/dl (0.66-1.25) Glomerular Filtration Rate Calc > 60.0 Random Glucose 108 mg/dl (75-110) Calcium Level 9.2 mg/dl (8.4-10.2) Total Bilirubin 0.5 mg/dl (0.2-1.3) Aspartate Amino Transf (AST/SGOT) 36 U/L (0-35) Alanine Aminotransferase (ALT/SGPT) 12 U/L (0-56) Alkaline Phosphatase 89 U/L (0-126) Total Protein 5.7 g/dl (6.3-8.2) Albumin 3.1 g/dl (3.5-5.0) Red Blood Count 3.74 M/uL (4.00-5.60) Mean Corpuscular Volume 89.7 fL (80.0-96.0) Mean Corpuscular Hemoglobin 31.0 pg (26.0-33.0) Mean Corpuscular Hemoglobin Concent 34.6 g/dL (32.0-36.0) Red Cell Distribution Width 14.8 % (11.5-14.5) Mean Platelet Volume 8.5 fL (7.2-11.1) Neutrophils (%) (Auto) 60.9 % (39.4-72.5) Lymphocytes (%) (Auto) 28.0 % (17.6-49.6) Monocytes (%) (Auto) 7.1 % (4.1-12.4) Eosinophils (%) (Auto) 3.3 % (0.4-6.7) Basophils (%) (Auto) 0.7 % (0.3-1.4) Nucleated RBC Relative Count (auto) 0.0 /100WBC Neutrophils # (Auto) 3.3 K/uL (2.0-7.4) Lymphocytes # (Auto) 1.5 K/uL (1.3-3.6) Monocytes # (Auto) 0.4 K/uL (0.3-1.0) Eosinophils # (Auto) 0.2 K/uL (0.0-0.5) Basophils # (Auto) 0.0 K/uL (0.0-0.1) Nucleated RBC Absolute Count (auto) 0.00 K/uL Whole Blood Glucose 149 mg/DL (75-110) Chemistry Test 11/07/17 05:45 11/07/17 05:48 11/16/17 07:49 Glomerular Filtration Rate Calc > 60.0 Calcium Level 9.2 mg/dl (8.4-10.2) Total Bilirubin 0.5 mg/dl (0.2-1.3) Aspartate Amino Transf (AST/SGOT) 36 U/L (0-35) Alanine Aminotransferase (ALT/SGPT) 12 U/L (0-56) Alkaline Phosphatase 89 U/L (0-126) Total Protein 5.7 g/dl (6.3-8.2) Albumin 3.1 g/dl (3.5-5.0) White Blood Count 5.4 k/uL (4.5-11.0) Red Blood Count 3.74 M/uL (4.00-5.60) Hemoglobin 11.6 g/dL (14.0-18.0) Hematocrit 33.6 % (42.0-52.0) Mean Corpuscular Volume 89.7 fL (80.0-96.0) Mean Corpuscular Hemoglobin 31.0 pg (26.0-33.0) Mean Corpuscular Hemoglobin Concent 34.6 g/dL (32.0-36.0) Red Cell Distribution Width 14.8 % (11.5-14.5) Platelet Count 125 K/uL (150-450) Mean Platelet Volume 8.5 fL (7.2-11.1) Neutrophils (%) (Auto) 60.9 % (39.4-72.5) Lymphocytes (%) (Auto) 28.0 % (17.6-49.6) Monocytes (%) (Auto) 7.1 % (4.1-12.4) Eosinophils (%) (Auto) 3.3 % (0.4-6.7) Basophils (%) (Auto) 0.7 % (0.3-1.4) Nucleated RBC Relative Count (auto) 0.0 /100WBC Neutrophils # (Auto) 3.3 K/uL (2.0-7.4) Lymphocytes # (Auto) 1.5 K/uL (1.3-3.6) Monocytes # (Auto) 0.4 K/uL (0.3-1.0) Eosinophils # (Auto) 0.2 K/uL (0.0-0.5) Basophils # (Auto) 0.0 K/uL (0.0-0.1) Nucleated RBC Absolute Count (auto) 0.00 K/uL Whole Blood Glucose 149 mg/DL (75-110) Problem Qualifiers (1) Diabetes type I: Diabetes mellitus complication status: with neurologic complications MARK SKINNER MD Nov 16, 2017 08:19
[2017-11-16] MEDS: GABAPENTIN 300 MG CAP PO SCH ×3 (08:24→21:06)
[2017-11-16] MEDS: ASPIRIN 81 MG ENTERIC COATED PO SCH (08:24)
[2017-11-16] MEDS: MULTIVITAMINS PO SCH (08:24)
[2017-11-16] MEDS: INSULIN GLARGINE 100 U/ML 3 ML PEN SUBQ SCH ×2 (08:25→21:07)
[2017-11-16] MEDS: POTASSIUM CHL 10 MEQ TABCR PO SCH ×2 (12:12→17:20)
[2017-11-16] MEDS: metFORMIN HCL 500 MG TAB PO SCH ×2 (12:12→17:21)
[2017-11-16 13:52] VITALS: BP 128/72
[2017-11-16] MEDS: RIVAROXABAN 10 MG TAB PO SCH (17:00)
[2017-11-16] MEDS: INSULIN HUM LISPRO 100 UN/ML 3 ML VIAL SUBQ PRN ×2 (17:20→21:29)
[2017-11-16] MEDS: SUVOREXANT 20 MG PO SCH (21:00)
[2017-11-16] MEDS: ATORVASTATIN 10 MG TAB PO SCH (21:06)
[2017-11-16] MEDS: MELATONIN 3 MG TAB PO SCH (21:06)
[2017-11-16] MEDS: PARoxetine HCL 20 MG TAB PO SCH (21:06)
[2017-11-17 06:12] LABS: PLATELET COUNT, AUTOMATED 130 K/uL (150-450)
[2017-11-17] MEDS: COMBIVENT 4 GR INHALER IH SCH (06:12)
[2017-11-17] MEDS: TIOTROPIUM BROM INH 18 MCG/CAP INH SCH (06:13)
[2017-11-17] MEDS: LEVOTHYROXINE SOD 0.175 MG TAB PO SCH (06:14)
[2017-11-17 06:26] VITALS: BP 124/75
[2017-11-17] MEDS: ASPIRIN 81 MG ENTERIC COATED PO SCH (07:57)
[2017-11-17] MEDS: MULTIVITAMINS PO SCH (07:57)
[2017-11-17] MEDS: GABAPENTIN 300 MG CAP PO SCH ×3 (07:57→20:55)
[2017-11-17] MEDS: INSULIN GLARGINE 100 U/ML 3 ML PEN SUBQ SCH ×2 (10:25→20:43)
[2017-11-17] MEDS: metFORMIN HCL 500 MG TAB PO SCH ×2 (11:54→16:58)
[2017-11-17] MEDS: POTASSIUM CHL 10 MEQ TABCR PO SCH ×2 (11:54→16:57)
[2017-11-17] MEDS: INSULIN HUM LISPRO 100 UN/ML 3 ML VIAL SUBQ PRN ×3 (11:56→20:52)
[2017-11-17 13:00] VITALS: BP 108/62
--- NOTE | 2017-11-17 13:57 | BHS Progress Note ---
BHS - Subjective Progress Notes Subjective Patient remains cooperative on the unit today, no verbal aggression, demonstrating continued interest in unit activities, social with staff and others. No other concerns today. [facility] may potentially fruit picker patient next week. No other concerns. Suicidal Ideation: None Homicidal Ideation: None BHS - Objective Physical Exam Vital Signs Vital Signs Date Time Temp Pulse Resp B/P (MAP) Pulse Ox O2 Delivery O2 Flow Rate FiO2 11/17/17 06:26 98.1 60 124/75 (91) 96 Nasal Cannula 11/16/17 05:57 2.0 11/15/17 06:11 15 Hematology Test 11/17/17 06:04 11/17/17 11:42 Red Blood Count 3.71 M/uL (4.00-5.60) Mean Corpuscular Volume 89.6 fL (80.0-96.0) Mean Corpuscular Hemoglobin 31.1 pg (26.0-33.0) Mean Corpuscular Hemoglobin Concent 34.7 g/dL (32.0-36.0) Red Cell Distribution Width 15.0 % (11.5-14.5) Mean Platelet Volume 7.7 fL (7.2-11.1) Neutrophils (%) (Auto) 57.3 % (39.4-72.5) Lymphocytes (%) (Auto) 29.4 % (17.6-49.6) Monocytes (%) (Auto) 8.6 % (4.1-12.4) Eosinophils (%) (Auto) 4.1 % (0.4-6.7) Basophils (%) (Auto) 0.6 % (0.3-1.4) Nucleated RBC Relative Count (auto) 0.0 /100WBC Neutrophils # (Auto) 2.9 K/uL (2.0-7.4) Lymphocytes # (Auto) 1.5 K/uL (1.3-3.6) Monocytes # (Auto) 0.4 K/uL (0.3-1.0) Eosinophils # (Auto) 0.2 K/uL (0.0-0.5) Basophils # (Auto) 0.0 K/uL (0.0-0.1) Nucleated RBC Absolute Count (auto) 0.00 K/uL Sodium Level 141 mmol/L (137-145) Potassium Level 4.1 mmol/L (3.5-5.0) Chloride Level 103 mmol/L (98-107) Carbon Dioxide Level 30 mmol/L (22-30) Blood Urea Nitrogen 23 mg/dl (9-21) Creatinine 0.70 mg/dl (0.66-1.25) Glomerular Filtration Rate Calc > 60.0 Random Glucose 116 mg/dl (75-110) Calcium Level 9.1 mg/dl (8.4-10.2) Total Bilirubin 0.6 mg/dl (0.2-1.3) Aspartate Amino Transf (AST/SGOT) 16 U/L (0-35) Alanine Aminotransferase (ALT/SGPT) 28 U/L (0-56) Alkaline Phosphatase 62 U/L (0-126) Total Protein 5.9 g/dl (6.3-8.2) Albumin 3.3 g/dl (3.5-5.0) Whole Blood Glucose 194 mg/DL (75-110) Chemistry Test 11/17/17 06:04 11/17/17 11:42 White Blood Count 5.1 k/uL (4.5-11.0) Red Blood Count 3.71 M/uL (4.00-5.60) Hemoglobin 11.6 g/dL (14.0-18.0) Hematocrit 33.3 % (42.0-52.0) Mean Corpuscular Volume 89.6 fL (80.0-96.0) Mean Corpuscular Hemoglobin 31.1 pg (26.0-33.0) Mean Corpuscular Hemoglobin Concent 34.7 g/dL (32.0-36.0) Red Cell Distribution Width 15.0 % (11.5-14.5) Platelet Count 130 K/uL (150-450) Mean Platelet Volume 7.7 fL (7.2-11.1) Neutrophils (%) (Auto) 57.3 % (39.4-72.5) Lymphocytes (%) (Auto) 29.4 % (17.6-49.6) Monocytes (%) (Auto) 8.6 % (4.1-12.4) Eosinophils (%) (Auto) 4.1 % (0.4-6.7) Basophils (%) (Auto) 0.6 % (0.3-1.4) Nucleated RBC Relative Count (auto) 0.0 /100WBC Neutrophils # (Auto) 2.9 K/uL (2.0-7.4) Lymphocytes # (Auto) 1.5 K/uL (1.3-3.6) Monocytes # (Auto) 0.4 K/uL (0.3-1.0) Eosinophils # (Auto) 0.2 K/uL (0.0-0.5) Basophils # (Auto) 0.0 K/uL (0.0-0.1) Nucleated RBC Absolute Count (auto) 0.00 K/uL Glomerular Filtration Rate Calc > 60.0 Calcium Level 9.1 mg/dl (8.4-10.2) Total Bilirubin 0.6 mg/dl (0.2-1.3) Aspartate Amino Transf (AST/SGOT) 16 U/L (0-35) Alanine Aminotransferase (ALT/SGPT) 28 U/L (0-56) Alkaline Phosphatase 62 U/L (0-126) Total Protein 5.9 g/dl (6.3-8.2) Albumin 3.3 g/dl (3.5-5.0) Whole Blood Glucose 194 mg/DL (75-110) Muscle Strength and Tone: WNL Gait and Station: Steady, Other (Walks slowly but without difficulty) [facility] Medications Reviewed: Side Effects, Benefits of Medication, Risks Allergies Reviewed: Yes Mental Status Exam General Appearance: Casual, Good Eye Contact, Cooperative, Polite, Good Interaction, No Tearful, No Psychomotor Agitation, No Psychomotor Retardation, No Bizarre Mannerisms, No Tics Speech: Clear, Spontaneous, Normal Rhythm, Normal Volume, Normal Tone, Delayed (some ) Mood: Euthymic (states "good") Affect: Calm, Neutral, No Tearful, No Anxious, No Agitated Thought Process: Organized, Logical, No Loose Associations, No Flight of Ideas Thought Content: No Suicidal Ideation, No Homicidal Ideation, No Delusions, No Auditory Halllucinations, No Visual Hallucinations, No Thought Broadcasting, No Ideas of Reference, No Obsessions, No Compulsions, No Other Sensorium: Clear Cognition: Alert & Oriented-Person, Alert & Oriented-Place, Alert-Oriented- Situation (partially) Memory: No Immediate, No Recent, Remote, Other (some limitations exist) Intelligence: Average Insight Judgment: Poor (Seems unaware of the implications of his medical conditions and unconcerned) Result Diagram: 11/17/17 0604 11/17/17 0604 [facility] Assessment and Plan [id number] Encounter Date: Nov 17, 2017 [id number] Encounter Time: 11:00 [facility] Plan: Necessary Precautions, Individual/Group Therapy, Admin/Titrate Meds, Educate Patient Tobacco Medications: Not Appropriate Condition Multpiple Antipsychotics Used: No Problems: (1) Persistent depressive disorder Status: Chronic (2) Neurocognitive disorder Optional Permanent Comment: Last Edited By: Gila Muñoz on Oct 19:55 Status: Chronic (3) Diabetes type I Status: Chronic (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 Last Edited By: Mark Skinner on Oct 30, 2017 09:56 Status: Chronic Condition 1. continue treatment. 2. await transfer to [facility] and [facility] facility, verses home care that daughter is attempting to arrange. Problem Qualifiers (1) Diabetes type I: Diabetes mellitus complication status: with neurologic complications MARK SKINNER MD Nov 17, 2017 13:57
[2017-11-17 16:21] VITALS: BP 111/64
[2017-11-17] MEDS: RIVAROXABAN 10 MG TAB PO SCH (16:57)
[2017-11-17] MEDS: SUVOREXANT 20 MG PO SCH (20:43)
[2017-11-17] MEDS: ATORVASTATIN 10 MG TAB PO SCH (20:44)
[2017-11-17] MEDS: PARoxetine HCL 20 MG TAB PO SCH (21:06)
[2017-11-17] MEDS: MELATONIN 3 MG TAB PO SCH (21:06)
[2017-11-18] MEDS: COMBIVENT 4 GR INHALER IH SCH (06:18)
[2017-11-18] MEDS: TIOTROPIUM BROM INH 18 MCG/CAP INH SCH (06:18)
[2017-11-18] MEDS: LEVOTHYROXINE SOD 0.175 MG TAB PO SCH (06:21)
[2017-11-18 06:22] VITALS: BP 108/97
[2017-11-18] MEDS: MULTIVITAMINS PO SCH (08:27)
[2017-11-18] MEDS: ASPIRIN 81 MG ENTERIC COATED PO SCH (08:27)
[2017-11-18] MEDS: GABAPENTIN 300 MG CAP PO SCH ×3 (08:27→21:22)
[2017-11-18] MEDS: INSULIN GLARGINE 100 U/ML 3 ML PEN SUBQ SCH ×2 (08:27→21:21)
--- NOTE | 2017-11-18 10:01 | BHS Progress Note ---
[facility] - Subjective Progress Notes Subjective "I'm doing fine." Compliant with medications, no behavioral outbursts Dysthymic, initially refusing shower this am Denies anxiety, anger, becomes irritable with staff at times Denies suicidal/homicidal ideation Suicidal Ideation: None Homicidal Ideation: None [facility] - Objective Physical Exam Vital Signs Vital Signs Date Time Temp Pulse Resp B/P (MAP) Pulse Ox O2 Delivery O2 Flow Rate FiO2 11/18/17 06:22 98.2 67 108/97 (101) 91 Room Air 11/17/17 13:00 18 11/16/17 05:57 2.0 Muscle Strength and Tone: WNL Gait and Station: Steady, Other (Walks slowly but without difficulty) [facility] Medications Reviewed: Side Effects, Benefits of Medication, Risks Allergies Reviewed: Yes Mental Status Exam General Appearance: Casual, Good Eye Contact, Cooperative, Polite, Good Interaction, No Tearful, No Psychomotor Agitation, No Psychomotor Retardation, No Bizarre Mannerisms, No Tics Speech: Clear, Spontaneous, Normal Rhythm, Normal Volume, Normal Tone, Delayed (some ) Mood: Euthymic (states "good") Affect: Calm, Neutral, No Tearful, No Anxious, No Agitated Thought Process: Organized, Logical, No Loose Associations, No Flight of Ideas Thought Content: No Suicidal Ideation, No Homicidal Ideation, No Delusions, No Auditory Halllucinations, No Visual Hallucinations, No Thought Broadcasting, No Ideas of Reference, No Obsessions, No Compulsions, No Other Sensorium: Clear Cognition: Alert & Oriented-Person, Alert & Oriented-Place, Alert-Oriented- Situation (partially) Memory: No Immediate, No Recent, Remote, Other (some limitations exist) Intelligence: Average Insight Judgment: Poor (Seems unaware of the implications of his medical conditions and unconcerned) Result Diagram: 11/17/17 0604 11/17/17 0604 [facility] Assessment and Plan [id number] Encounter Date: Nov 18, 2017 [id number] Encounter Time: 10:01 [facility] Plan: Necessary Precautions, Individual/Group Therapy, Admin/Titrate Meds, Educate Patient Tobacco Medications: Not Appropriate Condition Multpiple Antipsychotics Used: No Problems: (1) Organic mood disorder Optional Permanent Comment: potentially related to recently untreated diabetes, vs underlying traits. Last Edited By: Thee Byrne on Oct 30, 2017 09:56 Status: Chronic (2) Persistent depressive disorder Status: Chronic (3) COPD (chronic obstructive pulmonary disease) Status: Chronic (4) Hypothyroid Status: Chronic (5) Neurocognitive disorder Optional Permanent Comment: Last Edited By: Gila Muñoz on Oct 19:55 Status: Chronic Condition Continue close monitoring Continue precautions Continue current medication and therapy LENNY HERNANDEZ NP Nov 18, 2017 10:01
[2017-11-18] MEDS: INSULIN HUM LISPRO 100 UN/ML 3 ML VIAL SUBQ PRN ×2 (11:47→21:22)
[2017-11-18] MEDS: POTASSIUM CHL 10 MEQ TABCR PO SCH ×2 (11:47→17:04)
[2017-11-18] MEDS: metFORMIN HCL 500 MG TAB PO SCH ×2 (11:47→17:04)
[2017-11-18 13:30] VITALS: BP 112/60
[2017-11-18] MEDS: RIVAROXABAN 10 MG TAB PO SCH (17:04)
[2017-11-18 20:10] VITALS: BP 129/69
[2017-11-18] MEDS: SUVOREXANT 20 MG PO SCH (21:21)
[2017-11-18] MEDS: PARoxetine HCL 20 MG TAB PO SCH (21:22)
[2017-11-18] MEDS: MELATONIN 3 MG TAB PO SCH (21:22)
[2017-11-18] MEDS: ATORVASTATIN 10 MG TAB PO SCH (21:22)
[2017-11-19] MEDS: ACETAMINOPHEN 325 MG TAB PO PRN (06:12)
[2017-11-19] MEDS: LEVOTHYROXINE SOD 0.175 MG TAB PO SCH (06:12)
[2017-11-19 06:16] VITALS: BP 111/65
[2017-11-19] MEDS: TIOTROPIUM BROM INH 18 MCG/CAP INH SCH (06:21)
[2017-11-19] MEDS: COMBIVENT 4 GR INHALER IH SCH (06:21)
[2017-11-19] MEDS: GABAPENTIN 300 MG CAP PO SCH ×3 (08:36→21:38)
[2017-11-19] MEDS: ASPIRIN 81 MG ENTERIC COATED PO SCH (08:36)
[2017-11-19] MEDS: MULTIVITAMINS PO SCH (08:36)
[2017-11-19] MEDS: INSULIN GLARGINE 100 U/ML 3 ML PEN SUBQ SCH ×2 (08:36→21:39)
--- NOTE | 2017-11-19 09:08 | BHS Progress Note ---
S - Subjective Progress Notes Subjective "I'm fine." Denies depression, anxiety or anger Sleep variable, dislikes mattress Wearing oxygen per N/C at 2L/altagracia Denies pain, showered this am with encouragement Patient remains cooperative on the unit. [facility] may potentially last picker patient upcoming week. Suicidal Ideation: None Homicidal Ideation: None [facility] - Objective Physical Exam Vital Signs Vital Signs Date Time Temp Pulse Resp B/P (MAP) Pulse Ox O2 Delivery O2 Flow Rate FiO2 11/19/17 06:16 98.4 57 111/65 (80) 98 Nasal Cannula 2.0 11/18/17 13:30 18 Allergies Coded Allergies ibuprofen (Verified Allergy, Intermediate, 10/26/17) bupropion (Verified Allergy, Mild, 10/26/17) cephalexin (Verified Allergy, Mild, 10/26/17) dicloxacillin (Verified Allergy, Mild, 10/26/17) metronidazole (Verified Allergy, Mild, 10/26/17) Muscle Strength and Tone: WNL Gait and Station: Steady, Other (Walks slowly but without difficulty) [facility] Medications Reviewed: Side Effects, Benefits of Medication, Risks Allergies Reviewed: Yes Mental Status Exam General Appearance: Casual, Good Eye Contact, Cooperative, Polite, Good Interaction, No Tearful, No Psychomotor Agitation, No Psychomotor Retardation, No Bizarre Mannerisms, No Tics Speech: Clear, Spontaneous, Normal Rhythm, Normal Volume, Normal Tone, Delayed (some ) Mood: Euthymic (states "I'm fine") Affect: Calm, Neutral, No Tearful, No Anxious, No Agitated Thought Process: Organized, Logical, No Loose Associations, No Flight of Ideas Thought Content: No Suicidal Ideation, No Homicidal Ideation, No Delusions, No Auditory Halllucinations, No Visual Hallucinations, No Thought Broadcasting, No Ideas of Reference, No Obsessions, No Compulsions, No Other Sensorium: Clear Cognition: Alert & Oriented-Person, Alert & Oriented-Place, Alert-Oriented- Situation (partially) Memory: No Immediate, No Recent, Remote, Other (some limitations exist) Intelligence: Average Insight Judgment: Poor (Seems unaware of the implications of his medical conditions and unconcerned) Result Diagram: 11/17/1704 11/17/[address] 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 Last Edited By: Thee Byrne on Oct 30, 2017 09:56 Status: Chronic (2) Persistent depressive disorder Status: Chronic (3) COPD (chronic obstructive pulmonary disease) Status: Chronic (4) Hypothyroid Status: Chronic (5) Neurocognitive disorder Optional Permanent Comment: Last Edited By: Gila Muñoz on Oct 19:55 Status: Chronic Condition Laboratory Tests Test 11/18/17 11:38 11/18/17 17:03 11/18/17 21:20 11/19/17 07:53 Whole Blood Glucose 244 mg/DL 117 mg/DL 171 mg/DL 94 mg/DL Current Medications Medications (Trade) Dose Ordered Sig/Jono Route PRN Reason Start Time Stop Time Status Last Admin Dose Admin Al Hydrox/Mg Hydrox/Simethicone (Maalox(*) 30 ml Udcup (Or Equiv)) 30 ml Q4H PRN PO DYSPEPSIA 10/27/17 00:30 11/26/17 00:29 Multivitamins (Thera-M Enhanced Tab (Or Equiv)) 1 each QDAY PO 10/27/17 09:00 11/26/17 08:59 11/19/17 08:36 Acetaminophen (Tylenol(*)325 Mg Tab (Or Equiv)) 325 mg Q6H PRN PO PAIN 10/27/17 01:15 11/26/17 01:14 11/19/17 06:12 Aspirin (Ecotrin Low Strength 81 Mg Tabec (Or Equiv)) 81 mg QDAY PO 10/27/17 09:00 11/26/17 08:59 11/19/17 08:36 Atorvastatin Calcium (Lipitor(*) 10 Mg Tab (Or Equiv)) 10 mg QHS PO 10/27/17 21:00 11/26/17 20:59 11/18/17 21:22 Furosemide (Lasix(*) 20 Mg Tab (Or Equiv)) 20 mg QDAY PO 10/27/17 09:00 11/04/17 14:20 DC 11/04/17 08:02 Gabapentin (Neurontin(*) 300 Mg Cap (Or Equiv)) 300 mg TID PO 10/27/17 09:00 11/26/17 08:59 11/19/17 08:36 Insulin Glargine (Lantus 100 Unit/ ml Pen) 24 unit QHS SUBQ 10/27/17 21:00 11/26/17 20:59 11/18/17 21:21 Insulin Glargine (Lantus 100 Unit/ ml Pen) 32 unit QAM SUBQ 10/27/17 09:00 11/26/17 08:59 11/19/17 08:36 Levothyroxine Sodium (Synthroid 0.175 Mg Tab (Or Equiv)) 0.175 mg QDAY@06 PO 10/27/17 06:00 11/26/17 05:59 11/19/17 06:12 Miscellaneous Information (Patient'S Own Med) LIRAGLUTIDE 18 MG/ 3 ML: 1.8... DAILY SUBQ 10/27/17 09:00 10/27/17 09:58 DC Lisinopril (Prinivil 10 Mg Tab (Or Equiv)) 10 mg QDAY PO 10/27/17 09:00 11/05/17 10:16 DC 11/04/17 08:02 Melatonin (Melatonin 3 Mg Tab) 3 mg QHS PO 10/27/17 01:22 11/26/17 01:21 11/18/17 21:22 Metformin HCl (Glucophage(*) 500 Mg Tab (Or Equiv)) 1,000 mg BIDLS PO 10/27/17 12:00 11/26/17 11:59 11/18/17 17:04 Paroxetine HCl (Paxil (Or Equiv)) 40 mg QDAY PO 10/27/17 09:00 10/27/17 09:00 DC Pioglitazone HCl (Actos 15 Mg Tab (Or Equiv)) 30 mg DAILY@1200 PO 10/27/17 12:00 11/05/17 14:41 DC 11/05/17 11:51 Potassium Chloride (Micro K (*) 10 Meq Tabcr (Or Equiv)) 10 meq BIDLS PO 10/27/17 12:00 11/26/17 11:59 11/18/17 17:04 Rivaroxaban (Xarelto(*) 10 Mg Tab (Or Equiv)) 20 mg DAILY@1700 PO 10/27/17 17:00 11/03/17 18:07 DC 11/02/17 17:00 Ropinirole HCl (Requip 1 Mg Tab (Or Equiv)) 2 mg QHS PO 10/27/17 21:00 11/26/17 20:59 11/18/17 21:22 Sitagliptin Phosphate (Januvia 100 Mg Tab (Or Equiv)) 100 mg QHS PO 10/27/17 21:00 11/05/17 14:41 DC 11/04/17 22:18 Tiotropium [place] (Spiriva Inh 18 Mcg/Cap (Or Equiv)) 1 PUFF QDAYR INH 10/27/17 06:00 11/26/17 05:59 11/19/17 06:21 Paroxetine HCl (Paxil (Or Equiv)) 40 mg QHS PO 10/27/17 21:00 11/26/17 20:59 11/18/17 21:22 Insulin Human Lispro (HumaLOG 100 UN/ ML 3 ML VIAL (OR EQUIV)) 2-10 UNITS SS PRN SUBQ SLIDING SCALE INSULIN 10/27/17 07:40 11/26/17 07:39 11/18/17 21:22 Miscellaneous Information (Patient'S Own Med) LIRAGLUTIDE 18 MG/ 3 ML: 1.8... DAILY SUBQ 10/27/17 12:00 11/26/17 11:59 UNV Liraglutide (Victoza (Pt Own)) 1.8 mg NOON SUBQ 10/27/17 12:00 11/05/17 14:41 DC 11/05/17 11:52 Miscellaneous Information (Patient'S Own Med) 0.5 ea QHS PO 10/27/17 21:00 11/26/17 20:59 UNV Octyl Cyanoacrylate (Dermabond 1 Applicator) 1 yanci ONCE ONCE TP 10/30/17 10:45 10/30/17 10:46 DC 10/30/17 10:45 Albuterol/ Ipratropium (Combivent Respimat(*) Inhal [place]) ONE INHALATION QIDR IH 10/31/17 06:00 11/30/17 05:59 Cancel Albuterol/ Ipratropium (Combivent Respimat(*) Inhal [place]) ONE INHALATION QDAYR 10/31/17 06:00 10/31/17 07:05 DC Albuterol/ Ipratropium (Combivent Respimat(*) Inhal [place]) ONE INHALATION QDAYR 11/01/17 06:00 11/30/17 05:59 11/19/17 06:21 Rivaroxaban (Xarelto(*) 10 Mg Tab (Or Equiv)) 20 mg QDAY@1700 PO 11/04/17 17:00 12/04/17 16:59 11/18/17 17:04 Continue current medication and treatment Transfer to [facility] versus residential Ongoing coordination of care with family LENNY HERNANDZE NP Nov 19, 2017 09:08
[2017-11-19 11:50] VITALS: BP 116/62
[2017-11-19] MEDS: POTASSIUM CHL 10 MEQ TABCR PO SCH ×2 (11:54→16:36)
[2017-11-19] MEDS: metFORMIN HCL 500 MG TAB PO SCH ×2 (11:54→16:36)
[2017-11-19] MEDS: INSULIN HUM LISPRO 100 UN/ML 3 ML VIAL SUBQ PRN ×3 (12:00→21:49)
[2017-11-19] MEDS: RIVAROXABAN 10 MG TAB PO SCH (16:36)
[2017-11-19 20:42] VITALS: BP 119/91
[2017-11-19] MEDS: SUVOREXANT 20 MG PO SCH (21:38)
[2017-11-19] MEDS: MELATONIN 3 MG TAB PO SCH (21:38)
[2017-11-19] MEDS: ATORVASTATIN 10 MG TAB PO SCH (21:38)
[2017-11-19] MEDS: PARoxetine HCL 20 MG TAB PO SCH (21:38)
[2017-11-20] MEDS: ACETAMINOPHEN 325 MG TAB PO PRN (05:45)
[2017-11-20] MEDS: LEVOTHYROXINE SOD 0.175 MG TAB PO SCH (05:45)
[2017-11-20 05:57] VITALS: BP 116/57
[2017-11-20] MEDS: TIOTROPIUM BROM INH 18 MCG/CAP INH SCH (06:12)
[2017-11-20] MEDS: COMBIVENT 4 GR INHALER IH SCH (06:12)
[2017-11-20 07:03] LABS: PLATELET COUNT, AUTOMATED 127 K/uL (150-450)
[2017-11-20] MEDS: INSULIN GLARGINE 100 U/ML 3 ML PEN SUBQ SCH ×2 (07:48→21:38)
[2017-11-20] MEDS: ASPIRIN 81 MG ENTERIC COATED PO SCH (07:48)
[2017-11-20] MEDS: MULTIVITAMINS PO SCH (07:48)
[2017-11-20] MEDS: INSULIN HUM LISPRO 100 UN/ML 3 ML VIAL SUBQ PRN ×4 (07:48→21:36)
[2017-11-20] MEDS: GABAPENTIN 300 MG CAP PO SCH ×3 (07:48→21:10)
--- NOTE | 2017-11-20 09:15 | BHS Progress Note ---
BHS - Subjective Progress Notes Subjective Patient remains doing well throughout the weekend, with no concerns. Sleep and appetite improved, labs appear stable. Blood sugars well controlled. ADL's attended to with minimal prompting. [facility] now [facility], as currently no longterm care facility can be found. Suicidal Ideation: None Homicidal Ideation: None [facility] - Objective Physical Exam Vital Signs Vital Signs Date Time Temp Pulse Resp B/P (MAP) Pulse Ox O2 Delivery O2 Flow Rate FiO2 11/20/17 05:57 98.0 62 15 116/57 (76) 98 Nasal Cannula 2.0 Hematology Test 11/20/17 06:28 11/20/17 07:36 Red Blood Count 3.85 M/uL (4.00-5.60) Mean Corpuscular Volume 90.5 fL (80.0-96.0) Mean Corpuscular Hemoglobin 31.0 pg (26.0-33.0) Mean Corpuscular Hemoglobin Concent 34.2 g/dL (32.0-36.0) Red Cell Distribution Width 15.1 % (11.5-14.5) Mean Platelet Volume 8.6 fL (7.2-11.1) Neutrophils (%) (Auto) 57.0 % (39.4-72.5) Lymphocytes (%) (Auto) 28.7 % (17.6-49.6) Monocytes (%) (Auto) 10.0 % (4.1-12.4) Eosinophils (%) (Auto) 3.9 % (0.4-6.7) Basophils (%) (Auto) 0.4 % (0.3-1.4) Nucleated RBC Relative Count (auto) 0.1 /100WBC Neutrophils # (Auto) 2.7 K/uL (2.0-7.4) Lymphocytes # (Auto) 1.4 K/uL (1.3-3.6) Monocytes # (Auto) 0.5 K/uL (0.3-1.0) Eosinophils # (Auto) 0.2 K/uL (0.0-0.5) Basophils # (Auto) 0.0 K/uL (0.0-0.1) Nucleated RBC Absolute Count (auto) 0.00 K/uL Sodium Level 141 mmol/L (137-145) Potassium Level 4.3 mmol/L (3.5-5.0) Chloride Level 104 mmol/L (98-107) Carbon Dioxide Level 29 mmol/L (22-30) Blood Urea Nitrogen 21 mg/dl (9-21) Creatinine 0.70 mg/dl (0.66-1.25) Glomerular Filtration Rate Calc > 60.0 Random Glucose 187 mg/dl (75-110) Calcium Level 9.0 mg/dl (8.4-10.2) Total Bilirubin 0.5 mg/dl (0.2-1.3) Aspartate Amino Transf (AST/SGOT) 17 U/L (0-35) Alanine Aminotransferase (ALT/SGPT) 25 U/L (0-56) Alkaline Phosphatase 65 U/L (0-126) Total Protein 6.0 g/dl (6.3-8.2) Albumin 3.3 g/dl (3.5-5.0) Whole Blood Glucose 169 mg/DL (75-110) Chemistry Test 11/20/17 06:28 11/20/17 07:36 White Blood Count 4.7 k/uL (4.5-11.0) Red Blood Count 3.85 M/uL (4.00-5.60) Hemoglobin 11.9 g/dL (14.0-18.0) Hematocrit 34.9 % (42.0-52.0) Mean Corpuscular Volume 90.5 fL (80.0-96.0) Mean Corpuscular Hemoglobin 31.0 pg (26.0-33.0) Mean Corpuscular Hemoglobin Concent 34.2 g/dL (32.0-36.0) Red Cell Distribution Width 15.1 % (11.5-14.5) Platelet Count 127 K/uL (150-450) Mean Platelet Volume 8.6 fL (7.2-11.1) Neutrophils (%) (Auto) 57.0 % (39.4-72.5) Lymphocytes (%) (Auto) 28.7 % (17.6-49.6) Monocytes (%) (Auto) 10.0 % (4.1-12.4) Eosinophils (%) (Auto) 3.9 % (0.4-6.7) Basophils (%) (Auto) 0.4 % (0.3-1.4) Nucleated RBC Relative Count (auto) 0.1 /100WBC Neutrophils # (Auto) 2.7 K/uL (2.0-7.4) Lymphocytes # (Auto) 1.4 K/uL (1.3-3.6) Monocytes # (Auto) 0.5 K/uL (0.3-1.0) Eosinophils # (Auto) 0.2 K/uL (0.0-0.5) Basophils # (Auto) 0.0 K/uL (0.0-0.1) Nucleated RBC Absolute Count (auto) 0.00 K/uL Glomerular Filtration Rate Calc > 60.0 Calcium Level 9.0 mg/dl (8.4-10.2) Total Bilirubin 0.5 mg/dl (0.2-1.3) Aspartate Amino Transf (AST/SGOT) 17 U/L (0-35) Alanine Aminotransferase (ALT/SGPT) 25 U/L (0-56) Alkaline Phosphatase 65 U/L (0-126) Total Protein 6.0 g/dl (6.3-8.2) Albumin 3.3 g/dl (3.5-5.0) Whole Blood Glucose 169 mg/DL (75-110) Muscle Strength and Tone: WNL Gait and Station: Steady, Other (Walks slowly but without difficulty) [facility] Medications Reviewed: Side Effects, Benefits of Medication, Risks Allergies Reviewed: Yes Mental Status Exam General Appearance: Casual, Good Eye Contact, Cooperative, Polite, Good Interaction, No Tearful, No Psychomotor Agitation, No Psychomotor Retardation, No Bizarre Mannerisms, No Tics Speech: Clear, Spontaneous, Normal Rhythm, Normal Volume, Normal Tone, Delayed (some ) Mood: Euthymic Affect: Calm, Neutral, No Tearful, No Anxious, No Agitated Thought Process: Organized, Logical, No Loose Associations, No Flight of Ideas Thought Content: No Suicidal Ideation, No Homicidal Ideation, No Delusions, No Auditory Halllucinations, No Visual Hallucinations, No Thought Broadcasting, No Ideas of Reference, No Obsessions, No Compulsions, No Other Sensorium: Clear Cognition: Alert & Oriented-Person, Alert & Oriented-Place, Alert-Oriented- Situation (partially) Memory: No Immediate, No Recent, Remote, Other (some limitations exist) Intelligence: Average Insight Judgment: Poor (Seems unaware of the implications of his medical conditions and unconcerned) Result Diagram: 11/20/1728 11/20/17627 [facility] Assessment and Plan [id number] Encounter Date: Nov 20, 2017 [id number] Encounter Time: 09:30 [facility] Plan: Necessary Precautions, Individual/Group Therapy, Admin/Titrate Meds, Educate Patient Tobacco Medications: Not Appropriate Condition Multpiple Antipsychotics Used: No Problems: (1) Persistent depressive disorder Status: Chronic (2) Neurocognitive disorder Optional Permanent Comment: Last Edited By: Gila Muñoz on Oct 19:55 Status: Chronic (3) Diabetes type I Status: Chronic (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 Last Edited By: Mark Skinner on Oct 30, 2017 09:56 Status: Chronic Condition 1. continue treatment. 2. no medication changes. Problem Qualifiers (1) Diabetes type I: Diabetes mellitus complication status: with neurologic complications MARK SKINNER MD Nov 20, 2017 09:15
[2017-11-20] MEDS: metFORMIN HCL 500 MG TAB PO SCH ×2 (11:33→16:57)
[2017-11-20] MEDS: POTASSIUM CHL 10 MEQ TABCR PO SCH ×2 (11:33→16:56)
[2017-11-20] MEDS: RIVAROXABAN 10 MG TAB PO SCH (16:56)
[2017-11-20 19:27] VITALS: BP 130/67
[2017-11-20] MEDS: SUVOREXANT 20 MG PO SCH (21:00)
[2017-11-20] MEDS: ATORVASTATIN 10 MG TAB PO SCH (21:11)
[2017-11-20] MEDS: MELATONIN 3 MG TAB PO SCH (21:11)
[2017-11-20] MEDS: PARoxetine HCL 20 MG TAB PO SCH (21:11)
[2017-11-21] MEDS: LEVOTHYROXINE SOD 0.175 MG TAB PO SCH (05:23)
[2017-11-21] MEDS: ACETAMINOPHEN 325 MG TAB PO PRN (05:24)
[2017-11-21] MEDS: COMBIVENT 4 GR INHALER IH SCH (05:31)
[2017-11-21] MEDS: TIOTROPIUM BROM INH 18 MCG/CAP INH SCH (05:31)
[2017-11-21 05:40] VITALS: BP 100/59
[2017-11-21] MEDS: ASPIRIN 81 MG ENTERIC COATED PO SCH (08:07)
[2017-11-21] MEDS: GABAPENTIN 300 MG CAP PO SCH ×3 (08:08→22:00)
[2017-11-21] MEDS: MULTIVITAMINS PO SCH (08:08)
[2017-11-21] MEDS: INSULIN HUM LISPRO 100 UN/ML 3 ML VIAL SUBQ PRN ×4 (08:08→22:01)
[2017-11-21] MEDS: INSULIN GLARGINE 100 U/ML 3 ML PEN SUBQ SCH ×2 (08:08→22:01)
--- NOTE | 2017-11-21 11:57 | BHS Progress Note ---
BHS - Subjective Progress Notes Subjective Patient interacting well today, aware that he could potentially transfer to [facility] as early as tomorrow. Patient denies any problems or concerns. Sleep, and appetite good. No medication changes. Suicidal Ideation: None Homicidal Ideation: None S - Objective Physical Exam Vital Signs Vital Signs Date Time Temp Pulse Resp B/P (MAP) Pulse Ox O2 Delivery O2 Flow Rate FiO2 11/21/17 05:40 98.3 63 15 100/59 (73) 95 Nasal Cannula 2.0 Hematology Test 11/20/17 06:28 11/21/17 07:49 Red Blood Count 3.85 M/uL (4.00-5.60) Mean Corpuscular Volume 90.5 fL (80.0-96.0) Mean Corpuscular Hemoglobin 31.0 pg (26.0-33.0) Mean Corpuscular Hemoglobin Concent 34.2 g/dL (32.0-36.0) Red Cell Distribution Width 15.1 % (11.5-14.5) Mean Platelet Volume 8.6 fL (7.2-11.1) Neutrophils (%) (Auto) 57.0 % (39.4-72.5) Lymphocytes (%) (Auto) 28.7 % (17.6-49.6) Monocytes (%) (Auto) 10.0 % (4.1-12.4) Eosinophils (%) (Auto) 3.9 % (0.4-6.7) Basophils (%) (Auto) 0.4 % (0.3-1.4) Nucleated RBC Relative Count (auto) 0.1 /100WBC Neutrophils # (Auto) 2.7 K/uL (2.0-7.4) Lymphocytes # (Auto) 1.4 K/uL (1.3-3.6) Monocytes # (Auto) 0.5 K/uL (0.3-1.0) Eosinophils # (Auto) 0.2 K/uL (0.0-0.5) Basophils # (Auto) 0.0 K/uL (0.0-0.1) Nucleated RBC Absolute Count (auto) 0.00 K/uL Sodium Level 141 mmol/L (137-145) Potassium Level 4.3 mmol/L (3.5-5.0) Chloride Level 104 mmol/L (98-107) Carbon Dioxide Level 29 mmol/L (22-30) Blood Urea Nitrogen 21 mg/dl (9-21) Creatinine 0.70 mg/dl (0.66-1.25) Glomerular Filtration Rate Calc > 60.0 Random Glucose 187 mg/dl (75-110) Calcium Level 9.0 mg/dl (8.4-10.2) Total Bilirubin 0.5 mg/dl (0.2-1.3) Aspartate Amino Transf (AST/SGOT) 17 U/L (0-35) Alanine Aminotransferase (ALT/SGPT) 25 U/L (0-56) Alkaline Phosphatase 65 U/L (0-126) Total Protein 6.0 g/dl (6.3-8.2) Albumin 3.3 g/dl (3.5-5.0) Whole Blood Glucose 191 mg/DL (75-110) Chemistry Test 11/20/17 06:28 11/21/17 07:49 White Blood Count 4.7 k/uL (4.5-11.0) Red Blood Count 3.85 M/uL (4.00-5.60) Hemoglobin 11.9 g/dL (14.0-18.0) Hematocrit 34.9 % (42.0-52.0) Mean Corpuscular Volume 90.5 fL (80.0-96.0) Mean Corpuscular Hemoglobin 31.0 pg (26.0-33.0) Mean Corpuscular Hemoglobin Concent 34.2 g/dL (32.0-36.0) Red Cell Distribution Width 15.1 % (11.5-14.5) Platelet Count 127 K/uL (150-450) Mean Platelet Volume 8.6 fL (7.2-11.1) Neutrophils (%) (Auto) 57.0 % (39.4-72.5) Lymphocytes (%) (Auto) 28.7 % (17.6-49.6) Monocytes (%) (Auto) 10.0 % (4.1-12.4) Eosinophils (%) (Auto) 3.9 % (0.4-6.7) Basophils (%) (Auto) 0.4 % (0.3-1.4) Nucleated RBC Relative Count (auto) 0.1 /100WBC Neutrophils # (Auto) 2.7 K/uL (2.0-7.4) Lymphocytes # (Auto) 1.4 K/uL (1.3-3.6) Monocytes # (Auto) 0.5 K/uL (0.3-1.0) Eosinophils # (Auto) 0.2 K/uL (0.0-0.5) Basophils # (Auto) 0.0 K/uL (0.0-0.1) Nucleated RBC Absolute Count (auto) 0.00 K/uL Glomerular Filtration Rate Calc > 60.0 Calcium Level 9.0 mg/dl (8.4-10.2) Total Bilirubin 0.5 mg/dl (0.2-1.3) Aspartate Amino Transf (AST/SGOT) 17 U/L (0-35) Alanine Aminotransferase (ALT/SGPT) 25 U/L (0-56) Alkaline Phosphatase 65 U/L (0-126) Total Protein 6.0 g/dl (6.3-8.2) Albumin 3.3 g/dl (3.5-5.0) Whole Blood Glucose 191 mg/DL (75-110) Muscle Strength and Tone: WNL Gait and Station: Steady, Other (Walks slowly but without difficulty) [facility] Medications Reviewed: Side Effects, Benefits of Medication, Risks Allergies Reviewed: Yes Mental Status Exam General Appearance: Casual, Good Eye Contact, Cooperative, Polite, Good Interaction, No Tearful, No Psychomotor Agitation, No Psychomotor Retardation, No Bizarre Mannerisms, No Tics Speech: Clear, Spontaneous, Normal Rhythm, Normal Volume, Normal Tone, Delayed (some ) Mood: Euthymic Affect: Calm, Neutral, No Tearful, No Anxious, No Agitated Thought Process: Organized, Logical, No Loose Associations, No Flight of Ideas Thought Content: No Suicidal Ideation, No Homicidal Ideation, No Delusions, No Auditory Halllucinations, No Visual Hallucinations, No Thought Broadcasting, No Ideas of Reference, No Obsessions, No Compulsions, No Other Sensorium: Clear Cognition: Alert & Oriented-Person, Alert & Oriented-Place, Alert-Oriented- Situation (partially) Memory: No Immediate, No Recent, Remote, Other (some limitations exist) Intelligence: Average Insight Judgment: Poor (Seems unaware of the implications of his medical conditions and unconcerned) Result Diagram: 11/20/1762711/20/17627 [facility] Assessment and Plan [id number] Encounter Date: Nov 21, 2017 [id number] Encounter Time: 11:00 [facility] Plan: Necessary Precautions, Individual/Group Therapy, Admin/Titrate Meds, Educate Patient Tobacco Medications: Not Appropriate Condition Multpiple Antipsychotics Used: No Problems: (1) Persistent depressive disorder Status: Chronic (2) Neurocognitive disorder Optional Permanent Comment: Last Edited By: Gila Muñoz on Oct 19:55 Status: Chronic (3) Diabetes type I Status: Chronic (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 Last Edited By: Mark Skinner on Oct 30, 2017 09:56 Status: Chronic Condition 1. continue treatment. 2. await state hospital transfer. Problem Qualifiers (1) Diabetes type I: Diabetes mellitus complication status: with neurologic complications MARK SKINNER MD Nov 21, 2017 11:56
[2017-11-21] MEDS: POTASSIUM CHL 10 MEQ TABCR PO SCH ×2 (12:05→17:28)
[2017-11-21] MEDS: metFORMIN HCL 500 MG TAB PO SCH ×2 (12:05→17:28)
[2017-11-21 14:39] VITALS: BP 115/98
[2017-11-21] MEDS: RIVAROXABAN 10 MG TAB PO SCH (17:31)
[2017-11-21] MEDS: SUVOREXANT 20 MG PO SCH (21:00)
[2017-11-21] MEDS: MELATONIN 3 MG TAB PO SCH (22:00)
[2017-11-21] MEDS: ATORVASTATIN 10 MG TAB PO SCH (22:00)
[2017-11-21] MEDS: PARoxetine HCL 20 MG TAB PO SCH (22:00)
[2017-11-21 22:27] VITALS: BP 138/62
[2017-11-22] MEDS: TIOTROPIUM BROM INH 18 MCG/CAP INH SCH (05:38)
[2017-11-22] MEDS: COMBIVENT 4 GR INHALER IH SCH (05:38)
[2017-11-22] MEDS: LEVOTHYROXINE SOD 0.175 MG TAB PO SCH (05:42)
[2017-11-22] MEDS: ACETAMINOPHEN 325 MG TAB PO PRN (05:42)
[2017-11-22 05:59] VITALS: BP 111/65
[2017-11-22] MEDS: ASPIRIN 81 MG ENTERIC COATED PO SCH (07:59)
[2017-11-22] MEDS: MULTIVITAMINS PO SCH (07:59)
[2017-11-22] MEDS: GABAPENTIN 300 MG CAP PO SCH (07:59)
[2017-11-22] MEDS: INSULIN HUM LISPRO 100 UN/ML 3 ML VIAL SUBQ PRN (08:00)
[2017-11-22] MEDS: INSULIN GLARGINE 100 U/ML 3 ML PEN SUBQ SCH (08:00)
[2017-11-22] MEDS ORDERED: MULT-1379 PO (08:37)
[2017-11-22] MEDS ORDERED: INSU100V24 SQ (08:39)
[2017-11-22] MEDS ORDERED: MAG-65 PO (08:40)
[2017-11-22] MEDS ORDERED: SUVO10TA PO (08:45)
[2017-11-22 09:07] VITALS: BP 113/70
--- NOTE | 2017-11-22 15:13 | TRANSFER SUMMARY ---
DATE OF ADMISSION: October 26, 2017 DATE OF TRANSFER: November 22, 2017 to [facility] Patient was seen approximately 0730 hours for note concerning this dictation on the a.m. of November 22, 2017. FINAL DIAGNOSES 1. Neurocognitive disorder, moderate. 2. Insulin-dependent diabetes. 3. Persisting depressive disorder. 4. Maladaptive personality traits. 5. Partner relational problems. 6. Stressors of illness. 7. Inability to care for self. REASON FOR ADMISSION This is a 72-year-old male believed to be in the process of getting a divorce. Patient was notably on the unit briefly from October 10, 2017, to October 20, 2017, at which time patient was admitted into the assisted living here in [facility]. Patient then quickly started departing the facility without letting staff know. This resulted in multiple contacts with police looking for this individual. Patient was then evicted from [facility] and brought back to the [facility] Emergency Room and subsequently transferred to [facility] under an emergency detainment secondary to inability to care for self. Patient notably remained calm, pleasant, and cooperative throughout most of his stay on [facility] and was noted not to be checking doors. Patient seemed to remember and have a clear memory of how he got evicted from [facility]. Patient also notably had been evicted from [facility] in the past as well. This made it very difficult to find long-term care for this patient, who was then committed to the [facility]. Patient's and he are also known to be in the middle of a separation. Patient's daughter is actively trying to seek a means to have patient live back in his own home with 24-hour supervision, which could not yet be found. Patient thus transferred to the [facility] to await further suitable placement and/or placement back in his own home with adequate supervision. Patient continued to demonstrate a very limited, if any, understanding of his diabetic condition while on the unit. Patient not indicating any significant mood disorders, and no homicidal or suicidal behaviors were seen on the unit. No aggression toward staff. PHYSICAL EXAMINATION Please see emergency room note. Notable for: GENERAL: A 72-year-old male with diabetes, but no significant acute medical concerns. VITAL SIGNS: Vital signs at time of admission, temperature 98.7, pulse 77, respiratory rate 14, blood pressure 121/71, pulse oximetry 96% on room air. At time of transfer from [facility], vital signs showed temperature 97.9, pulse 71, respiratory rate 15, blood pressure 113/70, and pulse oximetry 92% on room air. LABORATORY DATA CBC on November 20, 2017, indicated RBCs low at 3.85, hemoglobin 11.9 and low, hematocrit 34.9 and low, and platelet count 127,000. CMP on November 20, 2017, showed random glucose 187, otherwise unremarkable. Blood sugars on the unit range from a high of around 250 to a low of around 150. Toxicology screen upon admission was unremarkable. Negative serum alcohol. Glucose present in urine upon admission. TSH 0.29. MENTAL STATUS EXAMINATION AT TIME OF DISCHARGE TO [facility] APPEARANCE, BEHAVIOR, AND ATTITUDE: Pleasant, cooperative, 72-year-old male, fairly well groomed. No gross psychomotor agitation or retardation. No bizarre mannerisms or tics. Patient making fair eye contact. SPEECH: Largely within normal limits. Regular rate, rhythm, volume, and tone. MOOD: Described as okay. AFFECT: Full at times and mood congruent. THOUGHT PROCESSES: Seem fairly logical. Patient indicating an understanding of going to the [facility]. No loose associations or flight of ideas. THOUGHT CONTENT: Free of auditory or visual hallucinations, ideas of reference , thought broadcasting, delusions, obsessions, compulsions. Patient denying suicidal or homicidal ideation. SENSORIUM: Clear. COGNITION: Alert and oriented to person, place, partially to time, and minimally to full situation. MEMORY: Immediate, recent, and remote some impairment present. INTELLIGENCE: Historically average based on historical data and past interviews. INSIGHT AND JUDGMENT: Limited, patient demonstrating inability and lack of desire to adequately treat his own medical conditions. RESULTS OF TESTING IMAGING: See electronic record. LABORATORY DATA: See above. CONSULTATIONS None. TREATMENT Patient received medications, participated in individual and group therapy. HOSPITAL COURSE Patient's diabetes able to quickly stabilize under the care of proper management. Patient noted to be on similar medication regimen at home prior to admission. Patient largely noncompliant with regimen at home and noncompliant with diet at home. Patient's mood remained largely cooperative while on the unit. No aggression towards staff was noted. CONDITION OF PATIENT ON TRANSFER Stable, considered minimal risk to himself or others, and appropriate for ongoing care at [facility]. DISPOSITION Patient discharged to care of [facility] staff, given followup there with medical management, controlled diet. Crisis line was given should symptoms return. DISCHARGE MEDICATIONS 1. Belsomra 10 mg at bedtime. 2. Combivent one puff daily. 3. Ecotrin 81 mg aspirin daily. 4. Glucophage 1000 mg at lunch and 1000 mg at supper. 5. Lantus 24 units at bedtime. 6. Lantus 32 units every morning. 7. Lipitor 10 mg at bedtime. 8. Melatonin 3 mg at bedtime. 9. Micro-K 10 mEq at lunch and supper. 10. Neurontin 300 mg three times daily. 11. Paxil 40 mg at bedtime. 12. Requip 2 mg at bedtime. 13. Spiriva one puff daily. 14. Synthroid 175 mcg daily. 15. Multivitamin with minerals daily. 16. Xarelto 20 mg at dinner. 17. Patient remained on sliding scale Humalog. 18. Patient could use Maalox and Tylenol as needed. Risks, benefits, and alternatives of above transfer plan were discussed. Informed consent was given to proceed with above transfer plan by [facility], this patient, and patient's daughter present at time of discharge. ADELINA
== END 2017-11-22 10:53 | DRG 57 ==
LOC: BHS 23:37
PROVIDERS: ADMIT Psychiatry & Neurology Psychiatry; ATTEND Psychiatry & Neurology Psychiatry
DX: G31.84 Mild cognitive impairment of uncertain or unknown etiology (principal); F32.9 Major depressive disorder, single episode, unspecified; I87.8 Other specified disorders of veins; F34.1 Dysthymic disorder; I10 Essential (primary) hypertension; G25.81 Restless legs syndrome; F39 Unspecified mood [affective] disorder; E09.649 Drug or chemical induced diabetes mellitus with hypoglycemia without coma; T38.3X5A Adverse effect of insulin and oral hypoglycemic [antidiabetic] drugs, initial encounter; Y92.239 Unspecified place in hospital as the place of occurrence of the external cause; I95.2 Hypotension due to drugs; E03.9 Hypothyroidism, unspecified; R60.0 Localized edema; J44.9 Chronic obstructive pulmonary disease, unspecified; Z63.0 Problems in relationship with spouse or partner; Z91.11 Patient's noncompliance with dietary regimen; Z91.14 Patient's other noncompliance with medication regimen; Z79.4 Long term (current) use of insulin; Z79.01 Long term (current) use of anticoagulants; Z81.1 Family history of alcohol abuse and dependence; Z81.8 Family history of other mental and behavioral disorders; Z86.718 Personal history of other venous thrombosis and embolism; Z87.891 Personal history of nicotine dependence
CPT/HCPCS: 36415; 36416; 82040; 82247; 82310; 82374; 82435; 82565; 82947; 82948; 84075; 84132; 84155; 84295; 84450; 84460; 84520; 85025; 94640; 97163; J1815; J3535